=== PATIENT | male | born 1945 | race Two or more races ===

== ENCOUNTER 2017-02-23 09:29 | Emergency (ER) | payer MEDICARE, MEDICAID ==
[~2017-02-23] VITALS: Ht 157.5 cm; Wt 63.5 kg
[2017-02-23] MEDS ORDERED: BACLOFEN10 MG ORAL (09:41)
[2017-02-23] MEDS ORDERED: ATORVASTATIN CA40 MG ORAL (09:41)
[2017-02-23] MEDS ORDERED: ASPIR 8181 MG ORAL (09:41)
[2017-02-23] MEDS ORDERED: VITAMIN D1000 UNI1 IV (09:43)
[2017-02-23] MEDS ORDERED: DOCUSATE SODIU100 MG ORAL (09:43)
[2017-02-23] MEDS ORDERED: CARVEDILOL3.125 MG ORAL (09:43)
[2017-02-23] MEDS ORDERED: SENNA8.6 M2 PO (09:56)
[2017-02-23] MEDS ORDERED: GABAPENTIN100 MG ORAL (09:56)
[2017-02-23] MEDS ORDERED: TYLENOL325 MG ORAL (09:56)
[2017-02-23] MEDS ORDERED: NEPHROVITE1 TAB ORAL (09:56)
[2017-02-23] MEDS ORDERED: FINASTERIDE5 MG ORAL (09:56)
[2017-02-23] MEDS ORDERED: ACETAMINOPHEN500 MG ORAL (09:56)
[2017-02-23] MEDS ORDERED: GLIMEPIRIDE1 MG ORAL (09:56)
[2017-02-23] MEDS ORDERED: FAMOTIDINE20 MG ORAL (09:56)
[2017-02-23] MEDS ORDERED: FUROSEMIDE40 MG/5 ML ORAL (09:56)
[2017-02-23] MEDS ORDERED: ALUM-MAG HYDRO360 ML PO (09:56)
[2017-02-23] MEDS ORDERED: MELATONIN5 M6 PO (09:56)
[2017-02-23] MEDS ORDERED: NORCO 5-325 TA1 EAC1 ORAL (09:56)
[2017-02-23] MEDS ORDERED: UTI-STAT L3875 MG/31 PO (09:56)
[2017-02-23] MEDS ORDERED: FISH OIL 1,0001 EAC5 ORAL (09:56)
[2017-02-23] MEDS ORDERED: Tetanus/Diptheria/Pertussis Vaccine 0.5ml Syr IM ONE (10:30)
--- NOTE | 2017-02-23 10:31 | Emergency Room Report ---
History of Present Illness General Chief Complaint: Laceration Source: Patient, Medical Record, EMS Present Illness HPI 71-year-old male with right ear laceration after accidentally accidentally umping head against dresser drawer multiple hours ago. Patient denies loss of consciousness, vomiting, blurry vision. Denies any other injury. Per review of correction paperwork patient is on aspirin, but no other anticoagulation. Allergies: Coded Allergies: No Known Allergies (Unverified , 02/23/17) Patient History Past Medical History: see triage record, old chart reviewed Past Surgical History: none Pertinent Family History: none Social History: Denies: smoking, alcohol use, drug use Immunizations: UTD Reviewed Nursing Documentation: PMH: Agreed, PSxH: Agreed Nursing Documentation-PMH Hx Cardiac Problems: Yes - CHF Hx Hypertension: Yes Hx Cancer: Yes - Nephrectomy Hx Cerebrovascular Accident: Yes Review of Systems All Other Systems: negative except mentioned in HPI Physical Exam Vital Signs Date Time Temp Pulse Resp B/P (MAP) Pulse Ox O2 Delivery O2 Flow Rate FiO2 02/23/17 09:20 98.1 71 16 191/82 98 Room Air Sp02 EP Interpretation: reviewed, normal General Appearance: normal inspection, well appearing, no apparent distress, alert, GCS 15, non-toxic Head: normocephalic, atraumatic Eyes: bilateral eye PERRL, bilateral eye EOMI ENT: normal ENT inspection, hearing grossly normal, normal voice, other - Right ear: There is a L-shaped linear laceration to the camryn that extends almost to the upper part of the tragus. Laceration is deep. 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 tested, motor strength/tone normal, speech normal Psychiatric: normal inspection, judgement/insight normal, mood/affect normal Skin: normal inspection, normal color, no rash Procedures Laceration/Wound Repair Laceration/Wound Repair #1: Consent: Verbal Wound Location: other - right ear Wound's Depth, Shape: linear, stellate Wound Explored: no foreign body removed Betadine Prep?: Yes Anesthesia: 1% Lidocaine Wound Debrided: minimal Wound Repaired With: sutures Suture Size/Type: 5:0 Number of Sutures: 4 Layer Closure?: Yes Deep Layer Suture Size/Type: 4:0 Number Deep Layer Sutures: 1 Sterile Dressing Applied?: Yes Splint Applied?: No Sling Applied?: No Patient Tolerated: Well Complications: None Laceration/Wound Repair #2: Consent: Verbal Wound Location: other - right earlobe Wound's Depth, Shape: superficial Wound Explored: clean Betadine Prep?: Yes Anesthesia: 1% Lidocaine Wound Debrided: minimal Suture Size/Type: 5:0 Number of Sutures: 2 Layer Closure?: No Sterile Dressing Applied?: Yes Splint Applied?: No Sling Applied?: No Patient Tolerated: Well Complications: None Medical Decision Making Diagnostic Impression: Primary Impression: Ear lobe laceration Qualified Codes: S01.311A - Laceration without foreign body of right ear, initial encounter Additional Impression: Laceration of ear Qualified Codes: S01.311A - Laceration without foreign body of right ear, initial encounter ER Course Patient with 2 lacerations to right ear Status post primary repair in the ER Largest of the lacerations on the camryn needed layer closure CT head negative for acute intracranial hemorrhage or trauma Advise followup return for suture removal in 5-7 days Discharge back to nursing facility Last Vital Signs Date Time Temp Pulse Resp B/P (MAP) Pulse Ox O2 Delivery O2 Flow Rate FiO2 02/23/17 09:20 98.1 71 16 191/82 98 Room Air Status: improved Disposition: [facility] JAVIER HARDY M.D. Feb 23, 2017 10:31
--- NOTE | 2017-02-23 11:29 | Diagnostic Imaging Report ---
Indication: Headache Technique: Contiguous 5 mm thick transaxial imaging of the head obtained in a Siemens Sensation [address] scanner. Soft tissue and bone windows generated. Automatic Exposure Control was utilized. Total Dose length Product (DLP): [address] Dose Index Volume (CTDIvol): 70.38, 0.15 mGy Comparison: none Findings: There is mild prominence of the ventricles, basal cisterns, and cerebral sulci consistent with atrophy. Mild, nonspecific, white matter hypoattenuation is noted throughout the brain consistent with chronic small vessel disease. Small cystic foci noted in the basal ganglia bilaterally, feldman radiata and corpus callosum, likely old small ossicle infarcts. There is no midline shift, edema, acute hemorrhage, mass effect, or abnormal extra-axial fluid collections. Bones and extra osseous soft tissues are unremarkable. Impression: No acute intracranial bleed, mass effect or edema. Multiple old small vessel infarcts Mild atrophy of the brain. Nonspecific white matter hypoattenuation probably due to chronic small vessel disease. The CT scanner at [facility] is accredited by the [employer] and the scans are performed using dose optimization techniques as appropriate to a performed exam including Automatic Exposure control.
[2017-02-23 11:49] VITALS: BP 167/61
[2017-02-23 13:27] VITALS: BP 170/80
== END 2017-02-23 13:32 ==
LOC: EDBD 09:29 → EMR 09:58
DX: S01.311A Laceration without foreign body of right ear, initial encounter (principal); W22.03XA Walked into furniture, initial encounter; Y92.89 Other specified places as the place of occurrence of the external cause; Z23 Encounter for immunization; I11.0 Hypertensive heart disease with heart failure; I50.9 Heart failure, unspecified; Z86.73 Personal history of transient ischemic attack (TIA), and cerebral infarction without residual deficits; Z90.5 Acquired absence of kidney
CPT/HCPCS: 70450; 90471; 90715; 99284

== ENCOUNTER 2017-05-28 11:56 | Inpatient (IN) | payer MEDICAID, MEDICARE ==
[~2017-05-28] VITALS: Ht 157.5 cm; Wt 54.4 kg
[~2017-05-28 11:56] MED LIST: ACETAMINOPHEN500 MG ORAL; ALUM-MAG HYDRO360 ML PO; ASPIR 8181 MG ORAL; ATORVASTATIN CA40 MG ORAL; BACLOFEN10 MG ORAL; CARVEDILOL3.125 MG ORAL; DOCUSATE SODIU100 MG ORAL; FAMOTIDINE20 MG ORAL; FINASTERIDE5 MG ORAL; FISH OIL 1,0001 EAC5 ORAL; FUROSEMIDE40 MG/5 ML ORAL; GABAPENTIN100 MG ORAL; GLIMEPIRIDE1 MG ORAL; MELATONIN5 M6 PO; NEPHROVITE1 TAB ORAL; NORCO 5-325 TA1 EAC1 ORAL; SENNA8.6 M2 PO; TYLENOL325 MG ORAL; UTI-STAT L3875 MG/31 PO; VITAMIN D1000 UNI1 IV
--- NOTE | 2017-05-28 12:40 | Emergency Room Report ---
History of Present Illness General Chief Complaint: Earache Source: Patient, Medical Record, EMS Present Illness HPI Patient is a 71-year-old male present after increased left earache. Patient had been seen for similar symptoms and this could become worse. Patient was noted to have a left ear discharge. Having increased pain. Patient is diabetic. Had noted an increased swelling to the left side of his face. Initial pain occurred approximately 1 week ago Allergies: Coded Allergies: No Known Allergies (Unverified , 02/23/17) Patient History Past Medical History: see triage record Reviewed Nursing Documentation: PMH: Agreed, PSxH: Agreed Nursing Documentation-PMH Past Medical History: No History, Except For Hx Cardiac Problems: Yes - CHF, Anemia Hx Hypertension: Yes Hx Diabetes: Yes Hx Cancer: Yes - Nephrectomy Hx Cerebrovascular Accident: Yes - right dominant side Review of Systems All Other Systems: negative except mentioned in HPI Physical Exam Vital Signs Date Time Temp Pulse Resp B/P (MAP) Pulse Ox O2 Delivery O2 Flow Rate FiO2 05/28/17 12:07 98.3 63 14 136/58 97 Room Air 98.2 Sp02 EP Interpretation: reviewed, normal General Appearance: normal inspection, well appearing, no apparent distress, alert, GCS 15 Head: atraumatic ENT: hearing grossly normal, normal voice, other - perforated left eardrum, slight preauricular swelling Neck: normal inspection, full range of motion, supple, no bony tend Respiratory: normal inspection, lungs clear, normal breath sounds, no respiratory distress, no retraction, no wheezing Cardiovascular #1: regular rate, rhythm, no edema Gastrointestinal: normal inspection, normal bowel sounds, non tender, soft, no guarding, no hernia Genitourinary: no CVA tenderness Musculoskeletal: normal inspection, back normal, normal range of motion Neurologic: normal inspection, alert, responsive, speech normal Psychiatric: normal inspection, judgement/insight normal, mood/affect normal Skin: normal inspection, normal color, no rash Medical Decision Making Diagnostic Impression: Primary Impression: Otitis media, acute with perforation of eardrum Additional Impression: Cellulitis of left ear ER Course Patient presented for ear pain. Differential diagnosis included was not limited to otitis media, malignant otitis externa, foreign body, cellulitis, mastoiditis, carotid dissection, myocardial infarction among others. Patient's exam is consistent with an external otitis which given the patient's failure of outpatient antibiotics would likely require IV medications.Laboratory studies unremarkable. Patient did have increased swelling to his left ear. Patient was noted to have some evidence of external infectionDr. Escobar was contacted for inpatient management due to need for inpatient monitoring and treatment due to primary care physician. Labs Test 05/28/17 12:55 White Blood Count 7.9 K/UL (4.8-10.8) Red Blood Count 4.08 M/UL (4.70-6.10) Hemoglobin 12.5 G/DL (14.2-18.0) Hematocrit 37.1 % (42.0-52.0) Mean Corpuscular Volume 91 FL (80-99) Mean Corpuscular Hemoglobin 30.7 PG (27.0-31.0) Mean Corpuscular Hemoglobin Concent 33.7 G/DL (32.0-36.0) Red Cell Distribution Width 12.8 % (11.6-14.8) Platelet Count 231 K/UL (150-450) Mean Platelet Volume 6.4 FL (6.5-10.1) Neutrophils (%) (Auto) 60.3 % (45.0-75.0) Lymphocytes (%) (Auto) 23.9 % (20.0-45.0) Monocytes (%) (Auto) 11.0 % (1.0-10.0) Eosinophils (%) (Auto) 3.9 % (0.0-3.0) Basophils (%) (Auto) 0.9 % (0.0-2.0) Prothrombin Time 10.1 SEC (9.30-11.50) Prothromb Time International Ratio 1.0 (0.9-1.1) Activated Partial Thromboplast Time 28 SEC (23-33) Sodium Level 137 MMOL/L (136-145) Potassium Level 4.9 MMOL/L (3.5-5.1) Chloride Level 105 MMOL/L (98-107) Carbon Dioxide Level 23 MMOL/L (21-32) Anion Gap 9 mmol/L (5-15) Blood Urea Nitrogen 20 mg/dL (7-18) Creatinine 2.4 MG/DL (0.55-1.30) Estimat Glomerular Filtration Rate mL/min (>60) Glucose Level 165 MG/DL (74-106) Calcium Level 8.2 MG/DL (8.5-10.1) Total Bilirubin 0.2 MG/DL (0.2-1.0) Aspartate Amino Transf (AST/SGOT) 34 U/L (15-37) Alanine Aminotransferase (ALT/SGPT) 50 U/L (12-78) Alkaline Phosphatase 126 U/L (46-116) Total Protein 6.8 G/DL (6.4-8.2) Albumin 3.2 G/DL (3.4-5.0) Globulin 3.6 g/dL Albumin/Globulin Ratio 0.9 (1.0-2.7) Last Vital Signs Date Time Temp Pulse Resp B/P (MAP) Pulse Ox O2 Delivery O2 Flow Rate FiO2 05/28/17 12:07 98.3 63 14 136/58 97 Room Air 98.2 Status: unchanged Disposition: ADMITTED INPATIENT Condition: Eddie Oconnor May 28, 2017 12:40
[2017-05-28 13:20] LABS: BASOPHILS % (AUTO) 0.9 % (0.0-2.0); EOSINOPHILS % (AUTO) 3.9 % (0.0-3.0); HEMATOCRIT 37.1 % (42.0-52.0); HEMOGLOBIN 12.5 G/DL (14.2-18.0); LYMPHOCYTES % (AUTO) 23.9 % (20.0-45.0); MEAN CORPUSCULAR VOLUME 91 FL (80-99); NEUTROPHILS % (AUTO) 60.3 % (45.0-75.0); PLATELET COUNT 231 K/UL (150-450); RED BLOOD COUNT 4.08 M/UL (4.70-6.10); RED CELL DISTRIBUTION WIDTH 12.8 % (11.6-14.8); WHITE BLOOD COUNT 7.9 K/UL (4.8-10.8)
[2017-05-28 13:24] LABS: ANION GAP 9 mmol/L (5-15); BLOOD UREA NITROGEN 20 mg/dL (7-18); CALCIUM 8.2 MG/DL (8.5-10.1); CARBON DIOXIDE 23 MMOL/L (21-32); CHLORIDE 105 MMOL/L (98-107); CREATININE 2.4 MG/DL (0.55-1.30); POTASSIUM 4.9 MMOL/L (3.5-5.1); SODIUM 137 MMOL/L (136-145)
[2017-05-28 13:29] LABS: ALANINE AMINOTRANSFERASE 50 U/L (12-78); ALBUMIN 3.2 G/DL (3.4-5.0); ALBUMIN/GLOBULIN RATIO 0.9 (1.0-2.7); ALKALINE PHOSPHATASE 126 U/L (46-116); ASPARTATE AMINO TRANSFERASE 34 U/L (15-37); BILIRUBIN,TOTAL 0.2 MG/DL (0.2-1.0)
[2017-05-28 14:15] VITALS: BP 143/64
--- NOTE | 2017-05-28 14:18 | Diagnostic Imaging Report ---
Indication: Headache Technique: Contiguous 5 mm thick transaxial imaging of the head obtained in a Siemens Sensation [address] scanner. Soft tissue and bone windows generated. Automatic Exposure Control was utilized. Total Dose length Product (DLP): 1439.[address] Dose Index Volume (CTDIvol): 70.38 mGy Comparison: February 23, 2017 Findings: Old bilateral lacunar infarcts are demonstrated involving the right caudate, and bilateral putamen regions. The findings have a similar appearance on the prior study. There is moderate prominence of the ventricles, basal cisterns, and cerebral sulci consistent with atrophy. Moderate, nonspecific, white matter hypoattenuation is noted throughout the brain consistent with chronic small vessel disease. Extensive vascular calcifications are present within intracranial ICA. There is no midline shift, edema, acute hemorrhage, mass effect, or abnormal extra-axial fluid collections. There is opacification of part of the mastoid air cells on the left side consistent with acute mastoiditis. Impression: No acute intracranial bleed, mass effect or edema. Multiple bilateral basal ganglia lacunar infarcts. These appear old and were present on the prior study. Acute left mastoiditis. Please correlate clinically Moderate atrophy of the brain. Evidence of chronic small vessel disease involving white matter tracts. Atherosclerotic disease The CT scanner at [facility] is accredited by the [employer] and the scans are performed using dose optimization techniques as appropriate to a performed exam including Automatic Exposure control.
[2017-05-28] MEDS ORDERED: MULTIVITAMINS1 EAC2 ORAL (14:37)
[2017-05-28] MEDS ORDERED: NORCO 5-325 TA1 EAC1 ORAL (14:37)
[2017-05-28] MEDS ORDERED: FISH OIL 1,0001 EAC5 ORAL (14:37)
[2017-05-28] MEDS ORDERED: UTI-STAT L3875 MG/31 PO (14:37)
[2017-05-28] MEDS ORDERED: LOSARTAN POTASS50 MG ORAL (14:37)
[2017-05-28 16:30] VITALS: BP 152/61
[2017-05-28 16:56] VITALS: BP 152/77
[2017-05-28] MEDS ORDERED: Norco 5mg/325mg tab ORAL PRN (18:15)
[2017-05-28] MEDS ORDERED: Sennosides 8.6mg ORAL PRN (18:15)
[2017-05-28] MEDS: Losartan 25mg tab ORAL SCH (19:13)
[2017-05-28 19:47] VITALS: BP 152/72
[2017-05-28] MEDS: Ampicillin/Sulbactam Sod 3 GM in NS 110 ML IVPB SCH (20:15)
[2017-05-28] MEDS: Carvedilol 6.25mg Tab ORAL SCH (20:28)
[2017-05-28] MEDS: Atorvastatin 20mg tab ORAL SCH (20:28)
[2017-05-28] MEDS: NovoLOG Insulin Flexpen SUBQ SCH (20:29)
[2017-05-28] MEDS ORDERED: Vancomycin 1 GM in D5W 275 ML IVPB ONE (21:00)
[2017-05-28] MEDS ORDERED: Ampicillin/Sulbactam Sod 3 GM in NS 110 ML IVPB SCH (22:00)
[2017-05-28 23:52] VITALS: BP 129/69
[2017-05-29 04:00] VITALS: BP 138/67
[2017-05-29] MEDS: NovoLOG Insulin Flexpen SUBQ SCH ×4 (06:10→20:25)
[2017-05-29 07:31] LABS: BASOPHILS % (AUTO) 0.6 % (0.0-2.0); EOSINOPHILS % (AUTO) 6.3 % (0.0-3.0); HEMATOCRIT 35.7 % (42.0-52.0); HEMOGLOBIN 12.3 G/DL (14.2-18.0); LYMPHOCYTES % (AUTO) 26.2 % (20.0-45.0); MEAN CORPUSCULAR VOLUME 90 FL (80-99); MONOCYTES % (AUTO) 10.6 % (1.0-10.0); NEUTROPHILS % (AUTO) 56.3 % (45.0-75.0); PLATELET COUNT 231 K/UL (150-450); RED BLOOD COUNT 3.95 M/UL (4.70-6.10); RED CELL DISTRIBUTION WIDTH 12.8 % (11.6-14.8)
[2017-05-29 07:41] VITALS: BP 156/82
[2017-05-29] MEDS: Vitamin D 1000 IU Tab ORAL SCH (08:14)
[2017-05-29] MEDS: Carvedilol 6.25mg Tab ORAL SCH ×2 (08:14→20:24)
[2017-05-29] MEDS: Aspirin Baby 81mg ORAL SCH (08:14)
[2017-05-29] MEDS: Docusate 100mg cap ORAL SCH ×2 (08:15→17:07)
[2017-05-29] MEDS: Losartan 25mg tab ORAL SCH (08:15)
[2017-05-29] MEDS: Enoxaparin 30mg Inj SUBQ SCH (08:19)
[2017-05-29 08:51] LABS: ANION GAP 8 mmol/L (5-15); BLOOD UREA NITROGEN 19 mg/dL (7-18); CALCIUM 8.1 MG/DL (8.5-10.1); CARBON DIOXIDE 23 MMOL/L (21-32); CHLORIDE 105 MMOL/L (98-107); CHOLESTEROL 110 MG/DL (< 200); CREATININE 2.3 MG/DL (0.55-1.30); HDL CHOLESTEROL 59 MG/DL (40-60); POTASSIUM 4.7 MMOL/L (3.5-5.1); SODIUM 135 MMOL/L (136-145); TRIGLYCERIDES 46 MG/DL (30-150)
[2017-05-29] MEDS: Ampicillin/Sulbactam Sod 3 GM in NS 110 ML IVPB SCH ×2 (09:23→20:25)
[2017-05-29 12:00] VITALS: BP 120/76
--- NOTE | 2017-05-29 12:54 | History & Physical ---
History and Physical History & Physicial seen and examined. Dict completed. Tara Escobar MD May 29, 2017 12:54
--- NOTE | 2017-05-29 12:59 | General Progress Note ---
Assessment/Plan Status: stable Assessment/Plan 1- Acute Left mastoiditis 2- DM 3- CVA- history of 4- HTN 5- HLP 6- CKD Plan ID nephro ENT consulted Subjective ROS Limited/Unobtainable: No Constitutional: Reports: malaise HEENT: Reports: ear pain Allergies: Coded Allergies: No Known Allergies (Unverified , 02/23/17) Objective Last 24 Hour Vital Signs Date Time Temp Pulse Resp B/P (MAP) Pulse Ox O2 Delivery O2 Flow Rate FiO2 05/29/17 08:15 156/82 05/29/17 08:14 73 156/82 05/29/17 07:41 98.2 73 18 156/82 98 Room Air 98.2 05/29/17 04:00 98.2 87 21 138/67 98 98.2 05/29/17 00:00 Room Air 05/28/17 23:52 98.1 84 18 129/69 98 98.1 05/28/17 20:28 71 152/72 05/28/17 20:00 Room Air 05/28/17 19:47 98.6 71 18 152/72 97 98.6 05/28/17 19:13 152/77 05/28/17 16:56 98.1 76 20 152/77 96 Room Air 98.1 05/28/17 16:37 98.9 77 20 152/61 99 Room Air 98.9 05/28/17 16:30 98.9 77 20 152/61 99 Room Air 98.9 05/28/17 14:15 98.2 64 13 143/64 100 Room Air 98.2 Intake and Output 05/28/17 05/29/17 19:00 07:00 Intake Total 480 ml 505.000 ml Output Total 200 ml 800 ml Balance 280 ml -295.000 ml Intake Oral 480 ml 120 ml IV Total 385.000 ml Output Urine Total 200 ml 800 ml # Voids 2 3 Laboratory Tests 05/28/17 12:55: White Blood Count 7.9, Red Blood Count 4.08L, Hemoglobin 12.5L, Hematocrit 37.1L , Mean Corpuscular Volume 91, Mean Corpuscular Hemoglobin 30.7, Mean Corpuscular Hemoglobin Concent 33.7, Red Cell Distribution Width 12.8, Platelet Count 231, Mean Platelet Volume 6.4L, Neutrophils (%) (Auto) 60.3, Lymphocytes ( %) (Auto) 23.9, Monocytes (%) (Auto) 11.0H, Eosinophils (%) (Auto) 3.9H, Basophils (%) (Auto) 0.9, Prothrombin Time 10.1, Prothromb Time International Ratio 1.0, Activated Partial Thromboplast Time 28, Sodium Level 137, Potassium Level 4.9, Chloride Level 105, Carbon Dioxide Level 23, Anion Gap 9, Blood Urea Nitrogen 20H, Creatinine 2.4H, Estimat Glomerular Filtration Rate , Glucose Level 165H, Calcium Level 8.2L, Total Bilirubin 0.2, Aspartate Amino Transf (AST /SGOT) 34, Alanine Aminotransferase (ALT/SGPT) 50, Alkaline Phosphatase 126H, Total Protein 6.8, Albumin 3.2L, Globulin 3.6, Albumin/Globulin Ratio 0.9L 05/29/17 05:40: White Blood Count 7.0, Red Blood Count 3.95L, Hemoglobin 12.3L, Hematocrit 35.7L , Mean Corpuscular Volume 90, Mean Corpuscular Hemoglobin 31.2H, Mean Corpuscular Hemoglobin Concent 34.5, Red Cell Distribution Width 12.8, Platelet Count 231, Mean Platelet Volume 6.7, Neutrophils (%) (Auto) 56.3, Lymphocytes (% ) (Auto) 26.2, Monocytes (%) (Auto) 10.6H, Eosinophils (%) (Auto) 6.3H, Basophils (%) (Auto) 0.6, Sodium Level 135L, Potassium Level 4.7, Chloride Level 105, Carbon Dioxide Level 23, Anion Gap 8, Blood Urea Nitrogen 19H, Creatinine 2.3H, Estimat Glomerular Filtration Rate , Glucose Level 95, Calcium Level 8.1L, Hemoglobin A1c 7.5H, Triglycerides Level 46, Cholesterol Level 110, LDL Cholesterol 53, HDL Cholesterol 59, Cholesterol/HDL Ratio 1.9L Height (Feet): 5 Height (Inches): 2.00 Weight (Pounds): 120 EENT: other - LEf Neck: supple Cardiovascular: normal rate Respiratory/Chest: lungs clear Abdomen: soft Extremities: non-tender Neurologic: other - limited evaluation Tara Escobar MD May 29, 2017 12:59
[2017-05-29 13:31] LABS: APPEARANCE,URINE CLEAR; BILIRUBIN, URINE NEGATIVE (NEGATIVE); COLOR,URINE PALE YELLOW; GLUCOSE, URINE (UA) NEGATIVE (NEGATIVE); KETONES,URINE NEGATIVE (NEGATIVE); LEUKOCYTE ESTERASE ,URINE NEGATIVE (NEGATIVE); NITRITE,URINE NEGATIVE (NEGATIVE); PH,URINE 6 (4.5-8.0); PROTEIN,URINE 3+ (NEGATIVE); UROBILINOGEN,URINE NORMAL MG/DL (0.0-1.0)
--- NOTE | 2017-05-29 14:28 | Wound Care Consultation ---
Wound Assessment Wound Assessment : Wound Number: 1 Wound Present on Admission: Yes New Wound: No Status Change of Wound: No Wound Location Body Site Modif: left, lateral Wound Location Body Site: toe - TOE NAIL DRY SCAB Wound Length: 0.5 Wound Width: 0.5 Percent of Wound Black/Brown: 100 - Dry scab Wound Drainage Amount: None Wound Drainage Odor: None/Absent Tissue Surrounding Wound: Intact Wound General Appearance: Open to air, Clean/Dry Wound Comment #1 left lateral 1st toenail dry scab per patient this area was previously treated he had an ingrown toe nail and was seen by podiatry doctor elsewhere to cut ingrown toe nail and it had gotten better since its healing, drying up. upon assessment noted dry scab no drainage , no foul odor, no redness, no erythema present, no swelling present Recommendation -Keep clean and dry, -Assess daily for any further change of condition to skin and follow up with MD, PODIATRY. -Offload area. -Follow up with MD for any changes of condition to skin noted. JOSÉ MIGUEL BASILIO May 29, 2017 14:28
--- NOTE | 2017-05-29 14:46 | Consultation ---
Consult Note Consult Note ID DIC # [id number] CASEY MONTEMAYOR M.D. May 29, 2017 14:46
[2017-05-29 16:00] VITALS: BP 150/74
[2017-05-29 20:00] VITALS: BP 143/71
[2017-05-29] MEDS: Atorvastatin 20mg tab ORAL SCH (20:24)
[2017-05-29] MEDS ORDERED: Vancomycin 500mg in D5W 275ml IVPB SCH (21:00)
--- NOTE | 2017-05-29 22:15 | Consultation ---
DATE OF CONSULTATION: 05/29/2017 INFECTIOUS DISEASE CONSULTATION CONSULTING PHYSICIAN: Toan Farley M.D. REFERRING PHYSICIAN: Tara Escobar M.D. REASON FOR CONSULTATION: Evaluation of the patient for otitis media, antibiotic management. HISTORY OF PRESENT ILLNESS: The patient is a 71-year-old male with multiple medical problems, who was admitted to this medical center due to the left earache which started few days ago after the patient took shower and felt there is some water in his ear. The patient has perforation of the tympanic membrane after that developed some drainage. Infectious diseases consultation has been requested for further evaluation of the patient and antibiotic management. PAST MEDICAL HISTORY: 1. History of CVA with right-sided weakness. 2. CHF. 3. Hyperlipidemia. 4. Hypertension. 5. GERD. 6. History of right nephrectomy due to cancer. 7. Diabetes. 8. Anemia. MEDICATIONS: The patient received one dose of Unasyn in the emergency room. ALLERGIES: No known drug allergies. SOCIAL HISTORY: Negative for alcohol, drug abuse, or smoking. FAMILY HISTORY: Noncontributory. REVIEW OF SYSTEMS: HEENT: No recent change in vision. Ear as mentioned above. PULMONARY: No cough or shortness of breath. CARDIOVASCULAR: No chest pain or palpitation. GASTROINTESTINAL/ABDOMEN: No nausea or vomiting. GENITOURINARY: No mentioned above. PHYSICAL EXAMINATION: VITAL SIGNS: Temperature 98, blood pressure 156/82, pulse 73, respiratory rate 18. HEENT: The patient has perforated tympanic membrane of left ear. Minimal drainage in the ear. NECK: No lymphadenopathy. CHEST: Clear. HEART: S1 and S2. ABDOMEN: Soft and nontender. EXTREMITIES: No cyanosis. NEUROLOGIC: Awake and alert. The patient has right-sided weakness. LABORATORY AND DIAGNOSTIC DATA: White blood cells 7, hemoglobin 12, platelets 231. UA unremarkable. BUN 19 and creatinine 2.3. ALT and AST unremarkable. Alkaline phosphatase 126. CT of the head no acute intracranial bleed, bilateral basilar ganglia lacunar infarct, left-sided mastoiditis. ASSESSMENT: The patient is 71-year-old male with multiple medical problems who has: 1. Left-sided mastoiditis. 2. Left otitis media. 3. Perforated tympanic membrane. PLAN: 1. We will start patient on Levaquin 750 mg for one week. 2. Monitor CBC. 3. Monitor BMP. 4. Monitor cultures. 5. Monitor the patient's clinical course. 6. Based on the patient's clinical course and labs, we do further recommendations. Thank you, Dr. Escobar, for allowing me to participate in the care of this patient. I will follow the patient with you during this hospitalization. Toan Farley M.D. DR: Chas JOB#: [id number] CC:
[2017-05-30] VITALS: BP 132/71
--- NOTE | 2017-05-30 00:30 | History and Physical Report ---
DATE OF ADMISSION: 05/28/2017 SOURCE OF INFORMATION: Patient and EMR. HISTORY OF PRESENT ILLNESS: The patient is a pleasant 71-year-old male with a prior history of diabetes and heart failure. The patient presented with the pain and worsening excretion from the left ear. At the time of evaluation, the patient is complaining of moderate pain. Denies any fever or chills. Denies any trauma. Denies any blurry vision. Complaining of decrease in the hearing of the left ear. PAST MEDICAL HISTORY: Diabetes, hypertension, CHF, anemia, chronic kidney disease, CVA, history of (right dominant side). CURRENT HOSPITAL MEDICATIONS: Reviewed and reconciled in the chart including, but not limited to, Unasyn, aspirin, Lipitor 40 mg daily, Coreg 6.25 mg b.i.d., Lasix 20 mg IV twice a day, gabapentin, sliding scale insulin, and Cozaar. ALLERGIES: NKDA. FAMILY HISTORY: Reviewed, noncontributory. REVIEW OF SYSTEMS: All 12 elements of review of systems reviewed. Pertinent positive and negative as above. PHYSICAL EXAMINATION: VITAL SIGNS: Blood pressure is 120/80, temperature 98.2, pulse oximetry 98% on room air, and respiratory rate 18-20. HEAD AND NECK: Atraumatic and normocephalic. Positive for the pain and tenderness overlying left mastoid sinus. Positive for minimal redness in the external auditory meatus. CHEST: Clear to auscultation. No wheezing. No crackles. HEART: S1 and S2. Regular rate and rhythm. ABDOMEN: Soft. No organomegaly. MUSCULOSKELETAL: Negative for any gross abnormal lateralized motor deficit. NEUROLOGIC: The patient is awake, alert, and oriented x3. LABORATORY AND DIAGNOSTIC DATA: Labs dated 05/28/2017 shows WBC of 7.9, hemoglobin 12.5, and platelets of 231,000. Sodium 137, potassium 4.9, BUN 20, and creatinine 2. ALT and AST normal. CT scan of the head is negative for any acute pathology. Positive for the acute left mastoiditis. ASSESSMENT: 1. Acute left-sided mastoiditis. 2. Chronic kidney disease. 3. Hypertension. 4. Diabetes type 2. 5. Cerebrovascular accident, history of. 6. Benign prostatic hypertrophy. 7. Gastrointestinal and deep venous thrombosis prophylaxis. PLAN OF CARE: We will resume the senior care medications. We will start empiric antibiotics therapy, Unasyn plus vancomycin. Infectious and Nephrology Services have been consulted and notified. Excretion has been sent for the cultures. Tara Escobar M.D. DR: RADHA JOB#: [id number] CC:
[2017-05-30 04:00] VITALS: BP 151/61
[2017-05-30] MEDS: NovoLOG Insulin Flexpen SUBQ SCH ×4 (06:24→22:01)
[2017-05-30 07:11] LABS: BASOPHILS % (AUTO) 1.1 % (0.0-2.0); EOSINOPHILS % (AUTO) 7.7 % (0.0-3.0); HEMATOCRIT 36.4 % (42.0-52.0); HEMOGLOBIN 12.7 G/DL (14.2-18.0); LYMPHOCYTES % (AUTO) 32.3 % (20.0-45.0); MEAN CORPUSCULAR VOLUME 90 FL (80-99); MONOCYTES % (AUTO) 9.8 % (1.0-10.0); NEUTROPHILS % (AUTO) 49.1 % (45.0-75.0); PLATELET COUNT 224 K/UL (150-450); RED BLOOD COUNT 4.04 M/UL (4.70-6.10); RED CELL DISTRIBUTION WIDTH 12.5 % (11.6-14.8); WHITE BLOOD COUNT 5.6 K/UL (4.8-10.8)
[2017-05-30 07:46] LABS: ANION GAP 9 mmol/L (5-15); BLOOD UREA NITROGEN 25 mg/dL (7-18); CALCIUM 8.3 MG/DL (8.5-10.1); CARBON DIOXIDE 22 MMOL/L (21-32); CHLORIDE 104 MMOL/L (98-107); CREATININE 2.6 MG/DL (0.55-1.30); POTASSIUM 4.6 MMOL/L (3.5-5.1); SODIUM 135 MMOL/L (136-145)
[2017-05-30 08:32] VITALS: BP 134/68
[2017-05-30] MEDS: Docusate 100mg cap ORAL SCH ×2 (09:01→17:15)
[2017-05-30] MEDS: Carvedilol 6.25mg Tab ORAL SCH ×2 (09:01→22:13)
[2017-05-30] MEDS: Vitamin D 1000 IU Tab ORAL SCH (09:01)
[2017-05-30] MEDS: Aspirin Baby 81mg ORAL SCH (09:01)
[2017-05-30] MEDS: Losartan 25mg tab ORAL SCH (09:02)
[2017-05-30] MEDS: Enoxaparin 30mg Inj SUBQ SCH (09:03)
[2017-05-30] MEDS: Ampicillin/Sulbactam Sod 3 GM in NS 110 ML IVPB SCH (09:18)
--- NOTE | 2017-05-30 10:30 | General Progress Note ---
Assessment/Plan Status: stable Assessment/Plan 1. Acute left-sided mastoiditis. 2. Chronic kidney disease. 3. Hypertension. 4. Diabetes type 2. 5. Cerebrovascular accident, history of. 6. Benign prostatic hypertrophy. 7. Gastrointestinal and deep venous thrombosis prophylaxis. Plan Notes from ID, ENT reviewed Current IV antibiotic management. Subjective ROS Limited/Unobtainable: No Constitutional: Reports: weakness HEENT: Reports: no symptoms Cardiovascular: Reports: no symptoms Allergies: Coded Allergies: No Known Allergies (Unverified , 02/23/17) Objective Last 24 Hour Vital Signs Date Time Temp Pulse Resp B/P (MAP) Pulse Ox O2 Delivery O2 Flow Rate FiO2 05/30/17 09:02 134/68 05/30/17 09:01 84 134/68 05/30/17 08:32 98.4 84 20 134/68 96 98.4 05/30/17 04:00 Room Air 05/30/17 04:00 98.3 80 18 151/61 95 98.3 05/30/17 00:35 Room Air 05/30/17 00:00 98.2 73 18 132/71 95 98.2 05/29/17 20:24 83 143/71 05/29/17 20:00 98.2 81 20 143/71 97 Room Air 98.2 05/29/17 16:00 98.4 81 18 150/74 95 Room Air 98.4 05/29/17 12:00 97.5 86 18 120/76 99 97.5 Intake and Output 05/29/17 05/30/17 19:00 07:00 Intake Total 1040 ml 805 ml Output Total 600 ml 1900 ml Balance 440 ml -1095 ml Intake Oral 620 ml 420 ml IV Total 420 ml 385 ml Output Urine Total 600 ml 1900 ml # Voids 2 Laboratory Tests 05/29/17 13:00: Urine Color Pale yellow, Urine Appearance Clear, Urine pH 6, Urine Specific [place] 1.010, Urine Protein 3+H, Urine Glucose (UA) Negative, Urine Ketones Negative, Urine Occult Blood Negative, Urine Nitrite Negative, Urine Bilirubin Negative, Urine Urobilinogen Normal, Urine Leukocyte Esterase Negative, Urine RBC 0, Urine WBC 0-2, Urine Squamous Epithelial Cells Occasional, Urine Bacteria None 05/30/17 05:15: White Blood Count 5.6, Red Blood Count 4.04L, Hemoglobin 12.7L, Hematocrit 36.4L , Mean Corpuscular Volume 90, Mean Corpuscular Hemoglobin 31.4H, Mean Corpuscular Hemoglobin Concent 34.8, Red Cell Distribution Width 12.5, Platelet Count 224, Mean Platelet Volume 6.5, Neutrophils (%) (Auto) 49.1, Lymphocytes (% ) (Auto) 32.3, Monocytes (%) (Auto) 9.8, Eosinophils (%) (Auto) 7.7H, Basophils (%) (Auto) 1.1, Sodium Level 135L, Potassium Level 4.6, Chloride Level 104, Carbon Dioxide Level 22, Anion Gap 9, Blood Urea Nitrogen 25H, Creatinine 2.6H, Estimat Glomerular Filtration Rate , Glucose Level 78, Calcium Level 8.3L Height (Feet): 5 Height (Inches): 2.00 Weight (Pounds): 120 General Appearance: WD/WN EENT: other - mild erythma in left ext canal meatus Neck: supple Cardiovascular: normal rate Respiratory/Chest: lungs clear Abdomen: soft Extremities: non-tender 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
[2017-05-30 11:46] VITALS: BP 146/72
[2017-05-30 12:39] LABS: PHOSPHORUS 3.6 MG/DL (2.5-4.9)
--- NOTE | 2017-05-30 15:30 | Diagnostic Imaging Report ---
Indication: History of right nephrectomy for cancer in 2012. Elevated BUN/creatinine. Renal failure. Technique: Grayscale and duplex Doppler imaging of the kidneys performed. Comparison: None Findings: Urinary bladder is unremarkable in appearance. IVC is unremarkable. Right kidney is absent. There are multiple cysts within the left kidney. Left kidney measures about 11 cm in length. There is no hydronephrosis. Cortical echogenicity is within normal limits. IMPRESSION: Cysts demonstrated within the left kidney. No evidence of obstructive nephropathy. Status post right nephrectomy
[2017-05-30 16:46] VITALS: BP 166/74
[2017-05-30] MEDS ORDERED: NS 275ml ONE (17:53)
--- NOTE | 2017-05-30 18:18 | Consultation ---
History of Present Illness General Date patient seen: May 29, 2017 Chief Complaint: Earache Present Illness HPI 71-year-old male with a prior history of diabetes and heart failure, presented with the pain of left ear. the pt is scottish speaking and pw depressed mood, anhedonia, insomnia and anxiety/ the pt was tearful during the exam abd stated that he is not sleeping and lost his appetite. also he stated that he is afraid to lose his kidney. he has si at times without plans Allergies: Coded Allergies: No Known Allergies (Unverified , 02/23/17) Medication History Scheduled Acetaminophen* (Tylenol Extra Strength*), 1,000 MG ORAL Q4HR, (Reported) Aspirin* (Aspir 81*), 81 MG ORAL DAILY, (Reported) Atorvastatin Calcium* (Atorvastatin Calcium*), 40 MG ORAL BEDTIME, (Reported) Baclofen* (Baclofen*), 5 MG ORAL BEDTIME, (Reported) Carvedilol* (Carvedilol*), 3.125 MG ORAL EVERY 12 HOURS, (Reported) Cholecalciferol (Vitamin D3)* (Vitamin D*), 1,000 UNIT IV DAILY, (Reported) Cran/Vitc/Mannose/Inulin/Brom (Uti-Stat Liquid), 3,875 MG PO DAILY, (Reported) Docusate Sodium* (Docusate Sodium*), 100 MG ORAL TWICE A DAY, (Reported) Famotidine (Famotidine), 20 MG ORAL TWICE A DAY, (Reported) Finasteride (Finasteride), 5 MG ORAL DAILY, (Reported) Furosemide (Furosemide), 20 MG ORAL BID, (Reported) Gabapentin* (Gabapentin*), 200 MG ORAL BID, (Reported) Glimepiride* (Glimepiride*), 1 MG ORAL BEFORE BREAKFAST, (Reported) Losartan Potassium* (Losartan Potassium*), 50 MG ORAL DAILY, (Reported) Mag Hydrox/Al Hydrox/Simeth (Alum-Mag Hydroxide-Simeth Liq), 30 ML PO EVERY 4 HOURS, (Reported) Multivitamins* (Multivitamins*), 1 TAB ORAL DAILY, (Reported) [place]-3 Fatty Acids/Fish Oil (Fish Oil 1,000 Mg Capsule), 1,000 MG ORAL DAILY, ( Reported) [place]-3 Fatty Acids/Fish Oil (Fish Oil 1,000 Mg Capsule), 1 CAP ORAL DAILY, ( Reported) Sennosides (Senna), 8.6 MG PO BEDTIME, (Reported) Vitamin B Cmplx/Vit C/Folic AC (Nephro-Chantel Tablet), 1 TAB ORAL DAILY, (Reported ) Scheduled PRN Acetaminophen (Tylenol), 650 MG ORAL Q4HR PRN for Prn Pain/Headache/Temp > 101, (Reported) Hydrocodone Bit/Acetaminophen 5-325* ([place] 5-325 Tablet*), 1 TAB ORAL Q4H PRN for For Pain, (Reported) Hydrocodone Bit/Acetaminophen 5-325* ([place] 5-325 Tablet*), 1 TAB ORAL Q4H PRN for For Pain, (Reported) Miscellaneous Medications Cran/Vitc/Mannose/Inulin/Brom (Uti-Stat Liquid), 3,875 MG PO, (Reported) Melatonin (Melatonin), 5 MG PO, (Reported) Patient History Limited by: medical condition History Provided By: Patient, Medical Record, PMD Healthcare decision maker Resuscitation status Full Code Advanced Directive on File Past Medical/Surgical History Past Medical/Surgical History: (1) Otitis media, acute with perforation of eardrum (2) Cellulitis of left ear Review of Systems Psychiatric: Reports: prior hx, anxiety, depressed feelings, emotional problems Physical Exam General Appearance: no apparent distress, alert Neurologic: oriented x 3, responsive, depressed affect Last 24 Hour Vital Signs Date Time Temp Pulse Resp B/P (MAP) Pulse Ox O2 Delivery O2 Flow Rate FiO2 05/30/17 16:46 99.0 71 20 166/74 93 Room Air 99.0 05/30/17 11:46 98.4 72 20 146/72 97 98.4 05/30/17 09:02 134/68 05/30/17 09:01 84 134/68 05/30/17 08:32 98.4 84 20 134/68 96 98.4 05/30/17 04:00 Room Air 05/30/17 04:00 98.3 80 18 151/61 95 98.3 05/30/17 00:35 Room Air 05/30/17 00:00 98.2 73 18 132/71 95 98.2 05/29/17 20:24 83 143/71 05/29/17 20:00 98.2 81 20 143/71 97 Room Air 98.2 Intake and Output 05/29/17 05/30/17 19:00 07:00 Intake Total 1040 ml 805 ml Output Total 600 ml 1900 ml Balance 440 ml -1095 ml Intake Oral 620 ml 420 ml IV Total 420 ml 385 ml Output Urine Total 600 ml 1900 ml # Voids 2 Laboratory Tests Test 05/30/17 05:15 05/30/17 15:30 White Blood Count 5.6 K/UL (4.8-10.8) Red Blood Count 4.04 M/UL (4.70-6.10) L Hemoglobin 12.7 G/DL (14.2-18.0) L Hematocrit 36.4 % (42.0-52.0) L Mean Corpuscular Volume 90 FL (80-99) Mean Corpuscular Hemoglobin 31.4 PG (27.0-31.0) H Mean Corpuscular Hemoglobin Concent 34.8 G/DL (32.0-36.0) Red Cell Distribution Width 12.5 % (11.6-14.8) Platelet Count 224 K/UL (150-450) Mean Platelet Volume 6.5 FL (6.5-10.1) Neutrophils (%) (Auto) 49.1 % (45.0-75.0) Lymphocytes (%) (Auto) 32.3 % (20.0-45.0) Monocytes (%) (Auto) 9.8 % (1.0-10.0) Eosinophils (%) (Auto) 7.7 % (0.0-3.0) H Basophils (%) (Auto) 1.1 % (0.0-2.0) Sodium Level 135 MMOL/L (136-145) L Potassium Level 4.6 MMOL/L (3.5-5.1) Chloride Level 104 MMOL/L (98-107) Carbon Dioxide Level 22 MMOL/L (21-32) Anion Gap 9 mmol/L (5-15) Blood Urea Nitrogen 25 mg/dL (7-18) H Creatinine 2.6 MG/DL (0.55-1.30) H Estimat Glomerular Filtration Rate mL/min (>60) Glucose Level 78 MG/DL (74-106) Uric Acid 5.1 MG/DL (2.6-7.2) Calcium Level 8.3 MG/DL (8.5-10.1) L Phosphorus Level 3.6 MG/DL (2.5-4.9) Magnesium Level 2.3 MG/DL (1.8-2.4) C-Reactive Protein, Quantitative 1.2 mg/dL (0.00-0.90) H Thyroid Stimulating Hormone (TSH) 3.749 uiU/mL (0.358-3.740) Urine Random Sodium 51 mmol/L (20-110) Height (Feet): 5 Height (Inches): 2.00 Weight (Pounds): 120 Medications Current Medications Medications (Trade) Dose Ordered Sig/Jared Route PRN Reason Start Time Stop Time Status Last Admin Dose Admin Acetaminophen (Tylenol) 650 mg Q4H PRN ORAL Mild Pain/Temp > 100.5 05/28/17 18:15 06/27/17 18:14 Acetaminophen/ Hydrocodone Bitart ([place] 5/325) 1 tab Q4H PRN ORAL Moderate Pain (Pain Scale 4-6) 05/28/17 18:15 06/04/17 18:14 05/29/17 05:51 Al Hydroxide/Mg Hydroxide (Mylanta) 30 ml Q4H PRN ORAL Abdominal cramps 05/28/17 18:15 06/27/17 18:14 Ampicillin Sodium/ Sulbactam Sodium 3 gm/Sodium Chloride 110 ml @ 220 mls/hr Q12HR IVPB 05/28/17 20:00 06/04/17 19:59 05/30/17 09:18 Aspirin (ASA) 81 mg DAILY ORAL 05/29/17 09:00 06/28/17 08:59 05/30/17 09:01 Atorvastatin Calcium (Lipitor) 40 mg BEDTIME ORAL 05/28/17 21:00 06/27/17 20:59 05/29/17 20:24 Baclofen (Lioresal) 5 mg BEDTIME ORAL 05/28/17 21:00 06/27/17 20:59 05/29/17 20:23 Carvedilol (Coreg) 6.25 mg EVERY 12 HOURS ORAL 05/28/17 21:00 06/27/17 20:59 05/30/17 09:01 Dextrose (Dextrose 50%) STAT PRN IV Hypoglycemia 05/28/17 18:15 06/27/17 18:14 Docusate Sodium (Colace) 100 mg TWICE A DAY ORAL 05/29/17 09:00 06/28/17 08:59 05/30/17 17:15 Enoxaparin Sodium (Lovenox) 30 mg DAILY SUBQ 05/29/17 09:00 06/28/17 08:59 05/30/17 09:03 Famotidine (Pepcid) 20 mg DAILY ORAL 05/29/17 09:00 06/28/17 08:59 05/30/17 09:01 Finasteride (Proscar) 5 mg DAILY ORAL 05/29/17 09:00 06/28/17 08:59 05/30/17 09:01 Fish Oil (Fish Oil) 1,000 mg TWICE A DAY ORAL 05/29/17 09:00 06/28/17 08:59 05/30/17 17:14 Furosemide (Lasix) 20 mg EVERY 12 HOURS ORAL 05/28/17 21:00 06/27/17 20:59 05/30/17 09:02 Gabapentin (Neurontin) 200 mg TWICE A DAY ORAL 05/29/17 09:00 06/28/17 08:59 05/30/17 17:14 Insulin Aspart (NovoLOG) BEFORE MEALS AND HS SUBQ 05/28/17 21:00 06/27/17 20:59 05/30/17 12:07 Levofloxacin 150 ml @ 100 mls/hr Q48H IVPB 05/29/17 16:00 06/05/17 23:59 05/29/17 17:13 Losartan Potassium (Cozaar) 25 mg DAILY ORAL 05/28/17 19:00 06/27/17 18:59 05/30/17 09:02 Multivitamins (Multivitamins) 1 tab DAILY ORAL 05/29/17 09:00 06/28/17 08:59 05/30/17 09:01 Sennosides (Senokot) 1 tab HSPRN PRN ORAL Constipation 05/28/17 18:15 06/27/17 18:14 Vancomycin HCl (Vanco rx to dose) 1 ea DAILYPRN PRN MISC RX TO DOSE PROTOCOL 05/29/17 16:30 06/28/17 16:29 Vancomycin HCl 500 mg/Dextrose 275 ml @ 275 mls/hr Q24H IVPB 05/29/17 21:00 06/03/17 20:59 05/29/17 21:14 Vitamin D (Vitamin D) 1,000 intlu DAILY ORAL 05/29/17 09:00 06/28/17 08:59 05/30/17 09:01 Assessment/Plan Status: stable Assessment/Plan mdd remeron `15mg qhs Nely Helm M.D. May 30, 2017 18:18
--- NOTE | 2017-05-30 18:21 | General Progress Note ---
Assessment/Plan Status: stable, progressing Assessment/Plan mdd remeron mg qhs Subjective Date patient seen: May 30, 2017 Neurologic/Psychiatric: Reports: anxiety, depressed, Denies: emotional problems Allergies: Coded Allergies: No Known Allergies (Unverified , 02/23/17) Objective Last 24 Hour Vital Signs Date Time Temp Pulse Resp B/P (MAP) Pulse Ox O2 Delivery O2 Flow Rate FiO2 05/30/17 16:46 99.0 71 20 166/74 93 Room Air 99.0 05/30/17 11:46 98.4 72 20 146/72 97 98.4 05/30/17 09:02 134/68 05/30/17 09:01 84 134/68 05/30/17 08:32 98.4 84 20 134/68 96 98.4 05/30/17 04:00 Room Air 05/30/17 04:00 98.3 80 18 151/61 95 98.3 05/30/17 00:35 Room Air 05/30/17 00:00 98.2 73 18 132/71 95 98.2 05/29/17 20:24 83 143/71 05/29/17 20:00 98.2 81 20 143/71 97 Room Air 98.2 Intake and Output 05/29/17 05/30/17 19:00 07:00 Intake Total 1040 ml 805 ml Output Total 600 ml 1900 ml Balance 440 ml -1095 ml Intake Oral 620 ml 420 ml IV Total 420 ml 385 ml Output Urine Total 600 ml 1900 ml # Voids 2 Laboratory Tests 05/30/17 05:15: White Blood Count 5.6, Red Blood Count 4.04L, Hemoglobin 12.7L, Hematocrit 36.4L , Mean Corpuscular Volume 90, Mean Corpuscular Hemoglobin 31.4H, Mean Corpuscular Hemoglobin Concent 34.8, Red Cell Distribution Width 12.5, Platelet Count 224, Mean Platelet Volume 6.5, Neutrophils (%) (Auto) 49.1, Lymphocytes (% ) (Auto) 32.3, Monocytes (%) (Auto) 9.8, Eosinophils (%) (Auto) 7.7H, Basophils (%) (Auto) 1.1, Sodium Level 135L, Potassium Level 4.6, Chloride Level 104, Carbon Dioxide Level 22, Anion Gap 9, Blood Urea Nitrogen 25H, Creatinine 2.6H, Estimat Glomerular Filtration Rate , Glucose Level 78, Uric Acid 5.1, Calcium Level 8.3L, Phosphorus Level 3.6, Magnesium Level 2.3, C-Reactive Protein, Quantitative 1.2H, Thyroid Stimulating Hormone (TSH) 3.749H 05/30/17 15:30: Urine Random Sodium 51 Height (Feet): 5 Height (Inches): 2.00 Weight (Pounds): 120 General Appearance: no apparent distress, alert Neurologic: alert, oriented x 3, responsive, depressed affect Nely Helm M.D. May 30, 2017 18:21
--- NOTE | 2017-05-30 18:30 | Consultation ---
DATE OF CONSULTATION: 05/30/2017 REQUESTING PHYSICIAN: Tara Escobar M.D. CONSULTING PHYSICIAN: Zenon Swann M.D. INDICATION FOR CONSULTATION: The patient admitted on 05/28/2017 with middle ear infection and cellulitis of the auricle-left ear. He was started on vancomycin and Zofran, appears to be responding. His past medical history is significant for hemiplegia and hemiparesis on the right side, right nephrectomy for malignant neoplasm and acute kidney failure, and ataxia. CT scan that was done on 05/28/2017 indicates acute left mastoiditis, otherwise, normal. PAST MEDICAL HISTORY: Diabetes, hypertension, congestive heart failure, anemia, chronic kidney disease, and CVA, which is on the right side. MEDICATIONS: Include vancomycin, levofloxacin, vitamin D, famotidine, Colace, Proscar, fish oil, Neurontin, Lovenox, Lipitor, baclofen, Coreg, Lasix, NovoLog, Augmentin, Cozaar, Mylanta, senna, Senokot, dextrose, and acetaminophen. ALLERGIES: No known drug allergies. PHYSICAL EXAMINATION: VITAL SIGNS: He is 157.48 cm, 54.31 kg, BSA 1.54, BMI 21.9 kg/m2. HEENT: Head is normocephalic. Eyes, PERRLA. EOMI. Mouth, grossly normal. Right ear normal. Left ear, no mastoid tenderness today and there is some erythema of his eardrum. Canal was normal. NECK: No palpable masses. He is conversant. ASSESSMENT: Left mastoiditis, cellulitis seems to resolve. PLAN: He is okay to be treated as an outpatient on oral medication. He should do just fine on ciprofloxacin and he has followup in my office next week, is the office phone number or he can see private ENT if he has one already. Thank very much for asking my opinion in the care and treatment of this patient. Zenon Swann M.D. DR: CHA JOB#: [id number] CC: FRANC
[2017-05-30 19:50] VITALS: BP 156/72
--- NOTE | 2017-05-30 21:31 | Infectious Diseases Prog Note ---
Assessment/Plan Assessment/Plan ASSESSMENT: The patient is 71-year-old male with Left-sided mastoiditis. Left otitis media. Perforated tympanic membrane. History of CVA with right-sided weakness. CHF. Hyperlipidemia. Hypertension. GERD. History of right nephrectomy due to cancer. Diabetes. Anemia PLAN: cnot patient on Levaquin 750 mg d # 2 / Monitor CBC. Monitor BMP. Monitor cultures. Monitor the patient's clinical course. Subjective Allergies: Coded Allergies: No Known Allergies (Unverified , 02/23/17) Subjective afebrile Objective Vital Signs Last 24 Hour Vital Signs Date Time Temp Pulse Resp B/P (MAP) Pulse Ox O2 Delivery O2 Flow Rate FiO2 05/30/17 19:50 98.4 74 20 156/72 95 Room Air 98.4 05/30/17 16:46 99.0 71 20 166/74 93 Room Air 99.0 05/30/17 11:46 98.4 72 20 146/72 97 98.4 05/30/17 09:02 134/68 05/30/17 09:01 84 134/68 05/30/17 08:32 98.4 84 20 134/68 96 98.4 05/30/17 04:00 Room Air 05/30/17 04:00 98.3 80 18 151/61 95 98.3 05/30/17 00:35 Room Air 05/30/17 00:00 98.2 73 18 132/71 95 98.2 Height (Feet): 5 Height (Inches): 2.00 Weight (Pounds): 120 HEENT: anicteric Respiratory/Chest: normal breath sounds Cardiovascular: regularly irregular Abdomen: no organomegaly Microbiology Date/Time Source Procedure Growth Status 05/28/17 14:21 Blood Blood Culture - Preliminary NO GROWTH AFTER 24 HOURS Resulted 05/28/17 13:45 Blood Blood Culture - Preliminary NO GROWTH AFTER 24 HOURS Resulted 05/28/17 16:20 Nasal Nares MRSA Culture - Final NO METHICILLIN RESISTANT STAPH AUREUS... Complete 05/28/17 16:20 Rectum VRE Culture - Final NO VANCOMYCIN RESISTANT ENTEROCOCCUS ... Complete Laboratory Tests Test 05/30/17 05:15 05/30/17 15:30 White Blood Count 5.6 K/UL (4.8-10.8) Red Blood Count 4.04 M/UL (4.70-6.10) L Hemoglobin 12.7 G/DL (14.2-18.0) L Hematocrit 36.4 % (42.0-52.0) L Mean Corpuscular Volume 90 FL (80-99) Mean Corpuscular Hemoglobin 31.4 PG (27.0-31.0) H Mean Corpuscular Hemoglobin Concent 34.8 G/DL (32.0-36.0) Red Cell Distribution Width 12.5 % (11.6-14.8) Platelet Count 224 K/UL (150-450) Mean Platelet Volume 6.5 FL (6.5-10.1) Neutrophils (%) (Auto) 49.1 % (45.0-75.0) Lymphocytes (%) (Auto) 32.3 % (20.0-45.0) Monocytes (%) (Auto) 9.8 % (1.0-10.0) Eosinophils (%) (Auto) 7.7 % (0.0-3.0) H Basophils (%) (Auto) 1.1 % (0.0-2.0) Sodium Level 135 MMOL/L (136-145) L Potassium Level 4.6 MMOL/L (3.5-5.1) Chloride Level 104 MMOL/L (98-107) Carbon Dioxide Level 22 MMOL/L (21-32) Anion Gap 9 mmol/L (5-15) Blood Urea Nitrogen 25 mg/dL (7-18) H Creatinine 2.6 MG/DL (0.55-1.30) H Estimat Glomerular Filtration Rate mL/min (>60) Glucose Level 78 MG/DL (74-106) Uric Acid 5.1 MG/DL (2.6-7.2) Calcium Level 8.3 MG/DL (8.5-10.1) L Phosphorus Level 3.6 MG/DL (2.5-4.9) Magnesium Level 2.3 MG/DL (1.8-2.4) C-Reactive Protein, Quantitative 1.2 mg/dL (0.00-0.90) H Thyroid Stimulating Hormone (TSH) 3.749 uiU/mL (0.358-3.740) Urine Random Sodium 51 mmol/L (20-110) Current Medications Medications (Trade) Dose Ordered Sig/Jared Route PRN Reason Start Time Stop Time Status Last Admin Dose Admin Acetaminophen (Tylenol) 650 mg Q4H PRN ORAL Mild Pain/Temp > 100.5 05/28/17 18:15 06/27/17 18:14 Acetaminophen/ Hydrocodone Bitart ([place] 5/325) 1 tab Q4H PRN ORAL Moderate Pain (Pain Scale 4-6) 05/28/17 18:15 06/04/17 18:14 05/29/17 05:51 Al Hydroxide/Mg Hydroxide (Mylanta) 30 ml Q4H PRN ORAL Abdominal cramps 05/28/17 18:15 06/27/17 18:14 Ampicillin Sodium/ Sulbactam Sodium 3 gm/Sodium Chloride 110 ml @ 220 mls/hr Q12HR IVPB 05/28/17 20:00 06/04/17 19:59 05/30/17 09:18 Aspirin (ASA) 81 mg DAILY ORAL 05/29/17 09:00 06/28/17 08:59 05/30/17 09:01 Atorvastatin Calcium (Lipitor) 40 mg BEDTIME ORAL 05/28/17 21:00 06/27/17 20:59 05/29/17 20:24 Baclofen (Lioresal) 5 mg BEDTIME ORAL 05/28/17 21:00 06/27/17 20:59 05/29/17 20:23 Carvedilol (Coreg) 6.25 mg EVERY 12 HOURS ORAL 05/28/17 21:00 06/27/17 20:59 05/30/17 09:01 Dextrose (Dextrose 50%) STAT PRN IV Hypoglycemia 05/28/17 18:15 06/27/17 18:14 Docusate Sodium (Colace) 100 mg TWICE A DAY ORAL 05/29/17 09:00 06/28/17 08:59 05/30/17 17:15 Enoxaparin Sodium (Lovenox) 30 mg DAILY SUBQ 05/29/17 09:00 06/28/17 08:59 05/30/17 09:03 Famotidine (Pepcid) 20 mg DAILY ORAL 05/29/17 09:00 06/28/17 08:59 05/30/17 09:01 Finasteride (Proscar) 5 mg DAILY ORAL 05/29/17 09:00 06/28/17 08:59 05/30/17 09:01 Fish Oil (Fish Oil) 1,000 mg TWICE A DAY ORAL 05/29/17 09:00 06/28/17 08:59 05/30/17 17:14 Furosemide (Lasix) 20 mg EVERY 12 HOURS ORAL 05/28/17 21:00 06/27/17 20:59 05/30/17 09:02 Gabapentin (Neurontin) 200 mg TWICE A DAY ORAL 05/29/17 09:00 06/28/17 08:59 05/30/17 17:14 Insulin Aspart (NovoLOG) BEFORE MEALS AND HS SUBQ 05/28/17 21:00 06/27/17 20:59 05/30/17 12:07 Levofloxacin 150 ml @ 100 mls/hr Q48H IVPB 05/29/17 16:00 06/05/17 23:59 05/29/17 17:13 Losartan Potassium (Cozaar) 25 mg DAILY ORAL 05/28/17 19:00 06/27/17 18:59 05/30/17 09:02 Mirtazapine (Remeron) 15 mg BEDTIME ORAL 05/30/17 21:00 06/29/17 20:59 Multivitamins (Multivitamins) 1 tab DAILY ORAL 05/29/17 09:00 06/28/17 08:59 05/30/17 09:01 Sennosides (Senokot) 1 tab HSPRN PRN ORAL Constipation 05/28/17 18:15 06/27/17 18:14 Vancomycin HCl (Vanco rx to dose) 1 ea DAILYPRN PRN MISC RX TO DOSE PROTOCOL 05/29/17 16:30 06/28/17 16:29 Vancomycin HCl 500 mg/Dextrose 275 ml @ 275 mls/hr Q24H IVPB 05/29/17 21:00 06/03/17 20:59 05/29/17 21:14 Vitamin D (Vitamin D) 1,000 intlu DAILY ORAL 05/29/17 09:00 06/28/17 08:59 05/30/17 09:01 CASEY MONTEMAYOR M.D. May 30, 2017 21:31
[2017-05-30] MEDS: Atorvastatin 20mg tab ORAL SCH (22:14)
[2017-05-31] VITALS (7 sets, daily range): BP systolic 119–152; BP diastolic 59–94
[2017-05-31] MEDS: NovoLOG Insulin Flexpen SUBQ SCH ×4 (06:30→21:22)
[2017-05-31] MEDS: Aspirin Baby 81mg ORAL SCH (08:25)
[2017-05-31] MEDS: Losartan 25mg tab ORAL SCH (08:26)
[2017-05-31] MEDS: Vitamin D 1000 IU Tab ORAL SCH (08:26)
[2017-05-31] MEDS: Docusate 100mg cap ORAL SCH ×2 (08:26→17:39)
[2017-05-31] MEDS: Carvedilol 6.25mg Tab ORAL SCH ×2 (08:27→21:20)
[2017-05-31] MEDS: Enoxaparin 30mg Inj SUBQ SCH (08:31)
[2017-05-31] MEDS ORDERED: LEVAQUIN750 MG ORAL (11:55)
--- NOTE | 2017-05-31 12:05 | General Progress Note ---
Assessment/Plan Status: stable Assessment/Plan 1. Acute left-sided mastoiditis. 2. Chronic kidney disease. 3. Hypertension. 4. Diabetes type 2. 5. Cerebrovascular accident, history of. 6. Benign prostatic hypertrophy. 7. Gastrointestinal and deep venous thrombosis prophylaxis. Plan Notes from ID, ENT reviewed change the IV to PO and continue as out patinet Subjective ROS Limited/Unobtainable: No Constitutional: Reports: no symptoms HEENT: Reports: no symptoms Cardiovascular: Reports: no symptoms Allergies: Coded Allergies: No Known Allergies (Unverified , 02/23/17) Objective Last 24 Hour Vital Signs Date Time Temp Pulse Resp B/P (MAP) Pulse Ox O2 Delivery O2 Flow Rate FiO2 05/31/17 12:02 97.7 66 18 149/70 97 97.7 05/31/17 09:11 Room Air 05/31/17 08:28 97.8 73 18 149/73 95 97.8 05/31/17 08:27 71 149/73 05/31/17 08:26 149/73 05/31/17 04:00 97.9 65 20 142/69 95 Room Air 97.9 05/31/17 00:34 97.9 73 20 119/59 96 Room Air 97.9 05/30/17 22:13 74 156/72 05/30/17 19:50 98.4 74 20 156/72 95 Room Air 98.4 05/30/17 16:46 99.0 71 20 166/74 93 Room Air 99.0 Intake and Output 05/30/17 05/31/17 19:00 07:00 Intake Total 1010 ml Output Total 900 ml Balance 110 ml Intake Oral 900 ml IV Total 110 ml Output Urine Total 900 ml # Voids 2 Laboratory Tests 05/30/17 15:30: Urine Random Sodium 51 Height (Feet): 5 Height (Inches): 2.00 Weight (Pounds): 120 General Appearance: no apparent distress EENT: PERRL/EOMI Neck: supple Cardiovascular: normal rate Respiratory/Chest: lungs clear Abdomen: soft Extremities: other - right hemiPlegia 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
--- NOTE | 2017-05-31 13:19 | Infectious Diseases Prog Note ---
Assessment/Plan Assessment/Plan ASSESSMENT: The patient is 71-year-old male with Left-sided mastoiditis. Left otitis media. Perforated tympanic membrane. History of CVA with right-sided weakness. CHF. Hyperlipidemia. Hypertension. GERD. History of right nephrectomy due to cancer. Diabetes. Anemia PLAN: cont patient on Levaquin 750 mg d # 3 / , Monitor CBC. Monitor BMP. Monitor cultures. Monitor the patient's clinical course. Subjective Constitutional: Denies: no symptoms, fever, chills, fatigue, anorexia, drenching sweats, other Allergies: Coded Allergies: No Known Allergies (Unverified , 02/23/17) Subjective afebrile Objective Vital Signs Last 24 Hour Vital Signs Date Time Temp Pulse Resp B/P (MAP) Pulse Ox O2 Delivery O2 Flow Rate FiO2 05/31/17 12:02 97.7 66 18 149/70 97 97.7 05/31/17 09:11 Room Air 05/31/17 08:28 97.8 73 18 149/73 95 97.8 05/31/17 08:27 71 149/73 05/31/17 08:26 149/73 05/31/17 04:00 97.9 65 20 142/69 95 Room Air 97.9 05/31/17 00:34 97.9 73 20 119/59 96 Room Air 97.9 05/30/17 22:13 74 156/72 05/30/17 19:50 98.4 74 20 156/72 95 Room Air 98.4 05/30/17 16:46 99.0 71 20 166/74 93 Room Air 99.0 Height (Feet): 5 Height (Inches): 2.00 Weight (Pounds): 120 HEENT: anicteric Respiratory/Chest: no respiratory distress Cardiovascular: regular rhythm Abdomen: non distended Microbiology Date/Time Source Procedure Growth Status 05/28/17 14:21 Blood Blood Culture - Preliminary NO GROWTH AFTER 48 HOURS Resulted 05/28/17 13:45 Blood Blood Culture - Preliminary NO GROWTH AFTER 48 HOURS Resulted 05/28/17 16:20 Nasal Nares MRSA Culture - Final NO METHICILLIN RESISTANT STAPH AUREUS... Complete 05/28/17 16:20 Rectum VRE Culture - Final NO VANCOMYCIN RESISTANT ENTEROCOCCUS ... Complete Laboratory Tests Test 05/30/17 15:30 Urine Random Sodium 51 mmol/L (20-110) Current Medications Medications (Trade) Dose Ordered Sig/Jared Route PRN Reason Start Time Stop Time Status Last Admin Dose Admin Acetaminophen (Tylenol) 650 mg Q4H PRN ORAL Mild Pain/Temp > 100.5 05/28/17 18:15 06/27/17 18:14 Acetaminophen/ Hydrocodone Bitart ([place] 5/325) 1 tab Q4H PRN ORAL Moderate Pain (Pain Scale 4-6) 05/28/17 18:15 06/04/17 18:14 05/29/17 05:51 Al Hydroxide/Mg Hydroxide (Mylanta) 30 ml Q4H PRN ORAL Abdominal cramps 05/28/17 18:15 06/27/17 18:14 Aspirin (ASA) 81 mg DAILY ORAL 05/29/17 09:00 06/28/17 08:59 05/31/17 08:25 Atorvastatin Calcium (Lipitor) 40 mg BEDTIME ORAL 05/28/17 21:00 06/27/17 20:59 05/30/17 22:14 Baclofen (Lioresal) 5 mg BEDTIME ORAL 05/28/17 21:00 06/27/17 20:59 05/30/17 22:13 Carvedilol (Coreg) 6.25 mg EVERY 12 HOURS ORAL 05/28/17 21:00 06/27/17 20:59 05/31/17 08:27 Dextrose (Dextrose 50%) STAT PRN IV Hypoglycemia 05/28/17 18:15 06/27/17 18:14 Docusate Sodium (Colace) 100 mg TWICE A DAY ORAL 05/29/17 09:00 06/28/17 08:59 05/31/17 08:26 Enoxaparin Sodium (Lovenox) 30 mg DAILY SUBQ 05/29/17 09:00 06/28/17 08:59 05/31/17 08:31 Famotidine (Pepcid) 20 mg DAILY ORAL 05/29/17 09:00 06/28/17 08:59 05/31/17 08:32 Finasteride (Proscar) 5 mg DAILY ORAL 05/29/17 09:00 06/28/17 08:59 05/31/17 08:26 Fish Oil (Fish Oil) 1,000 mg TWICE A DAY ORAL 05/29/17 09:00 06/28/17 08:59 05/31/17 08:26 Furosemide (Lasix) 20 mg EVERY 12 HOURS ORAL 05/28/17 21:00 06/27/17 20:59 05/31/17 08:26 Gabapentin (Neurontin) 200 mg TWICE A DAY ORAL 05/29/17 09:00 06/28/17 08:59 05/31/17 08:26 Insulin Aspart (NovoLOG) BEFORE MEALS AND HS SUBQ 05/28/17 21:00 06/27/17 20:59 05/31/17 11:55 Levofloxacin 150 ml @ 100 mls/hr Q48H IVPB 05/29/17 16:00 06/05/17 23:59 05/29/17 17:13 Losartan Potassium (Cozaar) 25 mg DAILY ORAL 05/28/17 19:00 06/27/17 18:59 05/31/17 08:26 Mirtazapine (Remeron) 15 mg BEDTIME ORAL 05/30/17 21:00 06/29/17 20:59 05/30/17 22:14 Multivitamins (Multivitamins) 1 tab DAILY ORAL 05/29/17 09:00 06/28/17 08:59 05/31/17 08:26 Sennosides (Senokot) 1 tab HSPRN PRN ORAL Constipation 05/28/17 18:15 06/27/17 18:14 Vitamin D (Vitamin D) 1,000 intlu DAILY ORAL 05/29/17 09:00 06/28/17 08:59 05/31/17 08:26 CASEY MONTEMAYOR M.D. May 31, 2017 13:18
[2017-05-31] MEDS ORDERED: MIRTAZAPINE15 MG ORAL (15:09)
--- NOTE | 2017-05-31 15:46 | Consultation ---
Consult Note Consult Note asked to eval for renal failure- patient admitted for left mastoiditis PH: 1. History of CVA with right-sided weakness. 2. CHF. 3. Hyperlipidemia. 4. Hypertension. 5. GERD. 6. History of right nephrectomy due to cancer. 7. Diabetes. 8. Anemia. Interviewed examined data reviewed Assessment/Plan Renal failure with Proteinuria , DM , s/p right nephrectomy Likely CKD due to diabetes Nephropathy suggest 2D echo and re eval need for Lasix can be done as OP Cysts demonstrated within the left kidney. No evidence of obstructive nephropathy. Status post right nephrectomy JARAD BEARD May 31, 2017 15:46
[2017-05-31] MEDS: Atorvastatin 20mg tab ORAL SCH (21:11)
--- NOTE | 2017-05-31 22:05 | General Progress Note ---
Assessment/Plan Assessment/Plan mdd remeron mg qhs Subjective Neurologic/Psychiatric: Reports: anxiety, depressed, emotional problems Allergies: Coded Allergies: No Known Allergies (Unverified , 02/23/17) Objective Last 24 Hour Vital Signs Date Time Temp Pulse Resp B/P (MAP) Pulse Ox O2 Delivery O2 Flow Rate FiO2 05/31/17 21:20 100 152/94 05/31/17 19:43 98.2 100 20 152/94 91 Room Air 98.2 05/31/17 17:32 Room Air 05/31/17 16:00 98.4 83 20 149/83 96 98.4 05/31/17 12:02 Room Air 05/31/17 12:02 97.7 66 18 149/70 97 97.7 05/31/17 09:11 Room Air 05/31/17 08:28 97.8 73 18 149/73 95 97.8 05/31/17 08:27 71 149/73 05/31/17 08:26 149/73 05/31/17 04:00 97.9 65 20 142/69 95 Room Air 97.9 05/31/17 00:34 97.9 73 20 119/59 96 Room Air 97.9 05/30/17 22:13 74 156/72 Intake and Output 05/30/17 05/31/17 19:00 07:00 Intake Total 1010 ml Output Total 900 ml Balance 110 ml Intake Oral 900 ml IV Total 110 ml Output Urine Total 900 ml # Voids 2 Height (Feet): 5 Height (Inches): 2.00 Weight (Pounds): 120 Nely Helm M.D. May 31, 2017 22:05
--- NOTE | 2017-06-03 08:29 | Discharge Summary ---
Discharge Summary Hospital Course Date of Admission May 28, 2017 at 13:18 Date of Discharge May 31, 2017 at 22:45 Admitting Diagnosis facial cellulitis/possible mastoiditis CHRISTIANO Carr is a 71 year old male who was admitted on May 28, 2017 at 13:18 for Facial Cellulitis/Possible Mastroiditis Hospital Course erin jaime #[id number] Discharge Medications New Medications: Levofloxacin* (Levaquin*) 750 Mg Tablet 750 MG ORAL DAILY for 7 Days, #7 TAB Continued Medications: Acetaminophen (Tylenol) 325 Mg Tablet 650 MG ORAL Q4HR PRN for Prn Pain/Headache/Temp > 101, #30 TAB 0 Refills Acetaminophen* (Tylenol Extra Strength*) 500 Mg Tablet 1000 MG ORAL Q4HR, TAB Aspirin* (Aspir 81*) 81 Mg Tablet.dr 81 MG ORAL DAILY, TAB Atorvastatin Calcium* (Atorvastatin Calcium*) 40 Mg Tablet 40 MG ORAL BEDTIME, TAB Baclofen* (Baclofen*) 10 Mg Tablet 5 MG ORAL BEDTIME, TAB Carvedilol* (Carvedilol*) 3.125 Mg Tablet 3.125 MG ORAL EVERY 12 HOURS, TAB Cholecalciferol (Vitamin D3)* (Vitamin D*) 1,000 Unit Tablet 1000 UNIT IV DAILY, #30 TAB Cran/Vitc/Mannose/Inulin/Brom (Uti-Stat Liquid) 3,875 Mg/30 Ml Liquid 3875 MG PO, ML Cran/Vitc/Mannose/Inulin/Brom (Uti-Stat Liquid) 3,875 Mg/30 Ml Liquid 3875 MG PO DAILY, ML Docusate Sodium* (Docusate Sodium*) 100 Mg Capsule 100 MG ORAL TWICE A DAY, CAP Famotidine (Famotidine) 20 Mg Tablet 20 MG ORAL TWICE A DAY, #60 TAB 0 Refills Finasteride (Finasteride) 5 Mg Tablet 5 MG ORAL DAILY, #30 TAB 0 Refills Furosemide (Furosemide) 40 Mg/5 Ml Solution 20 MG ORAL BID, ML Gabapentin* (Gabapentin*) 100 Mg Capsule 200 MG ORAL BID, CAP Glimepiride* (Glimepiride*) 1 Mg Tablet 1 MG ORAL BEFORE BREAKFAST, TAB Hydrocodone Bit/Acetaminophen 5-325* (Purmela 5-325 Tablet*) 1 Each Tablet 1 TAB ORAL Q4H PRN for For Pain, TAB Hydrocodone Bit/Acetaminophen 5-325* (Purmela 5-325 Tablet*) 1 Each Tablet 1 TAB ORAL Q4H PRN for For Pain, TAB Losartan Potassium* (Losartan Potassium*) 50 Mg Tablet 50 MG ORAL DAILY, TAB Mag Hydrox/Al Hydrox/Simeth (Alum-Mag Hydroxide-Simeth Liq) 360 Ml Oral.susp 30 ML PO EVERY 4 HOURS, ML Melatonin (Melatonin) 5 Mg Tab.ir.er 5 MG PO Mirtazapine* (Remeron*) 15 Mg Tablet 15 MG ORAL BEDTIME, #30 TAB Multivitamins* (Multivitamins*) 1 Each Tablet 1 TAB ORAL DAILY, TAB 0 Refills [place]-3 Fatty Acids/Fish Oil (Fish Oil 1,000 Mg Capsule) 1 Each Capsule 1000 MG ORAL DAILY, #30 CAP 0 Refills [place]-3 Fatty Acids/Fish Oil (Fish Oil 1,000 Mg Capsule) 1 Each Capsule 1 CAP ORAL DAILY, #30 CAP 0 Refills Sennosides (Senna) 8.6 Mg Tablet 8.6 MG PO BEDTIME, TAB Vitamin B Cmplx/Vit C/Folic AC (Nephro-Chantel Tablet) 0.8 Mg Tablet 1 TAB ORAL DAILY, #30 TAB 0 Refills Discharge Discharge Disposition Patient was discharged to SNF/Subacute Facility(03) Discharge Diagnoses: Discharge Instructions Discharge Instructions Special Instructions I have been assigned to complete a D/C Summary on this account. I was not involved in the patient management Vi Stephenson NP ([place]te[place]) Jun 03, 2017 08:29
--- NOTE | 2017-06-03 23:00 | Discharge Summary 2 SIG ---
DATE OF ADMISSION: 05/28/2017 DATE OF DISCHARGE: 05/31/2017 REASON FOR ADMISSION: 71-year-old male, resident of halfway facility with past medical history significant for hypertension, diabetes, congestive heart failure, anemia, history of CVA with right-sided weakness, right nephrectomy secondary to cancer, presented to emergency room for evaluation due to the left earache for one week. Symptoms became worse. The patient was noted to have discharge, increased pain, as well as the swelling on the left side of the face. The patient was afebrile. No leukocytosis. Stable hemoglobin and hematocrit. Glucose -165. CT of the head revealed acute left mastoiditis, chronic small vessel disease with multiple bilateral basal ganglia lacunar infarcts. No acute intracranial bleeding, mass effect, or edema noted. The patient was admitted with diagnoses of acute left mastoiditis, left-sided otitis media with perforated tympanic membrane, chronic kidney disease, hypertension, diabetes type 2, history of CVA, and BPH. HOSPITAL COURSE: The patient was admitted. All halfway facility medications were resumed. The patient was started on empiric antibiotics. ID was consulted. Blood cultures were negative. IV antibiotics changed to oral upon discharge. No leukocytosis. No fever. Facial edema decreased. ENT consult was requested. Per ENT, the patient had left mastoiditis. He cleared the patient to be treated as an outpatient on oral medication. The patient to follow up with ENT in the office next week. [employer] was consulted due to the chronic kidney disease. Renal ultrasound revealed absent right kidney with known history of right nephrectomy and left kidney with multiple cysts, but normal echogenicity. No hydronephrosis. According to sewing inspector, the patient had a chronic kidney disease secondary to diabetic nephropathy and no obstructive uropathy was seen on the renal ultrasound. He recommended 2D echo and review need for Lasix, which can be done as outpatient. Lipid panel was within normal limits. Hemoglobin and hematocrit remained stable. DVT and GI prophylaxis provided. Blood sugar was managed with sliding scale of insulin. Psychiatrist seen and evaluated the patient and diagnosed the patient with major depressive disorder. Patient was started on Remeron. The patient was stable for discharge. FINAL DIAGNOSES: 1. Acute left-sided mastoiditis. 2. Acute left otitis media with perforated tympanic membrane. 3. Chronic kidney disease secondary to diabetic nephropathy. 4. Hypertension. 5. Diabetes type 2. 6. History of cerebrovascular accident with right-sided weakness. 7. Benign prostatic hypertrophy. 8. History of right nephrectomy secondary to cancer. 9. Hyperlipidemia. 10. Major depressive disorder. DISCHARGE MEDICATIONS: See medication reconciliation list. The patient to continue oral Levaquin for additional seven days. DISCHARGE INSTRUCTIONS: The patient discharged to halfway facility. Follow up with the ENT as outpatient next week. Tara Escobar M.D. I have been assigned to dictate discharge summary on this account and I was not involved in the patient's management. Vi RossiCentral Park HospitalBilly N.PNate DR: ANDERSON JOB#: [id number] CC: FRANC
--- NOTE | 2017-06-05 16:20 | Cardiology Report ---
APPROVED REPORT EKG Measurement Heart [id number] Normal sinus rhythm Right bundle branch block Abnormal ECG
== END 2017-05-31 22:45 | DRG 153 ==
LOC: EDBD 11:56 → EMR 13:10 → 4W 13:18 → EDBEDREQ 15:23
DX: H70.002 Acute mastoiditis without complications, left ear (principal); I13.0 Hypertensive heart and chronic kidney disease with heart failure and stage 1 through stage 4 chronic kidney disease, or unspecified chronic kidney disease; E11.22 Type 2 diabetes mellitus with diabetic chronic kidney disease; I69.351 Hemiplegia and hemiparesis following cerebral infarction affecting right dominant side; E11.9 Type 2 diabetes mellitus without complications; H66.92 Otitis media, unspecified, left ear; H72.92 Unspecified perforation of tympanic membrane, left ear; N18.9 Chronic kidney disease, unspecified; E78.5 Hyperlipidemia, unspecified; N40.0 Benign prostatic hyperplasia without lower urinary tract symptoms; F32.9 Major depressive disorder, single episode, unspecified; Z85.528 Personal history of other malignant neoplasm of kidney; Z90.5 Acquired absence of kidney
CPT/HCPCS: 36415; 70450; 76770; 80048; 80053; 80061; 81003; 82962; 83036; 83735; 84100; 84300; 84443; 84550; 85025; 85610; 85730; 86140; 87040; 87081; 93005; 99285; J1815

== ENCOUNTER 2017-07-16 13:58 | Emergency (ER) | payer MEDICARE ==
[~2017-07-16] VITALS: Ht 157.5 cm; Wt 68.0 kg
[~2017-07-16 13:58] MED LIST changes: +LEVAQUIN750 MG ORAL; +LOSARTAN POTASS50 MG ORAL; +MIRTAZAPINE15 MG ORAL; +MULTIVITAMINS1 EAC2 ORAL
[2017-07-16 14:18] VITALS: BP 139/55
--- NOTE | 2017-07-16 14:35 | Emergency Room Report ---
History of Present Illness General Chief Complaint: Multiple Trauma/Fall Source: Patient Present Illness HPI 71-year-old male presents ED for evaluation. Patient brought in by EMS status post fall. Witnessed by nursing staff. Patient was getting up from his wheelchair and fell. Abrasions to forehead and right shoulder. Patient does have history of CVA with residual right-sided weakness. However nursing states that patient looked "unbalanced". Patient states he only fell. Denies any dizziness or weakness. Denies any chest pain or shortness of breath. No other aggravating or relieving factors. Denies any other associated symptoms Allergies: Coded Allergies: No Known Allergies (Unverified , 02/23/17) Patient History Past Medical History: DM, HTN, CVA/TIA Pertinent Family History: none Social History: Denies: smoking, alcohol use, drug use Immunizations: UTD Reviewed Nursing Documentation: PMH: Agreed; PSxH: Agreed Nursing Documentation-PMH Hx Cardiac Problems: Yes Hx Hypertension: Yes Hx Diabetes: Yes Hx Cancer: Yes - MALIGNANT NEOPLASM OF UNSPECIFIED KIDNEY EXCEPT RENAL PELVIS Hx Gastrointestinal Problems: Yes Hx Neurological Problems: Yes - HEMIPLEGIA AND HEMIPARESIS OF RIGHT SIDE, PARALYTIC GAIT Hx Cerebrovascular Accident: Yes Review of Systems All Other Systems: negative except mentioned in HPI Physical Exam Vital Signs Date Time Temp Pulse Resp B/P (MAP) Pulse Ox O2 Delivery O2 Flow Rate FiO2 07/16/17 14:00 98.0 62 20 118/50 97 Room Air 98.1 Sp02 EP Interpretation: reviewed, normal General Appearance: no apparent distress, alert, GCS 15, non-toxic Head: normocephalic, other - abrasion to forehead Eyes: bilateral eye normal inspection, bilateral eye PERRL ENT: hearing grossly normal, normal pharynx, no angioedema, normal voice Neck: full range of motion, no bony tend, supple/symm/no masses Respiratory: chest non-tender, lungs clear, normal breath sounds, speaking full sentences Cardiovascular #1: regular rate, rhythm, no edema Gastrointestinal: normal inspection Rectal: deferred Genitourinary: no CVA tenderness Musculoskeletal: tender - R shoulder Neurologic: alert, oriented x3, responsive, sensory intact, speech normal, motor weakness - 3/5 strength RUE and RLE Psychiatric: judgement/insight normal, memory normal, mood/affect normal, no suicidal/homicidal ideation Skin: normal color, no rash, warm/dry, well hydrated Lymphatic: no adenopathy Medical Decision Making Diagnostic Impression: Primary Impression: Fall Qualified Codes: W19.XXXA - Unspecified fall, initial encounter Additional Impressions: Shoulder contusion Qualified Codes: S40.011A - Contusion of right shoulder, initial encounter Head contusion Qualified Codes: S00.93XA - Contusion of unspecified part of head, initial encounter ER Course Hospital Course 71-year-old male presents ED status post fall from wheelchair. Abrasion to head and right shoulder Differential diagnoses include: arrythmia, dehydration, intracranial bleed, seizure Clinical course Patient placed on stretcher. on cardiac rehabilitation program director. After initial history and physical I ordered labs, EKG, chest Xray, R shoulder, IVFs, CT Brain labs reviewed- no leukocytosis, Hb/Hct stable, BUN/Cr elevated, troponins negative CT Brain - old infarcts noted, no acute process Chest x-ray- no acute process EKG -NSR, RBBB, no acute ischemic changes interpreted by me R shoulder xray unremarkable I reviewed EMR. Elevated BUN and creatinine is baseline for patient. Patient has no focal neurological deficits. Has residual right-sided weakness which is unchanged. Patient is wheelchair-bound. Only complaining of some pain to his right shoulder. Given Tylenol. Discussed findings with PMD Dr. Escobar; he agrees given negative workup patient can be safely discharged back to facility I. I feel this is a highly complex case requiring extensive working including EKG/Rhythm strip, Xray/CT/US, Blood/urine lab work, repeat exams while in ED, and administration of strong opiates/narcotics for pain control, admission to hospital or close patient follow up. Diagnosis - fall, head contusion, shoulder contusion Stable and discharged to SNF with Rx Tylenol. Followup with PMD. Return to ED if symptoms recur or worsen Labs Test 07/16/17 14:29 07/16/17 15:01 White Blood Count 7.5 K/UL (4.8-10.8) Red Blood Count 3.90 M/UL (4.70-6.10) Hemoglobin 12.0 G/DL (14.2-18.0) Hematocrit 35.6 % (42.0-52.0) Mean Corpuscular Volume 91 FL (80-99) Mean Corpuscular Hemoglobin 30.8 PG (27.0-31.0) Mean Corpuscular Hemoglobin Concent 33.8 G/DL (32.0-36.0) Red Cell Distribution Width 12.5 % (11.6-14.8) Platelet Count 227 K/UL (150-450) Mean Platelet Volume 6.7 FL (6.5-10.1) Neutrophils (%) (Auto) 56.0 % (45.0-75.0) Lymphocytes (%) (Auto) 28.4 % (20.0-45.0) Monocytes (%) (Auto) 7.3 % (1.0-10.0) Eosinophils (%) (Auto) 7.5 % (0.0-3.0) Basophils (%) (Auto) 0.8 % (0.0-2.0) Sodium Level 137 MMOL/L (136-145) Potassium Level 4.5 MMOL/L (3.5-5.1) Chloride Level 104 MMOL/L (98-107) Carbon Dioxide Level 24 MMOL/L (21-32) Anion Gap 9 mmol/L (5-15) Blood Urea Nitrogen 32 mg/dL (7-18) Creatinine 2.3 MG/DL (0.55-1.30) Estimat Glomerular Filtration Rate mL/min (>60) Glucose Level 297 MG/DL (74-106) Calcium Level 8.2 MG/DL (8.5-10.1) Total Bilirubin 0.4 MG/DL (0.2-1.0) Aspartate Amino Transf (AST/SGOT) 31 U/L (15-37) Alanine Aminotransferase (ALT/SGPT) 50 U/L (12-78) Alkaline Phosphatase 122 U/L (46-116) Total Creatine Kinase 84 U/L (26-308) Creatine Kinase MB 1.2 NG/ML (0.0-3.6) Creatine Kinase MB Relative Index 1.4 Troponin I 0.009 ng/mL (0.000-0.056) Pro-B-Type Natriuretic Peptide 5932 pg/mL (0-125) Total Protein 6.9 G/DL (6.4-8.2) Albumin 3.2 G/DL (3.4-5.0) Globulin 3.7 g/dL Albumin/Globulin Ratio 0.9 (1.0-2.7) Urine Color Yellow Urine Appearance Clear Urine pH 5 (4.5-8.0) Urine Specific [place] 1.020 (1.005-1.035) Urine Protein 4+ (NEGATIVE) Urine Glucose (UA) 3+ (NEGATIVE) Urine Ketones Negative (NEGATIVE) Urine Occult Blood 1+ (NEGATIVE) Urine Nitrite Negative (NEGATIVE) Urine Bilirubin Negative (NEGATIVE) Urine Urobilinogen Normal MG/DL (0.0-1.0) Urine Leukocyte Esterase Negative (NEGATIVE) Urine RBC 0-2 /HPF (0 - 0) Urine WBC 2-4 /HPF (0 - 0) Urine Squamous Epithelial Cells Few /LPF (NONE/OCC) Urine Bacteria Few /HPF (NONE) EKG Diagnostic Results Rate: normal Rhythm: NSR ST Segments: other - RBBB ASA given to the pt in ED: No Rhythm Strip Diag. Results EP Interpretation: yes Rhythm: NSR, no PVC's, no ectopy Chest X-Ray Diagnostic Results Chest X-Ray Diagnostic Results : Chest X-Ray Ordered: Yes # of Views/Limited/Complete: 1 View Indication: Other - fall EP Interpretation: Yes Interpretation: no consolidation, no effusion, no pneumothorax, no acute cardiopulmonary disease Impression: No acute disease Electronically Signed by: Electronically signed by Joel Kelley MD Other X-Ray Diagnostic Results Other X-Ray Diagnostic Results : X-Ray ordered: R shoulder # of Views/Limited Vs Complete: 3 View Indication: Pain EP Interpretation: Yes Interpretation: no dislocation, no soft tissue swelling, no fractures Impression: No acute disease Electronically Signed by: Electronically signed by Joel Kelley MD CT/MRI/US Diagnostic Results CT/MRI/US Diagnostic Results : Imaging Test Ordered: CT Head Impression no acute process. old lacunar infarcts noted Last Vital Signs Date Time Temp Pulse Resp B/P (MAP) Pulse Ox O2 Delivery O2 Flow Rate FiO2 07/16/17 14:18 62 17 139/55 97 Room Air 07/16/17 14:00 98.0 98.1 Status: improved Disposition: XFER SNF Condition: Stable Referrals: Tara Escobar MD (PCP) Joel Kelley MD Jul 16, 2017 14:35
[2017-07-16 14:42] LABS: BASOPHILS % (AUTO) 0.8 % (0.0-2.0); EOSINOPHILS % (AUTO) 7.5 % (0.0-3.0); HEMATOCRIT 35.6 % (42.0-52.0); LYMPHOCYTES % (AUTO) 28.4 % (20.0-45.0); MEAN CORPUSCULAR VOLUME 91 FL (80-99); MONOCYTES % (AUTO) 7.3 % (1.0-10.0); PLATELET COUNT 227 K/UL (150-450); RED CELL DISTRIBUTION WIDTH 12.5 % (11.6-14.8); WHITE BLOOD COUNT 7.5 K/UL (4.8-10.8)
--- NOTE | 2017-07-16 14:49 | Diagnostic Imaging Report ---
Indication: Altered mental status, fall Technique: spiral acquisitions obtained through the brain. Angled axial and coronal 5 x 5 mm slices were reconstructed. No IV contrast utilized. Radiation dose was minimized using automated exposure control Total dose length product 1365.53 mGycm. CTDIvol(s) 70.38 mGy Comparison: 05/28/2017 FINDINGS: No acute hemorrhage or edema. No mass effect or midline shift. There is age-related enlargement of the ventricles and extra axial CSF spaces. There is periventricular deep white matter ischemic change. Normal varela-white differentiation. Old lacunar infarcts are again demonstrated in the basal ganglia bilaterally. Is evidence of prior bilateral cataract surgery. Visualized sinuses are unremarkable. Intact calvarium. Previously demonstrated left mastoid opacification has improved significantly, with only minimal residual. No other significant interim change IMPRESSION: Chronic and age-related changes. Negative for acute intracranial bleed or mass effect Old bilateral basal ganglia lacunar infarcts again demonstrated The CT scanner at [facility] is accredited by the [employer] and the scans are performed using protocols designed to limit radiation exposure to as low as reasonably achievable to attain images of sufficient resolution adequate for diagnostic evaluation
[2017-07-16 15:02] LABS: ANION GAP 9 mmol/L (5-15); BLOOD UREA NITROGEN 32 mg/dL (7-18); CALCIUM 8.2 MG/DL (8.5-10.1); CARBON DIOXIDE 24 MMOL/L (21-32); CHLORIDE 104 MMOL/L (98-107); CREATININE 2.3 MG/DL (0.55-1.30); POTASSIUM 4.5 MMOL/L (3.5-5.1); SODIUM 137 MMOL/L (136-145)
[2017-07-16 15:15] LABS: ALANINE AMINOTRANSFERASE 50 U/L (12-78); ALBUMIN 3.2 G/DL (3.4-5.0); ALBUMIN/GLOBULIN RATIO 0.9 (1.0-2.7); ALKALINE PHOSPHATASE 122 U/L (46-116); ASPARTATE AMINO TRANSFERASE 31 U/L (15-37); BILIRUBIN,TOTAL 0.4 MG/DL (0.2-1.0); CKMB 1.2 NG/ML (0.0-3.6); CREATINE KINASE 84 U/L (26-308)
--- NOTE | 2017-07-16 15:17 | Diagnostic Imaging Report ---
Indication: Right shoulder pain Technique: 3 views of the right shoulder Comparison: none Findings: No acute fractures. No dislocations. There are degenerative proliferative changes noted. Impression: No acute process
[2017-07-16 15:18] LABS: APPEARANCE,URINE CLEAR; BILIRUBIN, URINE NEGATIVE (NEGATIVE); GLUCOSE, URINE (UA) 3+ (NEGATIVE); KETONES,URINE NEGATIVE (NEGATIVE); LEUKOCYTE ESTERASE ,URINE NEGATIVE (NEGATIVE); NITRITE,URINE NEGATIVE (NEGATIVE); PH,URINE 5 (4.5-8.0); PROTEIN,URINE 4+ (NEGATIVE); UROBILINOGEN,URINE NORMAL MG/DL (0.0-1.0)
--- NOTE | 2017-07-16 15:18 | Diagnostic Imaging Report ---
Indication: Pain Technique: One view of the chest Comparison: none Findings: The heart is enlarged. The lungs and pleural spaces are clear Impression: No acute process
[2017-07-16 15:19] LABS: COLOR,URINE YELLOW
[2017-07-16] MEDS ORDERED: TYLENOL EXTRA500 MG ORAL (16:56)
[2017-07-16 17:05] VITALS: BP 139/55
--- NOTE | 2017-07-17 15:00 | Cardiology Report ---
APPROVED REPORT EKG Measurement Heart [id number] Normal sinus rhythm Right bundle branch block Abnormal ECG
== END 2017-07-16 17:05 ==
LOC: EDUNIT# 13:58 → EDBD 13:58 → EMR 14:10
DX: S40.011A Contusion of right shoulder, initial encounter (principal); S00.93XA Contusion of unspecified part of head, initial encounter; W05.0XXA Fall from non-moving wheelchair, initial encounter; G81.91 Hemiplegia, unspecified affecting right dominant side; I10 Essential (primary) hypertension; E11.9 Type 2 diabetes mellitus without complications; Z85.528 Personal history of other malignant neoplasm of kidney; I45.10 Unspecified right bundle-branch block; I51.7 Cardiomegaly
CPT/HCPCS: 36415; 70450; 71045; 80053; 81003; 82550; 82553; 83880; 84484; 85025; 93005; 99284

== ENCOUNTER 2017-08-26 14:06 | Inpatient (IN) | payer MEDICARE, MEDICAID ==
[~2017-08-26] VITALS: Ht 165.1 cm; Wt 63.0 kg
[~2017-08-26 14:06] MED LIST changes: +TYLENOL EXTRA500 MG ORAL
[2017-08-26 14:10] VITALS: BP 146/68
[2017-08-26] MEDS ORDERED: HUMULIN R100 UNIT/1 SUBQ (14:18)
--- NOTE | 2017-08-26 14:35 | Emergency Room Report ---
History of Present Illness General Chief Complaint: Earache Source: Patient, Medical Record, EMS Present Illness HPI This [facility] is [facility] in [facility]. The patient complains of a few days of left sided ear pain. There is also been some yellow discharge. The patient denies fever or chills. The patient denies nausea or vomiting. There are no other complaints. Further review of the chart reveals that this patient has had left-sided mastoiditis on the side. He had been admitted on May 28 several months ago for mastoiditis. 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 Allergies: Coded Allergies: No Known Allergies (Unverified , 02/23/17) Patient History Past Medical History: see triage record, DM, HTN, [place], CAD, CHF, GERD, CVA/TIA, renal disease Social History: Denies: smoking, alcohol use, drug use Reviewed Nursing Documentation: PMH: Agreed; PSxH: Agreed Nursing Documentation-PMH Hx Cardiac Problems: Yes Hx Hypertension: Yes Hx Diabetes: Yes Hx Cancer: Yes - MALIGNANT NEOPLASM OF UNSPECIFIED KIDNEY EXCEPT RENAL PELVIS Hx Gastrointestinal Problems: Yes Hx Neurological Problems: Yes - HEMIPLEGIA AND HEMIPARESIS OF RIGHT SIDE, PARALYTIC GAIT Hx Cerebrovascular Accident: Yes Review of Systems All Other Systems: negative except mentioned in HPI Physical Exam Vital Signs Date Time Temp Pulse Resp B/P (MAP) Pulse Ox O2 Delivery O2 Flow Rate FiO2 08/26/17 14:00 98.4 70 18 146/68 98 Room Air 98.4 Sp02 EP Interpretation: reviewed, normal General Appearance: no apparent distress, alert, GCS 15, non-toxic Head: normocephalic, atraumatic Eyes: bilateral eye normal inspection, bilateral eye PERRL ENT: hearing grossly normal, normal pharynx, no angioedema, normal voice, other - L. external canal with swelling, erythema and purulent discharge. R. external canal and TM WNL Neck: full range of motion, supple/symm/no masses Respiratory: chest non-tender, lungs clear, normal breath sounds, speaking full sentences Cardiovascular #1: regular rate, rhythm, no edema Gastrointestinal: normal bowel sounds, non tender, soft, non-distended, no guarding, no rebound Rectal: deferred Musculoskeletal: back normal, other - At baseline Neurologic: alert, oriented x3, responsive, speech normal, other - R. Hemiparesis (at baseline) Psychiatric: judgement/insight normal, memory normal, mood/affect normal, no suicidal/homicidal ideation Skin: warm/dry, other - See RN skin exam Medical Decision Making Diagnostic Impression: Primary Impression: Otitis externa Additional Impression: Mastoiditis of left side ER Course This patient has a history of mastoiditis on the left. He presents with findings on exam concerning for complicated otitis externa. He was given meropenem IV and admitted for further IV antibiotics and evaluation by ear nose and throat and infectious disease. Laboratory Tests Test 08/26/17 14:55 White Blood Count 7.8 K/UL (4.8-10.8) Red Blood Count 3.67 M/UL (4.70-6.10) L Hemoglobin 11.0 G/DL (14.2-18.0) L Hematocrit 33.6 % (42.0-52.0) L Mean Corpuscular Volume 91 FL (80-99) Mean Corpuscular Hemoglobin 30.0 PG (27.0-31.0) Mean Corpuscular Hemoglobin Concent 32.8 G/DL (32.0-36.0) Red Cell Distribution Width 12.1 % (11.6-14.8) Platelet Count 225 K/UL (150-450) Mean Platelet Volume 6.5 FL (6.5-10.1) Neutrophils (%) (Auto) 53.5 % (45.0-75.0) Lymphocytes (%) (Auto) 28.3 % (20.0-45.0) Monocytes (%) (Auto) 9.9 % (1.0-10.0) Eosinophils (%) (Auto) 7.5 % (0.0-3.0) H Basophils (%) (Auto) 0.9 % (0.0-2.0) Sodium Level 140 MMOL/L (136-145) Potassium Level 4.1 MMOL/L (3.5-5.1) Chloride Level 107 MMOL/L (98-107) Carbon Dioxide Level 25 MMOL/L (21-32) Anion Gap 8 mmol/L (5-15) Blood Urea Nitrogen 28 mg/dL (7-18) H Creatinine 2.1 MG/DL (0.55-1.30) H Estimate Glomerular Filtration Rate mL/min (>60) Glucose Level 153 MG/DL (74-106) H Calcium Level 8.4 MG/DL (8.5-10.1) L Total Bilirubin 0.2 MG/DL (0.2-1.0) Aspartate Amino Transferase (AST) 40 U/L (15-37) H Alanine Aminotransferase (ALT) 73 U/L (12-78) Alkaline Phosphatase 107 U/L (46-116) Total Protein 6.7 G/DL (6.4-8.2) Albumin 3.0 G/DL (3.4-5.0) L Globulin 3.7 g/dL Albumin/Globulin Ratio 0.8 (1.0-2.7) L CT/MRI/US Diagnostic Results CT/MRI/US Diagnostic Results : Imaging Test Ordered: CT temporal bone Impression Impression: Opacification of most of the mastoid air cells on the left, as well as partial opacification of the mastoid antrum and middle ear cavity. As the mastoids were to a large extent clear to the extent visible on recent CT scan of 2017, it is presumed that findings represent acute mastoiditis. There is probably a history of chronic mastoid disease, as there is some sclerosis of the bony mastoid surrounding the mastoid air cells. Apparent thickening of the tympanic membrane, presumably related to the above. However, due to insufficient detail on the previous brain CT, acuity of this is indeterminate. Minimal paranasal sinus disease. Evidence of old nasal fracture deformity. Last Vital Signs Date Time Temp Pulse Resp B/P (MAP) Pulse Ox O2 Delivery O2 Flow Rate FiO2 08/26/17 14:00 98.4 70 18 146/68 98 Room Air 98.4 Disposition: ADMITTED INPATIENT Condition: Serious SUKUMAR CALDERON D.O. Aug 26, 2017 14:35
[2017-08-26] MEDS ORDERED: Meropenem 1 GM in NS 55 ML IVPB ONE (14:45)
[2017-08-26 15:15] LABS: BASOPHILS % (AUTO) 0.9 % (0.0-2.0); EOSINOPHILS % (AUTO) 7.5 % (0.0-3.0); HEMATOCRIT 33.6 % (42.0-52.0); LYMPHOCYTES % (AUTO) 28.3 % (20.0-45.0); MEAN CORPUSCULAR VOLUME 91 FL (80-99); MONOCYTES % (AUTO) 9.9 % (1.0-10.0); NEUTROPHILS % (AUTO) 53.5 % (45.0-75.0); PLATELET COUNT 225 K/UL (150-450); RED BLOOD COUNT 3.67 M/UL (4.70-6.10); RED CELL DISTRIBUTION WIDTH 12.1 % (11.6-14.8); WHITE BLOOD COUNT 7.8 K/UL (4.8-10.8)
[2017-08-26 15:24] LABS: ANION GAP 8 mmol/L (5-15); BLOOD UREA NITROGEN 28 mg/dL (7-18); CALCIUM 8.4 MG/DL (8.5-10.1); CARBON DIOXIDE 25 MMOL/L (21-32); CHLORIDE 107 MMOL/L (98-107); CREATININE 2.1 MG/DL (0.55-1.30); POTASSIUM 4.1 MMOL/L (3.5-5.1); SODIUM 140 MMOL/L (136-145)
[2017-08-26 15:29] LABS: ALANINE AMINOTRANSFERASE 73 U/L (12-78); ALBUMIN/GLOBULIN RATIO 0.8 (1.0-2.7); ALKALINE PHOSPHATASE 107 U/L (46-116); ASPARTATE AMINO TRANSFERASE 40 U/L (15-37); BILIRUBIN,TOTAL 0.2 MG/DL (0.2-1.0)
[2017-08-26 16:00] VITALS: BP 136/53
--- NOTE | 2017-08-26 16:01 | Diagnostic Imaging Report ---
Indication: Reason For Exam: PAIN Technique: Spiral acquisitions obtained through the temporal bones Multiplanar high resolution reconstructions were generated. Total dose length product 400 mGycm. CTDIvol(s) 43 mGy. Radiation dose was minimized using automated exposure control Comparison: Reference made to head CT dated 07/16/2017 Findings: Most of the mastoid air cells on the left are opacified. There is also opacification of much of the left mastoid antrum. There is some degree of opacification of the middle ear cavity. There is thickening of the tympanic membrane. The middle ear ossicles appear intact and normal in configuration. The scutum is intact. The external auditory canal demonstrates a slight degree of soft tissue thickening. The inner ear structures appear unremarkable. There is a slight degree of sclerosis surrounding the mastoid air cells. On the right, the mastoids are clear. The middle ear ossicles are intact and unremarkable. The tympanic membrane is unremarkable. There is mild mucosal thickening of the bilateral maxillary and ethmoid sinuses. No evidence of acute fracture. There is a chronic appearing fracture deformity of the nasal bone. There are multiple areas of discontinuity of the nasal septum The included orbits are unremarkable. Impression: Opacification of most of the mastoid air cells on the left, as well as partial opacification of the mastoid antrum and middle ear cavity. As the mastoids were to a large extent clear to the extent visible on recent CT scan of 07/16/2017, it is presumed that findings represent acute mastoiditis. There is probably a history of chronic mastoid disease, as there is some sclerosis of the bony mastoid surrounding the mastoid air cells. Apparent thickening of the tympanic membrane, presumably related to the above. However, due to insufficient detail on the previous brain CT, acuity of this is indeterminate. Minimal paranasal sinus disease. Evidence of old nasal fracture deformity. Apparent areas of discontinuity of the nasal septum. This may be posttraumatic or postsurgical. Correlate with clinical history and findings The CT scanner at [facility] is accredited by the [employer] and the scans are performed using protocols designed to limit radiation exposure to as low as reasonably achievable to attain images of sufficient resolution adequate for diagnostic evaluation.
[2017-08-26 17:30] VITALS: BP 155/72
[2017-08-26 20:00] VITALS: BP 159/75
[2017-08-26] MEDS ORDERED: CLONIDINE HCL0.1 M1 PO (20:20)
[2017-08-26] MEDS: NovoLOG Insulin Flexpen SUBQ SCH ×2 (21:00→23:57)
[2017-08-26] MEDS ORDERED: cloNIDine 0.2mg Tab ORAL PRN (21:45)
[2017-08-27] VITALS: BP 186/88
[2017-08-27] MEDS: Meropenem 1 GM in NS 55 ML IVPB SCH ×2 (00:25→11:28)
[2017-08-27] MEDS: cloNIDine 0.2mg Tab ORAL PRN (00:26)
[2017-08-27 04:00] VITALS: BP 148/70
[2017-08-27] MEDS: Norco 5mg/325mg tab ORAL PRN ×2 (04:17→11:28)
[2017-08-27] MEDS: NovoLOG Insulin Flexpen SUBQ SCH ×4 (06:45→20:26)
[2017-08-27 08:00] VITALS: BP 150/60
[2017-08-27 08:22] LABS: BASOPHILS % (AUTO) 0.9 % (0.0-2.0); EOSINOPHILS % (AUTO) 8.1 % (0.0-3.0); HEMATOCRIT 34.1 % (42.0-52.0); HEMOGLOBIN 11.9 G/DL (14.2-18.0); LYMPHOCYTES % (AUTO) 33.5 % (20.0-45.0); MEAN CORPUSCULAR VOLUME 91 FL (80-99); MONOCYTES % (AUTO) 8.5 % (1.0-10.0); PLATELET COUNT 226 K/UL (150-450); RED BLOOD COUNT 3.75 M/UL (4.70-6.10); RED CELL DISTRIBUTION WIDTH 12.5 % (11.6-14.8); WHITE BLOOD COUNT 8.3 K/UL (4.8-10.8)
[2017-08-27] MEDS: Docusate 100mg cap ORAL SCH ×2 (08:53→18:20)
[2017-08-27] MEDS: Aspirin Baby 81mg ORAL SCH (08:55)
[2017-08-27] MEDS: Heparin 5000 units/ml inj SUBQ SCH ×2 (08:57→20:23)
[2017-08-27] MEDS ORDERED: Levofloxacin 500mg tab ORAL SCH ×2 (09:00)
[2017-08-27 09:10] LABS: ALANINE AMINOTRANSFERASE 72 U/L (12-78); ALBUMIN/GLOBULIN RATIO 0.8 (1.0-2.7); ALKALINE PHOSPHATASE 110 U/L (46-116); ANION GAP 9 mmol/L (5-15); ASPARTATE AMINO TRANSFERASE 37 U/L (15-37); BILIRUBIN,TOTAL 0.4 MG/DL (0.2-1.0); BLOOD UREA NITROGEN 25 mg/dL (7-18); CALCIUM 8.2 MG/DL (8.5-10.1); CARBON DIOXIDE 25 MMOL/L (21-32); CHLORIDE 107 MMOL/L (98-107); CHOLESTEROL 187 MG/DL (< 200); CREATININE 2.1 MG/DL (0.55-1.30); HDL CHOLESTEROL 51 MG/DL (40-60); POTASSIUM 4.2 MMOL/L (3.5-5.1); SODIUM 141 MMOL/L (136-145); TRIGLYCERIDES 82 MG/DL (30-150)
--- NOTE | 2017-08-27 10:53 | General Progress Note ---
Assessment/Plan Assessment/Plan S: My ear hurts O: appears comfortable, no fever or chills PHYSICAL EXAMINATION:HEAD AND NECK: Atraumatic and normocephalic. Positive for the pain and tenderness overlying left mastoid sinus. Positive for minimal redness in the external auditory meatus.CHEST: Clear to auscultation. No wheezing. No crackles. HEART: S1 and S2. Regular rate and rhythm. ABDOMEN: Soft. No organomegaly. MUSCULOSKELETAL: Negative for any gross abnormal lateralized motor deficit. NEUROLOGIC: The patient is awake, alert, and oriented x3. ASSESSMENT: 1. Acute left-sided mastoiditis. 2. Chronic kidney disease. 3. Hypertension. 4. Diabetes type 2. 5. Cerebrovascular accident, history of. 6. Benign prostatic hypertrophy. 7. Gastrointestinal and deep venous thrombosis prophylaxis. PLAN OF CARE: We will resume the prison medications. We will start empiric antibiotics therapy, Meropenem plus vancomycin. Infectious and ENT Services have been consulted and notified. Excretion has been sent for the cultures. Subjective Allergies: Coded Allergies: No Known Allergies (Unverified , 02/23/17) Objective Last 24 Hour Vital Signs Date Time Temp Pulse Resp B/P (MAP) Pulse Ox O2 Delivery O2 Flow Rate FiO2 08/27/17 08:52 70 150/60 08/27/17 08:00 98.5 70 18 150/60 95 Room Air 98.5 08/27/17 04:00 98.4 64 19 148/70 98 Room Air 98.4 08/27/17 00:26 181/76 08/27/17 00:00 98.2 91 19 186/88 98 Room Air 98.2 08/26/17 20:00 98.1 61 18 159/75 98 Room Air 98.1 08/26/17 17:30 98.0 61 18 155/72 98 Room Air 98.0 08/26/17 16:20 98.4 63 18 157/53 98 Room Air 08/26/17 16:00 63 18 136/53 98 Room Air 08/26/17 14:10 98.4 18 146/68 98 Room Air 98.4 08/26/17 14:00 98.4 70 18 146/68 98 Room Air 98.4 Intake and Output 08/26/17 08/27/17 19:00 07:00 Intake Total 0 ml 15 ml Output Total 800 ml Balance 0 ml -785 ml Intake Oral 0 ml 15 ml Output Urine Total 800 ml Laboratory Tests 08/26/17 14:55: White Blood Count 7.8, Red Blood Count 3.67L, Hemoglobin 11.0L, Hematocrit 33.6L , Mean Corpuscular Volume 91, Mean Corpuscular Hemoglobin 30.0, Mean Corpuscular Hemoglobin Concent 32.8, Red Cell Distribution Width 12.1, Platelet Count 225, Mean Platelet Volume 6.5, Neutrophils (%) (Auto) 53.5, Lymphocytes (% ) (Auto) 28.3, Monocytes (%) (Auto) 9.9, Eosinophils (%) (Auto) 7.5H, Basophils (%) (Auto) 0.9, Sodium Level 140, Potassium Level 4.1, Chloride Level 107, Carbon Dioxide Level 25, Anion Gap 8, Blood Urea Nitrogen 28H, Creatinine 2.1H, Estimat Glomerular Filtration Rate , Glucose Level 153H, Hemoglobin A1c 8.1H, Calcium Level 8.4L, Total Bilirubin 0.2, Aspartate Amino Transf (AST/SGOT) 40H, Alanine Aminotransferase (ALT/SGPT) 73, Alkaline Phosphatase 107, Total Protein 6.7, Albumin 3.0L, Globulin 3.7, Albumin/Globulin Ratio 0.8L 08/27/17 07:40: White Blood Count 8.3, Red Blood Count 3.75L, Hemoglobin 11.9L, Hematocrit 34.1L , Mean Corpuscular Volume 91, Mean Corpuscular Hemoglobin 31.7H, Mean Corpuscular Hemoglobin Concent 34.9, Red Cell Distribution Width 12.5, Platelet Count 226, Mean Platelet Volume 6.7, Neutrophils (%) (Auto) 49.0, Lymphocytes (% ) (Auto) 33.5, Monocytes (%) (Auto) 8.5, Eosinophils (%) (Auto) 8.1H, Basophils (%) (Auto) 0.9, Sodium Level 141, Potassium Level 4.2, Chloride Level 107, Carbon Dioxide Level 25, Anion Gap 9, Blood Urea Nitrogen 25H, Creatinine 2.1H, Estimat Glomerular Filtration Rate , Glucose Level 191H, Calcium Level 8.2L, Total Bilirubin 0.4, Aspartate Amino Transf (AST/SGOT) 37, Alanine Aminotransferase (ALT/SGPT) 72, Alkaline Phosphatase 110, Total Protein 6.8, Albumin 3.0L, Globulin 3.8, Albumin/Globulin Ratio 0.8L, Triglycerides Level 82 , Cholesterol Level 187, LDL Cholesterol 130H, HDL Cholesterol 51, Cholesterol/ HDL Ratio 3.7 Height (Feet): 5 Height (Inches): 5.00 Weight (Pounds): 160 Tara Escobar MD Aug 27, 2017 10:53
--- NOTE | 2017-08-27 10:56 | History & Physical ---
History and Physical History & Physicial SOURCE OF INFORMATION: Patient and EMR. HISTORY OF PRESENT ILLNESS: The patient is a pleasant 72-year-old male with a prior history of diabetes , Mastoiditis and heart failure. Again, The patient presented with the pain and worsening excretion from the left ear. At the time of evaluation, the patient is complaining of moderate pain. Denies any fever or chills. Denies any trauma. Denies any blurry vision. Complaining of decrease in the hearing of the left ear. PAST MEDICAL HISTORY: Diabetes, hypertension, CHF, anemia, chronic kidney disease, CVA, history of (right dominant side). CURRENT HOSPITAL MEDICATIONS: Reviewed and reconciled in the chart including, but not limited to, Unasyn, aspirin, Lipitor 40 mg daily, Coreg 6.25 mg b.i.d., Lasix 20 mg IV twice a day, gabapentin, sliding scale insulin, and Cozaar. ALLERGIES: NKDA. FAMILY HISTORY: Reviewed, noncontributory. REVIEW OF SYSTEMS: All 12 elements of review of systems reviewed. Pertinent positive and negative as above. PHYSICAL EXAMINATION: VITAL SIGNS: Blood pressure is 145/80, temperature 98.2, pulse oximetry 98% on room air, and respiratory rate 18-20. HEAD AND NECK: Atraumatic and normocephalic. Positive for the pain and tenderness overlying left mastoid sinus. Positive for minimal redness in the external auditory meatus. CHEST: Clear to auscultation. No wheezing. No crackles. HEART: S1 and S2. Regular rate and rhythm. ABDOMEN: Soft. No organomegaly. MUSCULOSKELETAL: Negative for any gross abnormal lateralized motor deficit. NEUROLOGIC: The patient is awake, alert, and oriented x3. LABORATORY AND DIAGNOSTIC DATA: Labs dated 08/26/2017 , reviewed, including Cr level of 2 CT scan of the head is negative for any acute pathology. Positive for the acute left mastoiditis. ASSESSMENT: 1. Acute left-sided mastoiditis. 2. Chronic kidney disease. 3. Hypertension. 4. Diabetes type 2. 5. Cerebrovascular accident, history of. 6. Benign prostatic hypertrophy. 7. Gastrointestinal and deep venous thrombosis prophylaxis. PLAN OF CARE: We will resume the correction medications. We will start empiric antibiotics therapy, Meropenem plus vancomycin. Infectious and ENT Services have been consulted and notified. Excretion has been sent for the cultures. comment: time of this Note, does not reflect the actual time of the encounter Tara Escobar MD Aug 27, 2017 10:56
[2017-08-27 12:00] VITALS: BP 140/70
--- NOTE | 2017-08-27 12:31 | Consultation ---
History of Present Illness General Date patient seen: Aug 27, 2017 Chief Complaint: Earache Present Illness HPI 72 y/o M with hx of DM, HTN, [place], CAD, CHF, GERD, CVA/TIA w/ right-sided weakness , HLD, anemia, renal disease, right nephrectomy for malignant neoplasm, SNF resident presents to ED on 08/26 with few days of Left side ear pain with yellow discharge and decrease hearing of the left ear. Of note, patient recently admitted here back on May 2017 L otitis externa and mastoiditis; seen by ENT and ID. Treated initially with IV Vanco and ZOsyn then transitioned to PO Levaquin for 10 days. At the time had perforated tympanic membrane Denies f/c, n/v, trauma, blurry vision. Allergies: Coded Allergies: No Known Allergies (Unverified , 02/23/17) Medication History Scheduled Acetaminophen* (Tylenol Extra Strength*), 1,000 MG ORAL Q4HR, (Reported) Aspirin* (Aspir 81*), 81 MG ORAL DAILY, (Reported) Atorvastatin Calcium* (Atorvastatin Calcium*), 40 MG ORAL BEDTIME, (Reported) Baclofen* (Baclofen*), 5 MG ORAL BEDTIME, (Reported) Carvedilol* (Carvedilol*), 3.125 MG ORAL EVERY 12 HOURS, (Reported) Cholecalciferol (Vitamin D3)* (Vitamin D*), 1,000 UNIT IV DAILY, (Reported) Clonidine HCl (Clonidine HCl ER), 0.2 MG PO Q8HR, (Reported) Cran/Vitc/Mannose/Inulin/Brom (Uti-Stat Liquid), 3,875 MG PO DAILY, (Reported) Docusate Sodium* (Docusate Sodium*), 100 MG ORAL TWICE A DAY, (Reported) Famotidine (Famotidine), 20 MG ORAL TWICE A DAY, (Reported) Finasteride (Finasteride), 5 MG ORAL DAILY, (Reported) Furosemide (Furosemide), 20 MG ORAL BID, (Reported) Gabapentin* (Gabapentin*), 200 MG ORAL BID, (Reported) Glimepiride* (Glimepiride*), 1 MG ORAL BEFORE BREAKFAST, (Reported) Levofloxacin* (Levaquin*), 750 MG ORAL DAILY Losartan Potassium* (Losartan Potassium*), 50 MG ORAL DAILY, (Reported) Mag Hydrox/Al Hydrox/Simeth (Alum-Mag Hydroxide-Simeth Liq), 30 ML PO EVERY 4 HOURS, (Reported) Mirtazapine* (Remeron*), 15 MG ORAL BEDTIME, (Reported) Multivitamins* (Multivitamins*), 1 TAB ORAL DAILY, (Reported) [place]-3 Fatty Acids/Fish Oil (Fish Oil 1,000 Mg Capsule), 1,000 MG ORAL DAILY, ( Reported) [place]-3 Fatty Acids/Fish Oil (Fish Oil 1,000 Mg Capsule), 1 CAP ORAL DAILY, ( Reported) Sennosides (Senna), 8.6 MG PO BEDTIME, (Reported) Vitamin B Cmplx/Vit C/Folic AC (Nephro-Chantel Tablet), 1 TAB ORAL DAILY, (Reported ) Scheduled PRN Acetaminophen (Tylenol), 650 MG ORAL Q4HR PRN for Prn Pain/Headache/Temp > 101, (Reported) Acetaminophen* (Tylenol Extra Strength*), 500 MG ORAL Q8H PRN for Prn Headache/ Temp > 101 Hydrocodone Bit/Acetaminophen 5-325* ([place] 5-325 Tablet*), 1 TAB ORAL Q4H PRN for For Pain, (Reported) Hydrocodone Bit/Acetaminophen 5-325* ([place] 5-325 Tablet*), 1 TAB ORAL Q4H PRN for For Pain, (Reported) Insulin Regular, Human (Humulin R), 0 SUBQ ACHS PRN for Sliding Scale, (Reported ) Miscellaneous Medications Cran/Vitc/Mannose/Inulin/Brom (Uti-Stat Liquid), 3,875 MG PO, (Reported) Melatonin (Melatonin), 5 MG PO, (Reported) Patient History Healthcare decision maker N Resuscitation status Full Code Advanced Directive on File Patient History Narrative Pmhx: as above Shx:Denies: smoking, alcohol use, drug use Fmhx: non contributory Review of Systems All Other Systems: negative except mentioned in HPI Physical Exam Physical Exam Narrative HEAD AND NECK: Atraumatic and normocephalic. Positive for the pain and tenderness overlying L ear tragus. Dry drainage from ear canal CHEST: Clear to auscultation. No wheezing. No crackles. HEART: S1 and S2. Regular rate and rhythm. ABDOMEN: Soft. No organomegaly. MUSCULOSKELETAL: Negative for any gross abnormal lateralized motor deficit. NEUROLOGIC: The patient is awake, alert, and oriented x3. Last 24 Hour Vital Signs Date Time Temp Pulse Resp B/P (MAP) Pulse Ox O2 Delivery O2 Flow Rate FiO2 08/27/17 11:46 98.5 08/27/17 11:28 98.5 08/27/17 08:52 70 150/60 08/27/17 08:00 98.5 70 18 150/60 95 Room Air 98.5 08/27/17 04:00 98.4 64 19 148/70 98 Room Air 98.4 08/27/17 00:26 181/76 08/27/17 00:00 98.2 91 19 186/88 98 Room Air 98.2 08/26/17 20:00 98.1 61 18 159/75 98 Room Air 98.1 08/26/17 17:30 98.0 61 18 155/72 98 Room Air 98.0 08/26/17 16:20 98.4 63 18 157/53 98 Room Air 08/26/17 16:00 63 18 136/53 98 Room Air 08/26/17 14:10 98.4 18 146/68 98 Room Air 98.4 08/26/17 14:00 98.4 70 18 146/68 98 Room Air 98.4 Intake and Output 08/26/17 08/27/17 19:00 07:00 Intake Total 0 ml 15 ml Output Total 800 ml Balance 0 ml -785 ml Intake Oral 0 ml 15 ml Output Urine Total 800 ml Laboratory Tests Test 08/26/17 14:55 08/27/17 07:40 White Blood Count 7.8 K/UL (4.8-10.8) 8.3 K/UL (4.8-10.8) Red Blood Count 3.67 M/UL (4.70-6.10) L 3.75 M/UL (4.70-6.10) L Hemoglobin 11.0 G/DL (14.2-18.0) L 11.9 G/DL (14.2-18.0) L Hematocrit 33.6 % (42.0-52.0) L 34.1 % (42.0-52.0) L Mean Corpuscular Volume 91 FL (80-99) 91 FL (80-99) Mean Corpuscular Hemoglobin 30.0 PG (27.0-31.0) 31.7 PG (27.0-31.0) H Mean Corpuscular Hemoglobin Concent 32.8 G/DL (32.0-36.0) 34.9 G/DL (32.0-36.0) Red Cell Distribution Width 12.1 % (11.6-14.8) 12.5 % (11.6-14.8) Platelet Count 225 K/UL (150-450) 226 K/UL (150-450) Mean Platelet Volume 6.5 FL (6.5-10.1) 6.7 FL (6.5-10.1) Neutrophils (%) (Auto) 53.5 % (45.0-75.0) 49.0 % (45.0-75.0) Lymphocytes (%) (Auto) 28.3 % (20.0-45.0) 33.5 % (20.0-45.0) Monocytes (%) (Auto) 9.9 % (1.0-10.0) 8.5 % (1.0-10.0) Eosinophils (%) (Auto) 7.5 % (0.0-3.0) H 8.1 % (0.0-3.0) H Basophils (%) (Auto) 0.9 % (0.0-2.0) 0.9 % (0.0-2.0) Sodium Level 140 MMOL/L (136-145) 141 MMOL/L (136-145) Potassium Level 4.1 MMOL/L (3.5-5.1) 4.2 MMOL/L (3.5-5.1) Chloride Level 107 MMOL/L (98-107) 107 MMOL/L (98-107) Carbon Dioxide Level 25 MMOL/L (21-32) 25 MMOL/L (21-32) Anion Gap 8 mmol/L (5-15) 9 mmol/L (5-15) Blood Urea Nitrogen 28 mg/dL (7-18) H 25 mg/dL (7-18) H Creatinine 2.1 MG/DL (0.55-1.30) H 2.1 MG/DL (0.55-1.30) H Estimat Glomerular Filtration Rate mL/min (>60) mL/min (>60) Glucose Level 153 MG/DL (74-106) H 191 MG/DL (74-106) H Hemoglobin A1c 8.1 % (4.3-6.0) H Calcium Level 8.4 MG/DL (8.5-10.1) L 8.2 MG/DL (8.5-10.1) L Total Bilirubin 0.2 MG/DL (0.2-1.0) 0.4 MG/DL (0.2-1.0) Aspartate Amino Transf (AST/SGOT) 40 U/L (15-37) H 37 U/L (15-37) Alanine Aminotransferase (ALT/SGPT) 73 U/L (12-78) 72 U/L (12-78) Alkaline Phosphatase 107 U/L (46-116) 110 U/L (46-116) Total Protein 6.7 G/DL (6.4-8.2) 6.8 G/DL (6.4-8.2) Albumin 3.0 G/DL (3.4-5.0) L 3.0 G/DL (3.4-5.0) L Globulin 3.7 g/dL 3.8 g/dL Albumin/Globulin Ratio 0.8 (1.0-2.7) L 0.8 (1.0-2.7) L Triglycerides Level 82 MG/DL (30-150) Cholesterol Level 187 MG/DL (< 200) LDL Cholesterol 130 mg/dL (<100) H HDL Cholesterol 51 MG/DL (40-60) Cholesterol/HDL Ratio 3.7 (3.3-4.4) Microbiology Date/Time Source Procedure Growth Status 08/27/17 00:05 Ear Left Gram Stain - Final Resulted 08/27/17 00:05 Ear Left Wound Culture Pending Resulted Height (Feet): 5 Height (Inches): 5.00 Weight (Pounds): 160 Medications Current Medications Medications (Trade) Dose Ordered Sig/Jared Route PRN Reason Start Time Stop Time Status Last Admin Dose Admin Acetaminophen (Tylenol) 650 mg Q6H PRN ORAL Mild Pain/Temp > 100.5 08/26/17 21:45 09/25/17 21:44 08/27/17 11:46 Acetaminophen/ Hydrocodone Bitart ([place] 5/325) 1 tab Q4H PRN ORAL Moderate Pain (Pain Scale 4-6) 08/26/17 21:45 09/02/17 21:44 08/27/17 11:28 Aspirin (ASA) 81 mg DAILY ORAL 08/27/17 09:00 09/26/17 08:59 08/27/17 08:55 Atorvastatin Calcium (Lipitor) 40 mg BEDTIME ORAL 08/27/17 21:00 09/26/17 20:59 Baclofen (Lioresal) 5 mg DAILY ORAL 08/27/17 09:00 09/26/17 08:59 08/27/17 08:53 Carvedilol (Coreg) 3.125 mg EVERY 12 HOURS ORAL 08/27/17 09:00 09/26/17 08:59 08/27/17 08:52 Clonidine HCl (Catapres tab) 0.2 mg EVERY 8 HOURS PRN ORAL For High Blood Pressure 08/26/17 22:15 09/25/17 21:44 08/27/17 00:26 Dextrose (Dextrose 50%) 25 ml STAT PRN IV Hypoglycemia 08/26/17 21:00 09/25/17 20:59 Dextrose (Dextrose 50%) 50 ml STAT PRN IV Hypoglycemia 08/26/17 21:00 09/25/17 20:59 Docusate Sodium (Colace) 100 mg TWICE A DAY ORAL 08/27/17 09:00 09/26/17 08:59 08/27/17 08:53 Famotidine (Pepcid) 20 mg BID ORAL 08/27/17 09:00 09/26/17 08:59 08/27/17 08:51 Finasteride (Proscar) 5 mg DAILY ORAL 08/27/17 09:00 09/26/17 08:59 08/27/17 08:53 Furosemide (Lasix) 20 mg EVERY 12 HOURS ORAL 08/27/17 09:00 09/26/17 08:59 08/27/17 08:53 Gabapentin (Neurontin) 200 mg TWICE A DAY ORAL 08/27/17 09:00 09/26/17 08:59 08/27/17 08:52 Heparin Sodium (Porcine) (Heparin 5000 units/ml) 5,000 units EVERY 12 HOURS SUBQ 08/27/17 09:00 09/26/17 08:59 08/27/17 08:57 Insulin Aspart (NovoLOG) BEFORE MEALS AND HS SUBQ 08/26/17 21:00 09/25/17 20:59 08/27/17 06:45 Insulin Detemir (Levemir) 5 units BEDTIME SUBQ 08/27/17 21:00 09/26/17 20:59 Levofloxacin (Levaquin) 750 mg Q48H ORAL 08/27/17 09:00 09/03/17 08:59 08/27/17 08:55 Meropenem 1 gm/ Sodium Chloride 55 ml @ 110 mls/hr Q12H IVPB 08/27/17 00:00 09/01/17 00:00 08/27/17 11:28 Mirtazapine (Remeron) 15 mg BEDTIME ORAL 08/27/17 21:00 09/26/17 20:59 Assessment/Plan Assessment/Plan Abx: Levaquin 08/27- Meropenem 08/26- Assessment: Acute on chronic L mastoiditis -drainage cx p -CT L IAC 08/26: Opacification of most of the mastoid air cells on the left, as well as partial opacification of the mastoid antrum and middle ear cavity. As the mastoids were to a large extent clear to the extent visible on recent CT scan of 07/16/2017, it presumed that findings represent acute mastoiditis. There is probably a history of chronic mastoid disease, as there is some sclerosis of the bony mastoid surrounding the mastoid air cells. Apparent thickening of the tympanic membrane, presumably related to the above. However, due to insufficient detail on the previous brain CT, acuity of this is indeterminate. Minimal paranasal sinus disease. Evidence of old nasal fracture deformity. -CT HEad 07/16: Previously demonstrated left mastoid opacification has improved significantly, with only minimal residual -CT Head 05/28/2017 : Acute left mastoiditis. -s/p 10 days Levaquin 05/2017; tympanic membrane perforation 05/2017. Afebrile, no leukocytosis History of CVA with right-sided weakness. CHF. Hyperlipidemia. Hypertension. GERD. History of right nephrectomy due to cancer. Diabetes. Anemia CAD/[place] renal disease right nephrectomy for malignant neoplasm SNF resident Plan: -Switch IV Meropenem #2 to Zosyn and add IV Vancomycin for S. aureus coverage pending drainage wound cx -D/c Levaquin #1 -06/07 SP Levaquin #10 -f/u cx -Monitor CBC/BMP, temperatures -ENT eval Thank you for this consultation. Will continue to follow along with you. Discussed with ERNESTO. Aisha Ramirez M.D. Aug 27, 2017 12:31
--- NOTE | 2017-08-27 15:11 | Consultation ---
History of Present Illness General Date patient seen: Aug 27, 2017 Chief Complaint: Earache Present Illness HPI 72-year-old male with a prior history of diabetes , depression, Mastoiditis and heart failure. The patient presented with the pain and worsening excretion from the left ear. The pt is having some anxiety otherwise doing well Allergies: Coded Allergies: No Known Allergies (Unverified , 02/23/17) Medication History Scheduled Acetaminophen* (Tylenol Extra Strength*), 1,000 MG ORAL Q4HR, (Reported) Aspirin* (Aspir 81*), 81 MG ORAL DAILY, (Reported) Atorvastatin Calcium* (Atorvastatin Calcium*), 40 MG ORAL BEDTIME, (Reported) Baclofen* (Baclofen*), 5 MG ORAL BEDTIME, (Reported) Carvedilol* (Carvedilol*), 3.125 MG ORAL EVERY 12 HOURS, (Reported) Cholecalciferol (Vitamin D3)* (Vitamin D*), 1,000 UNIT IV DAILY, (Reported) Clonidine HCl (Clonidine HCl ER), 0.2 MG PO Q8HR, (Reported) Cran/Vitc/Mannose/Inulin/Brom (Uti-Stat Liquid), 3,875 MG PO DAILY, (Reported) Docusate Sodium* (Docusate Sodium*), 100 MG ORAL TWICE A DAY, (Reported) Famotidine (Famotidine), 20 MG ORAL TWICE A DAY, (Reported) Finasteride (Finasteride), 5 MG ORAL DAILY, (Reported) Furosemide (Furosemide), 20 MG ORAL BID, (Reported) Gabapentin* (Gabapentin*), 200 MG ORAL BID, (Reported) Glimepiride* (Glimepiride*), 1 MG ORAL BEFORE BREAKFAST, (Reported) Levofloxacin* (Levaquin*), 750 MG ORAL DAILY Losartan Potassium* (Losartan Potassium*), 50 MG ORAL DAILY, (Reported) Mag Hydrox/Al Hydrox/Simeth (Alum-Mag Hydroxide-Simeth Liq), 30 ML PO EVERY 4 HOURS, (Reported) Mirtazapine* (Remeron*), 15 MG ORAL BEDTIME, (Reported) Multivitamins* (Multivitamins*), 1 TAB ORAL DAILY, (Reported) [place]-3 Fatty Acids/Fish Oil (Fish Oil 1,000 Mg Capsule), 1,000 MG ORAL DAILY, ( Reported) [place]-3 Fatty Acids/Fish Oil (Fish Oil 1,000 Mg Capsule), 1 CAP ORAL DAILY, ( Reported) Sennosides (Senna), 8.6 MG PO BEDTIME, (Reported) Vitamin B Cmplx/Vit C/Folic AC (Nephro-Chantel Tablet), 1 TAB ORAL DAILY, (Reported ) Scheduled PRN Acetaminophen (Tylenol), 650 MG ORAL Q4HR PRN for Prn Pain/Headache/Temp > 101, (Reported) Acetaminophen* (Tylenol Extra Strength*), 500 MG ORAL Q8H PRN for Prn Headache/ Temp > 101 Hydrocodone Bit/Acetaminophen 5-325* ([place] 5-325 Tablet*), 1 TAB ORAL Q4H PRN for For Pain, (Reported) Hydrocodone Bit/Acetaminophen 5-325* ([place] 5-325 Tablet*), 1 TAB ORAL Q4H PRN for For Pain, (Reported) Insulin Regular, Human (Humulin R), 0 SUBQ ACHS PRN for Sliding Scale, (Reported ) Miscellaneous Medications Cran/Vitc/Mannose/Inulin/Brom (Uti-Stat Liquid), 3,875 MG PO, (Reported) Melatonin (Melatonin), 5 MG PO, (Reported) Patient History Healthcare decision maker N Resuscitation status Full Code Advanced Directive on File Review of Systems Psychiatric: Reports: prior hx, anxiety, depressed feelings, emotional problems Physical Exam General Appearance: no apparent distress, alert Neurologic: oriented x 3, responsive, depressed affect Last 24 Hour Vital Signs Date Time Temp Pulse Resp B/P (MAP) Pulse Ox O2 Delivery O2 Flow Rate FiO2 08/27/17 12:45 98.5 08/27/17 12:00 97.4 79 17 140/70 95 Room Air 97.4 08/27/17 11:46 98.5 08/27/17 08:52 70 150/60 08/27/17 08:00 98.5 70 18 150/60 95 Room Air 98.5 08/27/17 04:00 98.4 64 19 148/70 98 Room Air 98.4 08/27/17 00:26 181/76 08/27/17 00:00 98.2 91 19 186/88 98 Room Air 98.2 08/26/17 20:00 98.1 61 18 159/75 98 Room Air 98.1 08/26/17 17:30 98.0 61 18 155/72 98 Room Air 98.0 08/26/17 16:20 98.4 63 18 157/53 98 Room Air 08/26/17 16:00 63 18 136/53 98 Room Air Intake and Output 08/26/17 08/27/17 19:00 07:00 Intake Total 0 ml 15 ml Output Total 800 ml Balance 0 ml -785 ml Intake Oral 0 ml 15 ml Output Urine Total 800 ml Laboratory Tests Test 08/27/17 07:40 White Blood Count 8.3 K/UL (4.8-10.8) Red Blood Count 3.75 M/UL (4.70-6.10) L Hemoglobin 11.9 G/DL (14.2-18.0) L Hematocrit 34.1 % (42.0-52.0) L Mean Corpuscular Volume 91 FL (80-99) Mean Corpuscular Hemoglobin 31.7 PG (27.0-31.0) H Mean Corpuscular Hemoglobin Concent 34.9 G/DL (32.0-36.0) Red Cell Distribution Width 12.5 % (11.6-14.8) Platelet Count 226 K/UL (150-450) Mean Platelet Volume 6.7 FL (6.5-10.1) Neutrophils (%) (Auto) 49.0 % (45.0-75.0) Lymphocytes (%) (Auto) 33.5 % (20.0-45.0) Monocytes (%) (Auto) 8.5 % (1.0-10.0) Eosinophils (%) (Auto) 8.1 % (0.0-3.0) H Basophils (%) (Auto) 0.9 % (0.0-2.0) Sodium Level 141 MMOL/L (136-145) Potassium Level 4.2 MMOL/L (3.5-5.1) Chloride Level 107 MMOL/L (98-107) Carbon Dioxide Level 25 MMOL/L (21-32) Anion Gap 9 mmol/L (5-15) Blood Urea Nitrogen 25 mg/dL (7-18) H Creatinine 2.1 MG/DL (0.55-1.30) H Estimat Glomerular Filtration Rate mL/min (>60) Glucose Level 191 MG/DL (74-106) H Calcium Level 8.2 MG/DL (8.5-10.1) L Total Bilirubin 0.4 MG/DL (0.2-1.0) Aspartate Amino Transf (AST/SGOT) 37 U/L (15-37) Alanine Aminotransferase (ALT/SGPT) 72 U/L (12-78) Alkaline Phosphatase 110 U/L (46-116) Total Protein 6.8 G/DL (6.4-8.2) Albumin 3.0 G/DL (3.4-5.0) L Globulin 3.8 g/dL Albumin/Globulin Ratio 0.8 (1.0-2.7) L Triglycerides Level 82 MG/DL (30-150) Cholesterol Level 187 MG/DL (< 200) LDL Cholesterol 130 mg/dL (<100) H HDL Cholesterol 51 MG/DL (40-60) Cholesterol/HDL Ratio 3.7 (3.3-4.4) Microbiology Date/Time Source Procedure Growth Status 08/27/17 00:05 Ear Left Gram Stain - Final Resulted 08/27/17 00:05 Ear Left Wound Culture Pending Resulted Height (Feet): 5 Height (Inches): 5.00 Weight (Pounds): 160 Medications Current Medications Medications (Trade) Dose Ordered Sig/Jared Route PRN Reason Start Time Stop Time Status Last Admin Dose Admin Acetaminophen (Tylenol) 650 mg Q6H PRN ORAL Mild Pain/Temp > 100.5 08/26/17 21:45 09/25/17 21:44 08/27/17 11:46 Acetaminophen/ Hydrocodone Bitart ([place] 5/325) 1 tab Q4H PRN ORAL Moderate Pain (Pain Scale 4-6) 08/26/17 21:45 09/02/17 21:44 08/27/17 04:17 Aspirin (ASA) 81 mg DAILY ORAL 08/27/17 09:00 09/26/17 08:59 08/27/17 08:55 Atorvastatin Calcium (Lipitor) 40 mg BEDTIME ORAL 08/27/17 21:00 09/26/17 20:59 Baclofen (Lioresal) 5 mg DAILY ORAL 08/27/17 09:00 09/26/17 08:59 08/27/17 08:53 Carvedilol (Coreg) 3.125 mg EVERY 12 HOURS ORAL 08/27/17 09:00 09/26/17 08:59 08/27/17 08:52 Clonidine HCl (Catapres tab) 0.2 mg EVERY 8 HOURS PRN ORAL For High Blood Pressure 08/26/17 22:15 09/25/17 21:44 08/27/17 00:26 Dextrose (Dextrose 50%) 25 ml STAT PRN IV Hypoglycemia 08/26/17 21:00 09/25/17 20:59 Dextrose (Dextrose 50%) 50 ml STAT PRN IV Hypoglycemia 08/26/17 21:00 09/25/17 20:59 Docusate Sodium (Colace) 100 mg TWICE A DAY ORAL 08/27/17 09:00 09/26/17 08:59 08/27/17 08:53 Famotidine (Pepcid) 20 mg BID ORAL 08/27/17 09:00 09/26/17 08:59 08/27/17 08:51 Finasteride (Proscar) 5 mg DAILY ORAL 08/27/17 09:00 09/26/17 08:59 08/27/17 08:53 Furosemide (Lasix) 20 mg EVERY 12 HOURS ORAL 08/27/17 09:00 09/26/17 08:59 08/27/17 08:53 Gabapentin (Neurontin) 200 mg TWICE A DAY ORAL 08/27/17 09:00 09/26/17 08:59 08/27/17 08:52 Heparin Sodium (Porcine) (Heparin 5000 units/ml) 5,000 units EVERY 12 HOURS SUBQ 08/27/17 09:00 09/26/17 08:59 08/27/17 08:57 Insulin Aspart (NovoLOG) BEFORE MEALS AND HS SUBQ 08/26/17 21:00 09/25/17 20:59 08/27/17 12:14 Insulin Detemir (Levemir) 5 units BEDTIME SUBQ 08/27/17 21:00 09/26/17 20:59 Mirtazapine (Remeron) 15 mg BEDTIME ORAL 08/27/17 21:00 09/26/17 20:59 Piperacillin Sod/ Tazobactam Sod 3.375 gm/Sodium Chloride 110 ml @ 27.5 mls/hr EVERY 8 HOURS IVPB 08/27/17 14:00 09/01/17 13:59 Vancomycin HCl (Vanco rx to dose) 1 ea DAILY PRN MISC Per rx protocol 08/27/17 12:45 09/26/17 12:44 Vancomycin HCl 1 gm/Dextrose 275 ml @ 183.708 mls/hr Q24H ONCE IVPB 08/27/17 18:00 08/27/17 19:29 Vancomycin/Sodium Chloride 250 ml @ 166.667 mls/hr Q24H IVPB 08/28/17 18:00 09/02/17 17:59 Assessment/Plan Assessment/Plan MDD anxiety d/o remeron 15mg qhs Nely Helm M.D. Aug 27, 2017 15:11
[2017-08-27] MEDS: Piperacillin/Tazobactam 3.375 GM in NS 110 ML IVPB SCH ×2 (15:13→22:29)
[2017-08-27 16:00] VITALS: BP 153/66
[2017-08-27] MEDS ORDERED: Vancomycin 1gm/D5W 275ml IVPB ONE ×2 (18:00)
--- NOTE | 2017-08-27 18:45 | Consultation ---
DATE OF CONSULTATION: 08/27/2017 HEAD, NECK SURGERY, ENT CONSULT CONSULTING PHYSICIAN: Zenon Swann M.D. REQUESTING PHYSICIAN: Tara Escobar M.D. INDICATION FOR CONSULTATION: Left ear mastoiditis. MEDICATIONS: Docusate, Proscar, Pepcid, Lasix, heparin, Neurontin, Levaquin, Catapres, Tylenol, [place], insulin, and NovoLog. PAST MEDICAL HISTORY: He did not speak Georgian well, appears to be mastoiditis of left side. I am looking at the chart and it states diabetes, hypertension, [place], congestive heart failure, GERD, CVA/TIA, renal disease. Denies smoking alcohol or drug use. Neurologic problems, hemiplegia and hemiparesis of the right side and a malignant neoplasm of unspecified kidney. He was admitted last night, placed on levofloxacin, which is appropriate for an otitis externa. The CT showed no otitis media. ALLERGIES: No known drug allergies. PHYSICAL EXAMINATION: VITAL SIGNS: Height 165.1 cm, weight 72.575 kilograms and BMI 26.6 kg/m2. HEENT: The patient lying in bed, comfortable, but pointing to his left ear. Right ear is normal. Left ear is 3/4 red, tender on the mastoid, but the skin is not red. Mouth is normal. Nose is normal. LABORATORY AND DIAGNOSTIC DATA: CT of the ear shows mastoiditis with complete opacification of the mastoid and middle ear. His white count is 8.3, was 7.8 yesterday. His nutritional status is albumin globulin is low, which will affect his healing and glucose was 191 and an A1c of 8.1, so he is running high. ASSESSMENT AND PLAN: This is a poorly-controlled diabetic who has a left ear mastoiditis and otitis externa and otitis media and being treated appropriately with levofloxacin at this point. He can be discharged and follow up through his HMO, which is [employer] or he can follow up with me in my office, but I am not a [employer] [facility] provider [facility] This does need followup outside of the hospital. I will check him the next few days if he is still in the hospital. Thank very much for asking my opinion in the care and treatment of this patient. Zenon Swann M.D. DR: MICKY JOB#: [id number] CC: FRANC
[2017-08-27 20:00] VITALS: BP 154/60
[2017-08-27] MEDS: Atorvastatin 20mg tab ORAL SCH (20:20)
[2017-08-27] MEDS: Levemir Flexpen SUBQ SCH (20:26)
[2017-08-28] VITALS (8 sets, daily range): BP systolic 140–177; BP diastolic 65–84
[2017-08-28] MEDS: Piperacillin/Tazobactam 3.375 GM in NS 110 ML IVPB SCH ×3 (06:01→22:01)
[2017-08-28] MEDS: NovoLOG Insulin Flexpen SUBQ SCH ×4 (06:02→20:38)
[2017-08-28] MEDS: Docusate 100mg cap ORAL SCH ×2 (09:10→17:32)
[2017-08-28] MEDS: Aspirin Baby 81mg ORAL SCH (09:11)
[2017-08-28] MEDS: Heparin 5000 units/ml inj SUBQ SCH ×2 (09:18→20:36)
--- NOTE | 2017-08-28 10:10 | General Progress Note ---
Assessment/Plan Assessment/Plan S: My ear hurts O: appears comfortable, no fever or chills PHYSICAL EXAMINATION:HEAD AND NECK: Atraumatic and normocephalic. Positive for the pain and tenderness overlying left mastoid sinus. Positive for minimal redness in the external auditory meatus.CHEST: Clear to auscultation. No wheezing. No crackles. HEART: S1 and S2. Regular rate and rhythm. ABDOMEN: Soft. No organomegaly. MUSCULOSKELETAL: Negative for any gross abnormal lateralized motor deficit. NEUROLOGIC: The patient is awake, alert, and oriented x3. ASSESSMENT: 1. Acute left-sided mastoiditis. 2. Chronic kidney disease. 3. Hypertension. 4. Diabetes type 2. 5. Cerebrovascular accident, history of. 6. Benign prostatic hypertrophy. 7. Gastrointestinal and deep venous thrombosis prophylaxis. PLAN OF CARE: Pending wound cultures to guide Abx selection Notes from ENT , Dr Swann is reviewed Subjective Allergies: Coded Allergies: No Known Allergies (Unverified , 02/23/17) Objective Last 24 Hour Vital Signs Date Time Temp Pulse Resp B/P (MAP) Pulse Ox O2 Delivery O2 Flow Rate FiO2 08/28/17 09:22 72 165/75 08/28/17 08:00 98.7 70 20 171/72 96 Room Air 98.7 08/28/17 04:00 97.9 73 18 151/65 100 Room Air 97.9 08/28/17 00:00 97.2 74 18 153/72 97 Room Air 97.2 08/27/17 20:21 65 154/60 08/27/17 20:00 98.2 65 18 154/60 95 Room Air 98.2 08/27/17 16:00 98.7 69 19 153/66 98 Room Air 98.7 08/27/17 12:45 98.5 08/27/17 12:00 97.4 79 17 140/70 95 Room Air 97.4 08/27/17 11:46 98.5 Intake and Output 08/27/17 08/28/17 19:00 07:00 Intake Total 110.0 ml Balance 110.0 ml IV Total 110.0 ml Height (Feet): 5 Height (Inches): 5.00 Weight (Pounds): 139 Tara Escobar MD Aug 28, 2017 10:10
--- NOTE | 2017-08-28 12:09 | General Progress Note ---
Assessment/Plan Assessment/Plan MDD anxiety d/o remeron 15mg qhs provided ro/st Subjective Date patient seen: Aug 28, 2017 Neurologic/Psychiatric: Reports: anxiety, depressed, emotional problems Allergies: Coded Allergies: No Known Allergies (Unverified , 02/23/17) Objective Last 24 Hour Vital Signs Date Time Temp Pulse Resp B/P (MAP) Pulse Ox O2 Delivery O2 Flow Rate FiO2 08/28/17 09:22 72 165/75 08/28/17 08:00 98.7 70 20 171/72 96 Room Air 98.7 08/28/17 04:00 97.9 73 18 151/65 100 Room Air 97.9 08/28/17 00:00 97.2 74 18 153/72 97 Room Air 97.2 08/27/17 20:21 65 154/60 08/27/17 20:00 98.2 65 18 154/60 95 Room Air 98.2 08/27/17 16:00 98.7 69 19 153/66 98 Room Air 98.7 08/27/17 12:45 98.5 Intake and Output 08/27/17 08/28/17 19:00 07:00 Intake Total 110.0 ml Balance 110.0 ml IV Total 110.0 ml Height (Feet): 5 Height (Inches): 5.00 Weight (Pounds): 139 General Appearance: WD/WN, no apparent distress, alert Neurologic: oriented x 3, responsive, depressed affect Nely Helm M.D. Aug 28, 2017 12:09
--- NOTE | 2017-08-28 14:05 | General Progress Note ---
Assessment/Plan Status: progressing Status Narrative Appears to be responding to antibiotics-shoule be able to go home soon on oral antibiotics per ENT regarding left ear Mastoiditis. Assessment/Plan As above in Status Narrative. Subjective Date patient seen: Aug 28, 2017 Time patient seen: 14:00 HEENT: Reports: ear pain - less pain today, ear discharge - none today Allergies: Coded Allergies: No Known Allergies (Unverified , 02/23/17) Subjective Overall pt states improvement left ear. Objective Last 24 Hour Vital Signs Date Time Temp Pulse Resp B/P (MAP) Pulse Ox O2 Delivery O2 Flow Rate FiO2 08/28/17 13:29 99.0 18 154/75 99 99.0 08/28/17 12:00 99.0 70 19 170/74 98 Room Air 99.0 08/28/17 09:22 72 165/75 08/28/17 08:00 98.7 70 20 171/72 96 Room Air 98.7 08/28/17 04:00 97.9 73 18 151/65 100 Room Air 97.9 08/28/17 00:00 97.2 74 18 153/72 97 Room Air 97.2 08/27/17 20:21 65 154/60 08/27/17 20:00 98.2 65 18 154/60 95 Room Air 98.2 08/27/17 16:00 98.7 69 19 153/66 98 Room Air 98.7 Intake and Output 08/27/17 08/28/17 19:00 07:00 Intake Total 110.0 ml Balance 110.0 ml IV Total 110.0 ml Height (Feet): 5 Height (Inches): 5.00 Weight (Pounds): 139 General Appearance: WD/WN, no apparent distress EENT: PERRL/EOMI, pharynx normal, TM abnormal (L) - TM still red with less canal swelling-left ear Neck: non-tender Lymphatic: normal anterior cervical (L), normal anterior cervical (R), normal posterior cervical (L), normal posterior cervical (R), normal submandibular (L) , normal submandibular (R) MICAELA DE LA ROSA Aug 28, 2017 14:05
--- NOTE | 2017-08-28 14:18 | Infectious Diseases Prog Note ---
Assessment/Plan Assessment/Plan Abx: Levaquin 08/27- Meropenem 08/26- Assessment: Acute on chronic L mastoiditis/ L otitis media and externa -drainage cx GNR -CT L IAC 08/26: Opacification of most of the mastoid air cells on the left, as well as partial opacification of the mastoid antrum and middle ear cavity. As the mastoids were to a large extent clear to the extent visible on recent CT scan of 07/16/2017, it presumed that findings represent acute mastoiditis. There is probably a history of chronic mastoid disease, as there is some sclerosis of the bony mastoid surrounding the mastoid air cells. Apparent thickening of the tympanic membrane, presumably related to the above. However, due to insufficient detail on the previous brain CT, acuity of this is indeterminate. Minimal paranasal sinus disease. Evidence of old nasal fracture deformity. -CT HEad 07/16: Previously demonstrated left mastoid opacification has improved significantly, with only minimal residual -CT Head 05/28/2017 : Acute left mastoiditis. -s/p 10 days Levaquin 05/2017; tympanic membrane perforation 05/2017. Afebrile, no leukocytosis History of CVA with right-sided weakness. CHF. Hyperlipidemia. Hypertension. GERD. History of right nephrectomy due to cancer. Diabetes. Anemia CAD/NE renal disease right nephrectomy for malignant neoplasm SNF resident Plan: -Continue IV to Zosyn abx d#3 and d/c IV Vancomycin#2 given no gram positive isolation from wound cx; final regimen guided by culture results; will plan to treat for 2-4 weeks. -08/27 SP Levaquin #1 and Meropenem #2 -06/07 SP Levaquin #10 -f/u cx -Monitor CBC/BMP, temperatures -ENT eval f/u Thank you for this consultation. Will continue to follow along with you. Discussed with RN. Subjective Allergies: Coded Allergies: No Known Allergies (Unverified , 02/23/17) Subjective afebrile wound cx grwong GNRs no leukocytosis Objective Vital Signs Last 24 Hour Vital Signs Date Time Temp Pulse Resp B/P (MAP) Pulse Ox O2 Delivery O2 Flow Rate FiO2 08/28/17 13:29 99.0 18 154/75 99 99.0 08/28/17 12:00 99.0 70 19 170/74 98 Room Air 99.0 08/28/17 09:22 72 165/75 08/28/17 08:00 98.7 70 20 171/72 96 Room Air 98.7 08/28/17 04:00 97.9 73 18 151/65 100 Room Air 97.9 08/28/17 00:00 97.2 74 18 153/72 97 Room Air 97.2 08/27/17 20:21 65 154/60 08/27/17 20:00 98.2 65 18 154/60 95 Room Air 98.2 08/27/17 16:00 98.7 69 19 153/66 98 Room Air 98.7 Height (Feet): 5 Height (Inches): 5.00 Weight (Pounds): 139 Objective HEAD AND NECK: Atraumatic and normocephalic. Positive for the pain and tenderness overlying L ear tragus. Dry drainage from ear canal CHEST: Clear to auscultation. No wheezing. No crackles. HEART: S1 and S2. Regular rate and rhythm. ABDOMEN: Soft. No organomegaly. MUSCULOSKELETAL: Negative for any gross abnormal lateralized motor deficit. NEUROLOGIC: The patient is awake, alert, and oriented x3. Microbiology Date/Time Source Procedure Growth Status 08/27/17 00:05 Ear Left Gram Stain - Final Resulted 08/27/17 00:05 Wound Culture - Preliminary Gram Negative Bacillus 1 Resulted Current Medications Medications (Trade) Dose Ordered Sig/Jared Route PRN Reason Start Time Stop Time Status Last Admin Dose Admin Acetaminophen (Tylenol) 650 mg Q6H PRN ORAL Mild Pain/Temp > 100.5 08/26/17 21:45 09/25/17 21:44 08/27/17 20:22 Acetaminophen/ Hydrocodone Bitart ([place] 5/325) 1 tab Q4H PRN ORAL Moderate Pain (Pain Scale 4-6) 08/26/17 21:45 09/02/17 21:44 08/27/17 04:17 Aspirin (ASA) 81 mg DAILY ORAL 08/27/17 09:00 09/26/17 08:59 08/28/17 09:11 Atorvastatin Calcium (Lipitor) 40 mg BEDTIME ORAL 08/27/17 21:00 09/26/17 20:59 08/27/17 20:20 Baclofen (Lioresal) 5 mg DAILY ORAL 08/27/17 09:00 09/26/17 08:59 08/28/17 09:10 Carvedilol (Coreg) 3.125 mg EVERY 12 HOURS ORAL 08/27/17 09:00 09/26/17 08:59 08/28/17 09:22 Clonidine HCl (Catapres tab) 0.2 mg EVERY 8 HOURS PRN ORAL For High Blood Pressure 08/26/17 22:15 09/25/17 21:44 08/27/17 00:26 Dextrose (Dextrose 50%) 25 ml STAT PRN IV Hypoglycemia 08/26/17 21:00 09/25/17 20:59 Dextrose (Dextrose 50%) 50 ml STAT PRN IV Hypoglycemia 08/26/17 21:00 09/25/17 20:59 Docusate Sodium (Colace) 100 mg TWICE A DAY ORAL 08/27/17 09:00 09/26/17 08:59 08/28/17 09:10 Famotidine (Pepcid) 20 mg BID ORAL 08/27/17 09:00 09/26/17 08:59 08/28/17 09:10 Finasteride (Proscar) 5 mg DAILY ORAL 08/27/17 09:00 09/26/17 08:59 08/28/17 09:10 Furosemide (Lasix) 20 mg EVERY 12 HOURS ORAL 08/27/17 09:00 09/26/17 08:59 08/28/17 09:10 Gabapentin (Neurontin) 200 mg TWICE A DAY ORAL 08/27/17 09:00 09/26/17 08:59 08/28/17 09:12 Heparin Sodium (Porcine) (Heparin 5000 units/ml) 5,000 units EVERY 12 HOURS SUBQ 08/27/17 09:00 09/26/17 08:59 08/28/17 09:18 Insulin Aspart (NovoLOG) BEFORE MEALS AND HS SUBQ 08/26/17 21:00 09/25/17 20:59 08/28/17 12:14 Insulin Detemir (Levemir) 5 units BEDTIME SUBQ 08/27/17 21:00 09/26/17 20:59 08/27/17 20:26 Mirtazapine (Remeron) 15 mg BEDTIME ORAL 08/27/17 21:00 09/26/17 20:59 08/27/17 20:21 Piperacillin Sod/ Tazobactam Sod 3.375 gm/Sodium Chloride 110 ml @ 27.5 mls/hr EVERY 8 HOURS IVPB 08/27/17 14:00 09/01/17 13:59 08/28/17 13:06 Vancomycin HCl (Vanco rx to dose) 1 ea DAILY PRN MISC Per rx protocol 08/27/17 12:45 09/26/17 12:44 Vancomycin/Sodium Chloride 250 ml @ 166.667 mls/hr Q24H IVPB 08/28/17 18:00 09/02/17 17:59 Aisha Ramirez M.D. Aug 28, 2017 14:18
[2017-08-28] MEDS: Nystatin Powder 100,000 units/gm 15gm TOPIC SCH (17:33)
[2017-08-28] MEDS: cloNIDine 0.2mg Tab ORAL PRN (17:43)
[2017-08-28] MEDS ORDERED: Vancomycin 750mg/NS 250ml IVPB SCH (18:00)
[2017-08-28] MEDS: Atorvastatin 20mg tab ORAL SCH (20:34)
[2017-08-28] MEDS: Levemir Flexpen SUBQ SCH (20:37)
[2017-08-29] VITALS (7 sets, daily range): BP systolic 141–182; BP diastolic 51–100
[2017-08-29] MEDS: Piperacillin/Tazobactam 3.375 GM in NS 110 ML IVPB SCH ×2 (06:19→14:00)
[2017-08-29] MEDS: NovoLOG Insulin Flexpen SUBQ SCH ×3 (06:19→17:40)
[2017-08-29] MEDS: Docusate 100mg cap ORAL SCH ×2 (08:18→17:41)
[2017-08-29] MEDS: Aspirin Baby 81mg ORAL SCH (08:19)
[2017-08-29] MEDS: Heparin 5000 units/ml inj SUBQ SCH (08:21)
[2017-08-29] MEDS: Nystatin Powder 100,000 units/gm 15gm TOPIC SCH ×3 (08:24→17:42)
[2017-08-29] MEDS: Norco 5mg/325mg tab ORAL PRN (08:25)
--- NOTE | 2017-08-29 11:35 | General Progress Note ---
Assessment/Plan Assessment/Plan MDD anxiety d/o remeron 15mg qhs provided ro/st Subjective Date patient seen: Aug 29, 2017 Neurologic/Psychiatric: Reports: anxiety, depressed Allergies: Coded Allergies: No Known Allergies (Unverified , 02/23/17) Objective Last 24 Hour Vital Signs Date Time Temp Pulse Resp B/P (MAP) Pulse Ox O2 Delivery O2 Flow Rate FiO2 08/29/17 09:25 97.1 08/29/17 08:25 97.1 08/29/17 08:21 70 166/68 08/29/17 08:00 97.7 64 18 166/68 97 Room Air 97.7 08/29/17 04:00 97.1 59 19 141/70 99 Room Air 97.1 08/29/17 00:00 97.9 60 19 141/51 99 Room Air 97.9 08/28/17 20:34 98 140/84 08/28/17 20:00 98.1 73 18 140/84 98 Room Air 98.1 08/28/17 18:49 99.0 72 18 164/76 98 Room Air 99.0 08/28/17 17:43 189/98 08/28/17 16:00 99.9 72 20 177/81 98 Room Air 99.9 08/28/17 13:29 99.0 18 154/75 99 99.0 08/28/17 12:00 99.0 70 19 170/74 98 Room Air 99.0 Intake and Output 08/28/17 08/29/17 19:00 07:00 Intake Total 27.5 ml 110.0 ml Output Total 550 ml 400 ml Balance -522.5 ml -290.0 ml IV Total 27.5 ml 110.0 ml Output Urine Total 550 ml 400 ml Height (Feet): 5 Height (Inches): 5.00 Weight (Pounds): 139 General Appearance: WD/WN, no apparent distress, alert Neurologic: oriented x 3, responsive, depressed affect Nely Helm M.D. Aug 29, 2017 11:35
--- NOTE | 2017-08-29 12:05 | Infectious Diseases Prog Note ---
Assessment/Plan Assessment/Plan Assessment: Acute on chronic L mastoiditis/ L otitis media and externa; improving -drainage cx P. mirabilis, MDR,?ESBL (R ceftriaxone, Cefepime, CEftazidime, bactrim; I CIpro/levo; S Zosyn, Ertapenem) -CT L IAC 08/26: Opacification of most of the mastoid air cells on the left, as well as partial opacification of the mastoid antrum and middle ear cavity. As the mastoids were to a large extent clear to the extent visible on recent CT scan of 07/16/2017, it presumed that findings represent acute mastoiditis. There is probably a history of chronic mastoid disease, as there is some sclerosis of the bony mastoid surrounding the mastoid air cells. Apparent thickening of the tympanic membrane, presumably related to the above. However, due to insufficient detail on the previous brain CT, acuity of this is indeterminate. Minimal paranasal sinus disease. Evidence of old nasal fracture deformity. -CT HEad 07/16: Previously demonstrated left mastoid opacification has improved significantly, with only minimal residual -CT Head 05/28/2017 : Acute left mastoiditis. -s/p 10 days Levaquin 05/2017; tympanic membrane perforation 05/2017. Afebrile, no leukocytosis History of CVA with right-sided weakness. CHF. Hyperlipidemia. Hypertension. GERD. History of right nephrectomy due to cancer. Diabetes. Anemia CAD/LA renal disease right nephrectomy for malignant neoplasm SNF resident VRE colonized Plan: -On IV Zosyn abx d#07/06 ; Ok to discharge on Ertapenem 1g IV daily (via PIV) to complete course -Of note, Levo reported as S but YOLIE is 2 which should be I; for such reason and for easier dosing regimen chose Ertapenem (isolated resistant to Cephalosporins; likely ESBL) -08/28 SP IV Vancomycin#2 -6/ SP Levaquin #1 and Meropenem #2 -/16 SP Levaquin #10 -Monitor CBC/BMP, temperatures -ENT f/u Thank you for this consultation. Will continue to follow along with you. Discussed with RN and case worker Subjective Allergies: Coded Allergies: No Known Allergies (Unverified , 02/23/17) Subjective afebrile wound cx grwong GNRs no leukocytosis improving Objective Vital Signs Last 24 Hour Vital Signs Date Time Temp Pulse Resp B/P (MAP) Pulse Ox O2 Delivery O2 Flow Rate FiO2 08/29/17 09:25 97.1 08/29/17 08:25 97.1 08/29/17 08:21 70 166/68 08/29/17 08:00 97.7 64 18 166/68 97 Room Air 97.7 08/29/17 04:00 97.1 59 19 141/70 99 Room Air 97.1 08/29/17 00:00 97.9 60 19 141/51 99 Room Air 97.9 08/28/17 20:34 98 140/84 08/28/17 20:00 98.1 73 18 140/84 98 Room Air 98.1 08/28/17 18:49 99.0 72 18 164/76 98 Room Air 99.0 08/28/17 17:43 189/98 08/28/17 16:00 99.9 72 20 177/81 98 Room Air 99.9 08/28/17 13:29 99.0 18 154/75 99 99.0 08/28/17 12:00 99.0 70 19 170/74 98 Room Air 99.0 Height (Feet): 5 Height (Inches): 5.00 Weight (Pounds): 139 Objective HEAD AND NECK: Atraumatic and normocephalic. Positive for the pain and tenderness overlying L ear tragus. Dry drainage from ear canal CHEST: Clear to auscultation. No wheezing. No crackles. HEART: S1 and S2. Regular rate and rhythm. ABDOMEN: Soft. No organomegaly. MUSCULOSKELETAL: Negative for any gross abnormal lateralized motor deficit. NEUROLOGIC: The patient is awake, alert, and oriented x3. Microbiology Date/Time Source Procedure Growth Status 08/26/17 21:00 Nasal Nares MRSA Culture - Final NO METHICILLIN RESISTANT STAPH AUREUS... Complete 08/27/17 00:05 Ear Left Gram Stain - Final Resulted 08/27/17 00:05 Wound Culture - Preliminary Proteus Mirabilis Resulted 08/26/17 21:00 Rectum VRE Culture - Final Enterococcus Faecium - Vre Complete Current Medications Medications (Trade) Dose Ordered Sig/Jared Route PRN Reason Start Time Stop Time Status Last Admin Dose Admin Acetaminophen (Tylenol) 650 mg Q6H PRN ORAL Mild Pain/Temp > 100.5 08/26/17 21:45 09/25/17 21:44 08/28/17 20:41 Acetaminophen/ Hydrocodone Bitart ([place] 5/325) 1 tab Q4H PRN ORAL Moderate Pain (Pain Scale 4-6) 08/26/17 21:45 09/02/17 21:44 08/29/17 08:25 Aspirin (ASA) 81 mg DAILY ORAL 08/27/17 09:00 09/26/17 08:59 08/29/17 08:19 Atorvastatin Calcium (Lipitor) 40 mg BEDTIME ORAL 08/27/17 21:00 09/26/17 20:59 08/28/17 20:34 Baclofen (Lioresal) 5 mg DAILY ORAL 08/27/17 09:00 09/26/17 08:59 08/29/17 08:18 Carvedilol (Coreg) 3.125 mg EVERY 12 HOURS ORAL 08/27/17 09:00 09/26/17 08:59 08/29/17 08:21 Clonidine HCl (Catapres tab) 0.2 mg EVERY 8 HOURS PRN ORAL For High Blood Pressure 08/26/17 22:15 09/25/17 21:44 08/28/17 17:43 Dextrose (Dextrose 50%) 25 ml STAT PRN IV Hypoglycemia 08/26/17 21:00 09/25/17 20:59 Dextrose (Dextrose 50%) 50 ml STAT PRN IV Hypoglycemia 08/26/17 21:00 09/25/17 20:59 Docusate Sodium (Colace) 100 mg TWICE A DAY ORAL 08/27/17 09:00 09/26/17 08:59 08/29/17 08:18 Famotidine (Pepcid) 20 mg BID ORAL 08/27/17 09:00 09/26/17 08:59 08/29/17 08:18 Finasteride (Proscar) 5 mg DAILY ORAL 08/27/17 09:00 09/26/17 08:59 08/29/17 08:19 Furosemide (Lasix) 20 mg EVERY 12 HOURS ORAL 08/27/17 09:00 09/26/17 08:59 08/29/17 08:18 Gabapentin (Neurontin) 200 mg TWICE A DAY ORAL 08/27/17 09:00 09/26/17 08:59 08/29/17 08:18 Heparin Sodium (Porcine) (Heparin 5000 units/ml) 5,000 units EVERY 12 HOURS SUBQ 08/27/17 09:00 09/26/17 08:59 08/29/17 08:21 Insulin Aspart (NovoLOG) BEFORE MEALS AND HS SUBQ 08/26/17 21:00 09/25/17 20:59 08/28/17 20:38 Insulin Detemir (Levemir) 5 units BEDTIME SUBQ 08/27/17 21:00 09/26/17 20:59 08/28/17 20:37 Mirtazapine (Remeron) 15 mg BEDTIME ORAL 08/27/17 21:00 09/26/17 20:59 08/28/17 20:34 Nystatin (Nystop Powder) 1 applic THREE TIMES A DAY TOPIC 08/28/17 18:00 09/27/17 17:59 08/29/17 08:24 Piperacillin Sod/ Tazobactam Sod 3.375 gm/Sodium Chloride 110 ml @ 27.5 mls/hr EVERY 8 HOURS IVPB 08/27/17 14:00 09/01/17 13:59 08/29/17 06:19 Aisha Ramirez M.D. Aug 29, 2017 12:05
--- NOTE | 2017-08-29 12:27 | General Progress Note ---
Assessment/Plan Assessment/Plan S: My ear hurts O: appears comfortable, no fever or chills PHYSICAL EXAMINATION:HEAD AND NECK: Atraumatic and normocephalic. Positive for the pain and tenderness overlying left mastoid sinus. Positive for minimal redness in the external auditory meatus.CHEST: Clear to auscultation. No wheezing. No crackles. HEART: S1 and S2. Regular rate and rhythm. ABDOMEN: Soft. No organomegaly. MUSCULOSKELETAL: Negative for any gross abnormal lateralized motor deficit. NEUROLOGIC: The patient is awake, alert, and oriented x3. ASSESSMENT: 1. Acute left-sided mastoiditis secondary to Proteus M. 2. Chronic kidney disease. 3. Hypertension. 4. Diabetes type 2. 5. Cerebrovascular accident, history of. 6. Benign prostatic hypertrophy. 7. Gastrointestinal and deep venous thrombosis prophylaxis. PLAN OF CARE: Pending wound cultures to guide Abx selection Notes from ENT , Dr Swann is reviewed Ok to DC on Ertapenem Subjective Allergies: Coded Allergies: No Known Allergies (Unverified , 02/23/17) Objective Last 24 Hour Vital Signs Date Time Temp Pulse Resp B/P (MAP) Pulse Ox O2 Delivery O2 Flow Rate FiO2 08/29/17 09:25 97.1 08/29/17 08:25 97.1 08/29/17 08:21 70 166/68 08/29/17 08:00 97.7 64 18 166/68 97 Room Air 97.7 08/29/17 04:00 97.1 59 19 141/70 99 Room Air 97.1 08/29/17 00:00 97.9 60 19 141/51 99 Room Air 97.9 08/28/17 20:34 98 140/84 08/28/17 20:00 98.1 73 18 140/84 98 Room Air 98.1 08/28/17 18:49 99.0 72 18 164/76 98 Room Air 99.0 08/28/17 17:43 189/98 08/28/17 16:00 99.9 72 20 177/81 98 Room Air 99.9 08/28/17 13:29 99.0 18 154/75 99 99.0 Intake and Output 08/28/17 08/29/17 19:00 07:00 Intake Total 27.5 ml 110.0 ml Output Total 550 ml 400 ml Balance -522.5 ml -290.0 ml IV Total 27.5 ml 110.0 ml Output Urine Total 550 ml 400 ml Height (Feet): 5 Height (Inches): 5.00 Weight (Pounds): 139 Tara Escobar MD Aug 29, 2017 12:27
[2017-08-29] MEDS: cloNIDine 0.2mg Tab ORAL PRN (12:44)
[2017-08-29] MEDS ORDERED: INVANZ1 GM IVPB ×2 (14:11→14:16)
[2017-08-29] MEDS ORDERED: cloNIDine 0.2mg Tab ORAL ONE ×2 (16:00→18:00)
[2017-08-29] MEDS ORDERED: HydrALAZINE 25mg tab ORAL ONE (17:45)
[2017-08-29] MEDS ORDERED: NS 275ml ONE (20:29)
[2017-08-29] MEDS ORDERED: HydrALAZINE 25mg tab ORAL SCH (21:00)
--- NOTE | 2017-08-30 09:16 | Discharge Summary ---
Discharge Summary Discharge Summary _ DATE OF ADMISSION: 08/26/2017 DATE OF DISCHARGE: 08/29/2017 CONSULTANTS: Dr. Aisha Swann BRIEF HOSPITAL COURSE: Patient is a 72-year-old male, who resides in correction facility was brought in by EMS for evaluation of left-sided ear pain. Patient presented with pain and worsening discharge coming out from the left ear. He was admitted last May for mastoiditis. He denied any fever or chills, denied any trauma, denied blurry vision. He complained of decrease in hearing to the left ear. He has medical history significant for diabetes mellitus, hypertension, [place], coronary artery disease, CHF, GERD, CVA with right-sided hemiparesis, and renal CA. On evaluation at ED, vitals were stable, he was afebrile. Left ear canal was with swelling, erythema and purulent discharge. Blood work showed no leukocytosis. Creatinine was elevated to 2.1, BUN was 28. CT of the temporal bones showed opacification of the mastoid air cells on the left as well as partial opacification of the mastoid antrum and middle ear cavity. Presumed acute mastoiditis. He was started on IV meropenem. He was seen by infectious disease specialist. Meropenem was changed to Zosyn and IV vancomycin was started for staph aureus coverage. He was seen by ENT. He was assessed to have poorly controlled diabetes and recommended to continue antibiotic treatment. Patient was having anxiety, he was seen by psychiatrist and was diagnosed with major depressive disorder and anxiety disorder. He was given Remeron 15 mg daily at bedtime. Wound culture did not show any Gram-positive isolation, vancomycin was discontinued ; culture showed growth of Proteus. Patient was cleared for discharge to continue ertapenem 1 g IV daily to complete a two-week course of antibiotic. He was eventually discharged back to assisted. FINAL DIAGNOSES: Acute left sided mastoiditis secondary to Proteus Chronic kidney disease Hypertension Diabetes type 2 Cardiovascular accident with right-sided weakness BPH Hyperlipidemia Hypertension GERD Anemia Right nephrectomy for malignant neoplasm Coronary artery disease/AK Major depressive disorder Anxiety disorder DISPOSITION: Patient was discharged to [facility]. DISCHARGE MEDICATIONS: Refer to Discharge Medication List. Continue with ertapenem 1 g IV daily for 11 days. I have been assigned to dictate discharge summary on this account, and I was not involved in the patient's management. Licauco,Michelle Kothari [employer] Aug 30, 2017 09:16
== END 2017-08-29 20:30 | DRG 153 ==
LOC: EDBD 14:06 → EMR 14:21 → 4E 15:25 → EDBEDREQ 15:31 → ENRESERV 16:00 → 4E 16:54
DX: H70.002 Acute mastoiditis without complications, left ear (principal); I69.351 Hemiplegia and hemiparesis following cerebral infarction affecting right dominant side; N40.0 Benign prostatic hyperplasia without lower urinary tract symptoms; B96.4 Proteus (mirabilis) (morganii) as the cause of diseases classified elsewhere; F32.9 Major depressive disorder, single episode, unspecified; F41.9 Anxiety disorder, unspecified; I12.9 Hypertensive chronic kidney disease with stage 1 through stage 4 chronic kidney disease, or unspecified chronic kidney disease; E11.22 Type 2 diabetes mellitus with diabetic chronic kidney disease; N18.9 Chronic kidney disease, unspecified; Z79.4 Long term (current) use of insulin; Z90.5 Acquired absence of kidney; Z85.528 Personal history of other malignant neoplasm of kidney; K21.9 Gastro-esophageal reflux disease without esophagitis; I50.9 Heart failure, unspecified; E78.5 Hyperlipidemia, unspecified; I25.10 Atherosclerotic heart disease of native coronary artery without angina pectoris; I25.2 Old myocardial infarction; D64.9 Anemia, unspecified; H60.92 Unspecified otitis externa, left ear; H66.92 Otitis media, unspecified, left ear
CPT/HCPCS: 36415; 70480; 80053; 80061; 82962; 83036; 85025; 87070; 87081; 87181; 87205; 99285; J1815; S5561

== ENCOUNTER 2018-01-04 18:15 | Inpatient (IN) | payer MEDICARE, MEDICAID ==
[~2018-01-04] VITALS: Ht 165.1 cm; Wt 64.1 kg
[~2018-01-04 18:15] MED LIST changes: +CLONIDINE HCL0.1 M1 PO; +HUMULIN R100 UNIT/1 SUBQ; +INVANZ1 GM IVPB
[2018-01-04 18:16] VITALS: BP 102/47
--- NOTE | 2018-01-04 19:07 | Diagnostic Imaging Report ---
EXAM: XR Chest, 1 View CLINICAL HISTORY: Chest pain TECHNIQUE: Frontal view of the chest. COMPARISON: Chest x-ray dated 07/16/17 FINDINGS: Lungs: Subsegmental atelectasis in the medial lung bases. The lungs are otherwise clear. Pleural space: Unremarkable. The costophrenic angles are sharp. No visible pneumothorax. Heart: Cardiomegaly. Mediastinum: Unremarkable. Bones/joints: Patient is status post median sternotomy with intact appearance of sternal wires. IMPRESSION: 1. Cardiomegaly. 2. Subsegmental atelectasis in the medial lung bases.
[2018-01-04 19:08] LABS: BASOPHILS % (AUTO) 0.9 % (0.0-2.0); HEMATOCRIT 24.6 % (42.0-52.0); HEMOGLOBIN 8.6 G/DL (14.2-18.0); MEAN CORPUSCULAR VOLUME 91 FL (80-99); NEUTROPHILS % (AUTO) 55.1 % (45.0-75.0); PLATELET COUNT 242 K/UL (150-450); RED CELL DISTRIBUTION WIDTH 12.1 % (11.6-14.8); WHITE BLOOD COUNT 7.3 K/UL (4.8-10.8)
[2018-01-04 19:19] LABS: INR 1.2 (0.9-1.1)
[2018-01-04 19:22] LABS: ANION GAP 7 mmol/L (5-15); BLOOD UREA NITROGEN 58 mg/dL (7-18); CARBON DIOXIDE 27 MMOL/L (21-32); CHLORIDE 98 MMOL/L (98-107); CREATININE 2.4 MG/DL (0.55-1.30); POTASSIUM 4.1 MMOL/L (3.5-5.1); SODIUM 132 MMOL/L (136-145)
--- NOTE | 2018-01-04 19:31 | Emergency Room Report ---
History of Present Illness General Chief Complaint: Gastrointestinal Illness Source: Patient, Medical Record, EMS Present Illness HPI Patient was reported to have several episodes of epistaxis earlier today Soon after patient was noted to have evidence of hematuria and therefore nursing facility was concerned and patient transferred to the ER there was no reports of vomiting or diarrhea patient himself is somewhat sluggish to respond however he is able to open his eyes Denies any pain denies any fevers Given the episodes of epistaxis and the blood at the meatus patient transported Allergies: Coded Allergies: No Known Allergies (Unverified , 02/23/17) Patient History Past Medical History: see triage record Pertinent Family History: none Reviewed Nursing Documentation: PMH: Agreed; PSxH: Agreed Nursing Documentation-PMH Past Medical History: No History, Except For Hx Cardiac Problems: Yes - Aortocoronary bypass graft,A-fib Hx Hypertension: Yes Hx Diabetes: Yes - CKD Hx Gastrointestinal Problems: Yes - GERD Hx Neurological Problems: Yes - HEMIPLEGIA AND HEMIPARESIS OF RIGHT SIDE, PARALYTIC GAIT Review of Systems All Other Systems: negative except mentioned in HPI Physical Exam Vital Signs Date Time Temp Pulse Resp B/P (MAP) Pulse Ox O2 Delivery O2 Flow Rate FiO2 01/04/18 18:06 98.2 64 16 138/75 98 2.0 98.2 01/04/18 18:16 Room Air Sp02 EP Interpretation: reviewed, normal General Appearance: no apparent distress Head: normocephalic, atraumatic Eyes: bilateral eye PERRL, bilateral eye EOMI ENT: normal pharynx, other - Evidence of dried blood at bilateral anterior nasal naris no septal hematoma Neck: supple Respiratory: lungs clear, normal breath sounds Cardiovascular #1: regular rate, rhythm Gastrointestinal: non tender, soft Genitourinary: other - Evidence of blood at the meatus Musculoskeletal: other - Sluggish to respond Neurologic: responsive - To physical and verbal stimuli Skin: other - Bruising right suprapubic area Medical Decision Making Diagnostic Impression: Primary Impression: Anemia Additional Impressions: Epistaxis Hematuria ER Course Given the patient's history exam and presentation multiple differentials are considered Evaluation for DIC is made Patient at this time does not show any signs of urinary retention No active signs of hematuria therefore further instrumentation is not made in the emergency room CT imaging shows 1 kidney Otherwise no obvious acute pathology Blood work shows renal insufficiency Patient requiring further inpatient care Labs Test 01/04/18 18:50 White Blood Count 7.3 K/UL (4.8-10.8) Red Blood Count 2.70 M/UL (4.70-6.10) Hemoglobin 8.6 G/DL (14.2-18.0) Hematocrit 24.6 % (42.0-52.0) Mean Corpuscular Volume 91 FL (80-99) Mean Corpuscular Hemoglobin 31.9 PG (27.0-31.0) Mean Corpuscular Hemoglobin Concent 35.0 G/DL (32.0-36.0) Red Cell Distribution Width 12.1 % (11.6-14.8) Platelet Count 242 K/UL (150-450) Mean Platelet Volume 4.9 FL (6.5-10.1) Neutrophils (%) (Auto) 55.1 % (45.0-75.0) Lymphocytes (%) (Auto) 29.0 % (20.0-45.0) Monocytes (%) (Auto) 9.0 % (1.0-10.0) Eosinophils (%) (Auto) 6.0 % (0.0-3.0) Basophils (%) (Auto) 0.9 % (0.0-2.0) Prothrombin Time 12.3 SEC (9.30-11.50) Prothromb Time International Ratio 1.2 (0.9-1.1) Activated Partial Thromboplast Time 38 SEC (23-33) Sodium Level 132 MMOL/L (136-145) Potassium Level 4.1 MMOL/L (3.5-5.1) Chloride Level 98 MMOL/L (98-107) Carbon Dioxide Level 27 MMOL/L (21-32) Anion Gap 7 mmol/L (5-15) Blood Urea Nitrogen 58 mg/dL (7-18) Creatinine 2.4 MG/DL (0.55-1.30) Estimat Glomerular Filtration Rate mL/min (>60) Glucose Level 178 MG/DL (74-106) Calcium Level 8.0 MG/DL (8.5-10.1) Total Bilirubin 0.3 MG/DL (0.2-1.0) Aspartate Amino Transf (AST/SGOT) 22 U/L (15-37) Alanine Aminotransferase (ALT/SGPT) 29 U/L (12-78) Alkaline Phosphatase 160 U/L (46-116) Total Creatine Kinase 52 U/L (26-308) Creatine Kinase MB 1.3 NG/ML (0.0-3.6) Creatine Kinase MB Relative Index 2.5 Troponin I 0.049 ng/mL (0.000-0.056) Pro-B-Type Natriuretic Peptide 20408 pg/mL (0-125) Total Protein 6.3 G/DL (6.4-8.2) Albumin 2.7 G/DL (3.4-5.0) Globulin 3.6 g/dL Albumin/Globulin Ratio 0.8 (1.0-2.7) Lipase 354 U/L (73-393) Rhythm Strip Diag. Results EP Interpretation: yes Rate: 66 Rhythm: NSR, no PVC's, no ectopy Chest X-Ray Diagnostic Results Chest X-Ray Diagnostic Results : Chest X-Ray Ordered: Yes # of Views/Limited/Complete: 1 View Indication: Chest Pain EP Interpretation: Yes Interpretation: no consolidation, no effusion, no pneumothorax, other - Cardiomegaly Impression: No acute disease Electronically Signed by: Cornel Brown DO CT/MRI/US Diagnostic Results CT/MRI/US Diagnostic Results : Impression CT abdomen pelvisIMPRESSION: No evidence of retroperitoneal, inguinal or abdominal wall hemorrhage identified. Rfccs-pe-oryhdgmb partiallyimaged posterior layering left pleural effusion with associative partial passive collapse. Status post right nephrectomy, correlate with history. Nonspecific 1.3 cmovoid soft tissue density near the renal bed/fossa axial 37. Last Vital Signs Date Time Temp Pulse Resp B/P (MAP) Pulse Ox O2 Delivery O2 Flow Rate FiO2 01/04/18 18:16 98.9 63 22 102/47 98 Room Air 98.9 01/04/18 18:06 2.0 Status: improved Disposition: ADMITTED INPATIENT Condition: Serious Referrals: Tara Escobar MD (PCP) Cornel Brown DO Jan 04, 2018 19:31
[2018-01-04 19:34] LABS: ALANINE AMINOTRANSFERASE 29 U/L (12-78); ALBUMIN 2.7 G/DL (3.4-5.0); ALBUMIN/GLOBULIN RATIO 0.8 (1.0-2.7); ALKALINE PHOSPHATASE 160 U/L (46-116); ASPARTATE AMINO TRANSFERASE 22 U/L (15-37); BILIRUBIN,TOTAL 0.3 MG/DL (0.2-1.0); CKMB 1.3 NG/ML (0.0-3.6); CREATINE KINASE 52 U/L (26-308)
[2018-01-04] MEDS ORDERED: MELATONIN3 MG ORAL (20:13)
[2018-01-04] MEDS ORDERED: CARVEDILOL6.25 MG ORAL (20:13)
[2018-01-04] MEDS ORDERED: ATORVASTATIN CA80 MG ORAL (20:13)
[2018-01-04] MEDS ORDERED: FUROSEMIDE40 MG ORAL (20:13)
[2018-01-04] MEDS ORDERED: ELIQUIS5 MG PO (20:19)
[2018-01-04] MEDS ORDERED: DUONEB 0.5-3(2.53 ML HHN (20:19)
[2018-01-04] MEDS ORDERED: ISORDIL40 MG ORAL (20:19)
[2018-01-04] MEDS ORDERED: HYDRALAZINE HC100 MG ORAL (20:19)
[2018-01-04] MEDS ORDERED: PLAVIX75 MG ORAL (20:19)
[2018-01-04] MEDS ORDERED: NEPHROVITE1 TAB ORAL (20:19)
--- NOTE | 2018-01-04 20:32 | Diagnostic Imaging Report ---
History: BLD Exam: CT ABDOMEN + PELVIS Without Contrast Technique more: CTDI is 17.05 mGy and DLP is 825 mGy-cm. Technique more: One or more of the following dose reduction techniques were used: automated exposure control, adjustment of the mA and/or kV according to patient size, use of iterative reconstruction technique. Comparison: FINDINGS: Ssmcy-co-lubbgevm partially imaged posterior layering left pleural effusion with associative partial passive collapse. Status post median sternotomy. Right coronary calcification. Status post right nephrectomy, correlate with history. Nonspecific 1.3 cm ovoid soft tissue density near the renal bed axial 37. The liver, adrenal glands, spleen, pancreas, gallbladder and abdominal aorta. Within limits. Left perinephric stranding, edema is nonspecific. Likely left renal cyst. No renal stones or hydronephrosis. No bowel dilation or free air. Normal caliber appendix without secondary signs. Diverticulosis without diverticulitis. The bladder appears within limits. No free fluid. Multilevel spondylosis/discogenic change with foraminal and central narrowing. No evidence of retroperitoneal, inguinal or abdominal wall hemorrhage identified. IMPRESSION: No evidence of retroperitoneal, inguinal or abdominal wall hemorrhage identified. Cfmoa-et-doytvhgo partially imaged posterior layering left pleural effusion with associative partial passive collapse. Status post right nephrectomy, correlate with history. Nonspecific 1.3 cm ovoid soft tissue density near the renal bed/fossa axial 37.
[2018-01-04 20:52] VITALS: BP 106/50
[2018-01-04 22:15] VITALS: BP 104/64
[2018-01-04 22:30] VITALS: BP 143/56
[2018-01-04 22:42] LABS: APPEARANCE,URINE TURBID; BILIRUBIN, URINE NEGATIVE (NEGATIVE); GLUCOSE, URINE (UA) NEGATIVE (NEGATIVE); KETONES,URINE NEGATIVE (NEGATIVE); LEUKOCYTE ESTERASE ,URINE 1+ (NEGATIVE); NITRITE,URINE NEGATIVE (NEGATIVE); PH,URINE 5 (4.5-8.0); PROTEIN,URINE 4+ (NEGATIVE); UROBILINOGEN,URINE NORMAL MG/DL (0.0-1.0)
[2018-01-04 22:43] LABS: COLOR,URINE RED
[2018-01-04] MEDS ORDERED: Albuterol/Ipratropium 3ml neb HHN PRN (23:45)
[2018-01-05] VITALS: BP 147/57
[2018-01-05] MEDS: Norco 5mg/325mg tab ORAL PRN ×2 (01:09→20:42)
[2018-01-05] MEDS: Carvedilol 6.25mg Tab ORAL SCH ×3 (01:09→20:21)
[2018-01-05 04:00] VITALS: BP 142/57
[2018-01-05] MEDS: NovoLOG Insulin Flexpen SUBQ SCH ×4 (06:35→20:25)
--- NOTE | 2018-01-05 07:45 | History & Physical ---
History and Physical History & Physicial HISTORY OF PRESENT ILLNESS: The patient is a pleasant 72-year-old male with a prior history of diabetes , Mastoiditis and heart failure. Patient is currently on triple anticoagulation. there is increased and appearance of epistaxia and hematuria for last couple of days. Denies any fever or chills. Denies any trauma. Denies any blurry vision or headache. Complaining of decrease in the hearing of the left ear. PAST MEDICAL HISTORY: Diabetes, hypertension, CHF, anemia, chronic kidney disease, CVA, history of (right dominant side). osteomyelitis of mastoid. PAF CURRENT HOSPITAL MEDICATIONS: Reviewed and reconciled in the chart including, but not limited to, Lipitor 40 mg daily, Coreg 6.25 mg b.i.d., Lasix 20 mg IV twice a day, gabapentin, sliding scale insulin, and Cozaar. ALLERGIES: NKDA. FAMILY HISTORY: Reviewed, noncontributory. REVIEW OF SYSTEMS: All 12 elements of review of systems reviewed. Pertinent positive and negative as above. SH: resident of [facility]. PHYSICAL EXAMINATION: VITAL SIGNS: Blood pressure is 140/80, temperature 98.2, pulse oximetry 98% on room air, and respiratory rate 18-20. HEAD AND NECK: episodes of epistaxia, detailed exam deferred. Atraumatic and normocephalic. Positive for the pain and tenderness overlying left mastoid sinus. Positive for minimal redness in the external auditory meatus.CHEST: scar of prior sternotomy, Clear to auscultation. No wheezing. No crackles. HEART: S1 and S2. Regular rate and rhythm. ABDOMEN: Soft. No organomegaly. MUSCULOSKELETAL: Negative for any gross abnormal lateralized motor deficit. NEUROLOGIC: The patient is awake, alert, and oriented x3. LABORATORY AND DIAGNOSTIC DATA: Labs dated 08/26/2017 , reviewed, including Cr level of 2 CT scan of the head is negative for any acute pathology. Positive for the acute left mastoiditis. ASSESSMENT: 1. Acute Aemia 2. Epistaxia and Gross Hematuria 2. Acute on Chronic kidney disease. 3. Hypertension. 4. Diabetes type 2. 5. Cerebrovascular accident 6. CHF- low EF : appears stable 7. PAF ( history of), Sinus at this time 6. Benign prostatic hypertrophy. 7. Gastrointestinal and deep venous thrombosis prophylaxis. PLAN OF CARE: Although patient is very high risk for recurrent TE event. In face of acute anemia, I will stop all ATC and A platelet medications Neuro, Cardio, ENT and Nephro services are consulted and notified. Tara Escobar MD Jan 05, 2018 07:45
--- NOTE | 2018-01-05 07:47 | General Progress Note ---
Assessment/Plan Assessment/Plan S: My nose doesn't bleed any more O: appear minimal epistaxia, denies having any active urinay bleeding PHYSICAL EXAMINATION: HEAD AND NECK: episodes of epistaxia, detailed exam deferred. Atraumatic and normocephalic. Positive for the pain and tenderness overlying left mastoid sinus. Positive for minimal redness in the external auditory meatus.CHEST: scar of prior sternotomy, Clear to auscultation. No wheezing. No crackles. HEART: S1 and S2. Regular rate and rhythm. ABDOMEN: Soft. No organomegaly. MUSCULOSKELETAL: Negative for any gross abnormal lateralized motor deficit. NEUROLOGIC: The patient is awake, alert, and oriented x3. Medication : Reviewed and reconciled in the chart, including Atorvastatin, Gabapentin ASSESSMENT: 1. Acute Aemia 2. Epistaxia and Gross Hematuria 2. Acute on Chronic kidney disease. 3. Hypertension. 4. Diabetes type 2. 5. Cerebrovascular accident 6. CHF- low EF : appears stable 7. PAF ( history of), Sinus at this time 6. Benign prostatic hypertrophy. 7. Gastrointestinal and deep venous thrombosis prophylaxis. PLAN OF CARE: Type and cross 2 units Will monitor HH Hold anti-Plt and Anti-coagulation Subjective Allergies: Coded Allergies: No Known Allergies (Unverified , 02/23/17) Objective Last 24 Hour Vital Signs Date Time Temp Pulse Resp B/P (MAP) Pulse Ox O2 Delivery O2 Flow Rate FiO2 01/05/18 04:00 64 01/05/18 04:00 98.5 65 19 142/57 (85) 98 98.5 01/05/18 01:09 67 147/57 01/05/18 00:17 Room Air 01/05/18 00:00 98.2 66 21 147/57 (87) 100 98.2 01/05/18 00:00 66 01/04/18 22:41 98.1 74 16 104/64 99 Room Air 98.1 01/04/18 22:30 98.6 63 20 143/56 (85) 97 98.6 01/04/18 22:15 98.1 74 16 104/64 99 Room Air 98.1 01/04/18 20:52 68 20 106/50 99 Room Air 01/04/18 18:16 98.9 63 22 102/47 98 Room Air 98.9 01/04/18 18:06 98.2 64 16 138/75 98 2.0 98.2 Intake and Output 01/04/18 01/05/18 19:00 07:00 Output Total 800 ml Balance -800 ml Output Urine Total 800 ml # Voids 1 Laboratory Tests 01/04/18 18:50: White Blood Count 7.3, Red Blood Count 2.70L, Hemoglobin 8.6L, Hematocrit 24.6L , Mean Corpuscular Volume 91, Mean Corpuscular Hemoglobin 31.9H, Mean Corpuscular Hemoglobin Concent 35.0, Red Cell Distribution Width 12.1, Platelet Count 242, Mean Platelet Volume 4.9L, Neutrophils (%) (Auto) 55.1, Lymphocytes ( %) (Auto) 29.0, Monocytes (%) (Auto) 9.0, Eosinophils (%) (Auto) 6.0H, Basophils (%) (Auto) 0.9, Prothrombin Time 12.3H, Prothromb Time International Ratio 1.2H, Activated Partial Thromboplast Time 38H, Sodium Level 132L, Potassium Level 4.1, Chloride Level 98, Carbon Dioxide Level 27, Anion Gap 7, Blood Urea Nitrogen 58H, Creatinine 2.4H, Estimat Glomerular Filtration Rate , Glucose Level 178H, Calcium Level 8.0L, Total Bilirubin 0.3, Aspartate Amino Transf (AST/SGOT) 22, Alanine Aminotransferase (ALT/SGPT) 29, Alkaline Phosphatase 160H, Total Creatine Kinase 52, Creatine Kinase MB 1.3, Creatine Kinase MB Relative Index 2.5, Troponin I 0.049, Pro-B-Type Natriuretic Peptide 58515I, Total Protein 6.3L, Albumin 2.7L, Globulin 3.6, Albumin/Globulin Ratio 0.8L, Lipase 354 01/04/18 22:00: Urine Color Red, Urine Appearance Turbid, Urine pH 5, Urine Specific [place] 1.010, Urine Protein 4+H, Urine Glucose (UA) Negative, Urine Ketones Negative, Urine Blood 5+H, Urine Nitrite Negative, Urine Bilirubin Negative, Urine Urobilinogen Normal, Urine Leukocyte Esterase 1+H, Urine RBC TntcH, Urine WBC 10 -15H, Urine Squamous Epithelial Cells Occasional, Urine Bacteria Few Height (Feet): 5 Height (Inches): 5.00 Weight (Pounds): 135 Tara Escobar MD Jan 05, 2018 07:47
[2018-01-05 08:00] VITALS: BP 153/62
--- NOTE | 2018-01-05 08:53 | Consultation ---
Consult Note Consult Note asked to eval for high BUN and Cr Patient was reported to have several episodes of epistaxis earlier today Soon after patient was noted to have evidence of hematuria and therefore nursing facility was concerned and patient transferred to the ER there was no reports of vomiting or diarrhea patient himself is somewhat sluggish to respond however he is able to open his eyes Denies any pain denies any fevers Given the episodes of epistaxis and the blood at the meatus patient transported No Known Allergies (Unverified , 02/23/17) Past Medical History: No History, Except For Hx Cardiac Problems: Yes - Aortocoronary bypass graft,A-fib Hx Hypertension: Yes Hx Diabetes: Yes - CKD Hx Gastrointestinal Problems: Yes - GERD Hx Neurological Problems: Yes - HEMIPLEGIA AND HEMIPARESIS OF RIGHT SIDE, PARALYTIC GAIT Assessment/Plan Renal failure likely Diabetic Nephropathy and Acute renal failure on CKD Severe Anemia etiology likely multifactorial DM HTN h/o CVA CHF h/o PAF BPH waiting for today's labs- optimize BP and BS and Cardiac status patient is transfused- Iron panel may not be helpful as it was not drawn prior to transfusion Kidney AR 2D echo Per orders Jimbo Barker MD Jan 05, 2018 08:53
[2018-01-05] MEDS: Nephrovite tab (Rena-Vite) ORAL SCH (10:05)
[2018-01-05] MEDS: HydrALAZINE 50mg tab ORAL SCH ×3 (10:05→17:39)
[2018-01-05] MEDS: Docusate 100mg cap ORAL SCH ×2 (10:06→17:39)
[2018-01-05] MEDS: Sennosides 8.6mg ORAL SCH (10:06)
[2018-01-05 10:14] LABS: BASOPHILS % (AUTO) 0.9 % (0.0-2.0); EOSINOPHILS % (AUTO) 4.9 % (0.0-3.0); HEMATOCRIT 33.7 % (42.0-52.0); HEMOGLOBIN 11.6 G/DL (14.2-18.0); LYMPHOCYTES % (AUTO) 25.3 % (20.0-45.0); MEAN CORPUSCULAR VOLUME 89 FL (80-99); MONOCYTES % (AUTO) 9.4 % (1.0-10.0); NEUTROPHILS % (AUTO) 59.4 % (45.0-75.0); PLATELET COUNT 234 K/UL (150-450); RED BLOOD COUNT 3.78 M/UL (4.70-6.10); RED CELL DISTRIBUTION WIDTH 12.5 % (11.6-14.8); WHITE BLOOD COUNT 7.2 K/UL (4.8-10.8)
[2018-01-05 10:37] LABS: ALANINE AMINOTRANSFERASE 26 U/L (12-78); ALBUMIN 2.7 G/DL (3.4-5.0); ALBUMIN/GLOBULIN RATIO 0.7 (1.0-2.7); ALKALINE PHOSPHATASE 161 U/L (46-116); ANION GAP 6 mmol/L (5-15); ASPARTATE AMINO TRANSFERASE 19 U/L (15-37); BILIRUBIN,TOTAL 0.6 MG/DL (0.2-1.0); BLOOD UREA NITROGEN 53 mg/dL (7-18); CALCIUM 8.2 MG/DL (8.5-10.1); CARBON DIOXIDE 29 MMOL/L (21-32); CHLORIDE 100 MMOL/L (98-107); CHOLESTEROL 109 MG/DL (< 200); CREATININE 2.2 MG/DL (0.55-1.30); FERRITIN 237 NG/ML (8-388); HDL CHOLESTEROL 57 MG/DL (40-60); POTASSIUM 3.9 MMOL/L (3.5-5.1); SODIUM 135 MMOL/L (136-145); TRIGLYCERIDES 80 MG/DL (30-150)
[2018-01-05 11:09] LABS: % IRON SATURATION 80 % (15-50); IRON 171 ug/dL (50-175); TOTAL IRON BINDING CAPACITY 213 ug/dL (250-450)
[2018-01-05 12:00] VITALS: BP 103/44
--- NOTE | 2018-01-05 12:29 | Consultation ---
History of Present Illness General Date patient seen: Jan 05, 2018 Time patient seen: 12:25 Chief Complaint: Gastrointestinal Illness Referring physician: Luz Reason for Consultation: hematuria Present Illness HPI 72 yo male with significant cardiac history on triple anti-platelet therapy. patient presented anemic yesterday to ER. Reports of epistaxis and hematuria. Patient's hematuria has cleared this AM. CT shows single kidney (s/p right nephrectomy) and normal age appropriate bladder/prostate with no clots in bladder. patient reports some penile discomfort with urination and he states he was catheterized about 2 days ago at another facility. Allergies: Coded Allergies: No Known Allergies (Unverified , 02/23/17) Medication History Scheduled Atorvastatin Calcium* (Lipitor*), 80 MG ORAL BEDTIME, (Reported) Baclofen* (Baclofen*), 5 MG ORAL BEDTIME, (Reported) Carvedilol* (Carvedilol*), 6.25 MG ORAL EVERY 12 HOURS, (Reported) Docusate Sodium* (Docusate Sodium*), 100 MG ORAL TWICE A DAY, (Reported) Famotidine (Famotidine), 20 MG ORAL DAILY, (Reported) Finasteride (Finasteride), 5 MG ORAL DAILY, (Reported) Gabapentin* (Gabapentin*), 200 MG ORAL QHS, (Reported) Hydralazine Hcl* (Hydralazine Hcl*), 100 MG ORAL TID, (Reported) Ipratropium/Albuterol Sulfate (DuoNeb 0.5-3(2.5)mg/3ml), 3 ML HHN QID, (Reported ) Isosorbide Dinitrate (Isordil*), 40 MG ORAL TID, (Reported) Melatonin (Melatonin), 3 MG ORAL BEDTIME, (Reported) Wayne-3 Fatty Acids/Fish Oil (Fish Oil 1,000 Mg Capsule), 2,000 MG ORAL DAILY, ( Reported) Sennosides (Senna), 8.6 MG PO DAILY, (Reported) Vitamin B Cmplx/Vit C/Folic AC (Nephro-Chantel Tablet), 1 TAB ORAL DAILY, (Reported ) Scheduled PRN Acetaminophen (Tylenol), 650 MG ORAL Q4HR PRN for Prn Pain/Headache/Temp > 101, (Reported) Hydrocodone Bit/Acetaminophen 5-325* (Henrietta 5-325 Tablet*), 1 TAB ORAL Q4H PRN for For Pain, (Reported) Insulin Regular, Human (Humulin R), 0 SUBQ ACHS PRN for Sliding Scale, (Reported ) Discontinued Medications Acetaminophen* (Tylenol Extra Strength*), 1,000 MG ORAL Q4HR, (Reported) Discontinued Reason: Pt stopped taking med Acetaminophen* (Tylenol Extra Strength*), 500 MG ORAL Q8H PRN for Prn Headache/ Temp > 101 Discontinued Reason: Pt stopped taking med Apixaban (Eliquis), 5 MG PO BID, (Reported) Discontinued Reason: MD discontinued med Aspirin* (Aspir 81*), 81 MG ORAL DAILY, (Reported) Discontinued Reason: Pt stopped taking med Atorvastatin Calcium* (Atorvastatin Calcium*), 40 MG ORAL BEDTIME, (Reported) Discontinued Reason: Prescription changed Carvedilol* (Carvedilol*), 3.125 MG ORAL EVERY 12 HOURS, (Reported) Discontinued Reason: Prescription changed Cholecalciferol (Vitamin D3)* (Vitamin D*), 1,000 UNIT IV DAILY, (Reported) Discontinued Reason: Pt stopped taking med Clonidine HCl (Clonidine HCl ER), 0.2 MG PO Q8HR, (Reported) Discontinued Reason: Pt stopped taking med Clopidogrel Bisulfate* (Plavix*), 75 MG ORAL DAILY, (Reported) Discontinued Reason: MD discontinued med Cran/Vitc/Mannose/Inulin/Brom (Uti-Stat Liquid), 3,875 MG PO, (Reported) Discontinued Reason: Pt stopped taking med Cran/Vitc/Mannose/Inulin/Brom (Uti-Stat Liquid), 3,875 MG PO DAILY, (Reported) Discontinued Reason: Pt stopped taking med Ertapenem Sodium* (INVanz*), 1 GM IVPB Q24H, (Reported) Discontinued Reason: Pt stopped taking med Ertapenem Sodium* (INVanz*), 1 GM IVPB Q24H, (Reported) Discontinued Reason: Pt stopped taking med Furosemide (Furosemide), 20 MG ORAL BID, (Reported) Discontinued Reason: Prescription changed Furosemide* (Lasix*), 40 MG ORAL DAILY, (Reported) Discontinued Reason: MD discontinued med Glimepiride* (Glimepiride*), 1 MG ORAL BEFORE BREAKFAST, (Reported) Discontinued Reason: Pt stopped taking med Levofloxacin* (Levaquin*), 750 MG ORAL DAILY Discontinued Reason: Pt stopped taking med Losartan Potassium* (Losartan Potassium*), 50 MG ORAL DAILY, (Reported) Discontinued Reason: Pt stopped taking med Mag Hydrox/Al Hydrox/Simeth (Alum-Mag Hydroxide-Simeth Liq), 30 ML PO EVERY 4 HOURS, (Reported) Discontinued Reason: Pt stopped taking med Melatonin (Melatonin), 5 MG PO, (Reported) Discontinued Reason: Prescription changed Mirtazapine* (Remeron*), 15 MG ORAL BEDTIME, (Reported) Discontinued Reason: Pt stopped taking med Multivitamins* (Multivitamins*), 1 TAB ORAL DAILY, (Reported) Discontinued Reason: Pt stopped taking med Vitamin B Cmplx/Vit C/Folic AC (Nephro-Chantel Tablet), 1 TAB ORAL DAILY, (Reported ) Discontinued Reason: Pt stopped taking med Patient History Limited by: language barrier, medical condition History Provided By: Patient Healthcare decision maker Resuscitation status Full Code Advanced Directive on File No Review of Systems Constitutional: Denies: no symptoms, see HPI, chills, sweats, fever, malaise, weakness, other Eye: Denies: no symptoms, see HPI, eye pain, blurred vision, tearing, double vision, nose pain, nose congestion, acuity changes, discharge, other All Other Systems: negative except mentioned in HPI Physical Exam General Appearance: no apparent distress HEENT: atraumatic Neck: normal alignment Respiratory/Chest: lungs clear Cardiovascular/Chest: normal rate Abdomen: non tender, soft Genitourinary/Rectal: normal genital exam Extremities: non-tender Skin Exam: warm/dry Neurologic: alert, oriented x 3 Last 24 Hour Vital Signs Date Time Temp Pulse Resp B/P (MAP) Pulse Ox O2 Delivery O2 Flow Rate FiO2 01/05/18 10:47 97.3 01/05/18 10:17 97.3 01/05/18 10:06 73 153/62 01/05/18 10:05 153/62 01/05/18 10:05 153/62 01/05/18 08:30 Room Air 01/05/18 08:00 98.7 73 20 153/62 (92) 94 98.7 01/05/18 04:00 64 01/05/18 04:00 98.5 65 19 142/57 (85) 98 98.5 01/05/18 01:09 67 147/57 10/14/18 00:17 Room Air 01/05/18 00:00 98.2 66 21 147/57 (87) 100 98.2 01/05/18 00:00 66 01/04/18 22:41 98.1 74 16 104/64 99 Room Air 98.1 01/04/18 22:30 98.6 63 20 143/56 (85) 97 98.6 01/04/18 22:15 98.1 74 16 104/64 99 Room Air 98.1 01/04/18 20:52 68 20 106/50 99 Room Air 01/04/18 18:16 98.9 63 22 102/47 98 Room Air 98.9 01/04/18 18:06 98.2 64 16 138/75 98 2.0 98.2 Intake and Output 01/04/18 01/05/18 19:00 07:00 Output Total 800 ml Balance -800 ml Output Urine Total 800 ml # Voids 1 Laboratory Tests Test 01/04/18 18:50 01/04/18 22:00 01/05/18 08:00 01/05/18 09:20 White Blood Count 7.3 K/UL (4.8-10.8) 7.2 K/UL (4.8-10.8) Red Blood Count 2.70 M/UL (4.70-6.10) L 3.78 M/UL (4.70-6.10) L Hemoglobin 8.6 G/DL (14.2-18.0) L 11.6 G/DL (14.2-18.0) #L Hematocrit 24.6 % (42.0-52.0) L 33.7 % (42.0-52.0) #L Mean Corpuscular Volume 91 FL (80-99) 89 FL (80-99) Mean Corpuscular Hemoglobin 31.9 PG (27.0-31.0) H 30.6 PG (27.0-31.0) Mean Corpuscular Hemoglobin Concent 35.0 G/DL (32.0-36.0) 34.3 G/DL (32.0-36.0) Red Cell Distribution Width 12.1 % (11.6-14.8) 12.5 % (11.6-14.8) Platelet Count 242 K/UL (150-450) 234 K/UL (150-450) Mean Platelet Volume 4.9 FL (6.5-10.1) L 5.9 FL (6.5-10.1) L Neutrophils (%) (Auto) 55.1 % (45.0-75.0) 59.4 % (45.0-75.0) Lymphocytes (%) (Auto) 29.0 % (20.0-45.0) 25.3 % (20.0-45.0) Monocytes (%) (Auto) 9.0 % (1.0-10.0) 9.4 % (1.0-10.0) Eosinophils (%) (Auto) 6.0 % (0.0-3.0) H 4.9 % (0.0-3.0) H Basophils (%) (Auto) 0.9 % (0.0-2.0) 0.9 % (0.0-2.0) Prothrombin Time 12.3 SEC (9.30-11.50) H Prothromb Time International Ratio 1.2 (0.9-1.1) H Activated Partial Thromboplast Time 38 SEC (23-33) H Sodium Level 132 MMOL/L (136-145) L 135 MMOL/L (136-145) L Potassium Level 4.1 MMOL/L (3.5-5.1) 3.9 MMOL/L (3.5-5.1) Chloride Level 98 MMOL/L (98-107) 100 MMOL/L (98-107) Carbon Dioxide Level 27 MMOL/L (21-32) 29 MMOL/L (21-32) Anion Gap 7 mmol/L (5-15) 6 mmol/L (5-15) Blood Urea Nitrogen 58 mg/dL (7-18) H 53 mg/dL (7-18) H Creatinine 2.4 MG/DL (0.55-1.30) H 2.2 MG/DL (0.55-1.30) H Estimat Glomerular Filtration Rate mL/min (>60) mL/min (>60) Glucose Level 178 MG/DL (74-106) H 140 MG/DL (74-106) H Calcium Level 8.0 MG/DL (8.5-10.1) L 8.2 MG/DL (8.5-10.1) L Total Bilirubin 0.3 MG/DL (0.2-1.0) 0.6 MG/DL (0.2-1.0) Aspartate Amino Transf (AST/SGOT) 22 U/L (15-37) 19 U/L (15-37) Alanine Aminotransferase (ALT/SGPT) 29 U/L (12-78) 26 U/L (12-78) Alkaline Phosphatase 160 U/L (46-116) H 161 U/L (46-116) H Total Creatine Kinase 52 U/L (26-308) Creatine Kinase MB 1.3 NG/ML (0.0-3.6) Creatine Kinase MB Relative Index 2.5 Troponin I 0.049 ng/mL (0.000-0.056) Pro-B-Type Natriuretic Peptide 21153 pg/mL (0-125) H Total Protein 6.3 G/DL (6.4-8.2) L 6.5 G/DL (6.4-8.2) Albumin 2.7 G/DL (3.4-5.0) L 2.7 G/DL (3.4-5.0) L Globulin 3.6 g/dL 3.8 g/dL Albumin/Globulin Ratio 0.8 (1.0-2.7) L 0.7 (1.0-2.7) L Lipase 354 U/L (73-393) Urine Color Red Urine Appearance Turbid Urine pH 5 (4.5-8.0) Urine Specific Hazel 1.010 (1.005-1.035) Urine Protein 4+ (NEGATIVE) H Urine Glucose (UA) Negative (NEGATIVE) Urine Ketones Negative (NEGATIVE) Urine Blood 5+ (NEGATIVE) H Urine Nitrite Negative (NEGATIVE) Urine Bilirubin Negative (NEGATIVE) Urine Urobilinogen Normal MG/DL (0.0-1.0) Urine Leukocyte Esterase 1+ (NEGATIVE) H Urine RBC Tntc /HPF (0 - 0) H Urine WBC 10-15 /HPF (0 - 0) H Urine Squamous Epithelial Cells Occasional /LPF Urine Bacteria Few /HPF (NONE) Stool Occult Blood Pending Hemoglobin A1c 7.1 % (4.3-6.0) H Uric Acid 7.6 MG/DL (2.6-7.2) H Iron Level 171 ug/dL (50-175) Total Iron Binding Capacity 213 ug/dL (250-450) L Percent Iron Saturation 80 % (15-50) H Unsaturated Iron Binding 42 ug/dL (112-346) L Ferritin 237 NG/ML (8-388) Triglycerides Level 80 MG/DL (30-150) Cholesterol Level 109 MG/DL (< 200) LDL Cholesterol 39 mg/dL (<100) HDL Cholesterol 57 MG/DL (40-60) Cholesterol/HDL Ratio 1.9 (3.3-4.4) L Vitamin B12 Level 1366 PG/ML (193-986) H Folate 47.6 NG/ML (8.6-58.9) Thyroid Stimulating Hormone (TSH) 7.407 uiU/mL (0.358-3.740) Microbiology Date/Time Source Procedure Growth Status 01/04/18 22:00 Urine,Clean Catch Urine Culture - Preliminary NO GROWTH Resulted Height (Feet): 5 Height (Inches): 5.00 Weight (Pounds): 135 Medications Current Medications Medications (Trade) Dose Ordered Sig/Jared Route PRN Reason Start Time Stop Time Status Last Admin Dose Admin Acetaminophen (Tylenol) 650 mg Q4H PRN ORAL Mild Pain/Temp > 100.5 01/04/18 23:45 02/03/18 23:44 01/05/18 10:17 Acetaminophen/ Hydrocodone Bitart (Henrietta 5/325) 1 tab Q4H PRN ORAL Moderate Pain (Pain Scale 4-6) 01/04/18 23:45 01/11/18 23:44 01/05/18 01:09 Albuterol/ Ipratropium (Albuterol/ Ipratropium) 3 ml QID PRN HHN Shortness of Breath 01/04/18 23:45 01/09/18 23:44 Atorvastatin Calcium (Lipitor) 80 mg BEDTIME ORAL 01/05/18 21:00 02/04/18 20:59 Baclofen (Lioresal) 5 mg QHS ORAL 01/05/18 00:00 02/04/18 00:00 01/05/18 01:08 Carvedilol (Coreg) 6.25 mg EVERY 12 HOURS ORAL 01/05/18 00:00 02/04/18 00:00 01/05/18 10:06 Dextrose (Dextrose 50%) 25 ml Q30M PRN IV Hypoglycemia 01/04/18 23:15 02/03/18 23:14 Dextrose (Dextrose 50%) 50 ml Q30M PRN IV Hypoglycemia 01/04/18 23:15 02/03/18 23:14 Docusate Sodium (Colace) 100 mg TWICE A DAY ORAL 01/05/18 09:00 02/04/18 08:59 01/05/18 10:06 Famotidine (Pepcid) 20 mg DAILY ORAL 01/05/18 09:00 02/04/18 08:59 01/05/18 10:05 Fish Oil (Fish Oil) 2,000 mg DAILY ORAL 01/05/18 09:00 02/04/18 08:59 01/05/18 10:05 Gabapentin (Neurontin) 200 mg QHS ORAL 01/05/18 00:00 02/04/18 00:00 01/05/18 01:09 Hydralazine HCl (Apresoline) 100 mg TID ORAL 01/05/18 09:00 02/04/18 08:59 01/05/18 10:05 Insulin Aspart (NovoLOG) BEFORE MEALS AND HS SUBQ 01/05/18 06:30 02/04/18 06:29 01/05/18 12:17 Isosorbide Dinitrate (Isordil) 40 mg TID ORAL 01/05/18 09:00 02/04/18 08:59 01/05/18 10:05 Non-Formulary Medication (Non-Formulary Med) 1 ea QHS ORAL 01/05/18 21:00 02/04/18 20:59 UNV Ondansetron HCl (Zofran) 4 mg Q6H PRN IVP Nausea & Vomiting 01/05/18 12:30 02/04/18 12:29 UNV Sennosides (Senokot) 1 tab DAILY ORAL 01/05/18 09:00 02/04/18 08:59 01/05/18 10:06 Tamsulosin HCl (Flomax) 0.4 mg BEDTIME ORAL 01/05/18 21:00 02/04/18 20:59 Vitamin B Complex/ Vit C/Folic Acid (Nephrovite) 1 tab DAILY ORAL 01/05/18 09:00 02/04/18 08:59 01/05/18 10:[address] reviewed: absent right kidney, normal left kidney Assessment/Plan Status: stable Assessment/Plan 72 yo male with irritative voiding symptoms, hematuria yesterday. Anemic from unknown etiology. Based on imaging and the fact that urine is clear this AM, likely related to either mild UTI in setting of anti-coagulation or recent catheterization. Patient is not in retention. I do not believe anemia can be explained from origin. Elevated Creatinine likely due to single kidney status. 1. urine culture 2. treat empirically for possible UTI 3. hold anti-coagulation per primary team 4. flomax 0.4 mg BID for voiding symptoms Jacoby Xavier M.D. Jan 05, 2018 12:29
[2018-01-05 16:00] VITALS: BP 149/65
--- NOTE | 2018-01-05 19:51 | Cardiology Progress Note ---
Assessment/Plan Assessment/Plan The patient is seen and examined, full consult note will be dictated. Objective Last 24 Hour Vital Signs Date Time Temp Pulse Resp B/P (MAP) Pulse Ox O2 Delivery O2 Flow Rate FiO2 01/05/18 17:39 149/65 01/05/18 17:38 149/65 01/05/18 16:00 97.3 64 19 149/65 (93) 99 97.3 19 01/05/18 15:51 64 01/05/18 13:00 103/44 01/05/18 13:00 103/44 01/05/18 12:00 98.6 74 19 103/44 (63) 95 98.6 01/05/18 11:59 66 01/05/18 11:59 66 01/05/18 10:47 97.3 01/05/18 10:17 97.3 01/05/18 10:06 73 153/62 01/05/18 10:05 153/62 01/05/18 10:05 153/62 01/05/18 08:30 Room Air 01/05/18 08:00 98.7 73 20 153/62 (92) 94 98.7 01/05/18 07:53 73 01/05/18 04:00 64 01/05/18 04:00 98.5 65 19 142/57 (85) 98 98.5 01/05/18 01:09 67 147/57 01/05/18 00:17 Room Air 01/05/18 00:00 98.2 66 21 147/57 (87) 100 98.2 01/05/18 00:00 66 01/04/18 22:41 98.1 74 16 104/64 99 Room Air 98.1 01/04/18 22:30 98.6 63 20 143/56 (85) 97 98.6 01/04/18 22:15 98.1 74 16 104/64 99 Room Air 98.1 01/04/18 20:52 68 20 106/50 99 Room Air Intake and Output 01/04/18 01/05/18 19:00 07:00 Output Total 800 ml Balance -800 ml Output Urine Total 800 ml # Voids 1 Laboratory Tests Test 01/04/18 22:00 01/05/18 08:00 01/05/18 09:20 Urine Color Red Urine Appearance Turbid Urine pH 5 (4.5-8.0) Urine Specific [place] 1.010 (1.005-1.035) Urine Protein 4+ (NEGATIVE) H Urine Glucose (UA) Negative (NEGATIVE) Urine Ketones Negative (NEGATIVE) Urine Blood 5+ (NEGATIVE) H Urine Nitrite Negative (NEGATIVE) Urine Bilirubin Negative (NEGATIVE) Urine Urobilinogen Normal MG/DL (0.0-1.0) Urine Leukocyte Esterase 1+ (NEGATIVE) H Urine RBC Tntc /HPF (0 - 0) H Urine WBC 10-15 /HPF (0 - 0) H Urine Squamous Epithelial Cells Occasional /LPF Urine Bacteria Few /HPF (NONE) Stool Occult Blood Pending White Blood Count 7.2 K/UL (4.8-10.8) Red Blood Count 3.78 M/UL (4.70-6.10) L Hemoglobin 11.6 G/DL (14.2-18.0) #L Hematocrit 33.7 % (42.0-52.0) #L Mean Corpuscular Volume 89 FL (80-99) Mean Corpuscular Hemoglobin 30.6 PG (27.0-31.0) Mean Corpuscular Hemoglobin Concent 34.3 G/DL (32.0-36.0) Red Cell Distribution Width 12.5 % (11.6-14.8) Platelet Count 234 K/UL (150-450) Mean Platelet Volume 5.9 FL (6.5-10.1) L Neutrophils (%) (Auto) 59.4 % (45.0-75.0) Lymphocytes (%) (Auto) 25.3 % (20.0-45.0) Monocytes (%) (Auto) 9.4 % (1.0-10.0) Eosinophils (%) (Auto) 4.9 % (0.0-3.0) H Basophils (%) (Auto) 0.9 % (0.0-2.0) Sodium Level 135 MMOL/L (136-145) L Potassium Level 3.9 MMOL/L (3.5-5.1) Chloride Level 100 MMOL/L (98-107) Carbon Dioxide Level 29 MMOL/L (21-32) Anion Gap 6 mmol/L (5-15) Blood Urea Nitrogen 53 mg/dL (7-18) H Creatinine 2.2 MG/DL (0.55-1.30) H Estimat Glomerular Filtration Rate mL/min (>60) Glucose Level 140 MG/DL (74-106) H Hemoglobin A1c 7.1 % (4.3-6.0) H Uric Acid 7.6 MG/DL (2.6-7.2) H Calcium Level 8.2 MG/DL (8.5-10.1) L Iron Level 171 ug/dL (50-175) Total Iron Binding Capacity 213 ug/dL (250-450) L Percent Iron Saturation 80 % (15-50) H Unsaturated Iron Binding 42 ug/dL (112-346) L Ferritin 237 NG/ML (8-388) Total Bilirubin 0.6 MG/DL (0.2-1.0) Aspartate Amino Transf (AST/SGOT) 19 U/L (15-37) Alanine Aminotransferase (ALT/SGPT) 26 U/L (12-78) Alkaline Phosphatase 161 U/L (46-116) H Total Protein 6.5 G/DL (6.4-8.2) Albumin 2.7 G/DL (3.4-5.0) L Globulin 3.8 g/dL Albumin/Globulin Ratio 0.7 (1.0-2.7) L Triglycerides Level 80 MG/DL (30-150) Cholesterol Level 109 MG/DL (< 200) LDL Cholesterol 39 mg/dL (<100) HDL Cholesterol 57 MG/DL (40-60) Cholesterol/HDL Ratio 1.9 (3.3-4.4) L Vitamin B12 Level 1366 PG/ML (193-986) H Folate 47.6 NG/ML (8.6-58.9) Thyroid Stimulating Hormone (TSH) 7.407 uiU/mL (0.358-3.740) Microbiology Date/Time Source Procedure Growth Status 01/04/18 22:00 Urine,Clean Catch Urine Culture - Preliminary NO GROWTH Resulted David Arango MD Jan 05, 2018 19:51
[2018-01-05 20:00] VITALS: BP 118/53
[2018-01-05] MEDS ORDERED: Tamsulosin 0.4mg cap ORAL SCH ×2 (21:00)
[2018-01-05] MEDS ORDERED: Atorvastatin 80mg tab ORAL SCH (21:00)
[2018-01-06] VITALS (7 sets, daily range): BP systolic 114–153; BP diastolic 5–70
--- NOTE | 2018-01-06 01:45 | Consultation ---
DATE OF CONSULTATION: 01/05/2018 CARDIOLOGY CONSULTATION CONSULTING PHYSICIAN: David Arango M.D. REFERRING PHYSICIAN: Dr. Tara Escobar. REASON FOR CONSULTATION: Management of anticoagulation therapy in the patient with paroxysmal atrial fibrillation and history of coronary artery bypass graft surgery. HISTORY OF PRESENT ILLNESS: The patient is a very unfortunate 72-year-old gentleman, who presents to the hospital with several episodes of epistaxis as well as hematuria. The patient is known to have paroxysmal atrial fibrillation and has a history of coronary artery disease, status post coronary artery bypass graft surgery and has been on triple therapy including aspirin, Plavix, and Eliquis 5 mg twice daily. At the time of arrival to the hospital, the patient was not quite verbalizing, was capable to open eyes only. Initial blood pressure was 138/75 and heart rate of 64. A 12-lead electrocardiogram was significant for sinus rhythm, heart rate of 66 with no acute ischemic changes. The patient was admitted to telemetry unit for further evaluation and management. Cardiology consultation was made at the request of Dr. Escobar to address the anticoagulation management. PAST MEDICAL HISTORY: 1. Paroxysmal atrial fibrillation. 2. Hypertension. 3. Chronic kidney disease. 4. Diabetes mellitus. 5. Gastroesophageal reflux disease. 6. History of left cerebral CVA with right-sided hemiparesis. 7. History of CAD, status post coronary artery bypass graft surgery. FAMILY HISTORY: No premature coronary artery disease in the first-degree relatives. PAST SURGICAL HISTORY: Coronary artery bypass graft surgery. ALLERGIES: No known drug allergies. MEDICATIONS: List of medications in the nursing facility includes acetaminophen 500 mg q.8 h. as needed headache and temperature 101, Eliquis 5 mg twice daily, aspirin 81 mg daily, atorvastatin 40 mg p.o. at bedtime, carvedilol 3.125 mg twice daily, vitamin D 1000 IV daily, clonidine 0.2 mg q.8 h., Clopidogrel 75 mg daily, UTI-Stat liquid mg p.o. daily, Invanz 1 gram IV piggyback q.24 h for 11 days, furosemide 20 mg p.o. twice daily, glimepiride 1 mg p.o. before breakfast, Levaquin 750 mg by mouth daily for 7 days, losartan 50 mg p.o. daily, aluminum magnesium hydroxide simethicone liquid 30 mL p.o. q.4 h., melatonin 5 mg p.o. at bedtime, Remeron 15 mg p.o. at bedtime, multivitamin one tablet p.o. daily, and Nephro-Chantel tablet 1 tablet p.o. daily. REVIEW OF SYSTEMS: HEENT: Denies any headache, diplopia, or blurred vision. CONSTITUTIONAL: Denies any fever, chills, night sweats, or weight loss. CARDIOVASCULAR: Denies any chest pain, shortness of breath, PND, orthopnea, leg swelling, palpitations, or syncope. PULMONARY: Denies any cough, hemoptysis, or wheezing. GASTROINTESTINAL: Denies any gastrointestinal bleed, diarrhea, constipation, abdominal pain, vomiting, or nausea. GENITOURINARY: He has hematuria. NEUROLOGY: Denies any motor dysfunction, sensory deficit, or altered speech. New onset, however, he has right-sided hemiparesis from the old stroke and unstable gait. PHYSICAL EXAMINATION: VITAL SIGNS: Blood pressure was 138/75, pulse of 64, respirations of 16, O2 saturation 98% on room air, and temperature 98.2 degrees Fahrenheit. GENERAL: The patient is a very unfortunate 72-year-old gentleman who is in no apparent respiratory distress. HEENT: Atraumatic and normocephalic. Anicteric. Pupils are equal, round, and reactive to light and accommodation. There was dry blood in both nares. NECK: JVP less than 5 cm. No carotid bruits. Carotid upstrokes 2+ bilaterally. CARDIOVASCULAR SYSTEM: Normal S1 and S2. Regular rate and rhythm. No murmurs, gallops, or rubs. LUNGS: Clear to auscultation bilaterally. ABDOMEN: Soft, nontender, and nondistended. No hepatosplenomegaly. Positive bowel sounds. EXTREMITIES: Diminished motor function on the right side. Otherwise, no edema, clubbing, or cyanosis. LABORATORY FINDINGS: WBC 7.3, hemoglobin 8.6, hematocrit 24.6%, and platelet counts 242. Sodium is 132, potassium is 4.1, chloride 98, bicarbonate 27, BUN of 58, creatinine 2.4, glucose 178, and calcium is 8.0. Troponin I is 0.049. ProBNP is 15,006. Chest x-ray showed cardiomegaly with subsegmental atelectasis in the medial lung bases. ASSESSMENT AND PLAN: The patient is a very unfortunate 72-year-old gentleman, seen in cardiology consultation at the request of Dr. Escobar. 1. Paroxysmal atrial fibrillation, currently in sinus rhythm. The calculated CHADS-VASC score is 6 based on the medical issues. The patient is required to have oral anticoagulant agents such as the Eliquis, however, given the fact that the patient's creatinine is elevated and his weight is approximately 60 kg, I would like to decrease the dose to 2.5 mg twice a day. The patient does not require clopidogrel. However, he would be a candidate for aspirin 81 mg daily in view of prior history of coronary artery bypass graft surgery. Should the patient re-bleed, I will make a decision to discontinue aspirin as well. 2. History of coronary artery disease, status post coronary artery bypass graft surgery. A 12-lead electrocardiogram shows no acute ischemic features. 3. Prior history of CVA. Continue aspirin and statins. 4. History of chronic kidney disease. 5. History of diabetes mellitus. 6. History of hypertension. I would like to thank Dr. Escobar for the courtesy of this consultation. David Arango M.D. DR: AMBROCIO JOB#: [id number] CC:
[2018-01-06] MEDS: NovoLOG Insulin Flexpen SUBQ SCH ×4 (05:53→21:00)
[2018-01-06 06:43] LABS: BASOPHILS % (AUTO) 0.9 % (0.0-2.0); EOSINOPHILS % (AUTO) 5.3 % (0.0-3.0); HEMATOCRIT 32.7 % (42.0-52.0); HEMOGLOBIN 11.5 G/DL (14.2-18.0); LYMPHOCYTES % (AUTO) 31.6 % (20.0-45.0); MEAN CORPUSCULAR VOLUME 89 FL (80-99); MONOCYTES % (AUTO) 9.9 % (1.0-10.0); NEUTROPHILS % (AUTO) 52.3 % (45.0-75.0); PLATELET COUNT 235 K/UL (150-450); RED BLOOD COUNT 3.65 M/UL (4.70-6.10); WHITE BLOOD COUNT 7.1 K/UL (4.8-10.8)
[2018-01-06 06:56] LABS: ALANINE AMINOTRANSFERASE 30 U/L (12-78); ALBUMIN 2.6 G/DL (3.4-5.0); ALBUMIN/GLOBULIN RATIO 0.7 (1.0-2.7); ALKALINE PHOSPHATASE 152 U/L (46-116); ANION GAP 6 mmol/L (5-15); ASPARTATE AMINO TRANSFERASE 20 U/L (15-37); BILIRUBIN,TOTAL 0.6 MG/DL (0.2-1.0); BLOOD UREA NITROGEN 48 mg/dL (7-18); CALCIUM 7.8 MG/DL (8.5-10.1); CARBON DIOXIDE 26 MMOL/L (21-32); CHLORIDE 103 MMOL/L (98-107); CREATININE 2.3 MG/DL (0.55-1.30); POTASSIUM 3.9 MMOL/L (3.5-5.1); SODIUM 135 MMOL/L (136-145)
--- NOTE | 2018-01-06 08:58 | General Progress Note ---
Assessment/Plan Status: stable Assessment/Plan I would moisturize nose BID with a small amount of Neosporin about 1/8 of an inch inside the nostril. I would keep INR as low as therapeutically possible. Remind pt. not to put anything into nose, such as a finger. Thank you for asking my participation in the care of this pt. Subjective Date patient seen: Jan 06, 2018 Time patient seen: 08:30 ROS Limited/Unobtainable: Yes Constitutional: Reports: other - Epistaxis on DVT prophylaxis HEENT: Reports: no symptoms, other - epistaxis a few days ago, none now, no packing placed. Allergies: Coded Allergies: No Known Allergies (Unverified , 02/23/17) Subjective I have been asked to suggested and modifications to DVT prophylaxis to balance appropriate levels and epistaxis. Objective Last 24 Hour Vital Signs Date Time Temp Pulse Resp B/P (MAP) Pulse Ox O2 Delivery O2 Flow Rate FiO2 01/06/18 04:19 77 20 99 Room Air 21 01/06/18 04:00 98.4 77 20 115/51 (72) 97 98.4 01/06/18 04:00 76 01/06/18 03:55 79 18 97 Room Air 21 01/06/18 00:00 98.4 70 19 115/48 (70) 97 98.4 01/06/18 00:00 68 01/05/18 21:00 Room Air 01/05/18 20:21 70 118/53 01/05/18 20:00 67 01/05/18 20:00 98.3 67 19 118/53 (74) 97 98.3 01/05/18 20:00 72 18 Room Air 21 01/05/18 17:39 149/65 01/05/18 17:38 149/65 01/05/18 16:00 97.3 64 19 149/65 (93) 99 97.3 19 01/05/18 15:51 64 01/05/18 13:00 103/44 01/05/18 13:00 103/44 01/05/18 12:00 98.6 74 19 103/44 (63) 95 98.6 01/05/18 11:59 66 01/05/18 11:59 66 01/05/18 10:47 97.3 01/05/18 10:17 97.3 01/05/18 10:06 73 153/62 01/05/18 10:05 153/62 01/05/18 10:05 153/62 Intake and Output 01/05/18 01/06/18 19:00 07:00 Intake Total 400 ml 240 ml Output Total 400 ml 375 ml Balance 0 ml -135 ml Intake Oral 400 ml 240 ml Output Urine Total 400 ml 375 ml # Bowel Movements 2 Laboratory Tests 01/05/18 09:20: White Blood Count 7.2, Red Blood Count 3.78L, Hemoglobin 11.6#L, Hematocrit 33.7 #L, Mean Corpuscular Volume 89, Mean Corpuscular Hemoglobin 30.6, Mean Corpuscular Hemoglobin Concent 34.3, Red Cell Distribution Width 12.5, Platelet Count 234, Mean Platelet Volume 5.9L, Neutrophils (%) (Auto) 59.4, Lymphocytes ( %) (Auto) 25.3, Monocytes (%) (Auto) 9.4, Eosinophils (%) (Auto) 4.9H, Basophils (%) (Auto) 0.9, Sodium Level 135L, Potassium Level 3.9, Chloride Level 100, Carbon Dioxide Level 29, Anion Gap 6, Blood Urea Nitrogen 53H, Creatinine 2.2H, Estimat Glomerular Filtration Rate , Glucose Level 140H, Hemoglobin A1c 7.1H, Uric Acid 7.6H, Calcium Level 8.2L, Iron Level 171, Total Iron Binding Capacity 213L, Percent Iron Saturation 80H, Unsaturated Iron Binding 42L, Ferritin 237, Total Bilirubin 0.6, Aspartate Amino Transf (AST/SGOT ) 19, Alanine Aminotransferase (ALT/SGPT) 26, Alkaline Phosphatase 161H, Total Protein 6.5, Albumin 2.7L, Globulin 3.8, Albumin/Globulin Ratio 0.7L, Triglycerides Level 80, Cholesterol Level 109, LDL Cholesterol 39, HDL Cholesterol 57, Cholesterol/HDL Ratio 1.9L, Vitamin B12 Level 1366H, Folate 47.6 , Thyroid Stimulating Hormone (TSH) 7.407H 01/06/18 04:45: White Blood Count 7.1, Red Blood Count 3.65L, Hemoglobin 11.5L, Hematocrit 32.7L , Mean Corpuscular Volume 89, Mean Corpuscular Hemoglobin 31.5H, Mean Corpuscular Hemoglobin Concent 35.2, Red Cell Distribution Width 13.0, Platelet Count 235, Mean Platelet Volume 5.6L, Neutrophils (%) (Auto) 52.3, Lymphocytes ( %) (Auto) 31.6, Monocytes (%) (Auto) 9.9, Eosinophils (%) (Auto) 5.3H, Basophils (%) (Auto) 0.9, Sodium Level 135L, Potassium Level 3.9, Chloride Level 103, Carbon Dioxide Level 26, Anion Gap 6, Blood Urea Nitrogen 48H, Creatinine 2.3H, Estimat Glomerular Filtration Rate , Glucose Level 140H, Calcium Level 7.8L, Total Bilirubin 0.6, Aspartate Amino Transf (AST/SGOT) 20, Alanine Aminotransferase (ALT/SGPT) 30, Alkaline Phosphatase 152H, Total Protein 6.1L, Albumin 2.6L, Globulin 3.5, Albumin/Globulin Ratio 0.7L Height (Feet): 5 Height (Inches): 5.00 Weight (Pounds): 135 General Appearance: WD/WN, other - parylyzed right side of body below neck. EENT: PERRL/EOMI, normal ENT inspection, TMs normal, pharynx normal, scleral icterus Lymphatic: normal anterior cervical (L), normal posterior cervical (L), normal posterior cervical (R), normal submandibular (L), normal submandibular (R), normal supraclavicular (L), normal supraclavicular (R) Zenon Swann MD Jan 06, 2018 08:58
[2018-01-06] MEDS: Nephrovite tab (Rena-Vite) ORAL SCH (09:11)
[2018-01-06] MEDS: Sennosides 8.6mg ORAL SCH (09:11)
[2018-01-06] MEDS: Docusate 100mg cap ORAL SCH ×3 (09:11→17:17)
[2018-01-06] MEDS: Carvedilol 6.25mg Tab ORAL SCH ×2 (09:12→21:46)
[2018-01-06] MEDS: HydrALAZINE 50mg tab ORAL SCH ×2 (09:13→21:48)
--- NOTE | 2018-01-06 11:12 | Cardiology Report ---
APPROVED REPORT EXAM: Two-dimensional and M-mode echocardiogram with Doppler and color Doppler. INDICATION Palpitations M-Mode DIMENSIONS IVSd1.7 (0.7-1.1cm)Left Atrium (MM)5.0 (1.6-4.0cm) LVDd4.7 (3.5-5.6cm)Aortic Root2.8 (2.0-3.7cm) PWd1.0 (0.7-1.1cm)Aortic Cusp Exc.2.0 (1.5-2.0cm) LVDs3.4 (2.5-4.0cm) PWs1.7 cm Technically difficult study due to poor acoustic windows. Study quality precludes accurate assessment of regional wall motion. Normal left ventricular chamber size, systolic function and wall motion. Left ventricular ejection fraction estimated to be 55 %. Mild left ventricular hypertrophy. No evidence of pericardial effusion. Mild bi-atrial enlargement. Right ventricular chamber sizes is within normal limits. Mild focal aortic valve sclerosis with adequate cusp excursion. Mildly thickened mitral valve leaflets with normal excursion. Mild mitral annulus and aortic root calcification. Pulmonic valve not well visualized. Normal tricuspid valve structure. Subcostal views not obtainable. A color flow and spectral Doppler study was performed and revealed: No aortic insufficiency. Mild mitral regurgitation. Mitral diastolic velocities suggest mild left ventricular diastolic dysfunction (Grade I). Mild tricuspid regurgitation. Tricuspid systolic velocities suggests peak right ventricular systolic pressure of 36 mmHg, consistent with mild pulmonary hypertension. No pulmonic regurgitation present.
--- NOTE | 2018-01-06 11:55 | Nephrology Progress Note ---
Assessment/Plan Problem List: (1) Diabetic nephropathy (2) Hematuria (3) History of nephrectomy, unilateral Assessment: right (4) Anemia (5) Renal failure (ARF), acute on chronic Assessment Renal failure likely Diabetic Nephropathy and Acute renal failure on CKD Severe Anemia etiology likely multifactorial DM HTN h/o CVA CHF h/o PAF BPH Plan optimize BP and BS and Cardiac status patient is transfused- Iron panel may not be helpful as it was not drawn prior to transfusion Kidney AR ? 2D echo ? Flomax Per orders CT: Status post median sternotomy. Right coronary calcification. Status post right nephrectomy, Subjective ROS Limited/Unobtainable: No Constitutional: Reports: malaise, weakness Objective Objective Last 24 Hour Vital Signs Date Time Temp Pulse Resp B/P (MAP) Pulse Ox O2 Delivery O2 Flow Rate FiO2 01/06/18 09:13 123/50 01/06/18 09:12 123/50 01/06/18 09:12 81 123/50 01/06/18 09:00 Room Air 01/06/18 08:00 98.4 81 20 123/50 (74) 96 98.4 01/06/18 08:00 78 01/06/18 04:19 77 20 99 Room Air 21 01/06/18 04:00 98.4 77 20 115/51 (72) 97 98.4 01/06/18 04:00 76 01/06/18 03:55 79 18 97 Room Air 21 01/06/18 00:00 98.4 70 19 115/48 (70) 97 98.4 01/06/18 00:00 68 01/05/18 21:00 Room Air 01/05/18 20:21 70 118/53 01/05/18 20:00 67 01/05/18 20:00 98.3 67 19 118/53 (74) 97 98.3 01/05/18 20:00 72 18 Room Air 21 01/05/18 17:39 149/65 01/05/18 17:38 149/65 01/05/18 16:00 97.3 64 19 149/65 (93) 99 97.3 19 01/05/18 15:51 64 01/05/18 13:00 103/44 01/05/18 13:00 103/44 01/05/18 12:00 98.6 74 19 103/44 (63) 95 98.6 01/05/18 11:59 66 01/05/18 11:59 66 Intake and Output 01/05/18 01/06/18 19:00 07:00 Intake Total 400 ml 240 ml Output Total 400 ml 375 ml Balance 0 ml -135 ml Intake Oral 400 ml 240 ml Output Urine Total 400 ml 375 ml # Bowel Movements 2 Laboratory Tests 01/06/18 04:45: White Blood Count 7.1, Red Blood Count 3.65L, Hemoglobin 11.5L, Hematocrit 32.7L , Mean Corpuscular Volume 89, Mean Corpuscular Hemoglobin 31.5H, Mean Corpuscular Hemoglobin Concent 35.2, Red Cell Distribution Width 13.0, Platelet Count 235, Mean Platelet Volume 5.6L, Neutrophils (%) (Auto) 52.3, Lymphocytes ( %) (Auto) 31.6, Monocytes (%) (Auto) 9.9, Eosinophils (%) (Auto) 5.3H, Basophils (%) (Auto) 0.9, Sodium Level 135L, Potassium Level 3.9, Chloride Level 103, Carbon Dioxide Level 26, Anion Gap 6, Blood Urea Nitrogen 48H, Creatinine 2.3H, Estimat Glomerular Filtration Rate , Glucose Level 140H, Calcium Level 7.8L, Total Bilirubin 0.6, Aspartate Amino Transf (AST/SGOT) 20, Alanine Aminotransferase (ALT/SGPT) 30, Alkaline Phosphatase 152H, Total Protein 6.1L, Albumin 2.6L, Globulin 3.5, Albumin/Globulin Ratio 0.7L Height (Feet): 5 Height (Inches): 5.00 Weight (Pounds): 135 General Appearance: no apparent distress Cardiovascular: normal rate Respiratory/Chest: decreased breath sounds Abdomen: soft Jimbo Barker MD Jan 06, 2018 11:55
--- NOTE | 2018-01-06 12:31 | Diagnostic Imaging Report ---
Indication:Elevated Bun and Creatinine. Technique: Grayscale and duplex Doppler imaging of the kidneys performed. Comparison: None Findings: The size, contour, and echogenicity of the left kidney is within normal limits. Multiple cysts are noted measuring up to 2 cm. The left kidney measures 11.5 cm in length. Right nephrectomy is noted with surgical absence of the right kidney. There is no hydronephrosis. The IVC and urinary bladder are unremarkable. IMPRESSION: Negative evaluation of the left kidney. Cysts noted. Status post right nephrectomy.
--- NOTE | 2018-01-06 14:05 | Cardiology Progress Note ---
Assessment/Plan Assessment/Plan 1. Paroxysmal atrial fibrillation, currently in sinus rhythm. The calculated CHADS-VASC score is 6 based on the medical issues. Renal US was negative. Start Eliquis 2.5mg po bid. Ultimately need to resume ASA 81mg daily after a few days. 2. History of coronary artery disease, status post coronary artery bypass graft surgery. A 12-lead electrocardiogram shows no acute ischemic features. 3. Prior history of CVA. Continue aspirin and statins. 4. History of chronic kidney disease. 5. History of diabetes mellitus. 6. History of hypertension. 7. Epistaxis, on triple therapy, no need clopidogrel, Eliquis dose was reduced given CKD and his weight. Subjective Subjective Sinus rhythm with RBBB at 79. Objective Last 24 Hour Vital Signs Date Time Temp Pulse Resp B/P (MAP) Pulse Ox O2 Delivery O2 Flow Rate FiO2 01/06/18 12:20 132/58 01/06/18 12:00 98.1 79 18 132/58 (82) 96 98.1 01/06/18 09:13 123/50 01/06/18 09:12 123/50 01/06/18 09:12 81 123/50 01/06/18 09:00 Room Air 01/06/18 08:00 98.4 81 20 123/50 (74) 96 98.4 01/06/18 08:00 78 01/06/18 04:19 77 20 99 Room Air 21 01/06/18 04:00 98.4 77 20 115/51 (72) 97 98.4 01/06/18 04:00 76 01/06/18 03:55 79 18 97 Room Air 21 01/06/18 00:00 98.4 70 19 115/48 (70) 97 98.4 01/06/18 00:00 68 01/05/18 21:00 Room Air 01/05/18 20:21 70 118/53 01/05/18 20:00 67 01/05/18 20:00 98.3 67 19 118/53 (74) 97 98.3 01/05/18 20:00 72 18 Room Air 21 01/05/18 17:39 149/65 01/05/18 17:38 149/65 01/05/18 16:00 97.3 64 19 149/65 (93) 99 97.3 19 01/05/18 15:51 64 Intake and Output 01/05/18 01/06/18 19:00 07:00 Intake Total 400 ml 240 ml Output Total 400 ml 375 ml Balance 0 ml -135 ml Intake Oral 400 ml 240 ml Output Urine Total 400 ml 375 ml # Bowel Movements 2 2D Echo: LVEF 55%, Mild LVH, JULIÁN, Mild MR, Grade I LVDD, RVSP 36 mmHg Laboratory Tests Test 01/06/18 04:45 White Blood Count 7.1 K/UL (4.8-10.8) Red Blood Count 3.65 M/UL (4.70-6.10) L Hemoglobin 11.5 G/DL (14.2-18.0) L Hematocrit 32.7 % (42.0-52.0) L Mean Corpuscular Volume 89 FL (80-99) Mean Corpuscular Hemoglobin 31.5 PG (27.0-31.0) H Mean Corpuscular Hemoglobin Concent 35.2 G/DL (32.0-36.0) Red Cell Distribution Width 13.0 % (11.6-14.8) Platelet Count 235 K/UL (150-450) Mean Platelet Volume 5.6 FL (6.5-10.1) L Neutrophils (%) (Auto) 52.3 % (45.0-75.0) Lymphocytes (%) (Auto) 31.6 % (20.0-45.0) Monocytes (%) (Auto) 9.9 % (1.0-10.0) Eosinophils (%) (Auto) 5.3 % (0.0-3.0) H Basophils (%) (Auto) 0.9 % (0.0-2.0) Sodium Level 135 MMOL/L (136-145) L Potassium Level 3.9 MMOL/L (3.5-5.1) Chloride Level 103 MMOL/L (98-107) Carbon Dioxide Level 26 MMOL/L (21-32) Anion Gap 6 mmol/L (5-15) Blood Urea Nitrogen 48 mg/dL (7-18) H Creatinine 2.3 MG/DL (0.55-1.30) H Estimat Glomerular Filtration Rate mL/min (>60) Glucose Level 140 MG/DL (74-106) H Calcium Level 7.8 MG/DL (8.5-10.1) L Total Bilirubin 0.6 MG/DL (0.2-1.0) Aspartate Amino Transf (AST/SGOT) 20 U/L (15-37) Alanine Aminotransferase (ALT/SGPT) 30 U/L (12-78) Alkaline Phosphatase 152 U/L (46-116) H Total Protein 6.1 G/DL (6.4-8.2) L Albumin 2.6 G/DL (3.4-5.0) L Globulin 3.5 g/dL Albumin/Globulin Ratio 0.7 (1.0-2.7) L Microbiology Date/Time Source Procedure Growth Status 01/04/18 22:00 Urine,Clean Catch Urine Culture - Preliminary Gram Negative Bacillus 1 Resulted Objective HEENT: Atraumatic and normocephalic. Anicteric. Pupils are equal, round, and reactive to light and accommodation. There was dry blood in both nares. NECK: JVP less than 5 cm. No carotid bruits. Carotid upstrokes 2+ bilaterally. CARDIOVASCULAR SYSTEM: Normal S1 and S2. Regular rate and rhythm. No murmurs, gallops, or rubs. LUNGS: Clear to auscultation bilaterally. ABDOMEN: Soft, nontender, and nondistended. No hepatosplenomegaly. Positive bowel sounds. EXTREMITIES: Diminished motor function on the right side. Otherwise, no edema, clubbing, or cyanosis. David Arango MD Jan 06, 2018 14:05
--- NOTE | 2018-01-06 15:20 | General Progress Note ---
Assessment/Plan Assessment/Plan S: My nose bleed O: appear minimal epistaxia, denies having any active urinay bleeding PHYSICAL EXAMINATION: HEAD AND NECK: episodes of epistaxia, detailed exam deferred. Atraumatic and normocephalic. Positive for the pain and tenderness overlying left mastoid sinus. Positive for minimal redness in the external auditory meatus.CHEST: scar of prior sternotomy, Clear to auscultation. No wheezing. No crackles. HEART: S1 and S2. Regular rate and rhythm. ABDOMEN: Soft. No organomegaly. MUSCULOSKELETAL: Negative for any gross abnormal lateralized motor deficit. NEUROLOGIC: The patient is awake, alert, and oriented x3. Medication : Reviewed and reconciled in the chart, including Atorvastatin, Gabapentin, Eliquis and ASA ASSESSMENT: 1. Acute Aemia 2. Epistaxia and Gross Hematuria 2. Acute on Chronic kidney disease. 3. Hypertension. 4. Diabetes type 2. 5. Cerebrovascular accident 6. CHF- low EF : appears stable 7. PAF ( history of), Sinus at this time 6. Benign prostatic hypertrophy. 7. Gastrointestinal and deep venous thrombosis prophylaxis. PLAN OF CARE: Discussed the care, with cardiology. Will resume Low dose anticoagulation and will monitor bleeding episodes. Patient remain very high risk for recurrent TE incidence. Subjective Allergies: Coded Allergies: No Known Allergies (Unverified , 02/23/17) Objective Last 24 Hour Vital Signs Date Time Temp Pulse Resp B/P (MAP) Pulse Ox O2 Delivery O2 Flow Rate FiO2 01/06/18 12:20 132/58 01/06/18 12:00 98.1 79 18 132/58 (82) 96 98.1 01/06/18 11:34 77 01/06/18 09:13 123/50 01/06/18 09:12 123/50 01/06/18 09:12 81 123/50 01/06/18 09:00 Room Air 01/06/18 08:00 98.4 81 20 123/50 (74) 96 98.4 01/06/18 08:00 78 01/06/18 04:19 77 20 99 Room Air 21 01/06/18 04:00 98.4 77 20 115/51 (72) 97 98.4 01/06/18 04:00 76 01/06/18 03:55 79 18 97 Room Air 21 01/06/18 00:00 98.4 70 19 115/48 (70) 97 98.4 01/06/18 00:00 68 01/05/18 21:00 Room Air 01/05/18 20:21 70 118/53 01/05/18 20:00 67 01/05/18 20:00 98.3 67 19 118/53 (74) 97 98.3 01/05/18 20:00 72 18 Room Air 21 01/05/18 17:39 149/65 01/05/18 17:38 149/65 01/05/18 16:00 97.3 64 19 149/65 (93) 99 97.3 19 01/05/18 15:51 64 Intake and Output 01/05/18 01/06/18 19:00 07:00 Intake Total 400 ml 240 ml Output Total 400 ml 375 ml Balance 0 ml -135 ml Intake Oral 400 ml 240 ml Output Urine Total 400 ml 375 ml # Bowel Movements 2 Laboratory Tests 01/06/18 04:45: White Blood Count 7.1, Red Blood Count 3.65L, Hemoglobin 11.5L, Hematocrit 32.7L , Mean Corpuscular Volume 89, Mean Corpuscular Hemoglobin 31.5H, Mean Corpuscular Hemoglobin Concent 35.2, Red Cell Distribution Width 13.0, Platelet Count 235, Mean Platelet Volume 5.6L, Neutrophils (%) (Auto) 52.3, Lymphocytes ( %) (Auto) 31.6, Monocytes (%) (Auto) 9.9, Eosinophils (%) (Auto) 5.3H, Basophils (%) (Auto) 0.9, Sodium Level 135L, Potassium Level 3.9, Chloride Level 103, Carbon Dioxide Level 26, Anion Gap 6, Blood Urea Nitrogen 48H, Creatinine 2.3H, Estimat Glomerular Filtration Rate , Glucose Level 140H, Calcium Level 7.8L, Total Bilirubin 0.6, Aspartate Amino Transf (AST/SGOT) 20, Alanine Aminotransferase (ALT/SGPT) 30, Alkaline Phosphatase 152H, Total Protein 6.1L, Albumin 2.6L, Globulin 3.5, Albumin/Globulin Ratio 0.7L Height (Feet): 5 Height (Inches): 5.00 Weight (Pounds): 135 Tara Escobar MD Jan 06, 2018 15:20
[2018-01-06] MEDS: Norco 5mg/325mg tab ORAL PRN (18:59)
[2018-01-06] MEDS ORDERED: Albuterol/Ipratropium 3ml neb HHN PRN (21:00)
[2018-01-06] MEDS ORDERED: Atorvastatin 20mg tab ORAL SCH (21:00)
[2018-01-06] MEDS ORDERED: Eliquis 2.5mg tablet ORAL SCH (21:00)
[2018-01-06] MEDS: Eliquis 2.5mg tablet ORAL SCH (21:45)
[2018-01-06] MEDS: Atorvastatin 20mg tab ORAL SCH (21:47)
[2018-01-06] MEDS: Tamsulosin 0.4mg cap ORAL SCH (21:48)
[2018-01-06] MEDS ORDERED: HydrALAZINE 50mg tab ORAL SCH (22:00)
--- NOTE | 2018-01-06 22:37 | Consultation ---
Consult Note Consult Note NEUROLOGY CONSULTATION: Full note dictated #[id number] 72 y/o, RH, HM with PH of HTN, DM, DL, CKD, CAD s/p CABG, PAF, and left brain stroke with right paresis and right sensory dysfunction. He has been on Eliquis, ASA and Plavix for secondary stroke prophylaxis. He has also been on fish oil. He has had 2 episodes of hematuria and a few episodes of epistaxis when he blows his nose hard. ON EXAM: Problems with orientation, memory, VSF, HCF Right hemiparesis Right hemisensory deficit. R>L DTRs Extensor plantar on right. IMPRESSION: 1. Left brain stroke associated with right paresis, associated with A-fib, HTN, DM, DL. 2. Unclear if patients stroke was cardioembolic or due to other reasons. REC: 1. MRI of brain to evaluate type of CVD. 2. Carotid duplex. 3. Depending on type of CVD can advise on whether patient needs anticoagulant or anticoagulant and antiplatelet. 4. If antiplatelet therapy is needed would only use single antiplatelet agent i.e ASA 81 mg. 5. If patient has recurrent bleeding with anticoagulants consider a left atrial appendage occlusion device. Slick Molina M.D., M.S.P.SLICK OWENS Jan 06, 2018 22:36
[2018-01-06] MEDS ORDERED: Norco 5mg/325mg tab ORAL PRN (23:00)
[2018-01-07] VITALS: BP 105/37
--- NOTE | 2018-01-07 03:45 | Consultation ---
DATE OF CONSULTATION: 01/06/2018 NEUROLOGY CONSULTATION CONSULTING PHYSICIAN: Vikram Molina M.D. REFERRING PHYSICIAN: aTra Escobar M.D. HISTORY: Mr. 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 He has been on a combination of Eliquis, aspirin, and Plavix for secondary stroke prophylaxis. He has also been on fish oil. He was hospitalized for an episode of hematuria and epistaxis and tells me that he has had one more episode of hematuria prior to the one he came in with and a few episodes of epistaxis when he blows his nose too hard. This consultation was requested to evaluate the patient from a neurological point of view and advice on whether the patient needs anticoagulation, antiplatelet agents, and if he does need antiplatelet agents the number of antiplatelet agents that should be used. PAST MEDICAL HISTORY: Significant for hypertension, diabetes mellitus, dyslipidemia, coronary artery disease, chronic kidney disease, coronary artery bypass graft, paroxysmal atrial fibrillation, and a left brain stroke with right paresis and right hemisensory deficit with some language problems. FAMILY HISTORY: Nothing significant as per the patient. PERSONAL HISTORY: Home: He lives in a correction. Work: He is unemployed. Habits: He denies use of alcohol, tobacco, or illicit drugs at this point in time. MEDICATIONS: Present medications include Colace, fish oil, Isordil, Nephro-Chantel, Senokot, Synthroid, [place] p.r.n., hydralazine, Tylenol p.r.n., Eliquis 2.5 mg q.12 h., Lipitor, baclofen, carvedilol, DuoNeb inhaler p.r.n., gabapentin 200 mg at bedtime, insulin, Zofran, pantoprazole, and Flomax. PHYSICAL EXAMINATION: GENERAL: He is a well-developed and well-nourished gentleman, lying in bed, in no acute distress. VITAL SIGNS: Pulse 74/minute, blood pressure 151/70 mmHg, respirations 19/minute, and temperature 98.9 degrees Fahrenheit. HEAD: Normocephalic and atraumatic. EENT: Examination benign. NECK: No neck rigidity was observed. NEUROLOGICAL EXAMINATION: MENTAL STATUS EXAMINATION: He was awake and alert. He was oriented to [facility], [facility], and December 2017. He did not know the date. He was able to recall 3/3 words immediately, but could only remember 2/3 words in 1 minute and 3 minutes. He was able to remember presidents Trump through Barr Kennedy, but could not remember presidents prior to that. His mathematical skills were impaired. His visuospatial function was also impaired. SPEECH: He had a mild dysarthria. LANGUAGE: Could not be tested adequately because Albanian is his second language. CRANIAL NERVES EXAMINATION: II: The visual anthony were intact on confrontation testing. III, IV & : External ocular movements were full and the pupils 3 mm in diameter, equal, round, regular, and reactive to light. V: He had normal facial sensations and the temporales, masseters, and pterygoids functioned normally. VII: He had a right VII central facial paresis. VIII: He was able to hear well bilaterally and had no nystagmus. IX: The palate moved symmetrically on phonation. X: He had no hoarseness of voice. XI: The sternocleidomastoids and trapezii functioned normally. XII: The tongue was in the midline without any fasciculations or atrophy. MOTOR SYSTEM: The tone was normal in all four extremities. Examination of muscle mass revealed no focal wasting. Examination of power revealed G 5/5 power on the left side. On the right side, he had G 4+/5 power except for G 3/5 power in the finger extensors and iliopsoas, and grade 3++/5 power in the right ankle dorsiflexors and toe extensors. SENSORY EXAMINATION: He was able to discern between pinprick and light touch, but complained of a subjective alteration on his right side. He had bilaterally graphesthesia. REFLEXES: 1++ on the right and 1+ on the left in the biceps, triceps, brachioradialis, and knees, 0 at both ankles. The plantar response was extensor on the right and flexor on the left COORDINATION, STANCE & GAIT: could not be tested. DIAGNOSTIC IMPRESSION: 1. Mr. Danny Carr is a 72-year-old, right-handed, gentleman, with past history of hypertension, diabetes mellitus, dyslipidemia, chronic kidney disease, coronary artery disease status post coronary artery bypass graft, paroxysmal atrial fibrillation, left brain stroke with right hemiparesis, right hemisensory deficits, and language problems, who has been on Eliquis, aspirin, and Plavix for secondary stroke prophylaxis. He is also on fish oil. He was hospitalized for hematuria, epistaxis, and has had prior episodes of epistaxis and another single prior episode of hematuria. 2. On neurological examination at this time, he does have problems with orientation, memory, visuospatial function, and higher cognitive function. He also has a right hemiparesis, right hemisensory deficit, brisker reflexes on the right than on the left, and extensor plantar response on the right side. 3. Laboratory data obtained thus far have revealed that he is anemic with a hemoglobin of 11.5 G. When he came in, his hemoglobin was 8.6 G. His chemistry panel is relatively benign except for sodium which is low at 135, BUN that is high at 48, and creatinine that is high at 2.3. His blood glucose was also elevated at 140. Hemoglobin A1c elevated to 7.1%. His albumin is low at 2.6. His vitamin B12, folate are normal, but his TSH is elevated at 7.40. His urinalysis revealed too numerous to count red blood cells, 10-15 white blood cells, and 1+ leukocyte esterase. 4. The patient's history, neurological examination, and laboratory data are most compatible with a left brain stroke associated with a right hemiparesis, right hemisensory deficit, and some language problems. This is associated with his atrial fibrillation, hypertension, dyslipidemia, and diabetes mellitus. 5. At this point in time it is unclear if the patient's stroke was cardioembolic or due to other reasons. RECOMMENDATIONS: 1. Agree with management thus far. 2. An MRI scan of the brain will be performed to evaluate the patient for the type of cerebrovascular disease, i.e. whether he has small vessel disease, large vessel disease, or combination thereof. 3. A Carotid duplex will be ordered to evaluate the patient for hemodynamically significant carotid disease. 4. Depending on the type of cerebrovascular disease, we can determine whether the patient needs an anticoagulant alone or combination of an anticoagulant and an antiplatelet agent. 5. If an antiplatelet agent is necessary then only a single antiplatelet agent should be used namely low-dose aspirin in combination with the anticoagulant that he needs for his atrial fibrillation. 6. If the patient continues to have recurrent bleeding with anticoagulants then we should consider a left atrial appendage occlusion device so that he does not have to be on chronic anticoagulation. Thank you for entrusting me with the care of Mr. Ashu Carr. I shall follow him with you. Vikram Molina M.D., M.S.P.H. DR: KIRBY JOB#: [id number] MTDDom
[2018-01-07 04:00] VITALS: BP 130/58
[2018-01-07] MEDS: HydrALAZINE 50mg tab ORAL SCH ×3 (06:11→22:00)
[2018-01-07] MEDS: Levothyroxine 25mcg tab ORAL SCH (06:12)
[2018-01-07] MEDS: NovoLOG Insulin Flexpen SUBQ SCH ×4 (06:14→20:52)
[2018-01-07] MEDS ORDERED: Levothyroxine 25mcg tab ORAL SCH (06:30)
[2018-01-07 07:18] LABS: EOSINOPHILS % (AUTO) 5.5 % (0.0-3.0); HEMATOCRIT 31.8 % (42.0-52.0); HEMOGLOBIN 10.9 G/DL (14.2-18.0); LYMPHOCYTES % (AUTO) 32.7 % (20.0-45.0); MEAN CORPUSCULAR VOLUME 90 FL (80-99); MONOCYTES % (AUTO) 9.8 % (1.0-10.0); NEUTROPHILS % (AUTO) 50.9 % (45.0-75.0); PLATELET COUNT 221 K/UL (150-450); RED BLOOD COUNT 3.55 M/UL (4.70-6.10); RED CELL DISTRIBUTION WIDTH 12.6 % (11.6-14.8)
[2018-01-07 07:39] LABS: ALANINE AMINOTRANSFERASE 28 U/L (12-78); ALBUMIN 2.6 G/DL (3.4-5.0); ALBUMIN/GLOBULIN RATIO 0.7 (1.0-2.7); ALKALINE PHOSPHATASE 150 U/L (46-116); ANION GAP 8 mmol/L (5-15); ASPARTATE AMINO TRANSFERASE 20 U/L (15-37); BILIRUBIN,TOTAL 0.5 MG/DL (0.2-1.0); BLOOD UREA NITROGEN 46 mg/dL (7-18); CALCIUM 7.9 MG/DL (8.5-10.1); CARBON DIOXIDE 24 MMOL/L (21-32); CHLORIDE 102 MMOL/L (98-107); CREATININE 2.3 MG/DL (0.55-1.30); POTASSIUM 4.3 MMOL/L (3.5-5.1); SODIUM 134 MMOL/L (136-145)
[2018-01-07 08:25] VITALS: BP 123/54
[2018-01-07] MEDS: Docusate 100mg cap ORAL SCH ×3 (09:00→18:28)
[2018-01-07] MEDS: Sennosides 8.6mg ORAL SCH (09:01)
[2018-01-07] MEDS: Eliquis 2.5mg tablet ORAL SCH ×2 (09:01→20:33)
[2018-01-07] MEDS: Carvedilol 6.25mg Tab ORAL SCH ×2 (09:04→20:32)
[2018-01-07] MEDS: Nephrovite tab (Rena-Vite) ORAL SCH (09:05)
--- NOTE | 2018-01-07 10:38 | Nephrology Progress Note ---
Assessment/Plan Problem List: (1) Diabetic nephropathy (2) Hematuria (3) History of nephrectomy, unilateral Assessment: right (4) Anemia (5) Renal failure (ARF), acute on chronic Assessment Renal failure likely Diabetic Nephropathy and Acute renal failure on CKD Severe Anemia etiology likely multifactorial DM HTN h/o CVA CHF h/o PAF BPH Plan optimize BP and BS and Cardiac status patient is transfused- Iron panel may not be helpful as it was not drawn prior to transfusion Kidney AR ? 2D echo ? Flomax Per orders CT: Status post median sternotomy. Right coronary calcification. Status post right nephrectomy, Subjective ROS Limited/Unobtainable: No Constitutional: Reports: malaise Objective Objective Last 24 Hour Vital Signs Date Time Temp Pulse Resp B/P (MAP) Pulse Ox O2 Delivery O2 Flow Rate FiO2 01/07/18 09:04 78 123/54 01/07/18 09:03 123/54 01/07/18 09:00 Room Air 01/07/18 08:25 97.7 78 20 123/54 (77) 94 97.7 01/07/18 06:11 130/58 01/07/18 04:00 98.7 75 19 130/58 (82) 98 98.7 01/07/18 00:00 98.5 72 17 105/37 (59) 96 98.5 01/06/18 22:23 98.1 74 19 151/70 (97) 97 98.1 01/06/18 21:48 151/70 01/06/18 21:46 74 151/70 01/06/18 21:03 75 18 Room Air 21 01/06/18 21:00 Room Air 01/06/18 20:00 98.9 67 19 153/64 (93) 97 98.9 01/06/18 18:12 114/50 01/06/18 16:00 98.5 80 18 114/50 (71) 97 98.5 01/06/18 12:20 132/58 01/06/18 12:00 98.1 79 18 132/58 (82) 96 98.1 01/06/18 11:34 77 Intake and Output 01/06/18 01/07/18 19:00 07:00 Intake Total 240 ml 120 ml Output Total 300 ml 200 ml Balance -60 ml -80 ml Intake Oral 240 ml 120 ml Output Urine Total 300 ml 200 ml # Voids 100 # Bowel Movements 1 Laboratory Tests 01/07/18 01:00: Urine Eosinophils None seen, Urine Random Sodium < 20L 01/07/18 03:30: Stool Occult Blood Positive 01/07/18 06:05: White Blood Count 7.0, Red Blood Count 3.55L, Hemoglobin 10.9L, Hematocrit 31.8L , Mean Corpuscular Volume 90, Mean Corpuscular Hemoglobin 30.8, Mean Corpuscular Hemoglobin Concent 34.4, Red Cell Distribution Width 12.6, Platelet Count 221, Mean Platelet Volume 5.6L, Neutrophils (%) (Auto) 50.9, Lymphocytes ( %) (Auto) 32.7, Monocytes (%) (Auto) 9.8, Eosinophils (%) (Auto) 5.5H, Basophils (%) (Auto) 1.0, Sodium Level 134L, Potassium Level 4.3, Chloride Level 102, Carbon Dioxide Level 24, Anion Gap 8, Blood Urea Nitrogen 46H, Creatinine 2.3H, Estimat Glomerular Filtration Rate , Glucose Level 139H, Calcium Level 7.9L, Total Bilirubin 0.5, Aspartate Amino Transf (AST/SGOT) 20, Alanine Aminotransferase (ALT/SGPT) 28, Alkaline Phosphatase 150H, Total Protein 6.2L, Albumin 2.6L, Globulin 3.6, Albumin/Globulin Ratio 0.7L Height (Feet): 5 Height (Inches): 5.00 Weight (Pounds): 135 General Appearance: no apparent distress, lethargic Cardiovascular: normal rate Respiratory/Chest: decreased breath sounds Abdomen: soft Jimbo Barker MD Jan 07, 2018 10:38
[2018-01-07 10:49] LABS: PHOSPHORUS 2.7 MG/DL (2.5-4.9)
[2018-01-07 11:26] VITALS: BP 131/65
--- NOTE | 2018-01-07 11:38 | Diagnostic Imaging Report ---
Indication: Right-sided weakness from previous stroke, altered mental status Technique: sagittal T1 fast spin echo, axial T1 FLAIR, axial and sagittal T2 FLAIR, axial T2 FS PROPELLER, axial T2* GRE, axial diffusion weighted images. ADC and exponential ADC maps generated Comparison: Brain CT dated 07/16/2017. No prior MRIs Findings: No abnormal areas of restricted diffusion to suggest acute infarction. No acute hemorrhage or edema. Multiple old lacunar infarcts are seen in the right feldman radiata and basal ganglia, as well as in the right posterior parietal deep white matter. The basal ganglia component also demonstrates some susceptibility artifact on the T2*images indicating prior microbleed. The sagittal T2 FLAIR images also demonstrate a lacunar infarct in the left frontal feldman radiata, not evident on the axial images. There is minimal periventricular deep white matter high T2 signal consistent with chronic ischemic change.. No mass effect nor midline shift. There is mild age-related enlargement of the ventricles and extra axial CSF spaces. There is considerable left maxillary sinus disease and considerable bilateral ethmoid sinus disease. There is evidence of prior bilateral cataract surgery. The vascular flow voids are preserved. Impression: Chronic and age-related changes Negative for acute intracranial bleed, mass effect, or infarct. Evidence of multiple old right parietal deep white matter, right basal ganglia, feldman radiata, left frontal deep white matter lacunar infarcts.
--- NOTE | 2018-01-07 12:45 | General Progress Note ---
Assessment/Plan Assessment/Plan S: My nose bleed O: appear minimal epistaxis, denies having any active urinary bleeding PHYSICAL EXAMINATION: HEAD AND NECK: episodes of epistaxia, detailed exam deferred. Atraumatic and normocephalic. Positive for the pain and tenderness overlying left mastoid sinus. Positive for minimal redness in the external auditory meatus.CHEST: scar of prior sternotomy, Clear to auscultation. No wheezing. No crackles. HEART: S1 and S2. Regular rate and rhythm. ABDOMEN: Soft. No organomegaly. MUSCULOSKELETAL: Negative for any gross abnormal lateralized motor deficit. NEUROLOGIC: The patient is awake, alert, and oriented x3. Medication : Reviewed and reconciled in the chart, including Atorvastatin, Gabapentin, Eliquis Imaging: Brain MRI reviewed ASSESSMENT: 1. Acute Aemia 2. Epistaxia and Gross Hematuria 2. Acute on Chronic kidney disease. 3. Hypertension. 4. Diabetes type 2. 5. Cerebrovascular accident 6. CHF- low EF : appears stable 7. PAF ( history of), Sinus at this time 6. Benign prostatic hypertrophy. 7. Gastrointestinal and deep venous thrombosis prophylaxis. PLAN OF CARE: Discussed the care, with cardiology. Will resume Low dose anticoagulation and will monitor bleeding episodes. Patient remain very high risk for recurrent TE incidence. Pending the result for Brain MRI and Carotid Dupplex, will come up with final ATC- Recommendation Subjective Allergies: Coded Allergies: No Known Allergies (Unverified , 02/23/17) Objective Last 24 Hour Vital Signs Date Time Temp Pulse Resp B/P (MAP) Pulse Ox O2 Delivery O2 Flow Rate FiO2 01/07/18 11:26 98.4 73 20 131/65 (87) 98 98.4 01/07/18 09:04 78 123/54 01/07/18 09:03 123/54 01/07/18 09:00 Room Air 01/07/18 08:25 97.7 78 20 123/54 (77) 94 97.7 01/07/18 06:11 130/58 01/07/18 04:00 98.7 75 19 130/58 (82) 98 98.7 01/07/18 00:00 98.5 72 17 105/37 (59) 96 98.5 01/06/18 22:23 98.1 74 19 151/70 (97) 97 98.1 01/06/18 21:48 151/70 01/06/18 21:46 74 151/70 01/06/18 21:03 75 18 Room Air 21 01/06/18 21:00 Room Air 01/06/18 20:00 98.9 67 19 153/64 (93) 97 98.9 01/06/18 18:12 114/50 01/06/18 16:00 98.5 80 18 114/50 (71) 97 98.5 Intake and Output 01/06/18 01/07/18 19:00 07:00 Intake Total 240 ml 120 ml Output Total 300 ml 200 ml Balance -60 ml -80 ml Intake Oral 240 ml 120 ml Output Urine Total 300 ml 200 ml # Voids 100 # Bowel Movements 1 Laboratory Tests 01/07/18 01:00: Urine Eosinophils None seen, Urine Random Sodium < 20L 01/07/18 03:30: Stool Occult Blood Positive 01/07/18 06:05: White Blood Count 7.0, Red Blood Count 3.55L, Hemoglobin 10.9L, Hematocrit 31.8L , Mean Corpuscular Volume 90, Mean Corpuscular Hemoglobin 30.8, Mean Corpuscular Hemoglobin Concent 34.4, Red Cell Distribution Width 12.6, Platelet Count 221, Mean Platelet Volume 5.6L, Neutrophils (%) (Auto) 50.9, Lymphocytes ( %) (Auto) 32.7, Monocytes (%) (Auto) 9.8, Eosinophils (%) (Auto) 5.5H, Basophils (%) (Auto) 1.0, Sodium Level 134L, Potassium Level 4.3, Chloride Level 102, Carbon Dioxide Level 24, Anion Gap 8, Blood Urea Nitrogen 46H, Creatinine 2.3H, Estimat Glomerular Filtration Rate , Glucose Level 139H, Uric Acid 7.2, Calcium Level 7.9L, Phosphorus Level 2.7, Magnesium Level 2.4, Total Bilirubin 0.5, Aspartate Amino Transf (AST/SGOT) 20, Alanine Aminotransferase ( ALT/SGPT) 28, Alkaline Phosphatase 150H, Total Protein 6.2L, Albumin 2.6L, Globulin 3.6, Albumin/Globulin Ratio 0.7L Height (Feet): 5 Height (Inches): 5.00 Weight (Pounds): 135 Tara Escobar MD Jan 07, 2018 12:45
[2018-01-07 15:53] VITALS: BP 138/61
[2018-01-07 20:00] VITALS: BP 112/52
[2018-01-07] MEDS: Atorvastatin 20mg tab ORAL SCH (20:33)
[2018-01-07] MEDS: Tamsulosin 0.4mg cap ORAL SCH (20:40)
--- NOTE | 2018-01-07 21:13 | Neurology Progress Note ---
Interim History Interim History Interim History Mr. Ashu Carr feels about the same as yesterday. The weakness is about the same. The altered sensation is also about the same. He continues to have significant cognitive problems. He has had no further bleeding. He denies any new neurologic symptoms. Review of Systems Neuro Review of Systems Benign. Objective Physical Exam Last Vital Signs Date Time Temp Pulse Resp B/P (MAP) Pulse Ox O2 Delivery O2 Flow Rate FiO2 01/07/18 20:32 83 112/52 01/07/18 20:00 99.0 20 100 99.0 01/07/18 13:43 Room Air 21 01/04/18 18:06 2.0 Laboratory Tests Test 01/07/18 01:00 01/07/18 03:30 01/07/18 06:05 Urine Eosinophils None seen (NONE SEEN) Urine Random Sodium < 20 mmol/L (20-110) L Stool Occult Blood Positive (NEGATIVE) White Blood Count 7.0 K/UL (4.8-10.8) Red Blood Count 3.55 M/UL (4.70-6.10) L Hemoglobin 10.9 G/DL (14.2-18.0) L Hematocrit 31.8 % (42.0-52.0) L Mean Corpuscular Volume 90 FL (80-99) Mean Corpuscular Hemoglobin 30.8 PG (27.0-31.0) Mean Corpuscular Hemoglobin Concent 34.4 G/DL (32.0-36.0) Red Cell Distribution Width 12.6 % (11.6-14.8) Platelet Count 221 K/UL (150-450) Mean Platelet Volume 5.6 FL (6.5-10.1) L Neutrophils (%) (Auto) 50.9 % (45.0-75.0) Lymphocytes (%) (Auto) 32.7 % (20.0-45.0) Monocytes (%) (Auto) 9.8 % (1.0-10.0) Eosinophils (%) (Auto) 5.5 % (0.0-3.0) H Basophils (%) (Auto) 1.0 % (0.0-2.0) Sodium Level 134 MMOL/L (136-145) L Potassium Level 4.3 MMOL/L (3.5-5.1) Chloride Level 102 MMOL/L (98-107) Carbon Dioxide Level 24 MMOL/L (21-32) Anion Gap 8 mmol/L (5-15) Blood Urea Nitrogen 46 mg/dL (7-18) H Creatinine 2.3 MG/DL (0.55-1.30) H Estimat Glomerular Filtration Rate mL/min (>60) Glucose Level 139 MG/DL (74-106) H Uric Acid 7.2 MG/DL (2.6-7.2) Calcium Level 7.9 MG/DL (8.5-10.1) L Phosphorus Level 2.7 MG/DL (2.5-4.9) Magnesium Level 2.4 MG/DL (1.8-2.4) Total Bilirubin 0.5 MG/DL (0.2-1.0) Aspartate Amino Transf (AST/SGOT) 20 U/L (15-37) Alanine Aminotransferase (ALT/SGPT) 28 U/L (12-78) Alkaline Phosphatase 150 U/L (46-116) H Total Protein 6.2 G/DL (6.4-8.2) L Albumin 2.6 G/DL (3.4-5.0) L Globulin 3.6 g/dL Albumin/Globulin Ratio 0.7 (1.0-2.7) L Neurologic Exam Objective PHYSICAL EXAMINATION: GENERAL: He is a well-developed and well-nourished gentleman, lying in bed, in no acute distress. HEAD: Normocephalic and atraumatic. EENT: Examination benign. NECK: No neck rigidity was observed. NEUROLOGICAL EXAMINATION: MENTAL STATUS EXAMINATION: He was awake and alert. He was oriented to [facility], [facility], and December 2017. He did not know the date. He was able to recall 3/3 words immediately, but could only remember 2/3 words in 1 minute and 3 minutes. He was able to remember presidents Trump through [facility] Kennedy, but could not remember presidents prior to that. His mathematical skills were impaired. His visuospatial function was also impaired. SPEECH: He had a mild dysarthria. LANGUAGE: Could not be tested adequately because Greenlandic is his second language. CRANIAL NERVES EXAMINATION: II: The visual anthony were intact on confrontation testing. III, IV & : External ocular movements were full and the pupils 3 mm in diameter, equal, round, regular, and reactive to light. V: He had normal facial sensations and the temporales, masseters, and pterygoids functioned normally. VII: He had a right VII central facial paresis. VIII: He was able to hear well bilaterally and had no nystagmus. IX: The palate moved symmetrically on phonation. X: He had no hoarseness of voice. XI: The sternocleidomastoids and trapezii functioned normally. XII: The tongue was in the midline without any fasciculations or atrophy. MOTOR SYSTEM: The tone was normal in all four extremities. Examination of muscle mass revealed no focal wasting. Examination of power revealed G 5/5 power on the left side. On the right side, he had G 4+/5 power except for G 3/5 power in the finger extensors and iliopsoas, and grade 3++/5 power in the right ankle dorsiflexors and toe extensors. SENSORY EXAMINATION: He was able to discern between pinprick and light touch, but complained of a subjective alteration on his right side. He had bilaterally graphesthesia. REFLEXES: 1++ on the right and 1+ on the left in the biceps, triceps, brachioradialis, and knees, 0 at both ankles. The plantar response was extensor on the right and flexor on the left COORDINATION, STANCE & GAIT: could not be tested. Impression/Recommendations Diagnostic Impression 1. Mr. Danny Carr is a 72-year-old, right-handed, gentleman, with past history of hypertension, diabetes mellitus, dyslipidemia, chronic kidney disease, coronary artery disease status post coronary artery bypass graft , paroxysmal atrial fibrillation, left brain stroke with right hemiparesis, right hemisensory deficits, and language problems, who has been on Eliquis, aspirin, and Plavix for secondary stroke prophylaxis. He is also on fish oil. He was hospitalized for hematuria, epistaxis, and has had prior episodes of epistaxis and another single prior episode of hematuria. 2. He feels about the same as yesterday. The weakness is about the same. The altered sensation is also about the same. He continues to have significant cognitive problems. He has had no further bleeding. He denies any new neurologic symptoms. 3. On neurological examination at this time, he does have problems with orientation, memory, visuospatial function, and higher cognitive function. He also has a right hemiparesis, right hemisensory deficit, brisker reflexes on the right than on the left, and extensor plantar response on the right side. 4. Laboratory data obtained thus far have revealed that he is anemic with a hemoglobin of 11.5 G. When he came in, his hemoglobin was 8.6 G. His chemistry panel is relatively benign except for sodium which is low at 135, BUN that is high at 48, and creatinine that is high at 2.3. His blood glucose was also elevated at 140. Hemoglobin A1c elevated to 7.1%. His albumin is low at 2.6. His vitamin B12, folate are normal, but his TSH is elevated at 7.40. His urinalysis revealed too numerous to count red blood cells, 10-15 white blood cells, and 1+ leukocyte esterase. 5. The MRI of the brain done on 01/07/2018 revealed multiple old subcortical infarcts, in the right parietal deep white matter, right basal ganglia, right feldman radiata, left frontal deep white matter and left basal ganglia. All these infarcts are subcortical. No cortical infarcts were seen. 6. The patient's history, neurological examination, and laboratory data, and imaging are most compatible with bilateral subcortical cerebrovascular disease leading the the right hemiparesis, right hemisensory deficit, and speech and language problems. These infarcts do not have characteristics of embolic phenomena and are more likely to be due to hypertensive, diabetic dyslipidemic cerebrovascular disease. 7. However he also has atrial fibrillation which puts him at risk of having cardioembolic phenomena. Recommendations 1. The patient should be on a single antiplatelet agent i.e aspirin 81 mg daily for small blood vessel stroke prophylaxis. 2. He should also be on an anticoagulant for atrial fibrillation related stroke prophylaxis - continue Eliquis. 3. If the patient continues to have recurrent bleeding with anticoagulants then we should consider a left atrial appendage occlusion device so that he does not have to be on chronic anticoagulation. Slick Molina M.D., M.SSLICK MIXON Jan 07, 2018 21:13
--- NOTE | 2018-01-07 22:43 | Cardiology Progress Note ---
Assessment/Plan Assessment/Plan 1. Paroxysmal atrial fibrillation, currently in sinus rhythm. The calculated CHADS-VASC score is 6 based on the medical issues. Continue Eliquis and ASA. 2. History of coronary artery disease, status post coronary artery bypass graft surgery, stable with no ischemia. 3. Prior history of CVA, continue aspirin and statins. 4. History of chronic kidney disease. 5. History of diabetes mellitus. 6. History of hypertension. 7. Epistaxis, was on triple therapy, no need for clopidogrel, Eliquis dose was reduced given CKD and his weight. Subjective Subjective Transferred to the med-surg unit. No cardiac events. Objective Last 24 Hour Vital Signs Date Time Temp Pulse Resp B/P (MAP) Pulse Ox O2 Delivery O2 Flow Rate FiO2 01/07/18 21:00 Room Air 01/07/18 20:54 83 20 Room Air 21 01/07/18 20:32 83 112/52 01/07/18 20:00 99.0 83 20 112/52 (72) 100 99.0 01/07/18 18:29 138/61 01/07/18 15:53 98.9 71 18 138/61 (86) 94 98.9 01/07/18 14:00 123/55 01/07/18 13:43 82 20 99 Room Air 21 01/07/18 13:36 80 18 Room Air 21 01/07/18 13:36 80 18 98 Room Air 21 01/07/18 13:24 123/55 01/07/18 11:26 98.4 73 20 131/65 (87) 98 98.4 01/07/18 09:04 78 123/54 01/07/18 09:03 123/54 01/07/18 09:00 Room Air 01/07/18 08:25 97.7 78 20 123/54 (77) 94 97.7 01/07/18 06:11 130/58 01/07/18 04:00 98.7 75 19 130/58 (82) 98 98.7 01/07/18 00:00 98.5 72 17 105/37 (59) 96 98.5 Intake and Output 01/06/18 01/07/18 19:00 07:00 Intake Total 240 ml 120 ml Output Total 300 ml 200 ml Balance -60 ml -80 ml Intake Oral 240 ml 120 ml Output Urine Total 300 ml 200 ml # Voids 100 # Bowel Movements 1 2D Echo: LVEF 55%, Mild LVH, JULIÁN, Mild MR, Grade I LVDD, RVSP 36 mmHg Laboratory Tests Test 01/07/18 01:00 01/07/18 03:30 01/07/18 06:05 Urine Eosinophils None seen (NONE SEEN) Urine Random Sodium < 20 mmol/L (20-110) L Stool Occult Blood Positive (NEGATIVE) White Blood Count 7.0 K/UL (4.8-10.8) Red Blood Count 3.55 M/UL (4.70-6.10) L Hemoglobin 10.9 G/DL (14.2-18.0) L Hematocrit 31.8 % (42.0-52.0) L Mean Corpuscular Volume 90 FL (80-99) Mean Corpuscular Hemoglobin 30.8 PG (27.0-31.0) Mean Corpuscular Hemoglobin Concent 34.4 G/DL (32.0-36.0) Red Cell Distribution Width 12.6 % (11.6-14.8) Platelet Count 221 K/UL (150-450) Mean Platelet Volume 5.6 FL (6.5-10.1) L Neutrophils (%) (Auto) 50.9 % (45.0-75.0) Lymphocytes (%) (Auto) 32.7 % (20.0-45.0) Monocytes (%) (Auto) 9.8 % (1.0-10.0) Eosinophils (%) (Auto) 5.5 % (0.0-3.0) H Basophils (%) (Auto) 1.0 % (0.0-2.0) Sodium Level 134 MMOL/L (136-145) L Potassium Level 4.3 MMOL/L (3.5-5.1) Chloride Level 102 MMOL/L (98-107) Carbon Dioxide Level 24 MMOL/L (21-32) Anion Gap 8 mmol/L (5-15) Blood Urea Nitrogen 46 mg/dL (7-18) H Creatinine 2.3 MG/DL (0.55-1.30) H Estimat Glomerular Filtration Rate mL/min (>60) Glucose Level 139 MG/DL (74-106) H Uric Acid 7.2 MG/DL (2.6-7.2) Calcium Level 7.9 MG/DL (8.5-10.1) L Phosphorus Level 2.7 MG/DL (2.5-4.9) Magnesium Level 2.4 MG/DL (1.8-2.4) Total Bilirubin 0.5 MG/DL (0.2-1.0) Aspartate Amino Transf (AST/SGOT) 20 U/L (15-37) Alanine Aminotransferase (ALT/SGPT) 28 U/L (12-78) Alkaline Phosphatase 150 U/L (46-116) H Total Protein 6.2 G/DL (6.4-8.2) L Albumin 2.6 G/DL (3.4-5.0) L Globulin 3.6 g/dL Albumin/Globulin Ratio 0.7 (1.0-2.7) L Objective HEENT: Atraumatic and normocephalic. Anicteric. Pupils are equal, round, and reactive to light and accommodation. There was dry blood in both nares. NECK: JVP less than 5 cm. No carotid bruits. Carotid upstrokes 2+ bilaterally. CARDIOVASCULAR SYSTEM: Normal S1 and S2. Regular rate and rhythm. No murmurs, gallops, or rubs. LUNGS: Clear to auscultation bilaterally. ABDOMEN: Soft, nontender, and nondistended. No hepatosplenomegaly. Positive bowel sounds. EXTREMITIES: Diminished motor function on the right side. Otherwise, no edema, clubbing, or cyanosis. David Arango MD Jan 07, 2018 22:43
[2018-01-08] VITALS: BP 123/53
[2018-01-08 04:00] VITALS: BP 122/58
[2018-01-08] MEDS: HydrALAZINE 50mg tab ORAL SCH ×2 (05:18→14:34)
[2018-01-08] MEDS: Levothyroxine 25mcg tab ORAL SCH (06:37)
[2018-01-08] MEDS: NovoLOG Insulin Flexpen SUBQ SCH ×2 (06:38→11:44)
[2018-01-08 08:00] VITALS: BP 136/59
[2018-01-08] MEDS ORDERED: ELIQUIS2.5 MG ORAL (08:57)
[2018-01-08] MEDS ORDERED: ASPIRIN81 MG ORAL (08:57)
[2018-01-08] MEDS ORDERED: Aspirin Baby 81mg ORAL SCH (09:00)
--- NOTE | 2018-01-08 09:01 | General Progress Note ---
Assessment/Plan Assessment/Plan S: My nose doesn't bleed any more O: No additional epistaxis, denies having any active urinay bleeding PHYSICAL EXAMINATION: HEAD AND NECK: episodes of epistaxia, detailed exam deferred. Atraumatic and normocephalic. Denies having any pain and tenderness overlying left mastoid sinus. Negative for any redness in the external auditory meatus.CHEST: scar of prior sternotomy, Clear to auscultation. No wheezing. No crackles. HEART: S1 and S2. Regular rate and rhythm. ABDOMEN: Soft. No organomegaly. MUSCULOSKELETAL: Negative for any gross abnormal lateralized motor deficit. NEUROLOGIC: The patient is awake, alert, and oriented x3. Medication : Reviewed and reconciled in the chart, including ASA and Eliquis ASSESSMENT: 1. Acute Aemia 2. Epistaxia and Gross Hematuria 2. Acute on Chronic kidney disease. 3. Hypertension. 4. Diabetes type 2. 5. Cerebrovascular accident 6. CHF- low EF : appears stable 7. PAF ( history of), Sinus at this time 6. Benign prostatic hypertrophy. 7. Gastrointestinal and deep venous thrombosis prophylaxis. PLAN OF CARE: Notes from Neurology reviewed Will monitor any signs of bleeding on current ATC regiment. Stable for outpatient followup Subjective Allergies: Coded Allergies: No Known Allergies (Unverified , 02/23/17) Objective Last 24 Hour Vital Signs Date Time Temp Pulse Resp B/P (MAP) Pulse Ox O2 Delivery O2 Flow Rate FiO2 01/08/18 05:18 122/58 01/08/18 04:00 99.6 85 18 122/58 (79) 95 99.6 01/08/18 00:00 99.3 78 20 123/53 (76) 97 99.3 01/07/18 21:00 Room Air 01/07/18 20:54 83 20 Room Air 21 01/07/18 20:32 83 112/52 01/07/18 20:00 99.0 83 20 112/52 (72) 100 99.0 01/07/18 18:29 138/61 01/07/18 15:53 98.9 71 18 138/61 (86) 94 98.9 01/07/18 14:00 123/55 01/07/18 13:43 82 20 99 Room Air 21 01/07/18 13:36 80 18 Room Air 21 01/07/18 13:36 80 18 98 Room Air 21 01/07/18 13:24 123/55 01/07/18 11:26 98.4 73 20 131/65 (87) 98 98.4 01/07/18 09:04 78 123/54 01/07/18 09:03 123/54 01/07/18 09:00 Room Air Intake and Output 01/07/18 01/08/18 19:00 07:00 Intake Total 480 ml Output Total 675 ml 600 ml Balance -195 ml -600 ml Intake Oral 480 ml Output Urine Total 675 ml 600 ml # Voids 1 Height (Feet): 5 Height (Inches): 5.00 Weight (Pounds): 141 Tara Escobar MD Jan 08, 2018 09:01
[2018-01-08] MEDS: Eliquis 2.5mg tablet ORAL SCH (09:59)
[2018-01-08] MEDS: Nephrovite tab (Rena-Vite) ORAL SCH (10:01)
[2018-01-08] MEDS: Docusate 100mg cap ORAL SCH ×2 (10:01→14:34)
[2018-01-08] MEDS: Sennosides 8.6mg ORAL SCH (10:03)
[2018-01-08] MEDS: Carvedilol 6.25mg Tab ORAL SCH (10:03)
[2018-01-08] MEDS ORDERED: Fleet's Enema 133ml RECTAL ONE (10:30)
[2018-01-08 12:00] VITALS: BP 133/58
[2018-01-08 14:34] VITALS: BP 133/58
--- NOTE | 2018-01-08 16:33 | Neurology Progress Note ---
Interim History Interim History Interim History Mr. Ashu Carr feels about the same as yesterday. He is consumed by his constipation. His nurse tells me that he moved his bowels twice today. The weakness is about the same. The altered sensation is also about the same. He continues to have significant cognitive problems. He has had no further bleeding. He denies any new neurologic symptoms. Review of Systems Neuro Review of Systems Benign. Objective Physical Exam Last Vital Signs Date Time Temp Pulse Resp B/P (MAP) Pulse Ox O2 Delivery O2 Flow Rate FiO2 01/08/18 14:34 133/58 01/08/18 12:00 97.8 72 18 97.8 01/08/18 09:00 Room Air 01/08/18 08:00 96 01/07/18 20:54 21 01/04/18 18:06 2.0 Neurologic Exam Objective PHYSICAL EXAMINATION: GENERAL: He is a well-developed and well-nourished gentleman, lying in bed, in no acute distress. HEAD: Normocephalic and atraumatic. EENT: Examination benign. NECK: No neck rigidity was observed. NEUROLOGICAL EXAMINATION: MENTAL STATUS EXAMINATION: He was awake and alert. He was oriented to [facility], [facility], and December 2017. He did not know the date. He was able to recall 3/3 words immediately, but could only remember 2/3 words in 1 minute and 3 minutes. He was able to remember presidents Trump through [place], but could not remember presidents prior to that. His mathematical skills were impaired. His visuospatial function was also impaired. SPEECH: He had a mild dysarthria. LANGUAGE: Could not be tested adequately because Romanian is his second language. CRANIAL NERVES EXAMINATION: II: The visual anthony were intact on confrontation testing. III, IV & : External ocular movements were full and the pupils 3 mm in diameter, equal, round, regular, and reactive to light. V: He had normal facial sensations and the temporales, masseters, and pterygoids functioned normally. VII: He had a right VII central facial paresis. VIII: He was able to hear well bilaterally and had no nystagmus. IX: The palate moved symmetrically on phonation. X: He had no hoarseness of voice. XI: The sternocleidomastoids and trapezii functioned normally. XII: The tongue was in the midline without any fasciculations or atrophy. MOTOR SYSTEM: The tone was normal in all four extremities. Examination of muscle mass revealed no focal wasting. Examination of power revealed G 5/5 power on the left side. On the right side, he had G 4+/5 power except for G 3/5 power in the finger extensors and iliopsoas, and grade 3++/5 power in the right ankle dorsiflexors and toe extensors. SENSORY EXAMINATION: He was able to discern between pinprick and light touch, but complained of a subjective alteration on his right side. He had bilaterally graphesthesia. REFLEXES: 1++ on the right and 1+ on the left in the biceps, triceps, brachioradialis, and knees, 0 at both ankles. The plantar response was extensor on the right and flexor on the left COORDINATION, STANCE & GAIT: could not be tested. Impression/Recommendations Diagnostic Impression 1. Mr. Danny Carr is a 72-year-old, right-handed, gentleman, with past history of hypertension, diabetes mellitus, dyslipidemia, chronic kidney disease, coronary artery disease status post coronary artery bypass graft , paroxysmal atrial fibrillation, left brain stroke with right hemiparesis, right hemisensory deficits, and language problems, who has been on Eliquis, aspirin, and Plavix for secondary stroke prophylaxis. He is also on fish oil. He was hospitalized for hematuria, epistaxis, and has had prior episodes of epistaxis and another single prior episode of hematuria. 2. He feels about the same as yesterday. The weakness is about the same. The altered sensation is also about the same. He continues to have significant cognitive problems. He has had no further bleeding. He denies any new neurologic symptoms. 3. On neurological examination at this time, he does have problems with orientation, memory, visuospatial function, and higher cognitive function. He also has a right hemiparesis, right hemisensory deficit, brisker reflexes on the right than on the left, and extensor plantar response on the right side. 4. Laboratory data obtained thus far have revealed that he is anemic with a hemoglobin of 11.5 G. When he came in, his hemoglobin was 8.6 G. His chemistry panel is relatively benign except for sodium which is low at 135, BUN that is high at 48, and creatinine that is high at 2.3. His blood glucose was also elevated at 140. Hemoglobin A1c elevated to 7.1%. His albumin is low at 2.6. His vitamin B12, folate are normal, but his TSH is elevated at 7.40. His urinalysis revealed too numerous to count red blood cells, 10-15 white blood cells, and 1+ leukocyte esterase. 5. The MRI of the brain done on 01/07/2018 revealed multiple old subcortical infarcts, in the right parietal deep white matter, right basal ganglia, right feldman radiata, left frontal deep white matter and left basal ganglia. All these infarcts are subcortical. No cortical infarcts were seen. 6. The patient's history, neurological examination, and laboratory data, and imaging are most compatible with bilateral subcortical cerebrovascular disease leading the the right hemiparesis, right hemisensory deficit, and speech and language problems. These infarcts do not have characteristics of embolic phenomena and are more likely to be due to hypertensive, diabetic dyslipidemic cerebrovascular disease. 7. However he also has atrial fibrillation which puts him at risk of having cardioembolic phenomena. 8. He is neurologically stable. Recommendations 1. The patient should be on a single antiplatelet agent i.e aspirin 81 mg daily for small blood vessel stroke prophylaxis. 2. He should also be on an anticoagulant for atrial fibrillation related stroke prophylaxis - continue Eliquis. 3. If the patient continues to have recurrent bleeding with anticoagulants then we should consider a left atrial appendage occlusion device so that he does not have to be on chronic anticoagulation. Slick Davis M.D., M.S.P.H. SLICK DAVIS Jan 08, 2018 16:33
--- NOTE | 2018-01-09 15:09 | Discharge Summary ---
Discharge Summary Discharge Summary _ DATE OF ADMISSION: 01/04/2018 DATE OF DISCHARGE: 01/08/2018 CONSULTANTS: Dr. Jimbo Molina BRIEF HOSPITAL COURSE: Patient's a 72-year-old male, with prior history of diabetes, hypertension, chronic kidney disease, status post nephrectomy, history of CVA with right-sided hemiparesis, mastoiditis, atrial fibrillation and heart failure. Patient is on triple anticoagulation, on Eliquis, aspirin and Plavix. There was increased appearance of epistaxis, and hematuria for a couple of days. He denied any fever or chills. Denied any trauma. Denied any blurry vision or headache. He complained of decreased hearing to left ear. Given the episodes of epistaxis and blood in the meatus, patient was transported via EMS to ED. On evaluation at ED, vital signs were stable. Blood work did not show any leukocytosis, hemoglobin was 8.6, hematocrit 24.6, with normal platelet. Creatinine was elevated to 2.4, BUN was 58. EKG done showed normal sinus rhythm at a rate of 66 with no PVCs and normal ectopy. Chest x-ray showed cardiomegaly with subsegmental atelectasis in the medial lung base. He had CT of the abdomen and pelvis without contrast that showed no evidence of retroperitoneal, inguinal or abdominal wall hemorrhage. He was then admitted for evaluation of epistaxis and hematuria. Anticoagulants were placed on hold. He received 2 units packed RBC blood transfusion. Patient has acute renal failure on chronic kidney disease likely secondary to diabetic nephropathy. Kidney ultrasound done showed surgically absent right kidney. He presented with hematuria. CT findings showed appropriate bladder/prostate with no clots in the bladder seen. He was given Flomax. Urine eventually cleared. He was seen by ENT. He was recommended to moisturize the inner nostrils twice a day with small amount of Neosporin. Cardiac evaluation was done. Patient has paroxysmal atrial fibrillation, however, was in sinus rhythm. Calculated CHADS-VASC score is 6. Patient required to have oral anticoagulants, however, given the fact the patient's creatinine is elevated and weight is approximately 60 kg, Eliquis dose was reduced to 2.5 mg twice a day. Plavix was discontinued. He was given aspirin 81 mg in view of prior history of coronary artery bypass graft surgery. 12- lead electrocardiogram did not show any acute ischemic features. Echocardiogram done showed left ventricular ejection fraction of 55%, peak right ventricular systolic pressure of 36, consistent with mild pulmonary hypertension. He was continued on Coreg, Isordil and Lipitor. Neuro evaluation was done to assess if stroke was cardioembolic or due to other reasons. He was ordered to have MRI of the brain. Results showed multiple old subcortical infarcts, in the right parietal deep white matter, right basal ganglia, right feldman radiata, left frontal deep white matter and left basal ganglia. All infarcts were subcortical. No cortical infarcts were seen. Infarcts did not have characteristics of embolic phenomena and are more likely to be due to hypertensive, diabetic, dyslipidemic cardiovascular disease. However, due to atrial fibrillation, he is at risk of having cardioembolic phenomena. He was recommended to be on single antiplatelet therapy and to continue Eliquis. Was recommended if patient continues to have recurrent bleeding with anticoagulants, then consideration for left atrial appendage occlusion device should be made. Bleeding stopped. Hemoglobin and hematocrit were stable. Patient was stable for outpatient follow-up. He was eventually cleared for discharge back to [facility]. FINAL DIAGNOSES: Acute anemia requiring blood transfusion Epistaxis and cross hematuria Acute on chronic renal failure Chronic kidney disease Hypertension Diabetes mellitus type 2 with diabetic nephropathy Chronic CHF, with EF 55% Paroxysmal atrial fibrillation BPH Bilateral subcortical cerebrovascular disease leading to right hemiparesis, right hemisensory deficit and speech and language problems Coronary artery disease status post coronary artery bypass graft surgery Right nephrectomy DISPOSITION: Patient was discharged back to [facility]. DISCHARGE MEDICATIONS: Refer to Discharge Medication List. I have been assigned to dictate discharge summary on this account, and I was not involved in the patient's management. Michelle Barbosa NP Jan 09, 2018 15:09
== END 2018-01-08 17:00 | DRG 812 ==
LOC: EDBD 18:15 → EMR 18:20 → 2E 18:58 → EDBEDREQ 21:26 → 4E 01-06 21:05
PROC: 30233N1 Transfusion of Nonautologous Red Blood Cells into Peripheral Vein, Percutaneous Approach (ICD-10-PCS; principal; 2018-01-05)
DX: D62 Acute posthemorrhagic anemia (principal); N17.9 Acute kidney failure, unspecified; I13.0 Hypertensive heart and chronic kidney disease with heart failure and stage 1 through stage 4 chronic kidney disease, or unspecified chronic kidney disease; I69.351 Hemiplegia and hemiparesis following cerebral infarction affecting right dominant side; D68.32 Hemorrhagic disorder due to extrinsic circulating anticoagulants; R04.0 Epistaxis; R31.0 Gross hematuria; E11.22 Type 2 diabetes mellitus with diabetic chronic kidney disease; N18.9 Chronic kidney disease, unspecified; T45.515A Adverse effect of anticoagulants, initial encounter; I48.0 Paroxysmal atrial fibrillation; I69.328 Other speech and language deficits following cerebral infarction; I25.10 Atherosclerotic heart disease of native coronary artery without angina pectoris; Z95.1 Presence of aortocoronary bypass graft; Z90.5 Acquired absence of kidney; K21.9 Gastro-esophageal reflux disease without esophagitis; Z79.02 Long term (current) use of antithrombotics/antiplatelets; Z79.82 Long term (current) use of aspirin; E78.5 Hyperlipidemia, unspecified; I27.20 Pulmonary hypertension, unspecified
CPT/HCPCS: 36415; 70551; 71045; 74176; 76770; 80053; 80061; 81003; 82270; 82550; 82553; 82607; 82728; 82746; 82962; 83036; 83540; 83550; 83690; 83735; 83880; 84100; 84300; 84443; 84484; 84550; 85025; 85610; 85730; 86850; 86900; 86901; 86920; 87086; 87181; 89050; 93005; 93306; 93880; 93970; 94640; 94664; J1815; J2405; J7620

== ENCOUNTER 2018-09-08 21:40 | Inpatient (IN) | payer MEDICARE, MEDICAID ==
[~2018-09-08] VITALS: Ht 165.1 cm; Wt 67.2 kg
[~2018-09-08 21:40] MED LIST changes: +ASPIRIN81 MG ORAL; +ATORVASTATIN CA80 MG ORAL; +CARVEDILOL6.25 MG ORAL; +DUONEB 0.5-3(2.53 ML HHN; +ELIQUIS2.5 MG ORAL; +ELIQUIS5 MG PO; +FUROSEMIDE40 MG ORAL; +HYDRALAZINE HC100 MG ORAL; +ISORDIL40 MG ORAL; +MELATONIN3 MG ORAL; +PLAVIX75 MG ORAL
[2018-09-08 21:45] VITALS: BP 105/49
--- NOTE | 2018-09-08 22:03 | Emergency Room Report ---
History of Present Illness General Chief Complaint: Edema Source: Patient, EMS Present Illness HPI Patient presents with complaints of drainage from the left ear Reports ongoing for the past 7 to 10 days He also has some discomfort to the left ear Denies any change with hearing denies any chest pain or shortness of breath Patient however does report swelling in his legs and right hand Also feels better with oxygen Denies any vomiting or diarrhea denies any fevers or chills Allergies: Coded Allergies: No Known Allergies (Unverified , 02/23/17) Patient History Past Medical History: see triage record Pertinent Family History: none Reviewed Nursing Documentation: PMH: Agreed; PSxH: Agreed Nursing Documentation-PMH Hx Cardiac Problems: Yes - CHF; AORTO CORONARY BYPASS GRAFT; ISCHEMIC CARDIOMYOPATHY Hx Hypertension: Yes Hx COPD: Yes - RF Hx Diabetes: Yes Hx Cancer: No Hx Gastrointestinal Problems: Yes Hx Dialysis: Yes - CKD Hx Neurological Problems: Yes Hx Cerebrovascular Accident: Yes - HEMIPLEGIA Hx Dysphasia: No Hx Weakness: Yes Review of Systems All Other Systems: negative except mentioned in HPI Physical Exam Vital Signs Date Time Temp Pulse Resp B/P (MAP) Pulse Ox O2 Delivery O2 Flow Rate FiO2 09/08/18 21:32 98.4 65 26 105/49 (67) 96 Nasal Cannula 3.0 Sp02 EP Interpretation: reviewed, normal General Appearance: well appearing, no apparent distress Head: normocephalic, atraumatic Eyes: bilateral eye PERRL, bilateral eye EOMI ENT: other - Erythema and irritation in the left canal some clear discharge is noted mastoid however is nontender and non-boggy tympanic membrane is intact Neck: supple Respiratory: no respiratory distress, no retraction, crackles - Fine crackles bilaterally Cardiovascular #1: regular rate, rhythm Gastrointestinal: non tender, soft Musculoskeletal: other - Sided deficit Neurologic: alert, oriented x3, responsive Skin: other - Noted bilateral lower extremity Lymphatic: no adenopathy Medical Decision Making Diagnostic Impression: Primary Impression: Congestive heart failure (CHF) Additional Impression: Otitis externa of left ear ER Course Patient is a fairly complex patient with multiple differential to consideration including but not limited to cardiac cardiopulmonary and vascular emergencies With regards to the discharge from the left ear CT imaging was also obtained for further evaluation of the mastoids no obvious acute pathology as reported patient's other work-up however reveals evidence of CHF x-ray showing signs of congestion Patient provided with diuretics and requires further inpatient care requiring low oxygenation for maintaining appropriate oxygenation Labs Test 09/08/18 22:05 White Blood Count 5.5 K/UL (4.8-10.8) Red Blood Count 2.67 M/UL (4.70-6.10) Hemoglobin 8.1 G/DL (14.2-18.0) Hematocrit 23.4 % (42.0-52.0) Mean Corpuscular Volume 88 FL (80-99) Mean Corpuscular Hemoglobin 30.4 PG (27.0-31.0) Mean Corpuscular Hemoglobin Concent 34.7 G/DL (32.0-36.0) Red Cell Distribution Width 11.9 % (11.6-14.8) Platelet Count 169 K/UL (150-450) Mean Platelet Volume 4.6 FL (6.5-10.1) Neutrophils (%) (Auto) 55.9 % (45.0-75.0) Lymphocytes (%) (Auto) 27.3 % (20.0-45.0) Monocytes (%) (Auto) 12.2 % (1.0-10.0) Eosinophils (%) (Auto) 3.3 % (0.0-3.0) Basophils (%) (Auto) 1.3 % (0.0-2.0) Sodium Level 137 MMOL/L (136-145) Potassium Level 4.1 MMOL/L (3.5-5.1) Chloride Level 103 MMOL/L (98-107) Carbon Dioxide Level 22 MMOL/L (21-32) Anion Gap 12 mmol/L (5-15) Blood Urea Nitrogen 46 mg/dL (7-18) Creatinine 2.8 MG/DL (0.55-1.30) Estimat Glomerular Filtration Rate mL/min (>60) Glucose Level 128 MG/DL (74-106) Calcium Level 8.3 MG/DL (8.5-10.1) Total Bilirubin 0.4 MG/DL (0.2-1.0) Aspartate Amino Transf (AST/SGOT) 23 U/L (15-37) Alanine Aminotransferase (ALT/SGPT) 35 U/L (12-78) Alkaline Phosphatase 116 U/L (46-116) Total Creatine Kinase 156 U/L (26-308) Creatine Kinase MB 1.8 NG/ML (0.0-3.6) Creatine Kinase MB Relative Index 1.1 Troponin I 0.012 ng/mL (0.000-0.056) Pro-B-Type Natriuretic Peptide 02089 pg/mL (0-125) Total Protein 6.6 G/DL (6.4-8.2) Albumin 3.9 G/DL (3.4-5.0) Globulin 2.7 g/dL Albumin/Globulin Ratio 1.4 (1.0-2.7) EKG Diagnostic Results Rate: normal Rhythm: NSR ST Segments: other - Nonspecific ST T wave changes Rhythm Strip Diag. Results EP Interpretation: yes Rate: 77 Rhythm: NSR, no PVC's, no ectopy Chest X-Ray Diagnostic Results Chest X-Ray Diagnostic Results : Chest X-Ray Ordered: Yes # of Views/Limited/Complete: 1 View Indication: Shortness of Breath EP Interpretation: Yes Interpretation: no consolidation, no pneumothorax, other - Pulmonary congestion bilateral effusion Impression: Other - Acute CHF Electronically Signed by: Cornel Brown DO Last Vital Signs Date Time Temp Pulse Resp B/P (MAP) Pulse Ox O2 Delivery O2 Flow Rate FiO2 09/08/18 21:32 98.4 65 26 105/49 (67) 96 Nasal Cannula 3.0 Status: improved Disposition: ADMITTED INPATIENT Condition: Serious Cornel Brown DO Sep 08, 2018 22:03
[2018-09-08 22:32] LABS: BASOPHILS % (AUTO) 1.3 % (0.0-2.0); EOSINOPHILS % (AUTO) 3.3 % (0.0-3.0); HEMATOCRIT 23.4 % (42.0-52.0); HEMOGLOBIN 8.1 G/DL (14.2-18.0); LYMPHOCYTES % (AUTO) 27.3 % (20.0-45.0); MEAN CORPUSCULAR VOLUME 88 FL (80-99); MONOCYTES % (AUTO) 12.2 % (1.0-10.0); NEUTROPHILS % (AUTO) 55.9 % (45.0-75.0); PLATELET COUNT 169 K/UL (150-450); RED BLOOD COUNT 2.67 M/UL (4.70-6.10); RED CELL DISTRIBUTION WIDTH 11.9 % (11.6-14.8); WHITE BLOOD COUNT 5.5 K/UL (4.8-10.8)
[2018-09-08 23:23] LABS: ALANINE AMINOTRANSFERASE 35 U/L (12-78); ALBUMIN 3.9 G/DL (3.4-5.0); ALBUMIN/GLOBULIN RATIO 1.4 (1.0-2.7); ALKALINE PHOSPHATASE 116 U/L (46-116); ANION GAP 12 mmol/L (5-15); ASPARTATE AMINO TRANSFERASE 23 U/L (15-37); BILIRUBIN,TOTAL 0.4 MG/DL (0.2-1.0); BLOOD UREA NITROGEN 46 mg/dL (7-18); CALCIUM 8.3 MG/DL (8.5-10.1); CARBON DIOXIDE 22 MMOL/L (21-32); CHLORIDE 103 MMOL/L (98-107); CKMB 1.8 NG/ML (0.0-3.6); CREATINE KINASE 156 U/L (26-308); CREATININE 2.8 MG/DL (0.55-1.30); POTASSIUM 4.1 MMOL/L (3.5-5.1); SODIUM 137 MMOL/L (136-145)
[2018-09-09] VITALS (7 sets, daily range): BP systolic 104–139; BP diastolic 33–76
--- NOTE | 2018-09-09 00:13 | NUR ---
ED Nurse Note: Patient sleeping with no s/s of acute distress. vital signs are stable and documented.
--- NOTE | 2018-09-09 03:00 | NUR ---
NURSE NOTES: Pt arrived on gurney from ER. Got report from Vicki OROZCO. Pt in stable condition. Denies any pain. VSS BP:123/55 HR:66 T:98.6 O2:95% on room air R:18. Pt R side flaccid due to CVA. Pt pointing on L ear and says "sore sometimes" but says he's fine and no pain. Pt skin intact no issues. Pt resting in bed comfortably. Bed in low and locked position, call light within reach, bedside table within reach. Continue to monitor. Dr. Escobar paged. Orders given and placed.
[2018-09-09] MEDS ORDERED: Sennosides 8.6mg tab ORAL ONE ×2 (05:15→09:00)
[2018-09-09] MEDS ORDERED: HYDROcodone/Acetamin 5/325 tab ORAL PRN (05:15)
[2018-09-09] MEDS ORDERED: HydrALAZINE 50mg tab ORAL SCH ×2 (06:00→09:00)
[2018-09-09] MEDS: NovoLOG Insulin Flexpen SUBQ SCH ×4 (06:01→21:25)
[2018-09-09] MEDS: Albuterol/Ipratropium 3ml neb HHN SCH ×3 (07:00→19:18)
--- NOTE | 2018-09-09 07:00 | NUR ---
HAND-OFF: Report given to Barney OROZCO. Endorsed plan of care.
--- NOTE | 2018-09-09 07:40 | NUR ---
NURSE NOTES: Pt arrived on r from [facility]. Denies any pain. Patient on room air. Pt has right sided weaknes, noted flaccid from previous CVA. Pt skin intact no issues. Pt resting in bed comfortably. Bed in low and locked position, call light within reach, bedside table within reach. Continue to monitor.
[2018-09-09] MEDS ORDERED: Meropenem 1 GM in NS 55 ML IVPB SCH (09:00)
[2018-09-09] MEDS: Docusate 100mg cap ORAL SCH ×3 (09:31→18:00)
[2018-09-09] MEDS: Nephrovite tab (Rena-Vite) ORAL SCH (09:31)
[2018-09-09] MEDS: Carvedilol 6.25mg Tab ORAL SCH ×2 (09:31→21:18)
[2018-09-09] MEDS: HydrALAZINE 50mg tab ORAL SCH ×2 (09:33→16:58)
[2018-09-09] MEDS: Enoxaparin 30mg Inj SUBQ SCH (09:38)
--- NOTE | 2018-09-09 10:15 | Consultation ---
History of Present Illness General Date patient seen: Sep 09, 2018 Chief Complaint: left ear pain, edema around ear on left side. Referring physician: Tara Escobar Reason for Consultation: Lef ear infection Present Illness Allergies: Coded Allergies: No Known Allergies (Unverified , 02/23/17) Medication History Scheduled Apixaban (Eliquis), 2.5 MG ORAL Q12HR Aspirin* (Aspirin*), 81 MG ORAL DAILY Atorvastatin Calcium* (Lipitor*), 80 MG ORAL BEDTIME, (Reported) Baclofen* (Baclofen*), 5 MG ORAL BEDTIME, (Reported) Carvedilol* (Carvedilol*), 6.25 MG ORAL EVERY 12 HOURS, (Reported) Docusate Sodium* (Docusate Sodium*), 100 MG ORAL TWICE A DAY, (Reported) Famotidine (Famotidine), 20 MG ORAL DAILY, (Reported) Finasteride (Finasteride), 5 MG ORAL DAILY, (Reported) Gabapentin* (Gabapentin*), 200 MG ORAL QHS, (Reported) Hydralazine Hcl* (Hydralazine Hcl*), 100 MG ORAL TID, (Reported) Ipratropium/Albuterol Sulfate (DuoNeb 0.5-3(2.5)mg/3ml), 3 ML HHN QID, (Reported ) Isosorbide Dinitrate (Isordil*), 40 MG ORAL TID, (Reported) Melatonin (Melatonin), 3 MG ORAL BEDTIME, (Reported) Greenleaf-3 Fatty Acids/Fish Oil (Fish Oil 1,000 Mg Capsule), 2,000 MG ORAL DAILY, ( Reported) Sennosides (Senna), 8.6 MG PO DAILY, (Reported) Vitamin B Cmplx/Vit C/Folic AC (Nephro-Chantel Tablet), 1 TAB ORAL DAILY, (Reported ) Scheduled PRN Acetaminophen (Tylenol), 650 MG ORAL Q4HR PRN for Prn Pain/Headache/Temp > 101, (Reported) Hydrocodone Bit/Acetaminophen 5-325* ([place] 5-325 Tablet*), 1 TAB ORAL Q4H PRN for For Pain, (Reported) Insulin Regular, Human (Humulin R), 0 SUBQ ACHS PRN for Sliding Scale, (Reported ) Patient History History Provided By: Medical Record Healthcare decision maker Resuscitation status Advanced Directive on File Review of Systems ENT: Reports: ear pain - left ear-admitted via ER, ear discharge Physical Exam General Appearance: WD/WN HEENT: normocephalic, other - left ear, some drinage, TM WNL, no mastoid tenderness. Last 24 Hour Vital Signs Date Time Temp Pulse Resp B/P (MAP) Pulse Ox O2 Delivery O2 Flow Rate FiO2 09/09/18 09:33 117/73 09/09/18 09:33 117/73 09/09/18 09:31 68 117/73 09/09/18 08:00 98.8 68 19 117/73 (88) 100 09/09/18 07:10 82 12 99 Room Air 21 09/09/18 07:09 Room Air 21 09/09/18 07:09 Room Air 21 09/09/18 04:49 Room Air 09/09/18 04:00 64 09/09/18 04:00 98.9 65 18 129/52 (77) 95 09/09/18 02:45 Room Air 09/09/18 02:30 66 09/09/18 02:30 98.6 66 18 123/55 (77) 95 09/09/18 01:45 98.4 60 20 104/33 100 Room Air 3.0 09/09/18 00:14 98.4 60 20 104/33 100 Room Air 3.0 09/08/18 21:45 65 26 Nasal Cannula 3.0 09/08/18 21:45 98.4 26 105/49 96 Nasal Cannula 3.0 09/08/18 21:32 98.4 65 26 105/49 (67) 96 Nasal Cannula 3.0 Intake and Output 09/08/18 09/09/18 18:59 06:59 Output Total 300 ml Balance -300 ml Output Urine Total 300 ml # Voids 3 # Bowel Movements 2 Laboratory Tests Test 09/08/18 22:05 White Blood Count 5.5 K/UL (4.8-10.8) Red Blood Count 2.67 M/UL (4.70-6.10) L Hemoglobin 8.1 G/DL (14.2-18.0) L Hematocrit 23.4 % (42.0-52.0) L Mean Corpuscular Volume 88 FL (80-99) Mean Corpuscular Hemoglobin 30.4 PG (27.0-31.0) Mean Corpuscular Hemoglobin Concent 34.7 G/DL (32.0-36.0) Red Cell Distribution Width 11.9 % (11.6-14.8) Platelet Count 169 K/UL (150-450) Mean Platelet Volume 4.6 FL (6.5-10.1) L Neutrophils (%) (Auto) 55.9 % (45.0-75.0) Lymphocytes (%) (Auto) 27.3 % (20.0-45.0) Monocytes (%) (Auto) 12.2 % (1.0-10.0) H Eosinophils (%) (Auto) 3.3 % (0.0-3.0) H Basophils (%) (Auto) 1.3 % (0.0-2.0) Sodium Level 137 MMOL/L (136-145) Potassium Level 4.1 MMOL/L (3.5-5.1) Chloride Level 103 MMOL/L (98-107) Carbon Dioxide Level 22 MMOL/L (21-32) Anion Gap 12 mmol/L (5-15) Blood Urea Nitrogen 46 mg/dL (7-18) H Creatinine 2.8 MG/DL (0.55-1.30) H Estimat Glomerular Filtration Rate mL/min (>60) Glucose Level 128 MG/DL (74-106) H Calcium Level 8.3 MG/DL (8.5-10.1) L Total Bilirubin 0.4 MG/DL (0.2-1.0) Aspartate Amino Transf (AST/SGOT) 23 U/L (15-37) Alanine Aminotransferase (ALT/SGPT) 35 U/L (12-78) Alkaline Phosphatase 116 U/L (46-116) Total Creatine Kinase 156 U/L (26-308) Creatine Kinase MB 1.8 NG/ML (0.0-3.6) Creatine Kinase MB Relative Index 1.1 Troponin I 0.012 ng/mL (0.000-0.056) Pro-B-Type Natriuretic Peptide 79219 pg/mL (0-125) H Total Protein 6.6 G/DL (6.4-8.2) Albumin 3.9 G/DL (3.4-5.0) Globulin 2.7 g/dL Albumin/Globulin Ratio 1.4 (1.0-2.7) Height (Feet): 5 Height (Inches): 5.00 Weight (Pounds): 160 Medications Current Medications Medications (Trade) Dose Ordered Sig/Jared Route PRN Reason Start Time Stop Time Status Last Admin Dose Admin Acetaminophen (Tylenol) 325 mg Q4H PRN ORAL Mild Pain/Temp > 100.5 09/09/18 05:15 10/09/18 05:14 Acetaminophen/ Hydrocodone Bitart ([place] 5/325) 1 tab Q4H PRN ORAL Moderate Pain (Pain Scale 4-6) 09/09/18 05:15 09/16/18 05:14 Albuterol/ Ipratropium (Albuterol/ Ipratropium) 3 ml Q6HRT HHN 09/09/18 07:00 09/14/18 06:59 Atorvastatin Calcium (Lipitor) 80 mg BEDTIME ORAL 09/09/18 21:00 10/09/18 20:59 Baclofen (Lioresal) 5 mg BEDTIME ORAL 09/09/18 21:00 10/09/18 20:59 Carvedilol (Coreg) 6.25 mg EVERY 12 HOURS ORAL 09/09/18 09:00 10/09/18 08:59 09/09/18 09:31 Dextrose (Dextrose 50%) 25 ml Q30M PRN IV Hypoglycemia 09/09/18 05:30 10/09/18 05:29 Dextrose (Dextrose 50%) 50 ml Q30M PRN IV Hypoglycemia 09/09/18 05:30 10/09/18 05:29 Docusate Sodium (Colace) 100 mg TWICE A DAY ORAL 09/09/18 09:00 10/09/18 08:59 09/09/18 09:31 Enoxaparin Sodium (Lovenox) 30 mg DAILY SUBQ 09/09/18 09:00 10/09/18 08:59 09/09/18 09:38 Famotidine (Pepcid) 20 mg DAILY ORAL 09/09/18 09:00 10/09/18 08:59 09/09/18 09:31 Finasteride (Proscar) 5 mg DAILY ORAL 09/09/18 09:00 10/09/18 08:59 09/09/18 09:42 Fish Oil (Fish Oil) 2,000 mg DAILY ORAL 09/09/18 09:00 10/09/18 08:59 09/09/18 09:42 Gabapentin (Neurontin) 200 mg BEDTIME ORAL 09/09/18 21:00 10/09/18 20:59 Hydralazine HCl (Apresoline) 100 mg Q8H ORAL 09/09/18 09:00 10/09/18 08:59 09/09/18 09:33 Insulin Aspart (NovoLOG) BEFORE MEALS AND HS SUBQ 09/09/18 06:30 10/09/18 06:29 Isosorbide Dinitrate (Isordil) 40 mg Q8H ORAL 09/09/18 09:00 10/09/18 08:59 09/09/18 09:33 Meropenem 1 gm/ Sodium Chloride 55 ml @ 110 mls/hr Q12HR IVPB 09/09/18 09:00 09/14/18 08:59 09/09/18 09:30 Pantoprazole (Protonix) 40 mg DAILY ORAL 09/09/18 09:00 10/09/18 08:59 09/09/18 09:33 Vitamin B Complex/ Vit C/Folic Acid (Nephrovite) 1 tab DAILY ORAL 09/09/18 09:00 10/09/18 08:59 09/09/18 09:31 Assessment/Plan Status: stable Status Narrative left ear canal with minimal drainage, minimal facial swelling. Assessment/Plan: Recommend: CiproDex ear drops 3 drops TID x 5 days-perferred for diabetics over Cortisorin Follow up as an outpt. by [facility] contracted MD within 7 days. From an ENT perspective-he may be discharged as above. Thank you for asking my opinion in the care and treatment of this pt. Zenon Swann MD Sep 09, 2018 10:15
[2018-09-09 10:45] LABS: ANION GAP 14 mmol/L (5-15); BLOOD UREA NITROGEN 45 mg/dL (7-18); CALCIUM 8.5 MG/DL (8.5-10.1); CARBON DIOXIDE 21 MMOL/L (21-32); CHLORIDE 103 MMOL/L (98-107); CREATININE 2.7 MG/DL (0.55-1.30); SODIUM 138 MMOL/L (136-145)
[2018-09-09 10:58] LABS: ALANINE AMINOTRANSFERASE 35 U/L (12-78); ALBUMIN 3.8 G/DL (3.4-5.0); ALBUMIN/GLOBULIN RATIO 1.3 (1.0-2.7); ALKALINE PHOSPHATASE 120 U/L (46-116); ASPARTATE AMINO TRANSFERASE 22 U/L (15-37); BILIRUBIN,TOTAL 0.4 MG/DL (0.2-1.0); CHOLESTEROL 94 MG/DL (< 200); FERRITIN 68 NG/ML (8-388); HDL CHOLESTEROL 43 MG/DL (40-60); PHOSPHORUS 4.7 MG/DL (2.5-4.9); TRIGLYCERIDES 94 MG/DL (30-150)
[2018-09-09 11:26] LABS: % IRON SATURATION 16 % (15-50); IRON 36 ug/dL (50-175); TOTAL IRON BINDING CAPACITY 220 ug/dL (250-450)
--- NOTE | 2018-09-09 12:30 | Diagnostic Imaging Report ---
Indications: Head pain Technique: Spiral acquisitions obtained through the brain. Angled axial and coronal 5 x 5 mm slices were reconstructed. Total dose length product 1358.24 mGycm. CTDI vol(s) 70.38 mGy. Dose reduction achieved using automated exposure control Comparison: 07/16/2017 Findings: There is age-related enlargement of the ventricles and extra axial CSF spaces. Old cortical infarct is seen in the high right parasagittal parietal lobe. Old lacunar infarcts are seen in the basal ganglia bilaterally. No acute intracranial hemorrhage nor edema, mass effect, nor midline shift. Intact calvarium. Visualized orbits and sinuses are unremarkable. There is mastoid disease on the left which is a new finding. Other findings are unchanged. Impression: Chronic and age-related changes, as described Multiple old infarcts, as described Negative for acute intercranial bleed or mass effect Left mastoid disease incidentally noted This agrees with the preliminary interpretation provided overnight by [facility] teleradiology service. The CT scanner at [facility] is accredited by the [employer] and the scans are performed using protocols designed to limit radiation exposure to as low as reasonably achievable to attain images of sufficient resolution adequate for diagnostic evaluation.
--- NOTE | 2018-09-09 13:43 | General Progress Note ---
Assessment/Plan Status: stable Assessment/Plan: HISTORY OF PRESENT ILLNESS: The patient is a pleasant 73-year-old male with a prior history of diabetes , Mastoiditis and heart failure. Patient is transferred secondary to painful discharge from the ear . . Denies any fever or chills. Denies any trauma. Denies any blurry vision or headache. Complaining of decrease in the hearing of the left ear. PAST MEDICAL HISTORY: Diabetes, hypertension, CHF, anemia, chronic kidney disease, CVA, history of (right dominant side). osteomyelitis of mastoid. PAF CURRENT HOSPITAL MEDICATIONS: Reviewed and reconciled in the chart including, but not limited to, Lipitor 40 mg daily, Coreg 6.25 mg b.i.d., Lasix 20 mg IV twice a day, gabapentin, sliding scale insulin, and Cozaar. ALLERGIES: NKDA. FAMILY HISTORY: Reviewed, noncontributory. REVIEW OF SYSTEMS: All 12 elements of review of systems reviewed. Pertinent positive and negative as above. SH: resident of [facility]. PHYSICAL EXAMINATION: VITAL SIGNS: Blood pressure is 145/80, temperature 98.2, pulse oximetry 98% on room air, and respiratory rate 18-20. HEAD AND NECK: episodes of epistaxia, detailed exam deferred. Atraumatic and normocephalic. Positive for the pain and tenderness overlying left Auditory canal. Positive for minimal redness in the external auditory meatus.CHEST: scar of prior sternotomy, Clear to auscultation. No wheezing. No crackles. HEART: S1 and S2. Regular rate and rhythm.ABDOMEN: Soft. No organomegaly.MUSCULOSKELETAL: Dysfiguration of toe nail, both sides, Negative for any gross abnormal lateralized motor deficit. NEUROLOGIC: The patient is awake, alert, and oriented x3. LABORATORY AND DIAGNOSTIC DATA: Labs dated 09/08/2018 , reviewed, including Cr level of 2.8 ASSESSMENT: 1. Acute External otitis, with h/o of Gram negative infection 2. Acute on Chronic kidney disease. 3. Hypertension. 4. Diabetes type 2. 5. Cerebrovascular accident 6. CHF- low EF : appears stable 7. PAF ( history of), Sinus at this time 6. Benign prostatic hypertrophy. 7. Gastrointestinal and deep venous thrombosis prophylaxis. PLAN OF CARE: Started empirical abx treatment Pending cultures ENT , ID, Nephro consulted Subjective Allergies: Coded Allergies: No Known Allergies (Unverified , 12/2/17) Objective Last 24 Hour Vital Signs Date Time Temp Pulse Resp B/P (MAP) Pulse Ox O2 Delivery O2 Flow Rate FiO2 09/09/18 13:04 Room Air 21 09/09/18 13:04 Room Air 21 09/09/18 11:55 65 09/09/18 11:41 97.5 67 20 139/76 (97) 96 09/09/18 10:38 98.8 09/09/18 09:33 117/73 09/09/18 09:33 117/73 09/09/18 09:31 68 117/73 09/09/18 09:00 Room Air 09/09/18 08:00 98.8 68 19 117/73 (88) 100 09/09/18 07:34 74 09/09/18 07:10 82 12 99 Room Air 21 09/09/18 07:09 Room Air 21 09/09/18 07:09 Room Air 09/09/18 04:49 Room Air 09/09/18 04:00 64 09/09/18 04:00 98.9 65 18 129/52 (77) 95 09/09/18 02:45 Room Air 09/09/18 02:30 66 09/09/18 02:30 98.6 66 18 123/55 (77) 95 09/09/18 01:45 98.4 60 20 104/33 100 Room Air 3.0 09/09/18 00:14 98.4 60 20 104/33 100 Room Air 3.0 09/08/18 21:45 65 26 Nasal Cannula 3.0 09/08/18 21:45 98.4 26 105/49 96 Nasal Cannula 3.0 09/08/18 21:32 98.4 65 26 105/49 (67) 96 Nasal Cannula 3.0 Intake and Output 09/08/18 09/09/18 19:00 07:00 Intake Total 120 ml Output Total 300 ml Balance -180 ml Intake Oral 120 ml Output Urine Total 300 ml # Voids 3 # Bowel Movements 2 Laboratory Tests 09/08/18 22:05: White Blood Count 5.5, Red Blood Count 2.67L, Hemoglobin 8.1L, Hematocrit 23.4L , Mean Corpuscular Volume 88, Mean Corpuscular Hemoglobin 30.4, Mean Corpuscular Hemoglobin Concent 34.7, Red Cell Distribution Width 11.9, Platelet Count 169, Mean Platelet Volume 4.6L, Neutrophils (%) (Auto) 55.9, Lymphocytes ( %) (Auto) 27.3, Monocytes (%) (Auto) 12.2H, Eosinophils (%) (Auto) 3.3H, Basophils (%) (Auto) 1.3, Sodium Level 137, Potassium Level 4.1, Chloride Level 103, Carbon Dioxide Level 22, Anion Gap 12, Blood Urea Nitrogen 46H, Creatinine 2.8H, Estimat Glomerular Filtration Rate , Glucose Level 128H, Calcium Level 8.3L, Total Bilirubin 0.4, Aspartate Amino Transf (AST/SGOT) 23, Alanine Aminotransferase (ALT/SGPT) 35, Alkaline Phosphatase 116, Total Creatine Kinase 156, Creatine Kinase MB 1.8, Creatine Kinase MB Relative Index 1.1, Troponin I 0.012, Pro-B-Type Natriuretic Peptide 33101K, Total Protein 6.6, Albumin 3.9, Globulin 2.7, Albumin/Globulin Ratio 1.4 09/09/18 10:00: Sodium Level 138, Potassium Level 4.0, Chloride Level 103, Carbon Dioxide Level 21, Anion Gap 14, Blood Urea Nitrogen 45H, Creatinine 2.7H, Estimat Glomerular Filtration Rate , Glucose Level 126H, Calcium Level 8.5, Total Bilirubin 0.4, Aspartate Amino Transf (AST/SGOT) 22, Alanine Aminotransferase (ALT/SGPT) 35, Alkaline Phosphatase 120H, Total Protein 6.7, Albumin 3.8, Globulin 2.9, Albumin /Globulin Ratio 1.3, Hemoglobin A1c 6.2H, Phosphorus Level 4.7, Magnesium Level 2.4, Iron Level 36L, Total Iron Binding Capacity 220L, Percent Iron Saturation 16, Unsaturated Iron Binding 184, Ferritin 68, Triglycerides Level 94, Cholesterol Level 94, LDL Cholesterol 41, HDL Cholesterol 43, Cholesterol/HDL Ratio 2.2L, Vitamin B12 Level 674, Folate 38.5 Height (Feet): 5 Height (Inches): 5.00 Weight (Pounds): 160 Tara Escobar MD Sep 09, 2018 13:43
--- NOTE | 2018-09-09 13:47 | General Progress Note ---
Assessment/Plan Status: stable Assessment/Plan: S: I have pain in my ear O: appears in mild distress for left ear pain PHYSICAL EXAMINATION: HEAD AND NECK: episodes of epistaxia, detailed exam deferred. Atraumatic and normocephalic. Positive for the pain and tenderness overlying left Auditory canal. Positive for minimal redness in the external auditory meatus.CHEST: scar of prior sternotomy, Clear to auscultation. No wheezing. No crackles. HEART: S1 and S2. Regular rate and rhythm.ABDOMEN: Soft. No organomegaly.MUSCULOSKELETAL: Dysfiguration of toe nail, both sides, Negative for any gross abnormal lateralized motor deficit. NEUROLOGIC: The patient is awake, alert, and oriented x3. LABORATORY AND DIAGNOSTIC DATA: Labs dated 09/08/2018 , reviewed, including Cr level of 2.8 ASSESSMENT: 1. Acute External otitis, with h/o of Gram negative infection. 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 2. Acute on Chronic kidney disease. 3. Hypertension. 4. Diabetes type 2. 5. Cerebrovascular accident 6. CHF- low EF : appears stable 7. PAF ( history of), Sinus at this time 6. Benign prostatic hypertrophy. 7. Gastrointestinal and deep venous thrombosis prophylaxis. PLAN OF CARE: Started empirical abx treatment Pending cultures D/w ID, will proceed with MRI of mastoid bone Subjective Allergies: Coded Allergies: No Known Allergies (Unverified , 02/23/17) Objective Last 24 Hour Vital Signs Date Time Temp Pulse Resp B/P (MAP) Pulse Ox O2 Delivery O2 Flow Rate FiO2 09/09/18 13:04 Room Air 21 09/09/18 13:04 Room Air 21 09/09/18 11:55 65 09/09/18 11:41 97.5 67 20 139/76 (97) 96 09/09/18 10:38 98.8 09/09/18 09:33 117/73 09/09/18 09:33 117/73 09/09/18 09:31 68 117/73 09/09/18 09:00 Room Air 09/09/18 08:00 98.8 68 19 117/73 (88) 100 09/09/18 07:34 74 09/09/18 07:10 82 12 99 Room Air 21 09/09/18 07:09 Room Air 21 09/09/18 07:09 Room Air 21 09/09/18 04:49 Room Air 09/09/18 04:00 64 09/09/18 04:00 98.9 65 18 129/52 (77) 95 09/09/18 02:45 Room Air 09/09/18 02:30 66 09/09/18 02:30 98.6 66 18 123/55 (77) 95 09/09/18 01:45 98.4 60 20 104/33 100 Room Air 3.0 09/09/18 00:14 98.4 60 20 104/33 100 Room Air 3.0 09/08/18 21:45 65 26 Nasal Cannula 3.0 09/08/18 21:45 98.4 26 105/49 96 Nasal Cannula 3.0 09/08/18 21:32 98.4 65 26 105/49 (67) 96 Nasal Cannula 3.0 Intake and Output 09/08/18 09/09/18 19:00 07:00 Intake Total 120 ml Output Total 300 ml Balance -180 ml Intake Oral 120 ml Output Urine Total 300 ml # Voids 3 # Bowel Movements 2 Laboratory Tests 09/08/18 22:05: White Blood Count 5.5, Red Blood Count 2.67L, Hemoglobin 8.1L, Hematocrit 23.4L , Mean Corpuscular Volume 88, Mean Corpuscular Hemoglobin 30.4, Mean Corpuscular Hemoglobin Concent 34.7, Red Cell Distribution Width 11.9, Platelet Count 169, Mean Platelet Volume 4.6L, Neutrophils (%) (Auto) 55.9, Lymphocytes ( %) (Auto) 27.3, Monocytes (%) (Auto) 12.2H, Eosinophils (%) (Auto) 3.3H, Basophils (%) (Auto) 1.3, Sodium Level 137, Potassium Level 4.1, Chloride Level 103, Carbon Dioxide Level 22, Anion Gap 12, Blood Urea Nitrogen 46H, Creatinine 2.8H, Estimat Glomerular Filtration Rate , Glucose Level 128H, Calcium Level 8.3L, Total Bilirubin 0.4, Aspartate Amino Transf (AST/SGOT) 23, Alanine Aminotransferase (ALT/SGPT) 35, Alkaline Phosphatase 116, Total Creatine Kinase 156, Creatine Kinase MB 1.8, Creatine Kinase MB Relative Index 1.1, Troponin I 0.012, Pro-B-Type Natriuretic Peptide 09074C, Total Protein 6.6, Albumin 3.9, Globulin 2.7, Albumin/Globulin Ratio 1.4 09/09/18 10:00: Sodium Level 138, Potassium Level 4.0, Chloride Level 103, Carbon Dioxide Level 21, Anion Gap 14, Blood Urea Nitrogen 45H, Creatinine 2.7H, Estimat Glomerular Filtration Rate , Glucose Level 126H, Calcium Level 8.5, Total Bilirubin 0.4, Aspartate Amino Transf (AST/SGOT) 22, Alanine Aminotransferase (ALT/SGPT) 35, Alkaline Phosphatase 120H, Total Protein 6.7, Albumin 3.8, Globulin 2.9, Albumin /Globulin Ratio 1.3, Hemoglobin A1c 6.2H, Phosphorus Level 4.7, Magnesium Level 2.4, Iron Level 36L, Total Iron Binding Capacity 220L, Percent Iron Saturation 16, Unsaturated Iron Binding 184, Ferritin 68, Triglycerides Level 94, Cholesterol Level 94, LDL Cholesterol 41, HDL Cholesterol 43, Cholesterol/HDL Ratio 2.2L, Vitamin B12 Level 674, Folate 38.5 Height (Feet): 5 Height (Inches): 5.00 Weight (Pounds): 160 Tara Escobar MD Sep 09, 2018 13:47
[2018-09-09 14:15] LABS: APPEARANCE,URINE SLIGHTLY CLOUDY; BILIRUBIN, URINE NEGATIVE (NEGATIVE); GLUCOSE, URINE (UA) NEGATIVE (NEGATIVE); UROBILINOGEN,URINE NORMAL MG/DL (0.0-1.0)
[2018-09-09 14:22] LABS: COLOR,URINE YELLOW; PH,URINE 5 (4.5-8.0)
[2018-09-09 14:23] LABS: KETONES,URINE 1+ (NEGATIVE); LEUKOCYTE ESTERASE ,URINE 2+ (NEGATIVE); NITRITE,URINE POSITIVE (NEGATIVE); PROTEIN,URINE 2+ (NEGATIVE)
--- NOTE | 2018-09-09 14:26 | NUR ---
CASE MANAGEMENT:REVIEW 73 YR OLD MALE BIBA FROM [facility] CC: BLE AND FACE SWELLING. LEFT EAR DRAINAGE PMH: CABG. ISCHEMIC CARDIOMYOPATHY SI: ACUTE CHF. OTITIS EXTERNA 98.4 65 26 105/49 96% ON 3L/NC H/H- 8.1/23.4 BUN+46 CR+2.8 IS: IV LASIX CT HEAD : TO TELEMETRY IS: IV MEROPENEM Q12 LOVENOX SQ QD COREG PO Q12 ISORDIL PO Q8HRS HYDRALAZINE PO Q8HRS DUONEB HHN Q6HRS RTC PLAN: MRI FACE WOUND CX
[2018-09-09 14:40] LABS: BASOPHILS % (AUTO) 0.9 % (0.0-2.0); EOSINOPHILS % (AUTO) 6.6 % (0.0-3.0); HEMATOCRIT 24.8 % (42.0-52.0); HEMOGLOBIN 8.4 G/DL (14.2-18.0); LYMPHOCYTES % (AUTO) 22.9 % (20.0-45.0); MEAN CORPUSCULAR VOLUME 91 FL (80-99); MONOCYTES % (AUTO) 11.2 % (1.0-10.0); NEUTROPHILS % (AUTO) 58.4 % (45.0-75.0); PLATELET COUNT 167 K/UL (150-450); RED BLOOD COUNT 2.71 M/UL (4.70-6.10); RED CELL DISTRIBUTION WIDTH 12.5 % (11.6-14.8)
--- NOTE | 2018-09-09 15:44 | Consultation ---
History of Present Illness General Chief Complaint: Edema Referring physician: Tara Escobar Reason for Consultation: Lef ear infection Present Illness Allergies: Coded Allergies: No Known Allergies (Unverified , 02/23/17) Medication History Scheduled Apixaban (Eliquis), 2.5 MG ORAL Q12HR Aspirin* (Aspirin*), 81 MG ORAL DAILY Atorvastatin Calcium* (Lipitor*), 80 MG ORAL BEDTIME, (Reported) Baclofen* (Baclofen*), 5 MG ORAL BEDTIME, (Reported) Carvedilol* (Carvedilol*), 6.25 MG ORAL EVERY 12 HOURS, (Reported) Docusate Sodium* (Docusate Sodium*), 100 MG ORAL TWICE A DAY, (Reported) Famotidine (Famotidine), 20 MG ORAL DAILY, (Reported) Finasteride (Finasteride), 5 MG ORAL DAILY, (Reported) Gabapentin* (Gabapentin*), 200 MG ORAL QHS, (Reported) Hydralazine Hcl* (Hydralazine Hcl*), 100 MG ORAL TID, (Reported) Ipratropium/Albuterol Sulfate (DuoNeb 0.5-3(2.5)mg/3ml), 3 ML HHN QID, (Reported ) Isosorbide Dinitrate (Isordil*), 40 MG ORAL TID, (Reported) Melatonin (Melatonin), 3 MG ORAL BEDTIME, (Reported) [place]-3 Fatty Acids/Fish Oil (Fish Oil 1,000 Mg Capsule), 2,000 MG ORAL DAILY, ( Reported) Sennosides (Senna), 8.6 MG PO DAILY, (Reported) Vitamin B Cmplx/Vit C/Folic AC (Nephro-Chantel Tablet), 1 TAB ORAL DAILY, (Reported ) Scheduled PRN Acetaminophen (Tylenol), 650 MG ORAL Q4HR PRN for Prn Pain/Headache/Temp > 101, (Reported) Hydrocodone Bit/Acetaminophen 5-325* ([place] 5-325 Tablet*), 1 TAB ORAL Q4H PRN for For Pain, (Reported) Insulin Regular, Human (Humulin R), 0 SUBQ ACHS PRN for Sliding Scale, (Reported ) Patient History Healthcare decision maker Resuscitation status Advanced Directive on File Physical Exam Last 24 Hour Vital Signs Date Time Temp Pulse Resp B/P (MAP) Pulse Ox O2 Delivery O2 Flow Rate FiO2 09/09/18 13:04 Room Air 21 09/09/18 13:04 Room Air 21 09/09/18 11:55 65 09/09/18 11:41 97.5 67 20 139/76 (97) 96 09/09/18 10:38 98.8 09/09/18 09:33 117/73 09/09/18 09:33 117/73 09/09/18 09:31 68 117/73 09/09/18 09:00 Room Air 09/09/18 08:00 98.8 68 19 117/73 (88) 100 09/09/18 07:34 74 09/09/18 07:10 82 12 99 Room Air 21 09/09/18 07:09 Room Air 21 09/09/18 07:09 Room Air 21 09/09/18 04:49 Room Air 09/09/18 04:00 64 09/09/18 04:00 98.9 65 18 129/52 (77) 95 09/09/18 02:45 Room Air 09/09/18 02:30 66 09/09/18 02:30 98.6 66 18 123/55 (77) 95 09/09/18 01:45 98.4 60 20 104/33 100 Room Air 3.0 09/09/18 00:14 98.4 60 20 104/33 100 Room Air 3.0 09/08/18 21:45 65 26 Nasal Cannula 3.0 09/08/18 21:45 98.4 26 105/49 96 Nasal Cannula 3.0 09/08/18 21:32 98.4 65 26 105/49 (67) 96 Nasal Cannula 3.0 Intake and Output 09/08/18 09/09/18 19:00 07:00 Intake Total 120 ml Output Total 300 ml Balance -180 ml Intake Oral 120 ml Output Urine Total 300 ml # Voids 3 # Bowel Movements 2 Laboratory Tests Test 09/08/18 22:05 09/09/18 10:00 09/09/18 13:39 09/09/18 14:25 White Blood Count 5.5 K/UL (4.8-10.8) 6.0 K/UL (4.8-10.8) Red Blood Count 2.67 M/UL (4.70-6.10) L 2.71 M/UL (4.70-6.10) L Hemoglobin 8.1 G/DL (14.2-18.0) L 8.4 G/DL (14.2-18.0) L Hematocrit 23.4 % (42.0-52.0) L 24.8 % (42.0-52.0) L Mean Corpuscular Volume 88 FL (80-99) 91 FL (80-99) Mean Corpuscular Hemoglobin 30.4 PG (27.0-31.0) 31.0 PG (27.0-31.0) Mean Corpuscular Hemoglobin Concent 34.7 G/DL (32.0-36.0) 34.0 G/DL (32.0-36.0) Red Cell Distribution Width 11.9 % (11.6-14.8) 12.5 % (11.6-14.8) Platelet Count 169 K/UL (150-450) 167 K/UL (150-450) Mean Platelet Volume 4.6 FL (6.5-10.1) L 4.9 FL (6.5-10.1) L Neutrophils (%) (Auto) 55.9 % (45.0-75.0) 58.4 % (45.0-75.0) Lymphocytes (%) (Auto) 27.3 % (20.0-45.0) 22.9 % (20.0-45.0) Monocytes (%) (Auto) 12.2 % (1.0-10.0) H 11.2 % (1.0-10.0) H Eosinophils (%) (Auto) 3.3 % (0.0-3.0) H 6.6 % (0.0-3.0) H Basophils (%) (Auto) 1.3 % (0.0-2.0) 0.9 % (0.0-2.0) Sodium Level 137 MMOL/L (136-145) 138 MMOL/L (136-145) Potassium Level 4.1 MMOL/L (3.5-5.1) 4.0 MMOL/L (3.5-5.1) Chloride Level 103 MMOL/L (98-107) 103 MMOL/L (98-107) Carbon Dioxide Level 22 MMOL/L (21-32) 21 MMOL/L (21-32) Anion Gap 12 mmol/L (5-15) 14 mmol/L (5-15) Blood Urea Nitrogen 46 mg/dL (7-18) H 45 mg/dL (7-18) H Creatinine 2.8 MG/DL (0.55-1.30) H 2.7 MG/DL (0.55-1.30) H Estimat Glomerular Filtration Rate mL/min (>60) mL/min (>60) Glucose Level 128 MG/DL (74-106) H 126 MG/DL (74-106) H Calcium Level 8.3 MG/DL (8.5-10.1) L 8.5 MG/DL (8.5-10.1) Total Bilirubin 0.4 MG/DL (0.2-1.0) 0.4 MG/DL (0.2-1.0) Aspartate Amino Transf (AST/SGOT) 23 U/L (15-37) 22 U/L (15-37) Alanine Aminotransferase (ALT/SGPT) 35 U/L (12-78) 35 U/L (12-78) Alkaline Phosphatase 116 U/L (46-116) 120 U/L (46-116) H Total Creatine Kinase 156 U/L (26-308) Creatine Kinase MB 1.8 NG/ML (0.0-3.6) Creatine Kinase MB Relative Index 1.1 Troponin I 0.012 ng/mL (0.000-0.056) Pro-B-Type Natriuretic Peptide 65585 pg/mL (0-125) H Total Protein 6.6 G/DL (6.4-8.2) 6.7 G/DL (6.4-8.2) Albumin 3.9 G/DL (3.4-5.0) 3.8 G/DL (3.4-5.0) Globulin 2.7 g/dL 2.9 g/dL Albumin/Globulin Ratio 1.4 (1.0-2.7) 1.3 (1.0-2.7) Hemoglobin A1c 6.2 % (4.3-6.0) H Phosphorus Level 4.7 MG/DL (2.5-4.9) Magnesium Level 2.4 MG/DL (1.8-2.4) Iron Level 36 ug/dL (50-175) L Total Iron Binding Capacity 220 ug/dL (250-450) L Percent Iron Saturation 16 % (15-50) Unsaturated Iron Binding 184 ug/dL (112-346) Ferritin 68 NG/ML (8-388) Triglycerides Level 94 MG/DL (30-150) Cholesterol Level 94 MG/DL (< 200) LDL Cholesterol 41 mg/dL (<100) HDL Cholesterol 43 MG/DL (40-60) Cholesterol/HDL Ratio 2.2 (3.3-4.4) L Vitamin B12 Level 674 PG/ML (193-986) Folate 38.5 NG/ML (8.6-58.9) Urine Color Yellow Urine Appearance Slightly cloudy Urine pH 5 (4.5-8.0) Urine Specific [place] 1.015 (1.005-1.035) Urine Protein 2+ (NEGATIVE) H Urine Glucose (UA) Negative (NEGATIVE) Urine Ketones 1+ (NEGATIVE) H Urine Blood Negative (NEGATIVE) Urine Nitrite Positive (NEGATIVE) H Urine Bilirubin Negative (NEGATIVE) Urine Urobilinogen Normal MG/DL (0.0-1.0) Urine Leukocyte Esterase 2+ (NEGATIVE) H Urine RBC 0-2 /HPF (0 - 0) H Urine WBC Tntc /HPF (0 - 0) H Urine Squamous Epithelial Cells Few /LPF (NONE/OCC) Urine Bacteria Moderate /HPF (NONE) H Height (Feet): 5 Height (Inches): 5.00 Weight (Pounds): 160 Medications Current Medications Medications (Trade) Dose Ordered Sig/Jared Route PRN Reason Start Time Stop Time Status Last Admin Dose Admin Acetaminophen (Tylenol) 325 mg Q4H PRN ORAL Mild Pain/Temp > 100.5 09/09/18 05:15 10/09/18 05:14 Acetaminophen/ Hydrocodone Bitart ([place] 5/325) 1 tab Q4H PRN ORAL Moderate Pain (Pain Scale 4-6) 09/09/18 05:15 09/16/18 05:14 09/09/18 10:08 Albuterol/ Ipratropium (Albuterol/ Ipratropium) 3 ml Q6HRT HHN 09/09/18 07:00 09/14/18 06:59 Atorvastatin Calcium (Lipitor) 80 mg BEDTIME ORAL 09/09/18 21:00 10/09/18 20:59 Baclofen (Lioresal) 5 mg BEDTIME ORAL 09/09/18 21:00 10/09/18 20:59 Carvedilol (Coreg) 6.25 mg EVERY 12 HOURS ORAL 09/09/18 09:00 10/09/18 08:59 09/09/18 09:31 Dextrose (Dextrose 50%) 25 ml Q30M PRN IV Hypoglycemia 09/09/18 05:30 10/09/18 05:29 Dextrose (Dextrose 50%) 50 ml Q30M PRN IV Hypoglycemia 09/09/18 05:30 10/09/18 05:29 Docusate Sodium (Colace) 100 mg TWICE A DAY ORAL 09/09/18 09:00 10/09/18 08:59 09/09/18 09:31 Enoxaparin Sodium (Lovenox) 30 mg DAILY SUBQ 09/09/18 09:00 10/09/18 08:59 09/09/18 09:38 Famotidine (Pepcid) 20 mg DAILY ORAL 09/09/18 09:00 10/09/18 08:59 09/09/18 09:31 Finasteride (Proscar) 5 mg DAILY ORAL 09/09/18 09:00 10/09/18 08:59 09/09/18 09:42 Fish Oil (Fish Oil) 2,000 mg DAILY ORAL 09/09/18 09:00 10/09/18 08:59 09/09/18 09:42 Gabapentin (Neurontin) 200 mg BEDTIME ORAL 09/09/18 21:00 10/09/18 20:59 Hydralazine HCl (Apresoline) 100 mg Q8H ORAL 09/09/18 09:00 10/09/18 08:59 09/09/18 09:33 Insulin Aspart (NovoLOG) BEFORE MEALS AND HS SUBQ 09/09/18 06:30 10/09/18 06:29 09/09/18 12:04 Isosorbide Dinitrate (Isordil) 40 mg Q8H ORAL 09/09/18 09:00 10/09/18 08:59 09/09/18 09:33 Meropenem 500 mg/ Sodium Chloride 55 ml @ 110 mls/hr EVERY 12 HOURS IVPB 09/09/18 21:00 09/14/18 20:59 Pantoprazole (Protonix) 40 mg DAILY ORAL 09/09/18 09:00 10/09/18 08:59 09/09/18 09:33 Vitamin B Complex/ Vit C/Folic Acid (Nephrovite) 1 tab DAILY ORAL 09/09/18 09:00 10/09/18 08:59 09/09/18 09:31 Assessment/Plan Assessment/Plan: Hematology Consultation DOS: 09/09/18 RFC Anemia REQ MD: Kaiden Escobar HPI Patient presents with complaints of drainage from the left ear Reports ongoing for the past 7 to 10 days He also has some discomfort to the left ear Denies any change with hearing denies any chest pain or shortness of breath Patient however does report swelling in his legs and right hand ENT has evaluated patient Awaiting MRI mastoid as per ID Also feels better with oxygen Denies any vomiting or diarrhea denies any fevers or chills Allergies: Coded Allergies: No Known Allergies (Unverified , 02/23/17) Past Medical History: see triage record Pertinent Family History: none Reviewed Nursing Documentation: PMH: Agreed; PSxH: Agreed Hx Cardiac Problems: Yes - CHF; AORTO CORONARY BYPASS GRAFT; ISCHEMIC CARDIOMYOPATHY Hx Hypertension: Yes Hx COPD: Yes - RF Hx Diabetes: Yes Hx Cancer: No Hx Gastrointestinal Problems: Yes Hx Dialysis: Yes - CKD Hx Neurological Problems: Yes Hx Cerebrovascular Accident: Yes - HEMIPLEGIA Hx Dysphasia: No Hx Weakness: Yes Review of Systems: negative except mentioned in HPI PE Vital Signs Date Time Temp Pulse Resp B/P (MAP) Pulse Ox O2 Delivery O2 Flow Rate FiO2 09/08/18 21:32 98.4 65 26 105/49 (67) 96 Nasal Cannula 3.0 Sp02 EP Interpretation: reviewed, normal General Appearance: well appearing, no apparent distress Head: normocephalic, atraumatic Eyes: bilateral eye PERRL, EOMI ENT: other - Erythema and irritation in the left canal some clear discharge is noted mastoid however is nontender and non-boggy tympanic membrane is intact Neck: supple Respiratory: no respiratory distress, no retraction, crackles - Fine crackles bilaterally Cardiovascular #1: regular rate, rhythm Gastrointestinal: non tender, soft Musculoskeletal: other - Sided deficit Neurologic: alert, oriented x3, responsive Skin: other - Noted bilateral lower extremity Lymphatic: no adenopathy Labs Test 09/08/18 22:05 White Blood Count 5.5 K/UL (4.8-10.8) Red Blood Count 2.67 M/UL (4.70-6.10) Hemoglobin 8.1 G/DL (14.2-18.0) Hematocrit 23.4 % (42.0-52.0) Mean Corpuscular Volume 88 FL (80-99) Mean Corpuscular Hemoglobin 30.4 PG (27.0-31.0) Mean Corpuscular Hemoglobin Concent 34.7 G/DL (32.0-36.0) Red Cell Distribution Width 11.9 % (11.6-14.8) Platelet Count 169 K/UL (150-450) Mean Platelet Volume 4.6 FL (6.5-10.1) Neutrophils (%) (Auto) 55.9 % (45.0-75.0) Lymphocytes (%) (Auto) 27.3 % (20.0-45.0) Monocytes (%) (Auto) 12.2 % (1.0-10.0) Eosinophils (%) (Auto) 3.3 % (0.0-3.0) Basophils (%) (Auto) 1.3 % (0.0-2.0) Sodium Level 137 MMOL/L (136-145) Potassium Level 4.1 MMOL/L (3.5-5.1) Chloride Level 103 MMOL/L (98-107) Carbon Dioxide Level 22 MMOL/L (21-32) Anion Gap 12 mmol/L (5-15) Blood Urea Nitrogen 46 mg/dL (7-18) Creatinine 2.8 MG/DL (0.55-1.30) Estimat Glomerular Filtration Rate mL/min (>60) Glucose Level 128 MG/DL (74-106) Calcium Level 8.3 MG/DL (8.5-10.1) Total Bilirubin 0.4 MG/DL (0.2-1.0) Aspartate Amino Transf (AST/SGOT) 23 U/L (15-37) Alanine Aminotransferase (ALT/SGPT) 35 U/L (12-78) Alkaline Phosphatase 116 U/L (46-116) Total Creatine Kinase 156 U/L (26-308) Creatine Kinase MB 1.8 NG/ML (0.0-3.6) Creatine Kinase MB Relative Index 1.1 Troponin I 0.012 ng/mL (0.000-0.056) Pro-B-Type Natriuretic Peptide 43206 pg/mL (0-125) Total Protein 6.6 G/DL (6.4-8.2) Albumin 3.9 G/DL (3.4-5.0) Globulin 2.7 g/dL Albumin/Globulin Ratio 1.4 (1.0-2.7) # Anemia of chronic disease (or of iron deficiency) due to underlying chronic medical issues, multifactorial --> Anemia workup has been ordered, rule out gi bleed --> No evidence of hemolysis is noted, peripheral smear has been reviewed. --> Hgb goal >7. Transfuse prn. --> Epogen or iron at this time is not particularly indicated --> Medications have been reviewed --> low threshold for gi evaluation in case has occult + --> bone marrow biopsy is not indicated given the other more likely causes # Acute External otitis, with h/o of Gram negative infection --> Possible active osteo of mastoid bone? --> MRI as per ID --> ent recs reviewed # Acute on Chronic kidney disease --> fluids as needed # Hypertension. # Diabetes type 2. # Cerebrovascular accident # Benign prostatic hypertrophy The timing of this note does not necessarily reflect the time of the patient was seen. GREATLY APPRECIATE CONSULTATION. Cal Bill MD Sep 09, 2018 15:44
--- NOTE | 2018-09-09 16:03 | Cardiology Report ---
APPROVED REPORT EKG Measurement Heart [id number] OR 140P34 [id number] Normal sinus rhythm Right bundle branch block Left posterior fascicular block Bifascicular block Possible Inferior infarct, age undetermined Anteroseptal infarct, age undetermined Abnormal ECG
--- NOTE | 2018-09-09 16:25 | Diagnostic Imaging Report ---
Indication: Chest pain Technique: One view of the chest Comparison: 01/04/2018 Findings: The heart is enlarged. There is mild to moderate interstitial and airspace edema, which is worse than seen on the prior study. There is probably pleural fluid on the left. Impression: Cardiomegaly Bilateral mild to moderate interstitial and airspace edema, probable left pleural effusion
--- NOTE | 2018-09-09 16:56 | Infectious Diseases Prog Note ---
Assessment/Plan Problems: (1) Otitis externa of left ear Assessment & Plan: with discharge, swelling and cellulitis, continue meropenem and topical ciprofloxacin as per ENT. obtain MRI of the mastoid bone for further eval, follow up with ENT (2) Mastoiditis of left side Assessment & Plan: suspect chronic , was treated for it last year with zosyn , repeat MRI image to confirm , continue meropenem for now , add zyvox . close follow up with ENT (3) Cellulitis of head except face Assessment & Plan: due to the above, continue meropenem add zyvox (4) Renal failure (ARF), acute on chronic Assessment & Plan: suspect dehydration, continue IVF with close monitor of his renal function (5) Congestive heart failure (CHF) Assessment & Plan: continue cardiac meds with lasix as per primary (6) UTI (urinary tract infection) Assessment & Plan: already on meropenem , pending culture Subjective Allergies: Coded Allergies: No Known Allergies (Unverified , 02/23/17) Objective Vital Signs Last 24 Hour Vital Signs Date Time Temp Pulse Resp B/P (MAP) Pulse Ox O2 Delivery O2 Flow Rate FiO2 09/09/18 13:04 Room Air 21 09/09/18 13:04 Room Air 21 09/09/18 11:55 65 09/09/18 11:41 97.5 67 20 139/76 (97) 96 09/09/18 10:38 98.8 09/09/18 09:33 117/73 09/09/18 09:33 117/73 09/09/18 09:31 68 117/73 09/09/18 09:00 Room Air 09/09/18 08:00 98.8 68 19 117/73 (88) 100 09/09/18 07:34 74 09/09/18 07:10 82 12 99 Room Air 21 09/09/18 07:09 Room Air 21 09/09/18 07:09 Room Air 21 09/09/18 04:49 Room Air 09/09/18 04:00 64 09/09/18 04:00 98.9 65 18 129/52 (77) 95 09/09/18 02:45 Room Air 09/09/18 02:30 66 09/09/18 02:30 98.6 66 18 123/55 (77) 95 09/09/18 01:45 98.4 60 20 104/33 100 Room Air 3.0 09/09/18 00:14 98.4 60 20 104/33 100 Room Air 3.0 09/08/18 21:45 65 26 Nasal Cannula 3.0 09/08/18 21:45 98.4 26 105/49 96 Nasal Cannula 3.0 09/08/18 21:32 98.4 65 26 105/49 (67) 96 Nasal Cannula 3.0 Height (Feet): 5 Height (Inches): 5.00 Weight (Pounds): 160 Laboratory Tests Test 09/08/18 22:05 09/09/18 10:00 09/09/18 13:39 09/09/18 14:25 White Blood Count 5.5 K/UL (4.8-10.8) 6.0 K/UL (4.8-10.8) Red Blood Count 2.67 M/UL (4.70-6.10) L 2.71 M/UL (4.70-6.10) L Hemoglobin 8.1 G/DL (14.2-18.0) L 8.4 G/DL (14.2-18.0) L Hematocrit 23.4 % (42.0-52.0) L 24.8 % (42.0-52.0) L Mean Corpuscular Volume 88 FL (80-99) 91 FL (80-99) Mean Corpuscular Hemoglobin 30.4 PG (27.0-31.0) 31.0 PG (27.0-31.0) Mean Corpuscular Hemoglobin Concent 34.7 G/DL (32.0-36.0) 34.0 G/DL (32.0-36.0) Red Cell Distribution Width 11.9 % (11.6-14.8) 12.5 % (11.6-14.8) Platelet Count 169 K/UL (150-450) 167 K/UL (150-450) Mean Platelet Volume 4.6 FL (6.5-10.1) L 4.9 FL (6.5-10.1) L Neutrophils (%) (Auto) 55.9 % (45.0-75.0) 58.4 % (45.0-75.0) Lymphocytes (%) (Auto) 27.3 % (20.0-45.0) 22.9 % (20.0-45.0) Monocytes (%) (Auto) 12.2 % (1.0-10.0) H 11.2 % (1.0-10.0) H Eosinophils (%) (Auto) 3.3 % (0.0-3.0) H 6.6 % (0.0-3.0) H Basophils (%) (Auto) 1.3 % (0.0-2.0) 0.9 % (0.0-2.0) Sodium Level 137 MMOL/L (136-145) 138 MMOL/L (136-145) Potassium Level 4.1 MMOL/L (3.5-5.1) 4.0 MMOL/L (3.5-5.1) Chloride Level 103 MMOL/L (98-107) 103 MMOL/L (98-107) Carbon Dioxide Level 22 MMOL/L (21-32) 21 MMOL/L (21-32) Anion Gap 12 mmol/L (5-15) 14 mmol/L (5-15) Blood Urea Nitrogen 46 mg/dL (7-18) H 45 mg/dL (7-18) H Creatinine 2.8 MG/DL (0.55-1.30) H 2.7 MG/DL (0.55-1.30) H Estimat Glomerular Filtration Rate mL/min (>60) mL/min (>60) Glucose Level 128 MG/DL (74-106) H 126 MG/DL (74-106) H Calcium Level 8.3 MG/DL (8.5-10.1) L 8.5 MG/DL (8.5-10.1) Total Bilirubin 0.4 MG/DL (0.2-1.0) 0.4 MG/DL (0.2-1.0) Aspartate Amino Transf (AST/SGOT) 23 U/L (15-37) 22 U/L (15-37) Alanine Aminotransferase (ALT/SGPT) 35 U/L (12-78) 35 U/L (12-78) Alkaline Phosphatase 116 U/L (46-116) 120 U/L (46-116) H Total Creatine Kinase 156 U/L (26-308) Creatine Kinase MB 1.8 NG/ML (0.0-3.6) Creatine Kinase MB Relative Index 1.1 Troponin I 0.012 ng/mL (0.000-0.056) Pro-B-Type Natriuretic Peptide 39056 pg/mL (0-125) H Total Protein 6.6 G/DL (6.4-8.2) 6.7 G/DL (6.4-8.2) Albumin 3.9 G/DL (3.4-5.0) 3.8 G/DL (3.4-5.0) Globulin 2.7 g/dL 2.9 g/dL Albumin/Globulin Ratio 1.4 (1.0-2.7) 1.3 (1.0-2.7) Hemoglobin A1c 6.2 % (4.3-6.0) H Phosphorus Level 4.7 MG/DL (2.5-4.9) Magnesium Level 2.4 MG/DL (1.8-2.4) Iron Level 36 ug/dL (50-175) L Total Iron Binding Capacity 220 ug/dL (250-450) L Percent Iron Saturation 16 % (15-50) Unsaturated Iron Binding 184 ug/dL (112-346) Ferritin 68 NG/ML (8-388) Triglycerides Level 94 MG/DL (30-150) Cholesterol Level 94 MG/DL (< 200) LDL Cholesterol 41 mg/dL (<100) HDL Cholesterol 43 MG/DL (40-60) Cholesterol/HDL Ratio 2.2 (3.3-4.4) L Vitamin B12 Level 674 PG/ML (193-986) Folate 38.5 NG/ML (8.6-58.9) Urine Color Yellow Urine Appearance Slightly cloudy Urine pH 5 (4.5-8.0) Urine Specific [place] 1.015 (1.005-1.035) Urine Protein 2+ (NEGATIVE) H Urine Glucose (UA) Negative (NEGATIVE) Urine Ketones 1+ (NEGATIVE) H Urine Blood Negative (NEGATIVE) Urine Nitrite Positive (NEGATIVE) H Urine Bilirubin Negative (NEGATIVE) Urine Urobilinogen Normal MG/DL (0.0-1.0) Urine Leukocyte Esterase 2+ (NEGATIVE) H Urine RBC 0-2 /HPF (0 - 0) H Urine WBC Tntc /HPF (0 - 0) H Urine Squamous Epithelial Cells Few /LPF (NONE/OCC) Urine Bacteria Moderate /HPF (NONE) H Current Medications Medications (Trade) Dose Ordered Sig/Jared Route PRN Reason Start Time Stop Time Status Last Admin Dose Admin Acetaminophen (Tylenol) 325 mg Q4H PRN ORAL Mild Pain/Temp > 100.5 09/09/18 05:15 10/09/18 05:14 Acetaminophen/ Hydrocodone Bitart ([place] 5/325) 1 tab Q4H PRN ORAL Moderate Pain (Pain Scale 4-6) 09/09/18 05:15 09/16/18 05:14 09/09/18 10:08 Albuterol/ Ipratropium (Albuterol/ Ipratropium) 3 ml Q6HRT HHN 09/09/18 07:00 09/14/18 06:59 Atorvastatin Calcium (Lipitor) 80 mg BEDTIME ORAL 09/09/18 21:00 10/09/18 20:59 Baclofen (Lioresal) 5 mg BEDTIME ORAL 09/09/18 21:00 10/09/18 20:59 Carvedilol (Coreg) 6.25 mg EVERY 12 HOURS ORAL 09/09/18 09:00 10/09/18 08:59 09/09/18 09:31 Dextrose (Dextrose 50%) 25 ml Q30M PRN IV Hypoglycemia 09/09/18 05:30 10/09/18 05:29 Dextrose (Dextrose 50%) 50 ml Q30M PRN IV Hypoglycemia 09/09/18 05:30 10/09/18 05:29 Docusate Sodium (Colace) 100 mg TWICE A DAY ORAL 09/09/18 09:00 10/09/18 08:59 09/09/18 09:31 Enoxaparin Sodium (Lovenox) 30 mg DAILY SUBQ 09/09/18 09:00 10/09/18 08:59 09/09/18 09:38 Famotidine (Pepcid) 20 mg DAILY ORAL 09/09/18 09:00 10/09/18 08:59 09/09/18 09:31 Finasteride (Proscar) 5 mg DAILY ORAL 09/09/18 09:00 10/09/18 08:59 09/09/18 09:42 Fish Oil (Fish Oil) 2,000 mg DAILY ORAL 09/09/18 09:00 10/09/18 08:59 09/09/18 09:42 Gabapentin (Neurontin) 200 mg BEDTIME ORAL 09/09/18 21:00 10/09/18 20:59 Hydralazine HCl (Apresoline) 100 mg Q8H ORAL 09/09/18 09:00 10/09/18 08:59 09/09/18 09:33 Insulin Aspart (NovoLOG) BEFORE MEALS AND HS SUBQ 09/09/18 06:30 10/09/18 06:29 09/09/18 12:04 Isosorbide Dinitrate (Isordil) 40 mg Q8H ORAL 09/09/18 09:00 10/09/18 08:59 09/09/18 09:33 Meropenem 500 mg/ Sodium Chloride 55 ml @ 110 mls/hr EVERY 12 HOURS IVPB 09/09/18 21:00 09/14/18 20:59 Pantoprazole (Protonix) 40 mg DAILY ORAL 09/09/18 09:00 10/09/18 08:59 09/09/18 09:33 Vitamin B Complex/ Vit C/Folic Acid (Nephrovite) 1 tab DAILY ORAL 09/09/18 09:00 10/09/18 08:59 09/09/18 09:31 Mu Gonzalez M.D. Sep 09, 2018 16:56
--- NOTE | 2018-09-09 17:01 | Consultation ---
Consult Note Consult Note asked to evaluate at the request of dr Escobar for renal failure Patient known to me from Dec 2017 admission- At the time SCr 2.3 S Cr this admission 2.8 ER: Patient presents with complaints of drainage from the left ear Reports ongoing for the past 7 to 10 days He also has some discomfort to the left ear Denies any change with hearing denies any chest pain or shortness of breath Patient however does report swelling in his legs and right hand Also feels better with oxygen Denies any vomiting or diarrhea denies any fevers or chills No Known Allergies (Unverified , 02/23/17) Hx Cardiac Problems: Yes - CHF; AORTO CORONARY BYPASS GRAFT; ISCHEMIC CARDIOMYOPATHY Hx Hypertension: Yes Hx COPD: Yes - RF Hx Diabetes: Yes Hx Gastrointestinal Problems: Yes Hx Dialysis: Yes - CKD Hx Neurological Problems: Yes Hx Cerebrovascular Accident: Yes - HEMIPLEGIA Hx Weakness: Yes examined Son at bed side Data reviewed . Assessment/Plan Acute on Chronic renal failure- Diabetic Nephropathy h/o Right Nephrectomy Anemia Acute External otitis, with h/o of Gram negative infection. 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 DM HTN h/o CVA CHF h/o PAF BPH optimize BP and BS and Cardiac status Venofer one dose EPOGEN SQ Anemia management Kidney AR ? 2D echo ? Flomax Per orders Jimbo Barker MD Sep 09, 2018 17:01
[2018-09-09] MEDS ORDERED: Iron Sucrose 200 MG in NS 110 ML IV ONE (18:00)
--- NOTE | 2018-09-09 19:05 | NUR ---
HAND-OFF: Report given to ERNESTO Morgan. Endorsed about Venofer rescheduled.
--- NOTE | 2018-09-09 19:06 | NUR ---
NURSE NOTES: Received pt from ERNESTO Corley. Pt is awake and resting in bed . In no acute distress. IV site intact. Bed in locked in lower position, and call light within reach. Will continue with plan of care.
--- NOTE | 2018-09-09 19:45 | Consultation ---
DATE OF CONSULTATION: 09/09/2018 INFECTIOUS DISEASES CONSULTATION CONSULTING PHYSICIAN: Mu Gonzalez M.D. REQUESTING PHYSICIAN: Tara Escobar M.D. REASON FOR CONSULTATION: Left ear otitis externa with possible chronic mastoiditis, recommendation for antimicrobial treatment. HISTORY OF PRESENT ILLNESS: The patient 73-year-old male with past medical history of left mastoiditis, was treated last year with Zosyn for maybe two weeks, was sent to [facility] emergency room with persistent drainage from his left ear for the last 7 to 10 days in addition to discomfort to the left ear. He also had significant change with his hearing and mild headache with poor appetite. The patient denied any nausea, vomiting, or diarrhea. Denied any recent travel or sick contact. In the ED, his blood pressure was low of 105/49. He had a normal white count of 5.5. Head CT scan showed possible mastoiditis. The patient was admitted to the hospital for further evaluation and management. ENT was called. The patient was started on Cipro topical ear drops with recommendation for follow up with ENT as an outpatient. Infectious Disease consultation was requested today for antibiotics treatment and further management. As of note, the patient is a poor historian, cannot provide good history. History was mainly obtained from the medical record and nursing staff. REVIEW OF SYSTEMS: Unable to obtain. The patient is a poor historian, cannot provide good history. PAST MEDICAL HISTORY: Significant for congestive heart failure, coronary artery disease with ischemic cardiomyopathy, status post aortocoronary bypass graft, hypertension, COPD, diabetes, GERD, chronic kidney disease, CVA with hemiplegia, and dysphagia. PAST SURGICAL HISTORY: He had aortocoronary bypass graft. ALLERGIES: No known drug allergy. SOCIAL HISTORY: The patient denied any recent drugs, tobacco, or alcohol. He is on halfway, unemployed. FAMILY HISTORY: Not contributory. ALLERGIES: No known drug allergies. MEDICATIONS: Currently, he was started on meropenem by the admitting physician. For the rest of his medications, please refer to MAR. LABORATORY DATA: Labs showed white count of 6000, hemoglobin of 8.4, platelet count of 167,000. BUN of 45, creatinine of 2.7. AST of 32 and ALT of 35. Urinalysis showed +2 leukocyte esterase, wbc's too numerous to count, and moderate amount of bacteria. Microbiology, left ear culture of the drainage last year on 08/27/2018 grew Proteus mirabilis, multi-drug resistant. His urine culture also grew the same pattern of bacteria. IMAGIN. Chest x-ray showed bilateral vaet-ve-aeavdlix interstitial and airspace edema, probable left pleural effusion. 2. Head CT scan showed chronic and age-related changes, multiple old infarcts negative for acute intracranial bleed or mass effect, left mastoid disease incidentally noted. PHYSICAL EXAMINATION: VITAL SIGNS: Temperature 97.5, pulse 67, respirations 20, blood pressure 139/76, saturation 96% on room air. GENERAL: Elderly male, up in bed, awake, alert, hard of hearing, confused, not in acute distress. HEENT: He had left ear swelling with surrounding skin redness and edema on the left with cellulitis, significant tenderness around the ear, mainly in the mastoid area. No discharge can be seen. Normal range of motion in his neck. Pupils reactive to light equally. Pale sclerae. Moist oral mucosa. No exudate or thrush. NECK: Supple. No lymphadenopathy. CARDIOVASCULAR: Regular rate and rhythm. No murmur or gallop. LUNGS: Clear bilaterally. No wheezing or rhonchi. ABDOMEN: Soft, nontender, and nondistended. Normal bowel sounds. No hepatosplenomegaly or ascites. EXTREMITIES: Trace edema. No cyanosis. ASSESSMENT AND RECOMMENDATION: 1. Left ear otitis externa with discharge. The patient grew multidrug-resistant Proteus mirabilis last year expect highly-resistant organism, agree on meropenem to cover for Pseudomonas in diabetic patient and continue topical ciprofloxacin. As per ENT, recommend MRI of the brain and mastoid bones for further evaluation with close follow up with ENT. 2. Possible chronic mastoiditis of the left side. The patient was treated last year with Zosyn. We will repeat MRI image to confirm. Continue meropenem for now. Add Zyvox empirically. Close follow up with ENT for possible surgical debridement in the future. 3. Cellulitis of the head except the face due to the above. Continue meropenem and Zyvox empirically. 4. Renal failure, acute on chronic. Suspect dehydration. Continue IV fluids. Avoid nephrotoxic medicine with close monitor of his renal function. 5. Congestive heart failure. Continue cardiac medications with Lasix as per primary and cardiac medications. Thank you for the consult. ID will continue to follow. Mu Gonzalez M.D. DR: SHERITA JOB#: [id number] CC:
[2018-09-09] MEDS ORDERED: Iron Sucrose 200 MG in NS 110 ML IV SCH (20:00)
[2018-09-09] MEDS ORDERED: AMLODIPINE BESY10 MG ORAL (20:03)
[2018-09-09] MEDS ORDERED: ELIQUIS5 MG PO (20:06)
[2018-09-09] MEDS ORDERED: ASPIRIN-LOW81 MG ORAL (20:07)
[2018-09-09] MEDS ORDERED: FUROSEMIDE40 MG ORAL (20:12)
[2018-09-09] MEDS ORDERED: ACIDOPHILUS1 EAC6 PO (20:15)
[2018-09-09] MEDS ORDERED: LEVEMIR FL100 UNIT/1 SUBQ (20:17)
[2018-09-09] MEDS ORDERED: CLOPIDOGREL75 MG ORAL (20:23)
[2018-09-09] MEDS ORDERED: VOLTAREN GEL 1% TDERMAL (20:28)
[2018-09-09] MEDS: Atorvastatin 80mg tab ORAL SCH (21:17)
[2018-09-09] MEDS: Tamsulosin 0.4mg cap ORAL SCH (21:17)
[2018-09-09] MEDS: Meropenem 500mg in NS 55ml IVPB SCH (21:29)
[2018-09-10] VITALS: BP 114/52
[2018-09-10] MEDS: Albuterol/Ipratropium 3ml neb HHN SCH ×4 (01:00→19:00)
[2018-09-10] MEDS: HydrALAZINE 50mg tab ORAL SCH ×3 (01:04→17:01)
--- NOTE | 2018-09-10 01:29 | NUR ---
NURSE NOTES: Pt refused breathing treatment.
[2018-09-10 04:00] VITALS: BP 120/51
[2018-09-10] MEDS: NovoLOG Insulin Flexpen SUBQ SCH ×4 (06:21→20:48)
[2018-09-10 07:35] LABS: BASOPHILS % (AUTO) 1.2 % (0.0-2.0); EOSINOPHILS % (AUTO) 6.7 % (0.0-3.0); HEMOGLOBIN 8.2 G/DL (14.2-18.0); LYMPHOCYTES % (AUTO) 21.6 % (20.0-45.0); MEAN CORPUSCULAR VOLUME 91 FL (80-99); MONOCYTES % (AUTO) 13.4 % (1.0-10.0); NEUTROPHILS % (AUTO) 57.2 % (45.0-75.0); PLATELET COUNT 174 K/UL (150-450); RED BLOOD COUNT 2.64 M/UL (4.70-6.10); RED CELL DISTRIBUTION WIDTH 12.7 % (11.6-14.8); WHITE BLOOD COUNT 6.1 K/UL (4.8-10.8)
--- NOTE | 2018-09-10 07:44 | NUR ---
HAND-OFF: Report given to ERNESTO Corley. Endorsed plan of care.
--- NOTE | 2018-09-10 07:45 | NUR ---
NURSE NOTES: Received report from ERNESTO Swain. Denies any pain. Patient on room air and breathing even and unlabored. Pt has right sided weakness, noted flaccid from previous CVA. Patient is on school bus monitor. Pt resting in bed comfortably. Bed in low and locked position, call light within reach, bedside table within reach. Patient is on fall precaution. Continue to monitor and follow up with plan of care. Addendum: 09/10/18 at 0804 by Barney Manuel RN Report received from ERNESTO Morgan
[2018-09-10 08:00] VITALS: BP 130/49
[2018-09-10 08:06] LABS: ALANINE AMINOTRANSFERASE 30 U/L (12-78); ALBUMIN 3.2 G/DL (3.4-5.0); ALBUMIN/GLOBULIN RATIO 1.1 (1.0-2.7); ALKALINE PHOSPHATASE 103 U/L (46-116); ANION GAP 12 mmol/L (5-15); ASPARTATE AMINO TRANSFERASE 19 U/L (15-37); BILIRUBIN,TOTAL 0.5 MG/DL (0.2-1.0); BLOOD UREA NITROGEN 46 mg/dL (7-18); CALCIUM 8.1 MG/DL (8.5-10.1); CARBON DIOXIDE 21 MMOL/L (21-32); CHLORIDE 108 MMOL/L (98-107); CREATININE 2.9 MG/DL (0.55-1.30); POTASSIUM 3.9 MMOL/L (3.5-5.1); SODIUM 141 MMOL/L (136-145)
--- NOTE | 2018-09-10 09:01 | Diagnostic Imaging Report ---
Indication: Left ear pain with drainage for 7 to 10 days Technique: Sagittal, axial, and coronal T1 fast spin echo, sagittal and coronal STIR, axial and coronal T 2 fast spin-echo images obtained through the temporal bones Comparison: Reference made to head CT dated 09/08/2018, brain MRI dated 01/07/2018, temporal bone CT dated 08/26/2017 Findings: There is extensive high signal involving most of the mastoid air cells. High signal also appears extend in to the lateral otic capsule, as the lateral semicircular canal appears to be surrounded by bone edema. There is also involvement of the epitympanum and attic, the middle ear cavity and the tympanic membrane. There is mucosal thickening of the external auditory canal. Note, however, that extensive mastoid and middle ear disease is also demonstrated on previous brain MRI of 01/07/2018, as well as the temporal bone CT of 08/26/2017, although possibly more extensive currently. No definite epidural extension of disease is demonstrated. The internal auditory canal appears unremarkable. The right temporal bone appears unremarkable. The included intracranial structures appear unremarkable. There is evidence of prior bilateral cataract surgery. Impression: Evidence of extensive otomastoiditis, as described. Suggestion of high signal within the lateral otic capsule raises concern for osteomyelitis of such. Consider temporal bone CT for more detailed characterization of the degree of osseous involvement. Findings discussed by phone with Dr. Escobar at the time of interpretation
[2018-09-10] MEDS: Carvedilol 6.25mg Tab ORAL SCH ×2 (09:18→20:46)
[2018-09-10] MEDS: Nephrovite tab (Rena-Vite) ORAL SCH (09:19)
[2018-09-10] MEDS: Docusate 100mg cap ORAL SCH ×3 (09:20→17:01)
[2018-09-10] MEDS: Enoxaparin 30mg Inj SUBQ SCH (09:22)
--- NOTE | 2018-09-10 09:48 | NUR ---
CASE MANAGEMENT:REVIEW 09/10/18 SI: EXTENSIVE OTOMASTOIDITIS CONCERN FOR OSTEO 98.3 76 21 130/49 95% ON 1L/NS H/H-8.2/24.0 BUN+46 CR+2.9 IS: IV MEROPENEM Q12 IV LINEZOLID Q12 EPOETIN SQ MWF HYDRALAZINE PO Q8HRS FLOMAX PO QHS PROTONIX PO Q12 LOVENOX SQ QD COREG PO Q12 : TELEMETRY STATUS DCP: FROM [facility]
[2018-09-10] MEDS: Meropenem 500mg in NS 55ml IVPB SCH ×2 (11:35→20:47)
[2018-09-10 12:00] VITALS: BP 121/51
--- NOTE | 2018-09-10 13:23 | General Progress Note ---
Assessment/Plan Status: stable Assessment/Plan: S: I have pain in my left ear, is getting better O: Interval improvement in for left ear pain and discharge PHYSICAL EXAMINATION: HEAD AND NECK: episodes of epistaxia, detailed exam deferred. Atraumatic and normocephalic. Positive for the pain and tenderness overlying left Auditory canal. Positive for minimal redness in the external auditory meatus.CHEST: scar of prior sternotomy, Clear to auscultation. No wheezing. No crackles. HEART: S1 and S2. Regular rate and rhythm.ABDOMEN: Soft. No organomegaly.MUSCULOSKELETAL: Dysfiguration of toe nail, both sides, Negative for any gross abnormal lateralized motor deficit. NEUROLOGIC: The patient is awake, alert, and oriented x3. LABORATORY AND DIAGNOSTIC DATA: Labs dated 09/10/2018 ASSESSMENT: 1. 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 Acute on Chronic kidney disease. 3. Hypertension. 4. Diabetes type 2. 5. Cerebrovascular accident 6. CHF- low EF : appears stable 7. PAF ( history of), Sinus at this time 6. Benign prostatic hypertrophy. 7. Gastrointestinal and deep venous thrombosis prophylaxis. PLAN OF CARE: Targeted community action worker antibiotic treatment, per ID Pending Cultures Picc line, in anticipation of DC Subjective Allergies: Coded Allergies: No Known Allergies (Unverified , 02/23/17) Objective Last 24 Hour Vital Signs Date Time Temp Pulse Resp B/P (MAP) Pulse Ox O2 Delivery O2 Flow Rate FiO2 09/10/18 12:00 98.3 72 21 121/51 (74) 96 09/10/18 09:19 130/49 09/10/18 09:18 130/49 09/10/18 09:18 76 130/49 09/10/18 09:00 Room Air 09/10/18 08:00 98.3 76 21 130/49 (76) 95 09/10/18 07:36 76 09/10/18 07:20 94 Nasal Cannula 1.0 24 09/10/18 07:20 Nasal Cannula 09/10/18 07:20 Nasal Cannula 09/10/18 04:00 71 09/10/18 04:00 98.0 71 18 120/51 (74) 96 09/10/18 01:24 Nasal Cannula 09/10/18 01:24 Nasal Cannula 09/10/18 01:04 139/49 09/10/18 01:04 139/49 09/10/18 00:00 98.0 70 18 114/52 (72) 96 09/10/18 00:00 63 09/09/18 21:18 71 130/53 09/09/18 21:00 Room Air 09/09/18 20:00 99.0 70 20 124/49 (74) 99 09/09/18 20:00 70 09/09/18 19:29 90 Nasal Cannula 1.0 24 09/09/18 19:28 72 18 96 Room Air 21 09/09/18 19:24 21 09/09/18 19:18 70 18 90 Room Air 21 09/09/18 17:33 68 09/09/18 16:58 121/50 09/09/18 16:58 121/50 09/09/18 16:00 98.6 69 20 121/50 (73) 95 Intake and Output 09/09/18 09/10/18 18:59 06:59 Intake Total 435 ml Output Total 300 ml Balance 435 ml -300 ml Intake Oral 380 ml IV Total 55 ml Output Urine Total 300 ml # Voids 3 # Bowel Movements 1 Laboratory Tests 09/09/18 13:39: Urine Color Yellow, Urine Appearance Slightly cloudy, Urine pH 5, Urine Specific Arthur 1.015, Urine Protein 2+H, Urine Glucose (UA) Negative, Urine Ketones 1+H, Urine Blood Negative, Urine Nitrite PositiveH, Urine Bilirubin Negative, Urine Urobilinogen Normal, Urine Leukocyte Esterase 2+H, Urine RBC 0- 2H, Urine WBC TntcH, Urine Squamous Epithelial Cells Few, Urine Bacteria ModerateH 09/09/18 14:25: White Blood Count 6.0, Red Blood Count 2.71L, Hemoglobin 8.4L, Hematocrit 24.8L , Mean Corpuscular Volume 91, Mean Corpuscular Hemoglobin 31.0, Mean Corpuscular Hemoglobin Concent 34.0, Red Cell Distribution Width 12.5, Platelet Count 167, Mean Platelet Volume 4.9L, Neutrophils (%) (Auto) 58.4, Lymphocytes ( %) (Auto) 22.9, Monocytes (%) (Auto) 11.2H, Eosinophils (%) (Auto) 6.6H, Basophils (%) (Auto) 0.9 09/10/18 06:23: White Blood Count 6.1, Red Blood Count 2.64L, Hemoglobin 8.2L, Hematocrit 24.0L , Mean Corpuscular Volume 91, Mean Corpuscular Hemoglobin 31.2H, Mean Corpuscular Hemoglobin Concent 34.4, Red Cell Distribution Width 12.7, Platelet Count 174, Mean Platelet Volume 6.7, Neutrophils (%) (Auto) 57.2, Lymphocytes (% ) (Auto) 21.6, Monocytes (%) (Auto) 13.4H, Eosinophils (%) (Auto) 6.7H, Basophils (%) (Auto) 1.2, Sodium Level 141, Potassium Level 3.9, Chloride Level 108H, Carbon Dioxide Level 21, Anion Gap 12, Blood Urea Nitrogen 46H, Creatinine 2.9H, Estimat Glomerular Filtration Rate , Glucose Level 82, Calcium Level 8.1L, Total Bilirubin 0.5, Aspartate Amino Transf (AST/SGOT) 19, Alanine Aminotransferase (ALT/SGPT) 30, Alkaline Phosphatase 103, Total Protein 6.2L, Albumin 3.2L, Globulin 3.0, Albumin/Globulin Ratio 1.1 Height (Feet): 5 Height (Inches): 5.00 Weight (Pounds): 148 Tara Escobar MD Sep 10, 2018 13:23
--- NOTE | 2018-09-10 14:00 | NUR ---
NURSE NOTES: Spoke with Dr. Escobar. States patient is able to go back to the SNF after verifying IV antibiotics with Dr. Gonzalez.
--- NOTE | 2018-09-10 14:19 | Nephrology Progress Note ---
Assessment/Plan Problem List: (1) Renal failure (ARF), acute on chronic (2) History of nephrectomy, unilateral (3) Diabetic nephropathy (4) Congestive heart failure (CHF) (5) Mastoiditis of left side (6) Anemia due to chronic kidney disease Assessment Acute on Chronic renal failure- Diabetic Nephropathy h/o Right Nephrectomy Anemia Acute External otitis, with h/o of Gram negative infection. 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 DM HTN h/o CVA CHF h/o PAF BPH Plan Optimize BP and BS and Cardiac status Venofer one dose EPOGEN SQ Anemia management Kidney AR ? 2D echo ? Flomax Per orders Subjective ROS Limited/Unobtainable: No Constitutional: Reports: malaise Objective Objective Last 24 Hour Vital Signs Date Time Temp Pulse Resp B/P (MAP) Pulse Ox O2 Delivery O2 Flow Rate FiO2 09/10/18 13:05 Nasal Cannula 09/10/18 13:05 Nasal Cannula 09/10/18 12:00 98.3 72 21 121/51 (74) 96 09/10/18 09:19 130/49 09/10/18 09:18 130/49 09/10/18 09:18 76 130/49 09/10/18 09:00 Room Air 09/10/18 08:00 98.3 76 21 130/49 (76) 95 09/10/18 07:36 76 09/10/18 07:20 94 Nasal Cannula 1.0 24 09/10/18 07:20 Nasal Cannula 09/10/18 07:20 Nasal Cannula 09/10/18 04:00 71 09/10/18 04:00 98.0 71 18 120/51 (74) 96 09/10/18 01:24 Nasal Cannula 09/10/18 01:24 Nasal Cannula 09/10/18 01:04 139/49 09/10/18 01:04 139/49 09/10/18 00:00 98.0 70 18 114/52 (72) 96 09/10/18 00:00 63 09/09/18 21:18 71 130/53 09/09/18 21:00 Room Air 09/09/18 20:00 99.0 70 20 124/49 (74) 99 09/09/18 20:00 70 09/09/18 19:29 90 Nasal Cannula 1.0 24 09/09/18 19:28 72 18 96 Room Air 21 09/09/18 19:24 21 09/09/18 19:18 70 18 90 Room Air 21 09/09/18 17:33 68 09/09/18 16:58 121/50 09/09/18 16:58 121/50 09/09/18 16:00 98.6 69 20 121/50 (73) 95 Intake and Output 09/09/18 09/10/18 18:59 06:59 Intake Total 435 ml Output Total 300 ml Balance 435 ml -300 ml Intake Oral 380 ml IV Total 55 ml Output Urine Total 300 ml # Voids 3 # Bowel Movements 1 Laboratory Tests 09/09/18 14:25: White Blood Count 6.0, Red Blood Count 2.71L, Hemoglobin 8.4L, Hematocrit 24.8L , Mean Corpuscular Volume 91, Mean Corpuscular Hemoglobin 31.0, Mean Corpuscular Hemoglobin Concent 34.0, Red Cell Distribution Width 12.5, Platelet Count 167, Mean Platelet Volume 4.9L, Neutrophils (%) (Auto) 58.4, Lymphocytes ( %) (Auto) 22.9, Monocytes (%) (Auto) 11.2H, Eosinophils (%) (Auto) 6.6H, Basophils (%) (Auto) 0.9 09/10/18 06:23: White Blood Count 6.1, Red Blood Count 2.64L, Hemoglobin 8.2L, Hematocrit 24.0L , Mean Corpuscular Volume 91, Mean Corpuscular Hemoglobin 31.2H, Mean Corpuscular Hemoglobin Concent 34.4, Red Cell Distribution Width 12.7, Platelet Count 174, Mean Platelet Volume 6.7, Neutrophils (%) (Auto) 57.2, Lymphocytes (% ) (Auto) 21.6, Monocytes (%) (Auto) 13.4H, Eosinophils (%) (Auto) 6.7H, Basophils (%) (Auto) 1.2, Sodium Level 141, Potassium Level 3.9, Chloride Level 108H, Carbon Dioxide Level 21, Anion Gap 12, Blood Urea Nitrogen 46H, Creatinine 2.9H, Estimat Glomerular Filtration Rate , Glucose Level 82, Calcium Level 8.1L, Total Bilirubin 0.5, Aspartate Amino Transf (AST/SGOT) 19, Alanine Aminotransferase (ALT/SGPT) 30, Alkaline Phosphatase 103, Total Protein 6.2L, Albumin 3.2L, Globulin 3.0, Albumin/Globulin Ratio 1.1 Height (Feet): 5 Height (Inches): 5.00 Weight (Pounds): 148 General Appearance: no apparent distress, other - no ear pain Cardiovascular: normal rate Respiratory/Chest: decreased breath sounds Abdomen: distended Jimbo Barker MD Sep 10, 2018 14:19
--- NOTE | 2018-09-10 15:00 | NUR ---
NURSE NOTES: Spoke to Dr. Gonzalez about plan of care of patient. States patient need six weeks of IV antibiotics of Meropenem and Zyvox. An order of Picc line was needed for SNF. Orders entered.
[2018-09-10] MEDS ORDERED: Lidocaine 1% Plain 30 ml INJ PRN (15:30)
[2018-09-10] MEDS ORDERED: Heparin1,000 units/500ml Premix(Conc:2 units/ml) IV PRN (15:30)
--- NOTE | 2018-09-10 15:55 | Diagnostic Imaging Report ---
Indication: Left ear pain, abnormal recent MRI Technique: Noncontrast spiral acquisitions obtained through the temporal bones high resolution axial and coronal thin reconstructions were generated using high resolution algorithm. Total dose length product 549.24 mGycm. CTDIvol(s) 28.19 mGy. Radiation dose was minimized using automated exposure control Comparison: 08/26/2017 Findings: Again demonstrated is extensive opacification of the mastoid air cells. There is suggestion of slightly increased sclerosis of the septa. A lucency protruding centrally into the otic capsule is unchanged from the previous exam there is also symmetric drape with the contralateral side so presumed physiologic. There is complete opacification of the middle ear cavity with some preserved air in the attic. However, soft tissue essentially completely surrounds the middle ear ossicles and is more extensive than on the previous exam. There is complete opacification of the tympanic cavity medial to the tympanic membrane. This is progressive since prior exam. There is increased thickening of the external auditory canal mucosa. No definite osseous destruction demonstrated. The internal auditory canal appears unremarkable. The inner ear structures appear unremarkable. The right mastoid air cells, middle ear structures and tympanic cavity appear unremarkable. There is some cerumen within the external auditory canal which is otherwise unremarkable. The included orbits are unremarkable. The included intracranial structures are unremarkable for right basal ganglia region lacunar infarcts. There is chronic appearing nasal septal deviation. There is an old fracture deformity of the left zygomatic arch. There is suggestion of anterior dislocation or subluxation of the right mandibular condyle. Impression: Evidence of extensive left otomastoiditis, as detailed above, progressive since 08/26/2017. No definite significant bony erosion. Note that what appeared to be otic capsule involvement on recent MRI is probably just fluid within the mastoid air cells and middle ear cavity. Possible anterior dislocation or subluxation of the right mandibular condyle. Correlate with clinical findings Evidence old left zygomatic arch fracture The CT scanner at [facility] is accredited by the [employer] and the scans are performed using protocols designed to limit radiation exposure to as low as reasonably achievable to attain images of sufficient resolution adequate for diagnostic evaluation.
[2018-09-10 16:00] VITALS: BP_SYST 120; BP_SYST 149; BP_DIAS 56; BP_DIAS 77
--- NOTE | 2018-09-10 17:35 | Hematology/Onc Progress Note ---
Assessment/Plan Assessment/Plan ASSESSMENT AND RECOMMENDATIONS # Anemia of chronic disease due to underlying ckd, multifactorial --> Anemia workup has been reviewed. --> Ferritin 68, iron 26, tibc 220 --> No evidence of hemolysis is noted, peripheral smear has been reviewed. --> Hgb goal >7. Transfuse prn. --> Continue on epogen --> Medications have been reviewed --> low threshold for gi evaluation in case has occult + --> bone marrow biopsy is not indicated given the other more likely causes --> Hgb trend: 8.2--> --> IV iron given 09/09 # Acute External otitis, with h/o of Gram negative infection --> Possible active osteo of mastoid bone? --> MRI as per ID --> ent recs reviewed # Acute on Chronic kidney disease --> fluids as needed --> Continue epogen # Hypertension. # Diabetes type 2. # Cerebrovascular accident # Benign prostatic hypertrophy The timing of this note does not necessarily reflect the time of the patient was seen. GREATLY APPRECIATE CONSULTATION. Subjective Hematologic/Lymphatic: Reports: anemia Allergies: Coded Allergies: No Known Allergies (Unverified , 02/23/17) All Systems: reviewed and negative except above Subjective 09/10: Pt resting in bed. S/P IV iron, current Hgb of 8.2. Objective Objective Current Medications Medications (Trade) Dose Ordered Sig/Jared Route PRN Reason Start Time Stop Time Status Last Admin Dose Admin Acetaminophen (Tylenol) 325 mg Q4H PRN ORAL Mild Pain/Temp > 100.5 09/09/18 05:15 10/09/18 05:14 Acetaminophen/ Hydrocodone Bitart ([place] 5/325) 1 tab Q4H PRN ORAL Moderate Pain (Pain Scale 4-6) 09/09/18 05:15 09/16/18 05:14 09/09/18 10:08 Albuterol/ Ipratropium (Albuterol/ Ipratropium) 3 ml Q6HRT HHN 09/09/18 07:00 09/14/18 06:59 09/09/18 19:18 Atorvastatin Calcium (Lipitor) 80 mg BEDTIME ORAL 09/09/18 21:00 10/09/18 20:59 09/09/18 21:17 Baclofen (Lioresal) 5 mg BEDTIME ORAL 09/09/18 21:00 10/09/18 20:59 09/09/18 21:17 Carvedilol (Coreg) 6.25 mg EVERY 12 HOURS ORAL 09/09/18 09:00 10/09/18 08:59 09/10/18 09:18 Chlorhexidine Gluconate (Merced-Hex 2%) 1 applic DAILY@2000 TOPIC 09/10/18 20:00 10/10/18 19:59 Dextrose (Dextrose 50%) 25 ml Q30M PRN IV Hypoglycemia 09/09/18 05:30 10/09/18 05:29 Dextrose (Dextrose 50%) 50 ml Q30M PRN IV Hypoglycemia 09/09/18 05:30 10/09/18 05:29 Docusate Sodium (Colace) 100 mg TID ORAL 09/09/18 18:00 10/09/18 08:59 09/10/18 17:01 Enoxaparin Sodium (Lovenox) 30 mg DAILY SUBQ 09/09/18 09:00 10/09/18 08:59 09/10/18 09:22 Epoetin Layton (Epoetin Layton-EPBX(NON ESRD)) 10,000 unit SAT-SAT-SAT SUBQ 09/10/18 21:00 10/10/18 20:59 Finasteride (Proscar) 5 mg DAILY ORAL 09/09/18 09:00 10/09/18 08:59 09/10/18 09:21 Fish Oil (Fish Oil) 2,000 mg DAILY ORAL 09/09/18 09:00 10/09/18 08:59 09/10/18 09:21 Gabapentin (Neurontin) 200 mg BEDTIME ORAL 09/09/18 21:00 10/09/18 20:59 09/09/18 21:18 Heparin Sodium/ Sodium Chloride (Heparin 1000 units/500ml Premix) 1,000 unit ONCE PRN IV dialysis 09/10/18 15:30 09/12/18 15:29 Hydralazine HCl (Apresoline) 100 mg Q8H ORAL 09/10/18 01:00 10/09/18 08:59 09/10/18 17:01 Insulin Aspart (NovoLOG) BEFORE MEALS AND HS SUBQ 09/09/18 06:30 10/09/18 06:29 09/10/18 17:05 Isosorbide Dinitrate (Isordil) 40 mg Q8H ORAL 09/09/18 09:00 10/09/18 08:59 09/10/18 17:01 Lidocaine HCl (Xylocaine 1% 30ml) 30 ml ONCE PRN INJ picc line placement 09/10/18 15:30 09/12/18 15:29 Linezolid 300 ml @ 300 mls/hr Q12HR IVPB 09/09/18 18:00 09/16/18 17:59 09/10/18 08:13 Meropenem 500 mg/ Sodium Chloride 55 ml @ 110 mls/hr EVERY 12 HOURS IVPB 09/09/18 21:00 09/14/18 20:59 09/10/18 11:35 Pantoprazole (Protonix) 40 mg EVERY 12 HOURS ORAL 09/09/18 21:00 10/09/18 20:59 09/10/18 09:19 Tamsulosin HCl (Flomax) 0.4 mg BEDTIME ORAL 09/09/18 21:00 10/09/18 20:59 09/09/18 21:17 Vitamin B Complex/ Vit C/Folic Acid (Nephrovite) 1 tab DAILY ORAL 09/09/18 09:00 10/09/18 08:59 09/10/18 09:19 Last 24 Hour Vital Signs Date Time Temp Pulse Resp B/P (MAP) Pulse Ox O2 Delivery O2 Flow Rate FiO2 09/10/18 17:01 149/77 09/10/18 17:01 149/77 09/10/18 16:00 98.3 67 20 120/56 (77) 96 09/10/18 15:44 65 09/10/18 13:05 Nasal Cannula 09/10/18 13:05 Nasal Cannula 09/10/18 12:00 98.3 72 21 121/51 (74) 96 09/10/18 11:50 67 09/10/18 09:19 130/49 09/10/18 09:18 130/49 09/10/18 09:18 76 130/49 09/10/18 09:00 Room Air 09/10/18 08:00 98.3 76 21 130/49 (76) 95 09/10/18 07:36 76 09/10/18 07:20 94 Nasal Cannula 1.0 24 09/10/18 07:20 Nasal Cannula 09/10/18 07:20 Nasal Cannula 09/10/18 04:00 71 09/10/18 04:00 98.0 71 18 120/51 (74) 96 09/10/18 01:24 Nasal Cannula 09/10/18 01:24 Nasal Cannula 09/10/18 01:04 139/49 09/10/18 01:04 139/49 09/10/18 00:00 98.0 70 18 114/52 (72) 96 09/10/18 00:00 63 09/09/18 21:18 71 130/53 09/09/18 21:00 Room Air 09/09/18 20:00 99.0 70 20 124/49 (74) 99 09/09/18 20:00 70 09/09/18 19:29 90 Nasal Cannula 1.0 24 09/09/18 19:28 72 18 96 Room Air 21 09/09/18 19:24 21 09/09/18 19:18 70 18 90 Room Air 21 09/09/18 17:33 68 09/09/18 16:58 121/50 09/09/18 16:58 121/50 09/09/18 16:00 98.6 69 20 121/50 (73) 95 09/09/18 13:04 Room Air 21 09/09/18 13:04 Room Air 21 09/09/18 11:55 65 09/09/18 11:41 97.5 67 20 139/76 (97) 96 09/09/18 10:38 98.8 09/09/18 09:33 117/73 09/09/18 09:33 117/73 09/09/18 09:31 68 117/73 09/09/18 09:00 Room Air 09/09/18 08:00 98.8 68 19 117/73 (88) 100 09/09/18 07:34 74 09/09/18 07:10 82 12 99 Room Air 21 09/09/18 07:09 Room Air 21 09/09/18 07:09 Room Air 21 09/09/18 04:49 Room Air 09/09/18 04:00 64 09/09/18 04:00 98.9 65 18 129/52 (77) 95 09/09/18 02:45 Room Air 09/09/18 02:30 66 09/09/18 02:30 98.6 66 18 123/55 (77) 95 09/09/18 01:45 98.4 60 20 104/33 100 Room Air 3.0 09/09/18 00:14 98.4 60 20 104/33 100 Room Air 3.0 09/08/18 21:45 65 26 Nasal Cannula 3.0 09/08/18 21:45 98.4 26 105/49 96 Nasal Cannula 3.0 09/08/18 21:32 98.4 65 26 105/49 (67) 96 Nasal Cannula 3.0 Intake and Output 09/09/18 09/10/18 19:00 07:00 Intake Total 315 ml Output Total 300 ml Balance 315 ml -300 ml Intake Oral 260 ml IV Total 55 ml Output Urine Total 300 ml # Voids 3 # Bowel Movements 1 Labs Test 09/08/18 22:05 09/09/18 10:00 09/09/18 13:39 09/09/18 14:25 White Blood Count 5.5 K/UL (4.8-10.8) 6.0 K/UL (4.8-10.8) Red Blood Count 2.67 M/UL (4.70-6.10) 2.71 M/UL (4.70-6.10) Hemoglobin 8.1 G/DL (14.2-18.0) 8.4 G/DL (14.2-18.0) Hematocrit 23.4 % (42.0-52.0) 24.8 % (42.0-52.0) Mean Corpuscular Volume 88 FL (80-99) 91 FL (80-99) Mean Corpuscular Hemoglobin 30.4 PG (27.0-31.0) 31.0 PG (27.0-31.0) Mean Corpuscular Hemoglobin Concent 34.7 G/DL (32.0-36.0) 34.0 G/DL (32.0-36.0) Red Cell Distribution Width 11.9 % (11.6-14.8) 12.5 % (11.6-14.8) Platelet Count 169 K/UL (150-450) 167 K/UL (150-450) Mean Platelet Volume 4.6 FL (6.5-10.1) 4.9 FL (6.5-10.1) Neutrophils (%) (Auto) 55.9 % (45.0-75.0) 58.4 % (45.0-75.0) Lymphocytes (%) (Auto) 27.3 % (20.0-45.0) 22.9 % (20.0-45.0) Monocytes (%) (Auto) 12.2 % (1.0-10.0) 11.2 % (1.0-10.0) Eosinophils (%) (Auto) 3.3 % (0.0-3.0) 6.6 % (0.0-3.0) Basophils (%) (Auto) 1.3 % (0.0-2.0) 0.9 % (0.0-2.0) Sodium Level 137 MMOL/L (136-145) 138 MMOL/L (136-145) Potassium Level 4.1 MMOL/L (3.5-5.1) 4.0 MMOL/L (3.5-5.1) Chloride Level 103 MMOL/L (98-107) 103 MMOL/L (98-107) Carbon Dioxide Level 22 MMOL/L (21-32) 21 MMOL/L (21-32) Anion Gap 12 mmol/L (5-15) 14 mmol/L (5-15) Blood Urea Nitrogen 46 mg/dL (7-18) 45 mg/dL (7-18) Creatinine 2.8 MG/DL (0.55-1.30) 2.7 MG/DL (0.55-1.30) Estimat Glomerular Filtration Rate mL/min (>60) mL/min (>60) Glucose Level 128 MG/DL (74-106) 126 MG/DL (74-106) Calcium Level 8.3 MG/DL (8.5-10.1) 8.5 MG/DL (8.5-10.1) Total Bilirubin 0.4 MG/DL (0.2-1.0) 0.4 MG/DL (0.2-1.0) Aspartate Amino Transf (AST/SGOT) 23 U/L (15-37) 22 U/L (15-37) Alanine Aminotransferase (ALT/SGPT) 35 U/L (12-78) 35 U/L (12-78) Alkaline Phosphatase 116 U/L (46-116) 120 U/L (46-116) Total Creatine Kinase 156 U/L (26-308) Creatine Kinase MB 1.8 NG/ML (0.0-3.6) Creatine Kinase MB Relative Index 1.1 Troponin I 0.012 ng/mL (0.000-0.056) Pro-B-Type Natriuretic Peptide 43698 pg/mL (0-125) Total Protein 6.6 G/DL (6.4-8.2) 6.7 G/DL (6.4-8.2) Albumin 3.9 G/DL (3.4-5.0) 3.8 G/DL (3.4-5.0) Globulin 2.7 g/dL 2.9 g/dL Albumin/Globulin Ratio 1.4 (1.0-2.7) 1.3 (1.0-2.7) Hemoglobin A1c 6.2 % (4.3-6.0) Phosphorus Level 4.7 MG/DL (2.5-4.9) Magnesium Level 2.4 MG/DL (1.8-2.4) Iron Level 36 ug/dL (50-175) Total Iron Binding Capacity 220 ug/dL (250-450) Percent Iron Saturation 16 % (15-50) Unsaturated Iron Binding 184 ug/dL (112-346) Ferritin 68 NG/ML (8-388) Triglycerides Level 94 MG/DL (30-150) Cholesterol Level 94 MG/DL (< 200) LDL Cholesterol 41 mg/dL (<100) HDL Cholesterol 43 MG/DL (40-60) Cholesterol/HDL Ratio 2.2 (3.3-4.4) Vitamin B12 Level 674 PG/ML (193-986) Folate 38.5 NG/ML (8.6-58.9) Urine Color Yellow Urine Appearance Slightly cloudy Urine pH 5 (4.5-8.0) Urine Specific [place] 1.015 (1.005-1.035) Urine Protein 2+ (NEGATIVE) Urine Glucose (UA) Negative (NEGATIVE) Urine Ketones 1+ (NEGATIVE) Urine Blood Negative (NEGATIVE) Urine Nitrite Positive (NEGATIVE) Urine Bilirubin Negative (NEGATIVE) Urine Urobilinogen Normal MG/DL (0.0-1.0) Urine Leukocyte Esterase 2+ (NEGATIVE) Urine RBC 0-2 /HPF (0 - 0) Urine WBC Tntc /HPF (0 - 0) Urine Squamous Epithelial Cells Few /LPF (NONE/OCC) Urine Bacteria Moderate /HPF (NONE) Test 09/10/18 06:23 White Blood Count 6.1 K/UL (4.8-10.8) Red Blood Count 2.64 M/UL (4.70-6.10) Hemoglobin 8.2 G/DL (14.2-18.0) Hematocrit 24.0 % (42.0-52.0) Mean Corpuscular Volume 91 FL (80-99) Mean Corpuscular Hemoglobin 31.2 PG (27.0-31.0) Mean Corpuscular Hemoglobin Concent 34.4 G/DL (32.0-36.0) Red Cell Distribution Width 12.7 % (11.6-14.8) Platelet Count 174 K/UL (150-450) Mean Platelet Volume 6.7 FL (6.5-10.1) Neutrophils (%) (Auto) 57.2 % (45.0-75.0) Lymphocytes (%) (Auto) 21.6 % (20.0-45.0) Monocytes (%) (Auto) 13.4 % (1.0-10.0) Eosinophils (%) (Auto) 6.7 % (0.0-3.0) Basophils (%) (Auto) 1.2 % (0.0-2.0) Sodium Level 141 MMOL/L (136-145) Potassium Level 3.9 MMOL/L (3.5-5.1) Chloride Level 108 MMOL/L (98-107) Carbon Dioxide Level 21 MMOL/L (21-32) Anion Gap 12 mmol/L (5-15) Blood Urea Nitrogen 46 mg/dL (7-18) Creatinine 2.9 MG/DL (0.55-1.30) Estimat Glomerular Filtration Rate mL/min (>60) Glucose Level 82 MG/DL (74-106) Calcium Level 8.1 MG/DL (8.5-10.1) Total Bilirubin 0.5 MG/DL (0.2-1.0) Aspartate Amino Transf (AST/SGOT) 19 U/L (15-37) Alanine Aminotransferase (ALT/SGPT) 30 U/L (12-78) Alkaline Phosphatase 103 U/L (46-116) Total Protein 6.2 G/DL (6.4-8.2) Albumin 3.2 G/DL (3.4-5.0) Globulin 3.0 g/dL Albumin/Globulin Ratio 1.1 (1.0-2.7) Height (Feet): 5 Height (Inches): 5.00 Weight (Pounds): 148 Objective PHYSICAL EXAM Vitals: Have been reviewed General Appearance: well appearing, no apparent distress Head: normocephalic, atraumatic Eyes: bilateral eye PERRL, EOMI ENT: other - Erythema and irritation in the left canal some clear discharge is noted mastoid however is nontender and non-boggy tympanic membrane is intact Neck: supple Respiratory: no respiratory distress, no retraction, crackles - Fine crackles bilaterally Cardiovascular #1: regular rate, rhythm Gastrointestinal: non tender, soft Musculoskeletal: other - Sided deficit Neurologic: alert, oriented x3, responsive Skin: other - Noted bilateral lower extremity Lymphatic: no adenopathy Cal Bill MD Sep 10, 2018 17:35
--- NOTE | 2018-09-10 18:30 | Infectious Diseases Prog Note ---
Assessment/Plan Problems: (1) Otitis externa of left ear Assessment & Plan: with discharge, swelling and cellulitis, continue meropenem and topical ciprofloxacin as per ENT. MRI of the mastoid bone showed otomastoiditis , which is most likely chronic, will need antibiotics treatment for 6 weeks minimum with close follow up with ENT . may need surgical debridement if no improvement with antibiotics alone . (2) Mastoiditis of left side Assessment & Plan: suspect chronic , with gram negative rods , was treated for it last year with zosyn , continue meropenem and zyvox for now pending final culture . will need iv antibiotics for 6 weeks with close follow up with ENT (3) Cellulitis of head except face Assessment & Plan: due to the above, continue meropenem add zyvox (4) Renal failure (ARF), acute on chronic Assessment & Plan: suspect dehydration, continue IVF with close monitor of his renal function (5) Congestive heart failure (CHF) Assessment & Plan: continue cardiac meds with lasix as per primary (6) UTI (urinary tract infection) Assessment & Plan: already on meropenem , pending culture Subjective ROS Limited/Unobtainable: Yes Allergies: Coded Allergies: No Known Allergies (Unverified , 02/23/17) Subjective He still has left ear pain and swelling in the periauricular area, no significant discharge Objective Vital Signs Last 24 Hour Vital Signs Date Time Temp Pulse Resp B/P (MAP) Pulse Ox O2 Delivery O2 Flow Rate FiO2 09/10/18 17:01 149/77 09/10/18 17:01 149/77 09/10/18 16:00 98.3 67 20 120/56 (77) 96 09/10/18 15:44 65 09/10/18 13:05 Nasal Cannula 09/10/18 13:05 Nasal Cannula 09/10/18 12:00 98.3 72 21 121/51 (74) 96 09/10/18 11:50 67 09/10/18 09:19 130/49 09/10/18 09:18 130/49 09/10/18 09:18 76 130/49 09/10/18 09:00 Room Air 09/10/18 08:00 98.3 76 21 130/49 (76) 95 09/10/18 07:36 76 09/10/18 07:20 94 Nasal Cannula 1.0 24 09/10/18 07:20 Nasal Cannula 09/10/18 07:20 Nasal Cannula 09/10/18 04:00 71 09/10/18 04:00 98.0 71 18 120/51 (74) 96 09/10/18 01:24 Nasal Cannula 09/10/18 01:24 Nasal Cannula 09/10/18 01:04 139/49 09/10/18 01:04 139/49 09/10/18 00:00 98.0 70 18 114/52 (72) 96 09/10/18 00:00 63 09/09/18 21:18 71 130/53 09/09/18 21:00 Room Air 09/09/18 20:00 99.0 70 20 124/49 (74) 99 09/09/18 20:00 70 09/09/18 19:29 90 Nasal Cannula 1.0 24 09/09/18 19:28 72 18 96 Room Air 21 09/09/18 19:24 21 09/09/18 19:18 70 18 90 Room Air 21 Height (Feet): 5 Height (Inches): 5.00 Weight (Pounds): 148 General Appearance: WD/WN, no acute distress HEENT: normocephalic, atraumatic, anicteric, mucous membranes moist, PERRL, EOMI, pharynx normal, supple, no JVD, other - left periauricular swelling and redness Respiratory/Chest: chest wall non-tender, lungs clear, normal breath sounds, no respiratory distress, no accessory muscle use Cardiovascular: normal peripheral pulses, normal rate, regular rhythm, no gallop/murmur, no JVD Abdomen: normal bowel sounds, soft, non tender, no organomegaly, non distended , no mass, no scars Genitourinary: normal external genitalia Extremities: no cyanosis, no clubbing Skin: no rash, no lesions, no ulcers Neurologic/Psychiatric: primary care provider II-XII grossly normal, alert, responsive Lymphatic: no neck adenopathy, no groin adenopathy Musculoskeletal: normal muscle bulk, no effusion Microbiology Date/Time Source Procedure Growth Status 09/09/18 13:39 Urine,Clean Catch Urine Culture - Preliminary NO GROWTH Resulted 09/09/18 09:27 Ear Left Gram Stain - Final Resulted 09/09/18 09:27 Wound Culture - Preliminary Gram Negative Bacillus 1 Resulted Laboratory Tests Test 09/10/18 06:23 White Blood Count 6.1 K/UL (4.8-10.8) Red Blood Count 2.64 M/UL (4.70-6.10) L Hemoglobin 8.2 G/DL (14.2-18.0) L Hematocrit 24.0 % (42.0-52.0) L Mean Corpuscular Volume 91 FL (80-99) Mean Corpuscular Hemoglobin 31.2 PG (27.0-31.0) H Mean Corpuscular Hemoglobin Concent 34.4 G/DL (32.0-36.0) Red Cell Distribution Width 12.7 % (11.6-14.8) Platelet Count 174 K/UL (150-450) Mean Platelet Volume 6.7 FL (6.5-10.1) Neutrophils (%) (Auto) 57.2 % (45.0-75.0) Lymphocytes (%) (Auto) 21.6 % (20.0-45.0) Monocytes (%) (Auto) 13.4 % (1.0-10.0) H Eosinophils (%) (Auto) 6.7 % (0.0-3.0) H Basophils (%) (Auto) 1.2 % (0.0-2.0) Sodium Level 141 MMOL/L (136-145) Potassium Level 3.9 MMOL/L (3.5-5.1) Chloride Level 108 MMOL/L (98-107) H Carbon Dioxide Level 21 MMOL/L (21-32) Anion Gap 12 mmol/L (5-15) Blood Urea Nitrogen 46 mg/dL (7-18) H Creatinine 2.9 MG/DL (0.55-1.30) H Estimat Glomerular Filtration Rate mL/min (>60) Glucose Level 82 MG/DL (74-106) Calcium Level 8.1 MG/DL (8.5-10.1) L Total Bilirubin 0.5 MG/DL (0.2-1.0) Aspartate Amino Transf (AST/SGOT) 19 U/L (15-37) Alanine Aminotransferase (ALT/SGPT) 30 U/L (12-78) Alkaline Phosphatase 103 U/L (46-116) Total Protein 6.2 G/DL (6.4-8.2) L Albumin 3.2 G/DL (3.4-5.0) L Globulin 3.0 g/dL Albumin/Globulin Ratio 1.1 (1.0-2.7) Current Medications Medications (Trade) Dose Ordered Sig/Jared Route PRN Reason Start Time Stop Time Status Last Admin Dose Admin Acetaminophen (Tylenol) 325 mg Q4H PRN ORAL Mild Pain/Temp > 100.5 09/09/18 05:15 10/09/18 05:14 Acetaminophen/ Hydrocodone Bitart ([place] 5/325) 1 tab Q4H PRN ORAL Moderate Pain (Pain Scale 4-6) 09/09/18 05:15 09/16/18 05:14 09/09/18 10:08 Albuterol/ Ipratropium (Albuterol/ Ipratropium) 3 ml Q6HRT HHN 09/09/18 07:00 09/14/18 06:59 09/09/18 19:18 Atorvastatin Calcium (Lipitor) 80 mg BEDTIME ORAL 09/09/18 21:00 10/09/18 20:59 09/09/18 21:17 Baclofen (Lioresal) 5 mg BEDTIME ORAL 09/09/18 21:00 10/09/18 20:59 09/09/18 21:17 Carvedilol (Coreg) 6.25 mg EVERY 12 HOURS ORAL 09/09/18 09:00 10/09/18 08:59 09/10/18 09:18 Chlorhexidine Gluconate (Merced-Hex 2%) 1 applic DAILY@2000 TOPIC 09/10/18 20:00 10/10/18 19:59 Dextrose (Dextrose 50%) 25 ml Q30M PRN IV Hypoglycemia 09/09/18 05:30 10/09/18 05:29 Dextrose (Dextrose 50%) 50 ml Q30M PRN IV Hypoglycemia 09/09/18 05:30 10/09/18 05:29 Docusate Sodium (Colace) 100 mg TID ORAL 09/09/18 18:00 10/09/18 08:59 09/10/18 17:01 Enoxaparin Sodium (Lovenox) 30 mg DAILY SUBQ 09/09/18 09:00 10/09/18 08:59 09/10/18 09:22 Epoetin [place] (Epoetin [place]-EPBX(NON ESRD)) 10,000 unit SAT-SAT-SAT SUBQ 09/10/18 21:00 10/10/18 20:59 Finasteride (Proscar) 5 mg DAILY ORAL 09/09/18 09:00 10/09/18 08:59 09/10/18 09:21 Fish Oil (Fish Oil) 2,000 mg DAILY ORAL 09/09/18 09:00 10/09/18 08:59 09/10/18 09:21 Gabapentin (Neurontin) 200 mg BEDTIME ORAL 09/09/18 21:00 10/09/18 20:59 09/09/18 21:18 Heparin Sodium/ Sodium Chloride (Heparin 1000 units/500ml Premix) 1,000 unit ONCE PRN IV dialysis 09/10/18 15:30 09/12/18 15:29 Hydralazine HCl (Apresoline) 100 mg Q8H ORAL 09/10/18 01:00 10/09/18 08:59 09/10/18 17:01 Insulin Aspart (NovoLOG) BEFORE MEALS AND HS SUBQ 09/09/18 06:30 10/09/18 06:29 09/10/18 17:05 Isosorbide Dinitrate (Isordil) 40 mg Q8H ORAL 09/09/18 09:00 10/09/18 08:59 09/10/18 17:01 Lidocaine HCl (Xylocaine 1% 30ml) 30 ml ONCE PRN INJ picc line placement 09/10/18 15:30 09/12/18 15:29 Linezolid 300 ml @ 300 mls/hr Q12HR IVPB 09/09/18 18:00 09/16/18 17:59 09/10/18 08:13 Meropenem 500 mg/ Sodium Chloride 55 ml @ 110 mls/hr EVERY 12 HOURS IVPB 09/09/18 21:00 09/14/18 20:59 09/10/18 11:35 Pantoprazole (Protonix) 40 mg EVERY 12 HOURS ORAL 09/09/18 21:00 10/09/18 20:59 09/10/18 09:19 Tamsulosin HCl (Flomax) 0.4 mg BEDTIME ORAL 09/09/18 21:00 10/09/18 20:59 09/09/18 21:17 Vitamin B Complex/ Vit C/Folic Acid (Nephrovite) 1 tab DAILY ORAL 09/09/18 09:00 10/09/18 08:59 09/10/18 09:19 Mu Gonzalez M.D. Sep 10, 2018 18:29
--- NOTE | 2018-09-10 19:40 | NUR ---
NURSE NOTES: Received patient from ERNESTO Corley. patient is sleeping, arousable to name, able to follow commands. denies pain at this time. patient is on room air. no s/sx of respiratory distress noted at this time. IV site is patent and intact. bed in lowest position and locked, siderails up X3, call light within reach. will continue to monitor.
--- NOTE | 2018-09-10 19:45 | NUR ---
HAND-OFF: Report given to ERNESTO Mustafa. Patient is resting in bed.
[2018-09-10 20:00] VITALS: BP 121/50
[2018-09-10] MEDS: Dyna-Hex 2% Top Sol 2oz TOPIC SCH (20:00)
[2018-09-10] MEDS: Atorvastatin 80mg tab ORAL SCH (20:42)
[2018-09-10] MEDS: Tamsulosin 0.4mg cap ORAL SCH (20:42)
[2018-09-10] MEDS: Epoetin Alfa-EPBX (NON ESRD)10,000 unit/ml vial SUBQ SCH (20:47)
--- NOTE | 2018-09-10 22:59 | CDS Physician Query ---
Clarification is required for compliance, coding accuracy, and to reflect severity of illness for this patient Dear Dr. Escobar Date: 09/10/18 CDS Name: Felicia Crystal "CHF-low EF" is documented in H&P and progress notes. On admission: BNP 38916, CXR: Left pleural effusion Rx: IV Furosemide ( 40 mg) Please Clarify the type and acuity of CHF: Acuity [ ] Acute [ ] Chronic [ ] Acute on Chronic Type [ ] Systolic [ ] Diastolic [ ] Systolic & Diastolic (Combined) [ ] Other: Present on Admission: [ ] Yes [ ] No [X ] Clinically Undetermined PLEASE DELETE THIS DIAGNOSIS. ENTERED BY ERRO Physician signature Tara Escobar Date Please also document in your Progress Notes and/or Discharge Summary and indicate if the condition was present on admission. FRANC
[2018-09-11] VITALS: BP 120/57
[2018-09-11] MEDS: HydrALAZINE 50mg tab ORAL SCH ×3 (00:42→17:02)
[2018-09-11] MEDS: Albuterol/Ipratropium 3ml neb HHN SCH ×4 (01:00→20:27)
[2018-09-11 04:00] VITALS: BP 130/63
[2018-09-11] MEDS: NovoLOG Insulin Flexpen SUBQ SCH ×4 (06:07→20:54)
[2018-09-11 07:25] LABS: BASOPHILS % (AUTO) 0.8 % (0.0-2.0); EOSINOPHILS % (AUTO) 11.1 % (0.0-3.0); HEMATOCRIT 24.9 % (42.0-52.0); HEMOGLOBIN 8.6 G/DL (14.2-18.0); LYMPHOCYTES % (AUTO) 21.5 % (20.0-45.0); MEAN CORPUSCULAR VOLUME 90 FL (80-99); MONOCYTES % (AUTO) 14.7 % (1.0-10.0); NEUTROPHILS % (AUTO) 51.9 % (45.0-75.0); PLATELET COUNT 170 K/UL (150-450); RED BLOOD COUNT 2.77 M/UL (4.70-6.10); RED CELL DISTRIBUTION WIDTH 12.3 % (11.6-14.8); WHITE BLOOD COUNT 5.8 K/UL (4.8-10.8)
[2018-09-11 07:38] LABS: ALANINE AMINOTRANSFERASE 25 U/L (12-78); ALBUMIN 3.6 G/DL (3.4-5.0); ALBUMIN/GLOBULIN RATIO 1.3 (1.0-2.7); ALKALINE PHOSPHATASE 102 U/L (46-116); ANION GAP 13 mmol/L (5-15); ASPARTATE AMINO TRANSFERASE 20 U/L (15-37); BILIRUBIN,TOTAL 0.5 MG/DL (0.2-1.0); BLOOD UREA NITROGEN 44 mg/dL (7-18); CALCIUM 8.3 MG/DL (8.5-10.1); CARBON DIOXIDE 21 MMOL/L (21-32); CHLORIDE 103 MMOL/L (98-107); CREATININE 3.1 MG/DL (0.55-1.30); POTASSIUM 3.8 MMOL/L (3.5-5.1); SODIUM 137 MMOL/L (136-145)
--- NOTE | 2018-09-11 07:43 | NUR ---
HAND-OFF: Report given to ERNESTO Escudero. patient is in stable condition. Endorsed to nurse that consent for PICC placement needs to be signed.
[2018-09-11 08:00] VITALS: BP 125/61
--- NOTE | 2018-09-11 08:08 | NUR ---
Nurse Note Received patient resting in bed, breathing even and unlabored on RA. A+Ox4. Eating breakfast. Signed consent for PICC line placement after explanation of procedure and purpose.
[2018-09-11] MEDS: Carvedilol 6.25mg Tab ORAL SCH ×2 (08:32→20:41)
[2018-09-11] MEDS: Docusate 100mg cap ORAL SCH ×3 (08:33→17:02)
[2018-09-11] MEDS: Nephrovite tab (Rena-Vite) ORAL SCH (08:33)
[2018-09-11] MEDS: Enoxaparin 30mg Inj SUBQ SCH (08:37)
[2018-09-11] MEDS: Meropenem 500mg in NS 55ml IVPB SCH ×2 (08:42→20:42)
--- NOTE | 2018-09-11 08:49 | General Progress Note ---
Assessment/Plan Status: stable Assessment/Plan: S: I have no pain in my left ear O: Interval improvement in for left ear pain and discharge PHYSICAL EXAMINATION: HEAD AND NECK: episodes of epistaxia, detailed exam deferred. Atraumatic and normocephalic. Positive for the pain and tenderness overlying left Auditory canal. Positive for minimal redness in the external auditory meatus.CHEST: scar of prior sternotomy, Clear to auscultation. No wheezing. No crackles. HEART: S1 and S2. Regular rate and rhythm.ABDOMEN: Soft. No organomegaly.MUSCULOSKELETAL: Dysfiguration of toe nail, both sides, Negative for any gross abnormal lateralized motor deficit. NEUROLOGIC: The patient is awake, alert, and oriented x3. LABORATORY AND DIAGNOSTIC DATA: Labs dated 09/10/2018 ASSESSMENT: 1. 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 Acute on Chronic kidney disease: Stable, at his base line 3. Hypertension. 4. Diabetes type 2. 5. Cerebrovascular accident 6. CHF- low EF : appears stable 7. PAF ( history of), Sinus at this time 6. Benign prostatic hypertrophy. 7. Gastrointestinal and deep venous thrombosis prophylaxis. 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, per ID Pending Cultures Pic[employer] line, in anticipation of DC notes from ID is reviewed Subjective Allergies: Coded Allergies: No Known Allergies (Unverified , 02/23/17) Objective Last 24 Hour Vital Signs Date Time Temp Pulse Resp B/P (MAP) Pulse Ox O2 Delivery O2 Flow Rate FiO2 09/11/18 08:34 132/50 09/11/18 08:32 75 132/50 09/11/18 07:45 66 20 100 Room Air 21 09/11/18 07:34 69 20 95 Room Air 21 09/11/18 07:33 95 Room Air 21 09/11/18 04:00 98.0 73 20 130/63 (85) 98 09/11/18 04:00 66 09/11/18 01:26 Room Air 21 09/11/18 01:26 Room Air 21 09/11/18 01:00 111/53 09/11/18 00:42 122/56 09/11/18 00:00 68 09/11/18 00:00 97.0 70 18 120/57 (78) 96 09/10/18 21:00 Room Air 09/10/18 20:46 71 130/66 09/10/18 20:00 69 09/10/18 20:00 97.8 70 18 121/50 (73) 96 09/10/18 19:04 96 Room Air 21 09/10/18 19:04 Room Air 21 09/10/18 19:03 Room Air 21 09/10/18 17:01 149/77 09/10/18 17:01 149/77 09/10/18 16:00 98.3 67 20 120/56 (77) 96 09/10/18 15:44 65 09/10/18 13:05 Nasal Cannula 09/10/18 13:05 Nasal Cannula 09/10/18 12:00 98.3 72 21 121/51 (74) 96 09/10/18 11:50 67 09/10/18 09:19 130/49 09/10/18 09:18 130/49 09/10/18 09:18 76 130/49 09/10/18 09:00 Room Air Intake and Output 09/10/18 09/11/18 19:00 07:00 Intake Total 355 ml Output Total 300 ml 400 ml Balance -300 ml -45 ml IV Total 355 ml Output Urine Total 300 ml 400 ml # Voids 3 Laboratory Tests 09/11/18 06:26: White Blood Count 5.8, Red Blood Count 2.77L, Hemoglobin 8.6L, Hematocrit 24.9L , Mean Corpuscular Volume 90, Mean Corpuscular Hemoglobin 30.9, Mean Corpuscular Hemoglobin Concent 34.4, Red Cell Distribution Width 12.3, Platelet Count 170, Mean Platelet Volume 6.1L, Neutrophils (%) (Auto) 51.9, Lymphocytes ( %) (Auto) 21.5, Monocytes (%) (Auto) 14.7H, Eosinophils (%) (Auto) 11.1H, Basophils (%) (Auto) 0.8, Sodium Level 137, Potassium Level 3.8, Chloride Level 103, Carbon Dioxide Level 21, Anion Gap 13, Blood Urea Nitrogen 44H, Creatinine 3.1H, Estimat Glomerular Filtration Rate , Glucose Level 92, Calcium Level 8.3L , Total Bilirubin 0.5, Aspartate Amino Transf (AST/SGOT) 20, Alanine Aminotransferase (ALT/SGPT) 25, Alkaline Phosphatase 102, Total Protein 6.4, Albumin 3.6, Globulin 2.8, Albumin/Globulin Ratio 1.3 Height (Feet): 5 Height (Inches): 5.00 Weight (Pounds): 148 Tara Escobar MD Sep 11, 2018 08:49
[2018-09-11 12:00] VITALS: BP 127/42
--- NOTE | 2018-09-11 14:53 | Infectious Diseases Prog Note ---
Assessment/Plan Problems: (1) Otitis externa of left ear Assessment & Plan: with discharge, swelling and cellulitis, ear discharge is growing E coli and gram negative rods and diphtheroids, continue meropenem and topical ciprofloxacin as per ENT. MRI of the mastoid bone showed otomastoiditis , which is most likely chronic, will need antibiotics treatment for 6 weeks minimum with close follow up with ENT . may need surgical debridement if no improvement with antibiotics alone . (2) Mastoiditis of left side Assessment & Plan: suspect chronic , with gram negative rods , was treated for it last year with zosyn , continue meropenem and zyvox for now pending final culture . will need iv antibiotics for 6 weeks with close follow up with ENT (3) Cellulitis of head except face Assessment & Plan: due to the above, continue meropenem and zyvox (4) Renal failure (ARF), acute on chronic Assessment & Plan: suspect dehydration, continue IVF with close monitor of his renal function (5) Congestive heart failure (CHF) Assessment & Plan: continue cardiac meds with lasix as per primary (6) UTI (urinary tract infection) Assessment & Plan: already on meropenem , pending culture Subjective ROS Limited/Unobtainable: Yes Allergies: Coded Allergies: No Known Allergies (Unverified , 02/23/17) Subjective He still has left ear pain and swelling in the periauricular area, no significant discharge, has tenderness on the left mastoid area Objective Vital Signs Last 24 Hour Vital Signs Date Time Temp Pulse Resp B/P (MAP) Pulse Ox O2 Delivery O2 Flow Rate FiO2 09/11/18 13:52 64 20 98 Room Air 21 09/11/18 13:44 68 20 94 Room Air 21 09/11/18 12:00 68 09/11/18 12:00 98.4 68 18 127/42 (70) 98 09/11/18 10:22 132/50 09/11/18 09:00 Room Air 09/11/18 08:34 132/50 09/11/18 08:32 75 132/50 09/11/18 08:00 98.2 72 18 125/61 (82) 98 09/11/18 07:45 66 20 100 Room Air 21 09/11/18 07:34 69 20 95 Room Air 21 09/11/18 07:33 95 Room Air 21 09/11/18 04:00 98.0 73 20 130/63 (85) 98 09/11/18 04:00 66 09/11/18 01:26 Room Air 21 09/11/18 01:26 Room Air 21 09/11/18 01:00 111/53 09/11/18 00:42 122/56 09/11/18 00:00 68 09/11/18 00:00 97.0 70 18 120/57 (78) 96 09/10/18 21:00 Room Air 09/10/18 20:46 71 130/66 09/10/18 20:00 69 09/10/18 20:00 97.8 70 18 121/50 (73) 96 09/10/18 19:04 96 Room Air 21 09/10/18 19:04 Room Air 21 09/10/18 19:03 Room Air 21 09/10/18 17:01 149/77 09/10/18 17:01 149/77 09/10/18 16:00 98.3 67 20 120/56 (77) 96 09/10/18 15:44 65 Height (Feet): 5 Height (Inches): 5.00 Weight (Pounds): 148 General Appearance: WD/WN, no acute distress HEENT: normocephalic, atraumatic, anicteric, mucous membranes moist, PERRL, other - left ear auricle pain with external canal swelling and dry secretions in place Respiratory/Chest: chest wall non-tender, lungs clear, normal breath sounds, no respiratory distress, no accessory muscle use Cardiovascular: normal peripheral pulses, normal rate, regular rhythm, no gallop/murmur, no JVD Abdomen: normal bowel sounds, soft, non tender, no organomegaly, non distended , no mass, no scars Extremities: no cyanosis, no clubbing Skin: no rash, no lesions 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 Complete 09/09/18 13:39 Urine,Clean Catch Urine Culture - Final NO GROWTH AFTER 48 HOURS Complete 09/09/18 09:27 Ear Left Gram Stain - Final Resulted 09/09/18 09:27 Wound Culture - Preliminary Escherichia Coli Gram Negative Bacillus 2 Diphtheroids Resulted 09/09/18 00:40 Rectum VRE Culture - Final NO VANCOMYCIN RESISTANT ENTEROCOCCUS ... Complete 09/09/18 00:40 Rectum - Final NO CARBAPENEM-RESISTANT ENTEROBACTERI... Complete Laboratory Tests Test 09/11/18 06:26 White Blood Count 5.8 K/UL (4.8-10.8) Red Blood Count 2.77 M/UL (4.70-6.10) L Hemoglobin 8.6 G/DL (14.2-18.0) L Hematocrit 24.9 % (42.0-52.0) L Mean Corpuscular Volume 90 FL (80-99) Mean Corpuscular Hemoglobin 30.9 PG (27.0-31.0) Mean Corpuscular Hemoglobin Concent 34.4 G/DL (32.0-36.0) Red Cell Distribution Width 12.3 % (11.6-14.8) Platelet Count 170 K/UL (150-450) Mean Platelet Volume 6.1 FL (6.5-10.1) L Neutrophils (%) (Auto) 51.9 % (45.0-75.0) Lymphocytes (%) (Auto) 21.5 % (20.0-45.0) Monocytes (%) (Auto) 14.7 % (1.0-10.0) H Eosinophils (%) (Auto) 11.1 % (0.0-3.0) H Basophils (%) (Auto) 0.8 % (0.0-2.0) Sodium Level 137 MMOL/L (136-145) Potassium Level 3.8 MMOL/L (3.5-5.1) Chloride Level 103 MMOL/L (98-107) Carbon Dioxide Level 21 MMOL/L (21-32) Anion Gap 13 mmol/L (5-15) Blood Urea Nitrogen 44 mg/dL (7-18) H Creatinine 3.1 MG/DL (0.55-1.30) H Estimat Glomerular Filtration Rate mL/min (>60) Glucose Level 92 MG/DL (74-106) Calcium Level 8.3 MG/DL (8.5-10.1) L Total Bilirubin 0.5 MG/DL (0.2-1.0) Aspartate Amino Transf (AST/SGOT) 20 U/L (15-37) Alanine Aminotransferase (ALT/SGPT) 25 U/L (12-78) Alkaline Phosphatase 102 U/L (46-116) Total Protein 6.4 G/DL (6.4-8.2) Albumin 3.6 G/DL (3.4-5.0) Globulin 2.8 g/dL Albumin/Globulin Ratio 1.3 (1.0-2.7) Current Medications Medications (Trade) Dose Ordered Sig/Jared Route PRN Reason Start Time Stop Time Status Last Admin Dose Admin Acetaminophen (Tylenol) 325 mg Q4H PRN ORAL Mild Pain/Temp > 100.5 09/09/18 05:15 10/09/18 05:14 Acetaminophen/ Hydrocodone Bitart ([place] 5/325) 1 tab Q4H PRN ORAL Moderate Pain (Pain Scale 4-6) 09/09/18 05:15 09/16/18 05:14 09/09/18 10:08 Albuterol/ Ipratropium (Albuterol/ Ipratropium) 3 ml Q6HRT HHN 09/09/18 07:00 09/14/18 06:59 09/11/18 13:46 Atorvastatin Calcium (Lipitor) 80 mg BEDTIME ORAL 09/09/18 21:00 10/09/18 20:59 09/10/18 20:42 Baclofen (Lioresal) 5 mg BEDTIME ORAL 09/09/18 21:00 10/09/18 20:59 09/10/18 20:42 Carvedilol (Coreg) 6.25 mg EVERY 12 HOURS ORAL 09/09/18 09:00 10/09/18 08:59 09/11/18 08:32 Chlorhexidine Gluconate (Merced-Hex 2%) 1 applic DAILY@2000 TOPIC 09/10/18 20:00 10/10/18 19:59 Dextrose (Dextrose 50%) 25 ml Q30M PRN IV Hypoglycemia 09/09/18 05:30 10/09/18 05:29 Dextrose (Dextrose 50%) 50 ml Q30M PRN IV Hypoglycemia 09/09/18 05:30 10/09/18 05:29 Docusate Sodium (Colace) 100 mg TID ORAL 09/09/18 18:00 10/09/18 08:59 09/11/18 13:22 Enoxaparin Sodium (Lovenox) 30 mg DAILY SUBQ 09/09/18 09:00 10/09/18 08:59 09/11/18 08:37 Epoetin Layton (Epoetin Lay[place]-EPBX(NON ESRD)) 10,000 unit SAT-SAT-SAT SUBQ 09/10/18 21:00 10/10/18 20:59 09/10/18 20:47 Finasteride (Proscar) 5 mg DAILY ORAL 09/09/18 09:00 10/09/18 08:59 09/11/18 08:33 Fish Oil (Fish Oil) 2,000 mg DAILY ORAL 09/09/18 09:00 10/09/18 08:59 09/11/18 08:32 Gabapentin (Neurontin) 200 mg BEDTIME ORAL 09/09/18 21:00 10/09/18 20:59 09/10/18 20:42 Heparin Sodium/ Sodium Chloride (Heparin 1000 units/500ml Premix) 1,000 unit ONCE PRN IV dialysis 09/10/18 15:30 09/12/18 15:29 Hydralazine HCl (Apresoline) 100 mg Q8H ORAL 09/10/18 01:00 10/09/18 08:59 09/11/18 08:34 Insulin Aspart (NovoLOG) BEFORE MEALS AND HS SUBQ 09/09/18 06:30 10/09/18 06:29 09/10/18 17:05 Isosorbide Dinitrate (Isordil) 40 mg Q8H ORAL 09/09/18 09:00 10/09/18 08:59 09/11/18 10:22 Lidocaine HCl (Xylocaine 1% 30ml) 30 ml ONCE PRN INJ picc line placement 09/10/18 15:30 09/12/18 15:29 Linezolid 300 ml @ 300 mls/hr Q12HR IVPB 09/09/18 18:00 09/16/18 17:59 09/11/18 10:21 Meropenem 500 mg/ Sodium Chloride 55 ml @ 110 mls/hr EVERY 12 HOURS IVPB 09/09/18 21:00 09/14/18 20:59 09/11/18 08:42 Pantoprazole (Protonix) 40 mg EVERY 12 HOURS ORAL 09/09/18 21:00 10/09/18 20:59 09/11/18 08:33 Tamsulosin HCl (Flomax) 0.4 mg BEDTIME ORAL 09/09/18 21:00 10/09/18 20:59 09/10/18 20:42 Vitamin B Complex/ Vit C/Folic Acid (Nephrovite) 1 tab DAILY ORAL 09/09/18 09:00 10/09/18 08:59 09/11/18 08:33 Mu Gonzalez M.D. Sep 11, 2018 14:53
--- NOTE | 2018-09-11 15:05 | Hematology/Onc Progress Note ---
Assessment/Plan Assessment/Plan ASSESSMENT AND RECOMMENDATIONS # Anemia of iron deficiency, low ferritin with CKD, multifactorial --> Anemia workup has been reviewed. --> Ferritin 68, iron 26, tibc 220 --> No evidence of hemolysis is noted, peripheral smear has been reviewed. --> Hgb goal >7. Transfuse prn. --> Continue on epogen --> begin IV Iron x 5 doses inhouse until discharge --> Medications have been reviewed --> low threshold for gi evaluation in case has occult + --> bone marrow biopsy is not indicated given the other more likely causes --> Hgb trend: 8.2--> .6 # Acute External otitis, with h/o of Gram negative infection --> Possible active osteo of mastoid bone? --> MRI as per ID reviewed --> ent recs reviewed --> 6 weeks abx # Acute on Chronic kidney disease --> fluids as needed --> Continue epogen # Hypertension. # Diabetes type 2. # Cerebrovascular accident # Benign prostatic hypertrophy The timing of this note does not necessarily reflect the time of the patient was seen. GREATLY APPRECIATE CONSULTATION. Subjective Constitutional: Denies: no symptoms, chills, fever, malaise, weakness, other HEENT: Denies: no symptoms, eye pain, blurred vision, tearing, double vision, ear pain, ear discharge, nose pain, nose congestion, throat pain, throat swelling, mouth pain, mouth swelling, other Cardiovascular: Denies: no symptoms, chest pain, edema, irregular heart rate, lightheadedness, palpitations, syncope, other Respiratory: Denies: no symptoms, cough, shortness of breath, SOB with excertion, SOB at rest, sputum, wheezing, other Gastrointestinal/Abdominal: Denies: no symptoms, abdomen distended, abdominal pain, black stools, tarry stools, blood in stool, constipated, diarrhea, difficulty swallowing, nausea, poor appetite, poor fluid intake, rectal bleeding , vomiting, other Genitourinary: Denies: no symptoms, burning, discharge, frequency, flank pain, hematuria, incontinence, pain, urgency, other Neurologic/Psychiatric: Denies: no symptoms, anxiety, depressed, emotional problems, headache, numbness, paresthesia, pre-existing deficit, seizure, tingling, tremors, weakness, other Endocrine: Denies: no symptoms, excessive sweating, flushing, intolerance to cold, intolerance to heat, increased hunger, increased thirst, increased urine, unexplained weight gain, unexplained weight loss, other Allergies: Coded Allergies: No Known Allergies (Unverified , 02/23/17) Subjective 09/10: Pt resting in bed. S/P IV iron, current Hgb of 8.2. 09/11: remains on abx, no fevers, remains with left ear pain, started on iron iv Objective Objective Current Medications Medications (Trade) Dose Ordered Sig/Jared Route PRN Reason Start Time Stop Time Status Last Admin Dose Admin Acetaminophen (Tylenol) 325 mg Q4H PRN ORAL Mild Pain/Temp > 100.5 09/09/18 05:15 10/09/18 05:14 Acetaminophen/ Hydrocodone Bitart ([place] 5/325) 1 tab Q4H PRN ORAL Moderate Pain (Pain Scale 4-6) 09/09/18 05:15 09/16/18 05:14 09/09/18 10:08 Albuterol/ Ipratropium (Albuterol/ Ipratropium) 3 ml Q6HRT HHN 09/09/18 07:00 09/14/18 06:59 09/11/18 13:46 Atorvastatin Calcium (Lipitor) 80 mg BEDTIME ORAL 09/09/18 21:00 10/09/18 20:59 09/10/18 20:42 Baclofen (Lioresal) 5 mg BEDTIME ORAL 09/09/18 21:00 10/09/18 20:59 09/10/18 20:42 Carvedilol (Coreg) 6.25 mg EVERY 12 HOURS ORAL 09/09/18 09:00 10/09/18 08:59 09/11/18 08:32 Chlorhexidine Gluconate (Merced-Hex 2%) 1 applic DAILY@2000 TOPIC 09/10/18 20:00 10/10/18 19:59 Dextrose (Dextrose 50%) 25 ml Q30M PRN IV Hypoglycemia 09/09/18 05:30 10/09/18 05:29 Dextrose (Dextrose 50%) 50 ml Q30M PRN IV Hypoglycemia 09/09/18 05:30 10/09/18 05:29 Docusate Sodium (Colace) 100 mg TID ORAL 09/09/18 18:00 10/09/18 08:59 09/11/18 13:22 Enoxaparin Sodium (Lovenox) 30 mg DAILY SUBQ 09/09/18 09:00 10/09/18 08:59 09/11/18 08:37 Epoetin Lay[place] (Epoetin [place]-EPBX(NON ESRD)) 10,000 unit SAT-SAT-SAT SUBQ 09/10/18 21:00 10/10/18 20:59 09/10/18 20:47 Finasteride (Proscar) 5 mg DAILY ORAL 09/09/18 09:00 10/09/18 08:59 09/11/18 08:33 Fish Oil (Fish Oil) 2,000 mg DAILY ORAL 09/09/18 09:00 10/09/18 08:59 09/11/18 08:32 Gabapentin (Neurontin) 200 mg BEDTIME ORAL 09/09/18 21:00 10/09/18 20:59 09/10/18 20:42 Heparin Sodium/ Sodium Chloride (Heparin 1000 units/500ml Premix) 1,000 unit ONCE PRN IV dialysis 09/10/18 15:30 09/12/18 15:29 Hydralazine HCl (Apresoline) 100 mg Q8H ORAL 09/10/18 01:00 10/09/18 08:59 09/11/18 08:34 Insulin Aspart (NovoLOG) BEFORE MEALS AND HS SUBQ 09/09/18 06:30 10/09/18 06:29 09/10/18 17:05 Isosorbide Dinitrate (Isordil) 40 mg Q8H ORAL 09/09/18 09:00 10/09/18 08:59 09/11/18 10:22 Lidocaine HCl (Xylocaine 1% 30ml) 30 ml ONCE PRN INJ picc line placement 09/10/18 15:30 09/12/18 15:29 Linezolid 300 ml @ 300 mls/hr Q12HR IVPB 09/09/18 18:00 09/16/18 17:59 09/11/18 10:21 Meropenem 500 mg/ Sodium Chloride 55 ml @ 110 mls/hr EVERY 12 HOURS IVPB 09/09/18 21:00 09/14/18 20:59 09/11/18 08:42 Pantoprazole (Protonix) 40 mg EVERY 12 HOURS ORAL 09/09/18 21:00 10/09/18 20:59 09/11/18 08:33 Tamsulosin HCl (Flomax) 0.4 mg BEDTIME ORAL 09/09/18 21:00 10/09/18 20:59 09/10/18 20:42 Vitamin B Complex/ Vit C/Folic Acid (Nephrovite) 1 tab DAILY ORAL 09/09/18 09:00 10/09/18 08:59 09/11/18 08:33 Last 24 Hour Vital Signs Date Time Temp Pulse Resp B/P (MAP) Pulse Ox O2 Delivery O2 Flow Rate FiO2 09/11/18 13:52 64 20 98 Room Air 21 09/11/18 13:44 68 20 94 Room Air 21 09/11/18 12:00 68 09/11/18 12:00 98.4 68 18 127/42 (70) 98 09/11/18 10:22 132/50 09/11/18 09:00 Room Air 09/11/18 08:34 132/50 09/11/18 08:32 75 132/50 09/11/18 08:00 98.2 72 18 125/61 (82) 98 09/11/18 07:45 66 20 100 Room Air 21 09/11/18 07:34 69 20 95 Room Air 21 09/11/18 07:33 95 Room Air 21 09/11/18 04:00 98.0 73 20 130/63 (85) 98 09/11/18 04:00 66 09/11/18 01:26 Room Air 21 09/11/18 01:26 Room Air 21 09/11/18 01:00 111/53 09/11/18 00:42 122/56 09/11/18 00:00 68 09/11/18 00:00 97.0 70 18 120/57 (78) 96 09/10/18 21:00 Room Air 09/10/18 20:46 71 130/66 09/10/18 20:00 69 09/10/18 20:00 97.8 70 18 121/50 (73) 96 09/10/18 19:04 96 Room Air 21 09/10/18 19:04 Room Air 21 09/10/18 19:03 Room Air 21 09/10/18 17:01 149/77 09/10/18 17:01 149/77 09/10/18 16:00 98.3 67 20 120/56 (77) 96 09/10/18 15:44 65 09/10/18 13:05 Nasal Cannula 09/10/18 13:05 Nasal Cannula 09/10/18 12:00 98.3 72 21 121/51 (74) 96 09/10/18 11:50 67 09/10/18 09:19 130/49 09/10/18 09:18 130/49 09/10/18 09:18 76 130/49 09/10/18 09:00 Room Air 09/10/18 08:00 98.3 76 21 130/49 (76) 95 09/10/18 07:36 76 09/10/18 07:20 94 Nasal Cannula 1.0 24 09/10/18 07:20 Nasal Cannula 09/10/18 07:20 Nasal Cannula 09/10/18 04:00 71 09/10/18 04:00 98.0 71 18 120/51 (74) 96 09/10/18 01:24 Nasal Cannula 09/10/18 01:24 Nasal Cannula 09/10/18 01:04 139/49 09/10/18 01:04 139/49 09/10/18 00:00 98.0 70 18 114/52 (72) 96 09/10/18 00:00 63 09/09/18 21:18 71 130/53 09/09/18 21:00 Room Air 09/09/18 20:00 99.0 70 20 124/49 (74) 99 09/09/18 20:00 70 09/09/18 19:29 90 Nasal Cannula 1.0 24 09/09/18 19:28 72 18 96 Room Air 21 09/09/18 19:24 21 09/09/18 19:18 70 18 90 Room Air 21 09/09/18 17:33 68 09/09/18 16:58 121/50 09/09/18 16:58 121/50 09/09/18 16:00 98.6 69 20 121/50 (73) 95 Intake and Output 09/10/18 09/11/18 18:59 06:59 Intake Total 355 ml Output Total 300 ml 400 ml Balance -300 ml -45 ml IV Total 355 ml Output Urine Total 300 ml 400 ml # Voids 3 Labs Test 09/08/18 22:05 09/09/18 10:00 09/09/18 13:39 09/09/18 14:25 White Blood Count 5.5 K/UL (4.8-10.8) 6.0 K/UL (4.8-10.8) Red Blood Count 2.67 M/UL (4.70-6.10) 2.71 M/UL (4.70-6.10) Hemoglobin 8.1 G/DL (14.2-18.0) 8.4 G/DL (14.2-18.0) Hematocrit 23.4 % (42.0-52.0) 24.8 % (42.0-52.0) Mean Corpuscular Volume 88 FL (80-99) 91 FL (80-99) Mean Corpuscular Hemoglobin 30.4 PG (27.0-31.0) 31.0 PG (27.0-31.0) Mean Corpuscular Hemoglobin Concent 34.7 G/DL (32.0-36.0) 34.0 G/DL (32.0-36.0) Red Cell Distribution Width 11.9 % (11.6-14.8) 12.5 % (11.6-14.8) Platelet Count 169 K/UL (150-450) 167 K/UL (150-450) Mean Platelet Volume 4.6 FL (6.5-10.1) 4.9 FL (6.5-10.1) Neutrophils (%) (Auto) 55.9 % (45.0-75.0) 58.4 % (45.0-75.0) Lymphocytes (%) (Auto) 27.3 % (20.0-45.0) 22.9 % (20.0-45.0) Monocytes (%) (Auto) 12.2 % (1.0-10.0) 11.2 % (1.0-10.0) Eosinophils (%) (Auto) 3.3 % (0.0-3.0) 6.6 % (0.0-3.0) Basophils (%) (Auto) 1.3 % (0.0-2.0) 0.9 % (0.0-2.0) Sodium Level 137 MMOL/L (136-145) 138 MMOL/L (136-145) Potassium Level 4.1 MMOL/L (3.5-5.1) 4.0 MMOL/L (3.5-5.1) Chloride Level 103 MMOL/L (98-107) 103 MMOL/L (98-107) Carbon Dioxide Level 22 MMOL/L (21-32) 21 MMOL/L (21-32) Anion Gap 12 mmol/L (5-15) 14 mmol/L (5-15) Blood Urea Nitrogen 46 mg/dL (7-18) 45 mg/dL (7-18) Creatinine 2.8 MG/DL (0.55-1.30) 2.7 MG/DL (0.55-1.30) Estimat Glomerular Filtration Rate mL/min (>60) mL/min (>60) Glucose Level 128 MG/DL (74-106) 126 MG/DL (74-106) Calcium Level 8.3 MG/DL (8.5-10.1) 8.5 MG/DL (8.5-10.1) Total Bilirubin 0.4 MG/DL (0.2-1.0) 0.4 MG/DL (0.2-1.0) Aspartate Amino Transf (AST/SGOT) 23 U/L (15-37) 22 U/L (15-37) Alanine Aminotransferase (ALT/SGPT) 35 U/L (12-78) 35 U/L (12-78) Alkaline Phosphatase 116 U/L (46-116) 120 U/L (46-116) Total Creatine Kinase 156 U/L (26-308) Creatine Kinase MB 1.8 NG/ML (0.0-3.6) Creatine Kinase MB Relative Index 1.1 Troponin I 0.012 ng/mL (0.000-0.056) Pro-B-Type Natriuretic Peptide 70718 pg/mL (0-125) Total Protein 6.6 G/DL (6.4-8.2) 6.7 G/DL (6.4-8.2) Albumin 3.9 G/DL (3.4-5.0) 3.8 G/DL (3.4-5.0) Globulin 2.7 g/dL 2.9 g/dL Albumin/Globulin Ratio 1.4 (1.0-2.7) 1.3 (1.0-2.7) Hemoglobin A1c 6.2 % (4.3-6.0) Phosphorus Level 4.7 MG/DL (2.5-4.9) Magnesium Level 2.4 MG/DL (1.8-2.4) Iron Level 36 ug/dL (50-175) Total Iron Binding Capacity 220 ug/dL (250-450) Percent Iron Saturation 16 % (15-50) Unsaturated Iron Binding 184 ug/dL (112-346) Ferritin 68 NG/ML (8-388) Triglycerides Level 94 MG/DL (30-150) Cholesterol Level 94 MG/DL (< 200) LDL Cholesterol 41 mg/dL (<100) HDL Cholesterol 43 MG/DL (40-60) Cholesterol/HDL Ratio 2.2 (3.3-4.4) Vitamin B12 Level 674 PG/ML (193-986) Folate 38.5 NG/ML (8.6-58.9) Urine Color Yellow Urine Appearance Slightly cloudy Urine pH 5 (4.5-8.0) Urine Specific [place] 1.015 (1.005-1.035) Urine Protein 2+ (NEGATIVE) Urine Glucose (UA) Negative (NEGATIVE) Urine Ketones 1+ (NEGATIVE) Urine Blood Negative (NEGATIVE) Urine Nitrite Positive (NEGATIVE) Urine Bilirubin Negative (NEGATIVE) Urine Urobilinogen Normal MG/DL (0.0-1.0) Urine Leukocyte Esterase 2+ (NEGATIVE) Urine RBC 0-2 /HPF (0 - 0) Urine WBC Tntc /HPF (0 - 0) Urine Squamous Epithelial Cells Few /LPF (NONE/OCC) Urine Bacteria Moderate /HPF (NONE) Test 09/10/18 06:23 09/11/18 06:26 White Blood Count 6.1 K/UL (4.8-10.8) 5.8 K/UL (4.8-10.8) Red Blood Count 2.64 M/UL (4.70-6.10) 2.77 M/UL (4.70-6.10) Hemoglobin 8.2 G/DL (14.2-18.0) 8.6 G/DL (14.2-18.0) Hematocrit 24.0 % (42.0-52.0) 24.9 % (42.0-52.0) Mean Corpuscular Volume 91 FL (80-99) 90 FL (80-99) Mean Corpuscular Hemoglobin 31.2 PG (27.0-31.0) 30.9 PG (27.0-31.0) Mean Corpuscular Hemoglobin Concent 34.4 G/DL (32.0-36.0) 34.4 G/DL (32.0-36.0) Red Cell Distribution Width 12.7 % (11.6-14.8) 12.3 % (11.6-14.8) Platelet Count 174 K/UL (150-450) 170 K/UL (150-450) Mean Platelet Volume 6.7 FL (6.5-10.1) 6.1 FL (6.5-10.1) Neutrophils (%) (Auto) 57.2 % (45.0-75.0) 51.9 % (45.0-75.0) Lymphocytes (%) (Auto) 21.6 % (20.0-45.0) 21.5 % (20.0-45.0) Monocytes (%) (Auto) 13.4 % (1.0-10.0) 14.7 % (1.0-10.0) Eosinophils (%) (Auto) 6.7 % (0.0-3.0) 11.1 % (0.0-3.0) Basophils (%) (Auto) 1.2 % (0.0-2.0) 0.8 % (0.0-2.0) Sodium Level 141 MMOL/L (136-145) 137 MMOL/L (136-145) Potassium Level 3.9 MMOL/L (3.5-5.1) 3.8 MMOL/L (3.5-5.1) Chloride Level 108 MMOL/L (98-107) 103 MMOL/L (98-107) Carbon Dioxide Level 21 MMOL/L (21-32) 21 MMOL/L (21-32) Anion Gap 12 mmol/L (5-15) 13 mmol/L (5-15) Blood Urea Nitrogen 46 mg/dL (7-18) 44 mg/dL (7-18) Creatinine 2.9 MG/DL (0.55-1.30) 3.1 MG/DL (0.55-1.30) Estimat Glomerular Filtration Rate mL/min (>60) mL/min (>60) Glucose Level 82 MG/DL (74-106) 92 MG/DL (74-106) Calcium Level 8.1 MG/DL (8.5-10.1) 8.3 MG/DL (8.5-10.1) Total Bilirubin 0.5 MG/DL (0.2-1.0) 0.5 MG/DL (0.2-1.0) Aspartate Amino Transf (AST/SGOT) 19 U/L (15-37) 20 U/L (15-37) Alanine Aminotransferase (ALT/SGPT) 30 U/L (12-78) 25 U/L (12-78) Alkaline Phosphatase 103 U/L (46-116) 102 U/L (46-116) Total Protein 6.2 G/DL (6.4-8.2) 6.4 G/DL (6.4-8.2) Albumin 3.2 G/DL (3.4-5.0) 3.6 G/DL (3.4-5.0) Globulin 3.0 g/dL 2.8 g/dL Albumin/Globulin Ratio 1.1 (1.0-2.7) 1.3 (1.0-2.7) Height (Feet): 5 Height (Inches): 5.00 Weight (Pounds): 148 Objective PHYSICAL EXAM Vitals: Have been reviewed General Appearance: well appearing, no apparent distress Head: normocephalic, atraumatic Eyes: bilateral eye PERRL, EOMI ENT: other - Erythema and irritation in the left canal some clear discharge is noted mastoid however is nontender and non-boggy tympanic membrane is intact Neck: supple Respiratory: no respiratory distress, no retraction, crackles - Fine crackles bilaterally Cardiovascular #1: regular rate, rhythm Gastrointestinal: non tender, soft Musculoskeletal: other - Sided deficit Neurologic: alert, oriented x3, responsive Skin: other - Noted bilateral lower extremity Lymphatic: no adenopathy Cal Bill MD Sep 11, 2018 15:05
[2018-09-11 16:00] VITALS: BP 132/53
--- NOTE | 2018-09-11 16:47 | Nephrology Progress Note ---
Assessment/Plan Problem List: (1) Renal failure (ARF), acute on chronic (2) History of nephrectomy, unilateral (3) Diabetic nephropathy (4) Congestive heart failure (CHF) (5) Mastoiditis of left side (6) Anemia due to chronic kidney disease Assessment Acute on Chronic renal failure- Diabetic Nephropathy h/o Right Nephrectomy Anemia Acute External otitis, with h/o of Gram negative infection. 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 DM HTN h/o CVA CHF h/o PAF BPH Plan Optimize BP and BS and Cardiac status Venofer one dose EPOGEN SQ Anemia management Kidney AR ? Pending 2D echo ? 60 % Ej Fx Flomax Per orders Subjective ROS Limited/Unobtainable: No Constitutional: Reports: malaise Objective Objective Last 24 Hour Vital Signs Date Time Temp Pulse Resp B/P (MAP) Pulse Ox O2 Delivery O2 Flow Rate FiO2 09/11/18 16:00 98.4 69 18 132/53 (79) 95 09/11/18 13:52 64 20 98 Room Air 21 09/11/18 13:44 68 20 94 Room Air 21 09/11/18 12:00 68 09/11/18 12:00 98.4 68 18 127/42 (70) 98 09/11/18 10:22 132/50 09/11/18 09:00 Room Air 09/11/18 08:34 132/50 09/11/18 08:32 75 132/50 09/11/18 08:00 98.2 72 18 125/61 (82) 98 09/11/18 07:45 66 20 100 Room Air 21 09/11/18 07:34 69 20 95 Room Air 21 09/11/18 07:33 95 Room Air 21 09/11/18 04:00 98.0 73 20 130/63 (85) 98 09/11/18 04:00 66 09/11/18 01:26 Room Air 21 09/11/18 01:26 Room Air 21 09/11/18 01:00 111/53 09/11/18 00:42 122/56 09/11/18 00:00 68 09/11/18 00:00 97.0 70 18 120/57 (78) 96 09/10/18 21:00 Room Air 09/10/18 20:46 71 130/66 09/10/18 20:00 69 09/10/18 20:00 97.8 70 18 121/50 (73) 96 09/10/18 19:04 96 Room Air 21 09/10/18 19:04 Room Air 21 09/10/18 19:03 Room Air 21 09/10/18 17:01 149/77 09/10/18 17:01 149/77 Intake and Output 09/10/18 09/11/18 18:59 06:59 Intake Total 355 ml Output Total 300 ml 400 ml Balance -300 ml -45 ml IV Total 355 ml Output Urine Total 300 ml 400 ml # Voids 3 Current Medications Medications (Trade) Dose Ordered Sig/Jared Route PRN Reason Start Time Stop Time Status Last Admin Dose Admin Acetaminophen (Tylenol) 325 mg Q4H PRN ORAL Mild Pain/Temp > 100.5 09/09/18 05:15 10/09/18 05:14 Acetaminophen/ Hydrocodone Bitart ([place] 5/325) 1 tab Q4H PRN ORAL Moderate Pain (Pain Scale 4-6) 09/09/18 05:15 09/16/18 05:14 09/09/18 10:08 Albuterol/ Ipratropium (Albuterol/ Ipratropium) 3 ml Q6HRT HHN 09/09/18 07:00 09/14/18 06:59 09/11/18 13:46 Atorvastatin Calcium (Lipitor) 80 mg BEDTIME ORAL 09/09/18 21:00 10/09/18 20:59 09/10/18 20:42 Baclofen (Lioresal) 5 mg BEDTIME ORAL 09/09/18 21:00 10/09/18 20:59 09/10/18 20:42 Carvedilol (Coreg) 6.25 mg EVERY 12 HOURS ORAL 09/09/18 09:00 10/09/18 08:59 09/11/18 08:32 Chlorhexidine Gluconate (Merced-Hex 2%) 1 applic DAILY@1999 TOPIC 09/10/18 20:00 10/10/18 19:59 Dextrose (Dextrose 50%) 25 ml Q30M PRN IV Hypoglycemia 09/09/18 05:30 10/09/18 05:29 Dextrose (Dextrose 50%) 50 ml Q30M PRN IV Hypoglycemia 09/09/18 05:30 10/09/18 05:29 Docusate Sodium (Colace) 100 mg TID ORAL 09/09/18 18:00 10/09/18 08:59 09/11/18 13:22 Enoxaparin Sodium (Lovenox) 30 mg DAILY SUBQ 09/09/18 09:00 10/09/18 08:59 09/11/18 08:37 Epoetin Layton (Epoetin Layton-EPBX(NON ESRD)) 10,000 unit SAT-SAT-SAT SUBQ 09/10/18 21:00 10/10/18 20:59 09/10/18 20:47 Finasteride (Proscar) 5 mg DAILY ORAL 09/09/18 09:00 10/09/18 08:59 09/11/18 08:33 Fish Oil (Fish Oil) 2,000 mg DAILY ORAL 09/09/18 09:00 10/09/18 08:59 09/11/18 08:32 Gabapentin (Neurontin) 200 mg BEDTIME ORAL 09/09/18 21:00 10/09/18 20:59 09/10/18 20:42 Heparin Sodium/ Sodium Chloride (Heparin 1000 units/500ml Premix) 1,000 unit ONCE PRN IV dialysis 09/10/18 15:30 09/12/18 15:29 Hydralazine HCl (Apresoline) 100 mg Q8H ORAL 09/10/18 01:00 10/09/18 08:59 09/11/18 08:34 Insulin Aspart (NovoLOG) BEFORE MEALS AND HS SUBQ 09/09/18 06:30 10/09/18 06:29 09/10/18 17:05 Iron Sucrose 100 mg/Sodium Chloride 60 ml @ 240 mls/hr BEDTIME IV 09/11/18 21:00 09/15/18 21:14 Isosorbide Dinitrate (Isordil) 40 mg Q8H ORAL 09/09/18 09:00 10/09/18 08:59 09/11/18 10:22 Lidocaine HCl (Xylocaine 1% 30ml) 30 ml ONCE PRN INJ picc line placement 09/10/18 15:30 09/12/18 15:29 Linezolid 300 ml @ 300 mls/hr Q12HR IVPB 09/09/18 18:00 09/16/18 17:59 09/11/18 10:21 Meropenem 500 mg/ Sodium Chloride 55 ml @ 110 mls/hr EVERY 12 HOURS IVPB 09/09/18 21:00 09/14/18 20:59 09/11/18 08:42 Pantoprazole (Protonix) 40 mg EVERY 12 HOURS ORAL 09/09/18 21:00 10/09/18 20:59 09/11/18 08:33 Tamsulosin HCl (Flomax) 0.4 mg BEDTIME ORAL 09/09/18 21:00 10/09/18 20:59 09/10/18 20:42 Vitamin B Complex/ Vit C/Folic Acid (Nephrovite) 1 tab DAILY ORAL 09/09/18 09:00 10/09/18 08:59 09/11/18 08:33 Laboratory Tests 09/11/18 06:26: White Blood Count 5.8, Red Blood Count 2.77L, Hemoglobin 8.6L, Hematocrit 24.9L , Mean Corpuscular Volume 90, Mean Corpuscular Hemoglobin 30.9, Mean Corpuscular Hemoglobin Concent 34.4, Red Cell Distribution Width 12.3, Platelet Count 170, Mean Platelet Volume 6.1L, Neutrophils (%) (Auto) 51.9, Lymphocytes ( %) (Auto) 21.5, Monocytes (%) (Auto) 14.7H, Eosinophils (%) (Auto) 11.1H, Basophils (%) (Auto) 0.8, Sodium Level 137, Potassium Level 3.8, Chloride Level 103, Carbon Dioxide Level 21, Anion Gap 13, Blood Urea Nitrogen 44H, Creatinine 3.1H, Estimat Glomerular Filtration Rate , Glucose Level 92, Calcium Level 8.3L , Total Bilirubin 0.5, Aspartate Amino Transf (AST/SGOT) 20, Alanine Aminotransferase (ALT/SGPT) 25, Alkaline Phosphatase 102, Total Protein 6.4, Albumin 3.6, Globulin 2.8, Albumin/Globulin Ratio 1.3 Height (Feet): 5 Height (Inches): 5.00 Weight (Pounds): 148 General Appearance: no apparent distress Cardiovascular: normal rate Respiratory/Chest: decreased breath sounds Abdomen: soft Objective no change Jimbo Barker MD Sep 11, 2018 16:47
--- NOTE | 2018-09-11 18:12 | NUR ---
Paged PICC nurse in radiology @ [phone] numerous times today without answer
--- NOTE | 2018-09-11 18:17 | NUR ---
Per Dr. Gonzalez note cipro topical suggested but not ordered. Asked MD about plan for tx, Per Dr. Gonzalez, ask ENT MD Swann. Left message for Dr. Swann @ office
--- NOTE | 2018-09-11 19:15 | Cardiology Report ---
APPROVED REPORT EXAM: Two-dimensional and M-mode echocardiogram with Doppler and color Doppler. INDICATION Congestive Heart Failure M-Mode DIMENSIONS IVSd1.1 (0.7-1.1cm)Left Atrium (MM)4.7 (1.6-4.0cm) LVDd5.3 (3.5-5.6cm)Aortic Root2.4 (2.0-3.7cm) PWd1.1 (0.7-1.1cm)Aortic Cusp Exc.1.7 (1.5-2.0cm) IVSs1.2 cm LVDs3.4 (2.5-4.0cm) PWs1.4 cm Normal left ventricular chamber size, systolic function and wall motion. Left ventricular ejection fraction estimated to be 60-65%. Mild left ventricular hypertrophy by 2-D. No evidence of pericardial effusion. Mild left atrial enlargement. Right cardiac chamber sizes are within normal limits. Aortic valve calcification with normal cusp excursion . Mildly thickened mitral valve leaflets with normal excursion. Mild mitral annulus and aortic root calcification. Pulmonic valve not well visualized. IVC at normal size with physiologic collapse . A color flow and spectral Doppler study was performed and revealed: Trace aortic insufficiency . Mitral inflow velocities indicates possible pseudo normalization pattern implying moderately elevated left atrial pressure (Grade II ). Mild mitral regurgitation. Moderate tricuspid regurgitation. Tricuspid systolic velocities suggests peak right ventricular systolic pressure of 40 mmHg,consistent with mild pulmonary HTN. Mild pulmonic regurgitation .
--- NOTE | 2018-09-11 19:15 | NUR ---
NURSE NOTES: RECEIVED PT FROM ERNESTO GARDINER AT BEDSIDE. PT IS X4, HUNGARIAN SPEAKING, ABLE TO MAKE NEEDS KNOWN. DIGITAL ASSET COORDINATOR SHOWING NSR. PT IS ON RA, SATING WELL SKIN IS CLEAN, DRY, INTACT. URINAL AT BEDSIDE. LAC 20G , ASYMPTOMATIC, RUNNING ABX. NO S/S OF ACUTE DISTRESS NOTED. BED IS LOCKED IN LOWEST POSITION, SR X3, CALL MARTINEZ W/ IN REACH, BED ALARM ON. WILL CONTINUE TO MONITOR AND FOLLOW W/ PLAN OF CARE.
[2018-09-11 20:00] VITALS: BP 127/56
[2018-09-11] MEDS: Dyna-Hex 2% Top Sol 2oz TOPIC SCH (20:00)
[2018-09-11] MEDS: Atorvastatin 80mg tab ORAL SCH (20:41)
[2018-09-11] MEDS: Tamsulosin 0.4mg cap ORAL SCH (20:42)
[2018-09-11] MEDS: Iron Sucrose 100 MG in NS 55 ML IV SCH (20:42)
[2018-09-12] VITALS: BP 129/64
[2018-09-12] MEDS: HydrALAZINE 50mg tab ORAL SCH ×3 (01:53→18:10)
[2018-09-12] MEDS: Albuterol/Ipratropium 3ml neb HHN SCH ×4 (01:58→19:50)
[2018-09-12 04:00] VITALS: BP 115/55
[2018-09-12] MEDS: NovoLOG Insulin Flexpen SUBQ SCH ×4 (05:32→21:04)
[2018-09-12 06:42] LABS: BASOPHILS % (AUTO) 0.8 % (0.0-2.0); EOSINOPHILS % (AUTO) 9.6 % (0.0-3.0); HEMATOCRIT 25.2 % (42.0-52.0); HEMOGLOBIN 8.6 G/DL (14.2-18.0); LYMPHOCYTES % (AUTO) 17.9 % (20.0-45.0); MEAN CORPUSCULAR VOLUME 91 FL (80-99); MONOCYTES % (AUTO) 13.9 % (1.0-10.0); NEUTROPHILS % (AUTO) 57.9 % (45.0-75.0); PLATELET COUNT 187 K/UL (150-450); RED BLOOD COUNT 2.78 M/UL (4.70-6.10); RED CELL DISTRIBUTION WIDTH 12.2 % (11.6-14.8); WHITE BLOOD COUNT 6.6 K/UL (4.8-10.8)
[2018-09-12 07:13] LABS: ALANINE AMINOTRANSFERASE 22 U/L (12-78); ALBUMIN 3.1 G/DL (3.4-5.0); ALKALINE PHOSPHATASE 96 U/L (46-116); ANION GAP 14 mmol/L (5-15); ASPARTATE AMINO TRANSFERASE 15 U/L (15-37); BILIRUBIN,TOTAL 0.5 MG/DL (0.2-1.0); BLOOD UREA NITROGEN 43 mg/dL (7-18); CALCIUM 8.1 MG/DL (8.5-10.1); CARBON DIOXIDE 19 MMOL/L (21-32); CHLORIDE 104 MMOL/L (98-107); SODIUM 137 MMOL/L (136-145)
--- NOTE | 2018-09-12 07:22 | NUR ---
HAND-OFF: Report given to ERNESTO RICHEY.
[2018-09-12 08:00] VITALS: BP 128/55
--- NOTE | 2018-09-12 08:21 | NUR ---
NURSE NOTES: received report from Dalia OROZCO. Pt sleeping in bed breakfast tray at bedside. Pt on pvc monitor no signs of distress. Bed in lowest position, and locked. Call light within reach. Will continue to follow plan of care. Consent needs to be sign for picc line.
[2018-09-12] MEDS: Meropenem 500mg in NS 55ml IVPB SCH ×2 (09:33→21:02)
--- NOTE | 2018-09-12 09:35 | Diagnostic Imaging Report ---
Indication: Acute renal failure Technique: Grayscale and duplex images of the kidneys, retroperitoneum, and bladder were obtained. Comparison: 01/06/2018 Findings: Right kidney is surgically absent. Left kidney measures 10.1 cm in length. Left kidney demonstrates normal echogenicity. It demonstrates multiple cysts. No hydronephrosis. Normal inferior vena cava. Bladder is nondistended, unremarkable. A right pleural effusion is incidentally noted Impression: Prior right nephrectomy No evidence of hydronephrosis on the left. Incidental finding of multiple left renal cysts Right pleural effusion.
[2018-09-12] MEDS: Nephrovite tab (Rena-Vite) ORAL SCH (09:37)
[2018-09-12] MEDS: Docusate 100mg cap ORAL SCH ×3 (09:39→18:10)
[2018-09-12] MEDS: Carvedilol 6.25mg Tab ORAL SCH ×2 (09:39→21:05)
[2018-09-12] MEDS: Enoxaparin 30mg Inj SUBQ SCH (09:45)
[2018-09-12 09:49] LABS: PHOSPHORUS 4.7 MG/DL (2.5-4.9)
--- NOTE | 2018-09-12 09:58 | General Progress Note ---
Assessment/Plan Status: stable Assessment/Plan: S: I have no pain in my left ear O: Interval improvement in pain for left ear pain and discharge PHYSICAL EXAMINATION: HEAD AND NECK: episodes of epistaxia, detailed exam deferred. Atraumatic and normocephalic. Negative for the pain and tenderness oin left Auditory canal. Positive for minimal redness in the external auditory meatus.CHEST: scar of prior sternotomy, Clear to auscultation. No wheezing. No crackles. HEART: S1 and S2. Regular rate and rhythm.ABDOMEN: Soft. No organomegaly.MUSCULOSKELETAL: Dysfiguration of toe nail, both sides, Negative for any gross abnormal lateralized motor deficit. NEUROLOGIC: The patient is awake, alert, and oriented x3. LABORATORY AND DIAGNOSTIC DATA: Labs dated 09/10/2018 ASSESSMENT: 1. 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 Acute on Chronic kidney disease: Stable, at his base line 3. Hypertension. 4. Diabetes type 2. 5. Cerebrovascular accident 6. CHF- low EF : appears stable 7. PAF ( history of), Sinus at this time 6. Benign prostatic hypertrophy. 7. Gastrointestinal and deep venous thrombosis prophylaxis. PLAN OF CARE: Targeted exterminator helper antibiotic treatment, per ID final Cultures Picc line, in anticipation of DC notes from ID is reviewed Ok to DC today, after completion of Abx reconciliation Subjective Allergies: Coded Allergies: No Known Allergies (Unverified , 02/23/17) Objective Last 24 Hour Vital Signs Date Time Temp Pulse Resp B/P (MAP) Pulse Ox O2 Delivery O2 Flow Rate FiO2 09/12/18 09:39 128/55 09/12/18 09:39 76 128/55 09/12/18 09:37 128/55 09/12/18 08:00 98.4 76 18 128/55 (79) 94 09/12/18 06:51 96 Room Air 21 09/12/18 06:51 Room Air 21 09/12/18 06:51 Room Air 21 09/12/18 04:00 98.8 74 18 115/55 (75) 95 09/12/18 04:00 70 09/12/18 01:59 Room Air 21 09/12/18 01:59 Room Air 21 09/12/18 01:53 129/64 09/12/18 01:53 129/64 09/12/18 00:00 98.4 72 18 129/64 (85) 96 09/12/18 00:00 98 09/11/18 21:00 Room Air 09/11/18 20:41 71 127/56 09/11/18 20:38 66 18 99 Room Air 21 09/11/18 20:28 95 Room Air 21 09/11/18 20:28 65 18 95 Room Air 21 09/11/18 20:00 69 09/11/18 20:00 98.7 71 16 127/56 (79) 95 09/11/18 17:02 132/53 09/11/18 17:01 132/53 09/11/18 16:00 98.4 69 18 132/53 (79) 95 09/11/18 16:00 67 09/11/18 13:52 64 20 98 Room Air 21 09/11/18 13:44 68 20 94 Room Air 21 09/11/18 12:00 68 09/11/18 12:00 98.4 68 18 127/42 (70) 98 09/11/18 10:22 132/50 Intake and Output 09/11/18 09/12/18 19:00 07:00 Intake Total 240 ml 655 ml Output Total 450 ml Balance 240 ml 205 ml Intake Oral 240 ml 240 ml IV Total 415 ml Output Urine Total 450 ml # Voids 4 Laboratory Tests 09/12/18 05:51: White Blood Count 6.6, Red Blood Count 2.78L, Hemoglobin 8.6L, Hematocrit 25.2L , Mean Corpuscular Volume 91, Mean Corpuscular Hemoglobin 31.0, Mean Corpuscular Hemoglobin Concent 34.2, Red Cell Distribution Width 12.2, Platelet Count 187, Mean Platelet Volume 6.6, Neutrophils (%) (Auto) 57.9, Lymphocytes (% ) (Auto) 17.9L, Monocytes (%) (Auto) 13.9H, Eosinophils (%) (Auto) 9.6H, Basophils (%) (Auto) 0.8, Sodium Level 137, Potassium Level 4.0, Chloride Level 104, Carbon Dioxide Level 19L, Anion Gap 14, Blood Urea Nitrogen 43H, Creatinine 3.0H, Estimat Glomerular Filtration Rate , Glucose Level 114H, Calcium Level 8.1L, Phosphorus Level 4.7, Magnesium Level 2.5H, Total Bilirubin 0.5, Aspartate Amino Transf (AST/SGOT) 15, Alanine Aminotransferase (ALT/SGPT) 22, Alkaline Phosphatase 96, Total Protein 6.1L, Albumin 3.1L, Globulin 3.0, Albumin/Globulin Ratio 1.0 Height (Feet): 5 Height (Inches): 5.00 Weight (Pounds): 148 Tara Escobar MD Sep 12, 2018 09:58
[2018-09-12 12:00] VITALS: BP 120/68
--- NOTE | 2018-09-12 12:29 | NUR ---
DISCHARGE PLANNING FAXED CLINICALS TO [facility] T: [phone] F: [phone] AWAIT ACCEPTANCE AND ASSIGNED ROOM NUMBER
--- NOTE | 2018-09-12 13:42 | NUR ---
8DISCHARGE PLAN ONCE READY FOR DISCHARGE [facility] WILL ACCEPT BACK TO ROOM 16C THEY CANNOT ACCOMMODATE IV LINEZOLID ~ DR ALEJO IS AWARE [facility] T: [phone] F: [phone] NURSING CAN SET UP TRANSFER
--- NOTE | 2018-09-12 14:36 | Pre-Procedure Note/Attestation ---
Pre-Procedure Note/Attestation Complete Prior to Procedure Planned Procedure: left Procedure Narrative: PICC Indications for Procedure Pre-Operative Diagnosis: needs middle or intermediate [employer] principal IV access Attestation I attest that I discussed the nature of the procedure; its benefits; risks and complications; and alternatives (and the risks and benefits of such alternatives ), prior to the procedure, with the patient (or the patient's legal circulation sales representative). I attest that, if there was a reasonable possibility of needing a blood transfusion, the patient (or the patient's legal circulation sales representative) was given the [facility] standardized written summary, pursuant to the Kristopher Bran Blood Safety Act ([place] Health and Safety Code # 1645, as amended). I attest that I re-evaluated the patient just prior to the surgery and that there has been no change in the patient's H&P, except as documented below: Jesse Graham MD Sep 12, 2018 14:36
--- NOTE | 2018-09-12 14:37 | Brief Operative Note ---
Immediate Post Operative Note Operative Note Pre-op Diagnosis: needs exterminator helper IV access Procedure: PICC Post-op Diagnosis: same as pre-op Surgeon: Kim GRAHAM Anesthesia: local Specimen: none Complications: none Condition: stable Fluids: none Implant(s) used?: No Jesse Graham MD Sep 12, 2018 14:37
--- NOTE | 2018-09-12 15:16 | Nephrology Progress Note ---
Assessment/Plan Problem List: (1) Renal failure (ARF), acute on chronic Assessment: Cr 3 (2) History of nephrectomy, unilateral (3) Diabetic nephropathy (4) Congestive heart failure (CHF) (5) Mastoiditis of left side (6) Anemia due to chronic kidney disease Assessment Acute on Chronic renal failure- Diabetic Nephropathy h/o Right Nephrectomy Anemia Acute External otitis, with h/o of Gram negative infection. 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 DM HTN h/o CVA CHF h/o PAF BPH Plan Optimize BP and BS and Cardiac status Venofer one dose EPOGEN SQ Anemia management Kidney AR ? Pending 2D echo ? 60 % Ej Fx Flomax Per orders Subjective ROS Limited/Unobtainable: No Constitutional: Reports: malaise Objective Objective Last 24 Hour Vital Signs Date Time Temp Pulse Resp B/P (MAP) Pulse Ox O2 Delivery O2 Flow Rate FiO2 09/12/18 13:00 Room Air 21 09/12/18 13:00 Room Air 21 09/12/18 12:00 98.0 69 20 120/68 (85) 97 09/12/18 09:39 128/55 09/12/18 09:39 76 128/55 09/12/18 09:37 128/55 09/12/18 08:00 98.4 76 18 128/55 (79) 94 09/12/18 06:51 96 Room Air 21 09/12/18 06:51 Room Air 21 09/12/18 06:51 Room Air 21 09/12/18 04:00 98.8 74 18 115/55 (75) 95 09/12/18 04:00 70 09/12/18 01:59 Room Air 21 09/12/18 01:59 Room Air 21 09/12/18 01:53 129/64 09/12/18 01:53 129/64 09/12/18 00:00 98.4 72 18 129/64 (85) 96 09/12/18 00:00 98 09/11/18 21:00 Room Air 09/11/18 20:41 71 127/56 09/11/18 20:38 66 18 99 Room Air 21 09/11/18 20:28 95 Room Air 21 09/11/18 20:28 65 18 95 Room Air 21 09/11/18 20:00 69 09/11/18 20:00 98.7 71 16 127/56 (79) 95 09/11/18 17:02 132/53 09/11/18 17:01 132/53 09/11/18 16:00 98.4 69 18 132/53 (79) 95 09/11/18 16:00 67 Intake and Output 09/11/18 09/12/18 19:00 07:00 Intake Total 240 ml 655 ml Output Total 450 ml Balance 240 ml 205 ml Intake Oral 240 ml 240 ml IV Total 415 ml Output Urine Total 450 ml # Voids 4 Laboratory Tests 09/12/18 05:51: White Blood Count 6.6, Red Blood Count 2.78L, Hemoglobin 8.6L, Hematocrit 25.2L , Mean Corpuscular Volume 91, Mean Corpuscular Hemoglobin 31.0, Mean Corpuscular Hemoglobin Concent 34.2, Red Cell Distribution Width 12.2, Platelet Count 187, Mean Platelet Volume 6.6, Neutrophils (%) (Auto) 57.9, Lymphocytes (% ) (Auto) 17.9L, Monocytes (%) (Auto) 13.9H, Eosinophils (%) (Auto) 9.6H, Basophils (%) (Auto) 0.8, Sodium Level 137, Potassium Level 4.0, Chloride Level 104, Carbon Dioxide Level 19L, Anion Gap 14, Blood Urea Nitrogen 43H, Creatinine 3.0H, Estimat Glomerular Filtration Rate , Glucose Level 114H, Calcium Level 8.1L, Phosphorus Level 4.7, Magnesium Level 2.5H, Total Bilirubin 0.5, Aspartate Amino Transf (AST/SGOT) 15, Alanine Aminotransferase (ALT/SGPT) 22, Alkaline Phosphatase 96, Total Protein 6.1L, Albumin 3.1L, Globulin 3.0, Albumin/Globulin Ratio 1.0 Height (Feet): 5 Height (Inches): 5.00 Weight (Pounds): 148 General Appearance: no apparent distress Cardiovascular: normal rate Respiratory/Chest: decreased breath sounds Abdomen: soft Objective no change Jimbo Barker MD Sep 12, 2018 15:16
--- NOTE | 2018-09-12 16:03 | NUR ---
NURSE NOTES: According amber Gamez he swabbed the pt ear and micro reported to Dr Gonzalez about two results. We need to follow up with micro for the second ear swab on saturday.
--- NOTE | 2018-09-12 16:17 | Diagnostic Imaging Report ---
Indications: Needs long-term IV access Technique: Ultrasound confirms patent compressible left basilic vein. Total sterile technique, including sterile probe cover and sterile gel, hat, mask, sterile gown, large sterile drape, and preparation with 2% chlorhexidine utilized. Local anesthesia with 1% lidocaine. Under real-time ultrasound guidance, puncture basilic vein using 21-gauge needle, documented and archived, passage 0.018 guidewire under direct fluoroscopy, which was used to determine appropriate catheter length, exchange for 4 Peruvian peel-away sheath. 4 Peruvian Bard dual-lumen power PICC cut to 40 cm. It was inserted through the peel-away sheath. Peel-away sheath and guidewire removed. Catheter fixed to the skin. Both catheter ports aspirated and flushed. Patient tolerated procedure well, without immediate complication. Digital radiograph documents satisfactory catheter tip position, at the cavoatrial junction. Total fluoroscopy 17.2 seconds. Total dose area product 0.681 mGym2 Total number of images: 1 Impression: Successful placement of left arm PICC under sonographic and fluoroscopic guidance, as described above.
--- NOTE | 2018-09-12 18:07 | Infectious Diseases Prog Note ---
Assessment/Plan Problems: (1) Otitis externa of left ear Assessment & Plan: with discharge, swelling and cellulitis, ear discharge is growing E coli, gram negative rods and diphtheroids, continue meropenem and topical ciprofloxacin as per ENT. MRI of the mastoid bone showed otomastoiditis , which is most likely chronic, will need antibiotics treatment for 6 weeks minimum with close follow up with ENT . may need surgical debridement if no improvement with antibiotics alone . (2) Mastoiditis of left side Assessment & Plan: suspect chronic , with gram negative rods , was treated for it last year with zosyn , continue meropenem and zyvox for now pending final culture . will need iv antibiotics for 6 weeks with close follow up with ENT (3) Cellulitis of head except face Assessment & Plan: due to the above, continue meropenem and zyvox (4) Renal failure (ARF), acute on chronic Assessment & Plan: suspect dehydration, continue IVF with close monitor of his renal function (5) Congestive heart failure (CHF) Assessment & Plan: continue cardiac meds with lasix as per primary (6) UTI (urinary tract infection) Assessment & Plan: already on meropenem , pending culture Subjective ROS Limited/Unobtainable: Yes Allergies: Coded Allergies: No Known Allergies (Unverified , 02/23/17) Subjective He still has left ear pain and minimal swelling in the periauricular area, with dry yellowish discharge in the external canal , has tenderness on the left mastoid area Objective Vital Signs Last 24 Hour Vital Signs Date Time Temp Pulse Resp B/P (MAP) Pulse Ox O2 Delivery O2 Flow Rate FiO2 09/12/18 13:00 Room Air 21 09/12/18 13:00 Room Air 21 09/12/18 12:00 98.0 69 20 120/68 (85) 97 09/12/18 09:39 128/55 09/12/18 09:39 76 128/55 09/12/18 09:37 128/55 09/12/18 08:00 98.4 76 18 128/55 (79) 94 09/12/18 06:51 96 Room Air 21 09/12/18 06:51 Room Air 21 09/12/18 06:51 Room Air 21 09/12/18 04:00 98.8 74 18 115/55 (75) 95 09/12/18 04:00 70 09/12/18 01:59 Room Air 21 09/12/18 01:59 Room Air 21 09/12/18 01:53 129/64 09/12/18 01:53 129/64 09/12/18 00:00 98.4 72 18 129/64 (85) 96 09/12/18 00:00 98 09/11/18 21:00 Room Air 09/11/18 20:41 71 127/56 09/11/18 20:38 66 18 99 Room Air 21 09/11/18 20:28 95 Room Air 21 09/11/18 20:28 65 18 95 Room Air 21 09/11/18 20:00 69 09/11/18 20:00 98.7 71 16 127/56 (79) 95 Height (Feet): 5 Height (Inches): 5.00 Weight (Pounds): 148 General Appearance: WD/WN, no acute distress HEENT: normocephalic, atraumatic, anicteric, mucous membranes moist, PERRL, EOMI, pharynx normal, supple, no JVD, other - left mastoid tenderness, with left external canal dry yellowish discharge Respiratory/Chest: chest wall non-tender, lungs clear, normal breath sounds, no respiratory distress, no accessory muscle use Cardiovascular: normal peripheral pulses, normal rate, regular rhythm, no gallop/murmur, no JVD Abdomen: normal bowel sounds, soft, non tender, no organomegaly, non distended , no mass, no scars Genitourinary: normal external genitalia Extremities: no cyanosis, no clubbing Skin: no rash, no lesions, no ulcers Neurologic/Psychiatric: alert, responsive Lymphatic: no neck adenopathy, no groin adenopathy Musculoskeletal: normal muscle bulk, no effusion Laboratory Tests Test 09/12/18 05:51 White Blood Count 6.6 K/UL (4.8-10.8) Red Blood Count 2.78 M/UL (4.70-6.10) L Hemoglobin 8.6 G/DL (14.2-18.0) L Hematocrit 25.2 % (42.0-52.0) L Mean Corpuscular Volume 91 FL (80-99) Mean Corpuscular Hemoglobin 31.0 PG (27.0-31.0) Mean Corpuscular Hemoglobin Concent 34.2 G/DL (32.0-36.0) Red Cell Distribution Width 12.2 % (11.6-14.8) Platelet Count 187 K/UL (150-450) Mean Platelet Volume 6.6 FL (6.5-10.1) Neutrophils (%) (Auto) 57.9 % (45.0-75.0) Lymphocytes (%) (Auto) 17.9 % (20.0-45.0) L Monocytes (%) (Auto) 13.9 % (1.0-10.0) H Eosinophils (%) (Auto) 9.6 % (0.0-3.0) H Basophils (%) (Auto) 0.8 % (0.0-2.0) Sodium Level 137 MMOL/L (136-145) Potassium Level 4.0 MMOL/L (3.5-5.1) Chloride Level 104 MMOL/L (98-107) Carbon Dioxide Level 19 MMOL/L (21-32) L Anion Gap 14 mmol/L (5-15) Blood Urea Nitrogen 43 mg/dL (7-18) H Creatinine 3.0 MG/DL (0.55-1.30) H Estimat Glomerular Filtration Rate mL/min (>60) Glucose Level 114 MG/DL (74-106) H Calcium Level 8.1 MG/DL (8.5-10.1) L Phosphorus Level 4.7 MG/DL (2.5-4.9) Magnesium Level 2.5 MG/DL (1.8-2.4) H Total Bilirubin 0.5 MG/DL (0.2-1.0) Aspartate Amino Transf (AST/SGOT) 15 U/L (15-37) Alanine Aminotransferase (ALT/SGPT) 22 U/L (12-78) Alkaline Phosphatase 96 U/L (46-116) Total Protein 6.1 G/DL (6.4-8.2) L Albumin 3.1 G/DL (3.4-5.0) L Globulin 3.0 g/dL Albumin/Globulin Ratio 1.0 (1.0-2.7) Current Medications Medications (Trade) Dose Ordered Sig/Jared Route PRN Reason Start Time Stop Time Status Last Admin Dose Admin Acetaminophen (Tylenol) 325 mg Q4H PRN ORAL Mild Pain/Temp > 100.5 09/09/18 05:15 10/09/18 05:14 Acetaminophen/ Hydrocodone Bitart ([place] 5/325) 1 tab Q4H PRN ORAL Moderate Pain (Pain Scale 4-6) 09/09/18 05:15 09/16/18 05:14 09/09/18 10:08 Albuterol/ Ipratropium (Albuterol/ Ipratropium) 3 ml Q6HRT HHN 09/09/18 07:00 09/14/18 06:59 09/11/18 20:27 Atorvastatin Calcium (Lipitor) 20 mg BEDTIME ORAL 09/12/18 21:00 10/09/18 20:59 Baclofen (Lioresal) 5 mg BEDTIME ORAL 09/09/18 21:00 10/09/18 20:59 09/11/18 20:40 Carvedilol (Coreg) 6.25 mg EVERY 12 HOURS ORAL 09/09/18 09:00 10/09/18 08:59 09/12/18 09:39 Chlorhexidine Gluconate (Merced-Hex 2%) 1 applic DAILY@2000 TOPIC 09/10/18 20:00 10/10/18 19:59 Dextrose (Dextrose 50%) 25 ml Q30M PRN IV Hypoglycemia 09/09/18 05:30 10/09/18 05:29 Dextrose (Dextrose 50%) 50 ml Q30M PRN IV Hypoglycemia 09/09/18 05:30 10/09/18 05:29 Docusate Sodium (Colace) 100 mg TID ORAL 09/09/18 18:00 10/09/18 08:59 09/12/18 13:00 Enoxaparin Sodium (Lovenox) 30 mg DAILY SUBQ 09/09/18 09:00 10/09/18 08:59 09/12/18 09:45 Epoetin Layton (Epoetin Layton-EPBX(NON ESRD)) 10,000 unit SAT-SAT-SAT SUBQ 09/10/18 21:00 10/10/18 20:59 09/10/18 20:47 Finasteride (Proscar) 5 mg DAILY ORAL 09/09/18 09:00 10/09/18 08:59 09/12/18 09:38 Fish Oil (Fish Oil) 2,000 mg DAILY ORAL 09/09/18 09:00 10/09/18 08:59 09/12/18 09:38 Gabapentin (Neurontin) 200 mg BEDTIME ORAL 09/09/18 21:00 10/09/18 20:59 09/11/18 20:41 Hydralazine HCl (Apresoline) 100 mg Q8H ORAL 09/10/18 01:00 10/09/18 08:59 09/12/18 09:39 Insulin Aspart (NovoLOG) BEFORE MEALS AND HS SUBQ 09/09/18 06:30 10/09/18 06:29 09/12/18 12:52 Iron Sucrose 100 mg/Sodium Chloride 60 ml @ 240 mls/hr BEDTIME IV 09/11/18 21:00 09/15/18 21:14 09/11/18 20:42 Isosorbide Dinitrate (Isordil) 40 mg Q8H ORAL 09/09/18 09:00 10/09/18 08:59 09/12/18 09:37 Linezolid 300 ml @ 300 mls/hr Q12HR IVPB 09/09/18 18:00 09/16/18 17:59 09/12/18 11:04 Meropenem 500 mg/ Sodium Chloride 55 ml @ 110 mls/hr EVERY 12 HOURS IVPB 09/09/18 21:00 09/14/18 20:59 09/12/18 09:33 Pantoprazole (Protonix) 40 mg EVERY 12 HOURS ORAL 09/09/18 21:00 10/09/18 20:59 09/12/18 09:39 Tamsulosin HCl (Flomax) 0.4 mg BEDTIME ORAL 09/09/18 21:00 10/09/18 20:59 09/11/18 20:42 Vitamin B Complex/ Vit C/Folic Acid (Nephrovite) 1 tab DAILY ORAL 09/09/18 09:00 10/09/18 08:59 09/12/18 09:37 Mu Gonzalez M.D. Sep 12, 2018 18:07
[2018-09-12 20:00] VITALS: BP 139/58
--- NOTE | 2018-09-12 20:16 | NUR ---
NURSE NOTES: PATIENT IN BED, A/O X 4, TURKISH SPEAKING. ON RA, NO SOB, NO ACUTE DISTRESS, NO C/O PAIN. ON CARDIAC MONITORING PER PROTOCOL. LFA SALINE LOCK INTACT, PATENT. PICC LINE INSERTED TODAY IN DA SHIFT, INTACT WITH DRY DSG. BED IN LOWEST POSITION, LOCKED, ALARMS ON. CALL LIGHT IN REACH.
--- NOTE | 2018-09-12 20:35 | NUR ---
HAND-OFF: Report given to Geovany OROZCO. pt in stable condition. Endorsed to night nurse that morning needs to check with microbiology about bacteria results, Dr. Nichols needs to know name of bacteria to prescribed correct antibiotic so pt. can be DC TOMORROW. pt will have a 6 wk antibiotic treatment so piccline was placed.
[2018-09-12] MEDS: Dyna-Hex 2% Top Sol 2oz TOPIC SCH (21:00)
[2018-09-12] MEDS ORDERED: Atorvastatin 20mg tab ORAL SCH (21:00)
[2018-09-12] MEDS: Iron Sucrose 100 MG in NS 55 ML IV SCH (21:01)
[2018-09-12] MEDS: Tamsulosin 0.4mg cap ORAL SCH (21:02)
[2018-09-12] MEDS: Epoetin Alfa-EPBX (NON ESRD)10,000 unit/ml vial SUBQ SCH (21:03)
[2018-09-13 00:11] VITALS: BP 129/55
[2018-09-13] MEDS: Albuterol/Ipratropium 3ml neb HHN SCH ×3 (01:25→13:35)
[2018-09-13 04:00] VITALS: BP 122/61
[2018-09-13] MEDS: NovoLOG Insulin Flexpen SUBQ SCH ×3 (06:08→16:30)
[2018-09-13 07:25] LABS: HEMOGLOBIN 8.7 G/DL (14.2-18.0); LYMPHOCYTES % (AUTO) 19.7 % (20.0-45.0); MEAN CORPUSCULAR VOLUME 90 FL (80-99); MONOCYTES % (AUTO) 14.5 % (1.0-10.0); NEUTROPHILS % (AUTO) 53.9 % (45.0-75.0); PLATELET COUNT 177 K/UL (150-450); RED BLOOD COUNT 2.78 M/UL (4.70-6.10); RED CELL DISTRIBUTION WIDTH 12.2 % (11.6-14.8); WHITE BLOOD COUNT 5.7 K/UL (4.8-10.8)
--- NOTE | 2018-09-13 07:25 | NUR ---
NURSE NOTES: I received the patient resting in bed. Bed in the lowest position and call light within reach. Patient does not display any signs of distress or SOB. I will continue to monitor the patient and implement care.
--- NOTE | 2018-09-13 07:31 | NUR ---
HAND-OFF: Report given to Fide OROZCO.
[2018-09-13 08:00] VITALS: BP 130/62
[2018-09-13] MEDS: Meropenem 500mg in NS 55ml IVPB SCH (08:07)
[2018-09-13] MEDS: HydrALAZINE 50mg tab ORAL SCH ×3 (09:49→17:22)
[2018-09-13] MEDS: Nephrovite tab (Rena-Vite) ORAL SCH (09:49)
[2018-09-13] MEDS: Docusate 100mg cap ORAL SCH ×3 (09:50→17:23)
[2018-09-13] MEDS: Carvedilol 6.25mg Tab ORAL SCH (09:50)
[2018-09-13] MEDS: Enoxaparin 30mg Inj SUBQ SCH (09:55)
--- NOTE | 2018-09-13 11:50 | Nephrology Progress Note ---
Assessment/Plan Problem List: (1) Renal failure (ARF), acute on chronic Assessment: Cr 3 (2) History of nephrectomy, unilateral (3) Diabetic nephropathy (4) Congestive heart failure (CHF) (5) Mastoiditis of left side (6) Anemia due to chronic kidney disease Assessment Acute on Chronic renal failure- Diabetic Nephropathy h/o Right Nephrectomy Anemia Acute External otitis, with h/o of Gram negative infection. 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 DM HTN h/o CVA CHF h/o PAF BPH Plan no renal panel today Optimize BP and BS and Cardiac status Venofer one dose EPOGEN SQ Anemia management Kidney AR ? Pending 2D echo ? 60 % Ej Fx Flomax Per orders med surg? Subjective ROS Limited/Unobtainable: No Constitutional: Reports: malaise Objective Objective Last 24 Hour Vital Signs Date Time Temp Pulse Resp B/P (MAP) Pulse Ox O2 Delivery O2 Flow Rate FiO2 09/13/18 09:50 69 130/62 09/13/18 09:49 130/62 09/13/18 09:49 130/62 09/13/18 09:00 Room Air 09/13/18 08:20 69 18 99 Room Air 09/13/18 08:16 97 Room Air 21 09/13/18 08:15 70 18 96 Room Air 09/13/18 08:00 98.4 69 18 130/62 (84) 97 09/13/18 07:49 66 09/13/18 04:00 63 09/13/18 04:00 97.7 62 19 122/61 (81) 97 09/13/18 01:35 68 18 98 Room Air 21 09/13/18 01:25 67 18 94 Room Air 21 09/13/18 00:11 98.0 69 18 129/55 (79) 95 09/13/18 00:00 68 09/13/18 00:00 129/55 09/13/18 00:00 129/55 09/12/18 21:05 74 139/58 09/12/18 21:00 Room Air 09/12/18 20:00 74 09/12/18 20:00 97.5 70 18 139/58 (85) 95 09/12/18 19:55 Room Air 21 09/12/18 19:55 Room Air 21 09/12/18 19:55 96 Room Air 21 09/12/18 18:10 128/61 09/12/18 18:10 128/61 09/12/18 16:00 64 09/12/18 13:00 Room Air 21 09/12/18 13:00 Room Air 21 09/12/18 12:00 98.0 69 20 120/68 (85) 97 09/12/18 12:00 76 Intake and Output 09/12/18 09/13/18 19:00 07:00 Intake Total 120 ml 240 ml Balance 120 ml 240 ml Intake Oral 120 ml 240 ml # Voids 8 Laboratory Tests 09/13/18 06:10: White Blood Count 5.7, Red Blood Count 2.78L, Hemoglobin 8.7L, Hematocrit 25.0L , Mean Corpuscular Volume 90, Mean Corpuscular Hemoglobin 31.3H, Mean Corpuscular Hemoglobin Concent 34.9, Red Cell Distribution Width 12.2, Platelet Count 177, Mean Platelet Volume 5.6L, Neutrophils (%) (Auto) 53.9, Lymphocytes ( %) (Auto) 19.7L, Monocytes (%) (Auto) 14.5H, Eosinophils (%) (Auto) 11.0H, Basophils (%) (Auto) 1.0 Height (Feet): 5 Height (Inches): 5.00 Weight (Pounds): 148 General Appearance: no apparent distress Objective no change Jimbo Barker MD Sep 13, 2018 11:50
[2018-09-13 12:00] VITALS: BP 121/55
--- NOTE | 2018-09-13 12:45 | Hematology/Onc Progress Note ---
Assessment/Plan Assessment/Plan ASSESSMENT AND RECOMMENDATIONS # Anemia of iron deficiency, low ferritin with CKD, multifactorial --> Anemia workup has been reviewed. --> Ferritin 68, iron 26, tibc 220 --> No evidence of hemolysis is noted, peripheral smear has been reviewed. --> Hgb goal >7. Transfuse prn. 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 --> MRI as per ID reviewed --> ent recs reviewed --> 6 weeks abx, PICC # Acute on Chronic kidney disease --> fluids as needed --> Continue epogen # Hypertension. # Diabetes type 2. # Cerebrovascular accident # Benign prostatic hypertrophy The timing of this note does not necessarily reflect the time of the patient was seen. GREATLY APPRECIATE CONSULTATION. Subjective Hematologic/Lymphatic: Reports: anemia Allergies: Coded Allergies: No Known Allergies (Unverified , 02/23/17) All Systems: reviewed and negative except above Subjective 09/10: Pt resting in bed. S/P IV iron, current Hgb of 8.2. 09/11: remains on abx, no fevers, remains with left ear pain, started on iron iv 09/12: S/P PICC for 6 wk abx tx. Objective Objective Current Medications Medications (Trade) Dose Ordered Sig/Jared Route PRN Reason Start Time Stop Time Status Last Admin Dose Admin Acetaminophen (Tylenol) 325 mg Q4H PRN ORAL Mild Pain/Temp > 100.5 09/09/18 05:15 10/09/18 05:14 Acetaminophen/ Hydrocodone Bitart ([place] 5/325) 1 tab Q4H PRN ORAL Moderate Pain (Pain Scale 4-6) 09/09/18 05:15 09/16/18 05:14 09/09/18 10:08 Albuterol/ Ipratropium (Albuterol/ Ipratropium) 3 ml Q6HRT HHN 09/09/18 07:00 09/14/18 06:59 09/13/18 08:14 Atorvastatin Calcium (Lipitor) 20 mg BEDTIME ORAL 09/12/18 21:00 10/09/18 20:59 09/12/18 21:03 Baclofen (Lioresal) 5 mg BEDTIME ORAL 09/09/18 21:00 10/09/18 20:59 09/12/18 21:02 Carvedilol (Coreg) 6.25 mg EVERY 12 HOURS ORAL 09/09/18 09:00 10/09/18 08:59 09/13/18 09:50 Chlorhexidine Gluconate (Merced-Hex 2%) 1 applic DAILY@2000 TOPIC 09/10/18 20:00 10/10/18 19:59 09/12/18 21:00 Dextrose (Dextrose 50%) 25 ml Q30M PRN IV Hypoglycemia 09/09/18 05:30 10/09/18 05:29 Dextrose (Dextrose 50%) 50 ml Q30M PRN IV Hypoglycemia 09/09/18 05:30 10/09/18 05:29 Docusate Sodium (Colace) 100 mg TID ORAL 09/09/18 18:00 10/09/18 08:59 09/13/18 12:09 Enoxaparin Sodium (Lovenox) 30 mg DAILY SUBQ 09/09/18 09:00 10/09/18 08:59 09/13/18 09:55 Epoetin Layton (Epoetin Lay[place]-EPBX(NON ESRD)) 10,000 unit SAT-SAT-SAT SUBQ 09/10/18 21:00 10/10/18 20:59 09/12/18 21:03 Finasteride (Proscar) 5 mg DAILY ORAL 09/09/18 09:00 10/09/18 08:59 09/13/18 09:48 Fish Oil (Fish Oil) 2,000 mg DAILY ORAL 09/09/18 09:00 10/09/18 08:59 09/13/18 09:50 Gabapentin (Neurontin) 200 mg BEDTIME ORAL 09/09/18 21:00 10/09/18 20:59 09/12/18 21:02 Hydralazine HCl (Apresoline) 100 mg Q8H ORAL 09/10/18 01:00 10/09/18 08:59 09/13/18 09:49 Insulin Aspart (NovoLOG) BEFORE MEALS AND HS SUBQ 09/09/18 06:30 10/09/18 06:29 09/13/18 12:10 Iron Sucrose 100 mg/Sodium Chloride 60 ml @ 240 mls/hr BEDTIME IV 09/11/18 21:00 09/15/18 21:14 09/12/18 21:01 Isosorbide Dinitrate (Isordil) 40 mg Q8H ORAL 09/09/18 09:00 10/09/18 08:59 09/13/18 09:49 Linezolid 300 ml @ 300 mls/hr Q12HR IVPB 09/09/18 18:00 09/16/18 17:59 09/13/18 09:48 Meropenem 500 mg/ Sodium Chloride 55 ml @ 110 mls/hr EVERY 12 HOURS IVPB 09/09/18 21:00 09/19/18 20:59 09/13/18 08:07 Pantoprazole (Protonix) 40 mg EVERY 12 HOURS ORAL 09/09/18 21:00 10/09/18 20:59 09/13/18 09:49 Tamsulosin HCl (Flomax) 0.4 mg BEDTIME ORAL 09/09/18 21:00 10/09/18 20:59 09/12/18 21:02 Vitamin B Complex/ Vit C/Folic Acid (Nephrovite) 1 tab DAILY ORAL 09/09/18 09:00 10/09/18 08:59 09/13/18 09:49 Last 24 Hour Vital Signs Date Time Temp Pulse Resp B/P (MAP) Pulse Ox O2 Delivery O2 Flow Rate FiO2 09/13/18 12:00 98.5 71 18 121/55 (77) 94 09/13/18 09:50 69 130/62 09/13/18 09:49 130/62 09/13/18 09:49 130/62 09/13/18 09:00 Room Air 09/13/18 08:20 69 18 99 Room Air 21 09/13/18 08:16 97 Room Air 21 09/13/18 08:15 70 18 96 Room Air 21 09/13/18 08:00 98.4 69 18 130/62 (84) 97 09/13/18 07:49 66 09/13/18 04:00 63 09/13/18 04:00 97.7 62 19 122/61 (81) 97 09/13/18 01:35 68 18 98 Room Air 21 09/13/18 01:25 67 18 94 Room Air 21 09/13/18 00:11 98.0 69 18 129/55 (79) 95 09/13/18 00:00 68 09/13/18 00:00 129/55 09/13/18 00:00 129/55 09/12/18 21:05 74 139/58 09/12/18 21:00 Room Air 09/12/18 20:00 74 09/12/18 20:00 97.5 70 18 139/58 (85) 95 09/12/18 19:55 Room Air 21 09/12/18 19:55 Room Air 21 09/12/18 19:55 96 Room Air 21 09/12/18 18:10 128/61 09/12/18 18:10 128/61 09/12/18 16:00 64 09/12/18 13:00 Room Air 21 09/12/18 13:00 Room Air 21 09/12/18 12:00 98.0 69 20 120/68 (85) 97 09/12/18 12:00 76 09/12/18 09:39 128/55 09/12/18 09:39 76 128/55 09/12/18 09:37 128/55 09/12/18 09:00 Room Air 09/12/18 08:00 71 09/12/18 08:00 98.4 76 18 128/55 (79) 94 09/12/18 06:51 96 Room Air 21 09/12/18 06:51 Room Air 21 09/12/18 06:51 Room Air 21 09/12/18 04:00 98.8 74 18 115/55 (75) 95 09/12/18 04:00 70 09/12/18 01:59 Room Air 21 09/12/18 01:59 Room Air 21 09/12/18 01:53 129/64 09/12/18 01:53 129/64 09/12/18 00:00 98.4 72 18 129/64 (85) 96 09/12/18 00:00 98 09/11/18 21:00 Room Air 09/11/18 20:41 71 127/56 09/11/18 20:38 66 18 99 Room Air 21 09/11/18 20:28 95 Room Air 21 09/11/18 20:28 65 18 95 Room Air 21 09/11/18 20:00 69 09/11/18 20:00 98.7 71 16 127/56 (79) 95 09/11/18 17:02 132/53 09/11/18 17:01 132/53 09/11/18 16:00 98.4 69 18 132/53 (79) 95 09/11/18 16:00 67 09/11/18 13:52 64 20 98 Room Air 21 09/11/18 13:44 68 20 94 Room Air 21 Intake and Output 09/12/18 09/13/18 19:00 07:00 Intake Total 120 ml 240 ml Balance 120 ml 240 ml Intake Oral 120 ml 240 ml # Voids 8 Labs Test 09/11/18 06:26 09/12/18 05:51 09/13/18 06:10 White Blood Count 5.8 K/UL (4.8-10.8) 6.6 K/UL (4.8-10.8) 5.7 K/UL (4.8-10.8) Red Blood Count 2.77 M/UL (4.70-6.10) 2.78 M/UL (4.70-6.10) 2.78 M/UL (4.70-6.10) Hemoglobin 8.6 G/DL (14.2-18.0) 8.6 G/DL (14.2-18.0) 8.7 G/DL (14.2-18.0) Hematocrit 24.9 % (42.0-52.0) 25.2 % (42.0-52.0) 25.0 % (42.0-52.0) Mean Corpuscular Volume 90 FL (80-99) 91 FL (80-99) 90 FL (80-99) Mean Corpuscular Hemoglobin 30.9 PG (27.0-31.0) 31.0 PG (27.0-31.0) 31.3 PG (27.0-31.0) Mean Corpuscular Hemoglobin Concent 34.4 G/DL (32.0-36.0) 34.2 G/DL (32.0-36.0) 34.9 G/DL (32.0-36.0) Red Cell Distribution Width 12.3 % (11.6-14.8) 12.2 % (11.6-14.8) 12.2 % (11.6-14.8) Platelet Count 170 K/UL (150-450) 187 K/UL (150-450) 177 K/UL (150-450) Mean Platelet Volume 6.1 FL (6.5-10.1) 6.6 FL (6.5-10.1) 5.6 FL (6.5-10.1) Neutrophils (%) (Auto) 51.9 % (45.0-75.0) 57.9 % (45.0-75.0) 53.9 % (45.0-75.0) Lymphocytes (%) (Auto) 21.5 % (20.0-45.0) 17.9 % (20.0-45.0) 19.7 % (20.0-45.0) Monocytes (%) (Auto) 14.7 % (1.0-10.0) 13.9 % (1.0-10.0) 14.5 % (1.0-10.0) Eosinophils (%) (Auto) 11.1 % (0.0-3.0) 9.6 % (0.0-3.0) 11.0 % (0.0-3.0) Basophils (%) (Auto) 0.8 % (0.0-2.0) 0.8 % (0.0-2.0) 1.0 % (0.0-2.0) Sodium Level 137 MMOL/L (136-145) 137 MMOL/L (136-145) Potassium Level 3.8 MMOL/L (3.5-5.1) 4.0 MMOL/L (3.5-5.1) Chloride Level 103 MMOL/L (98-107) 104 MMOL/L (98-107) Carbon Dioxide Level 21 MMOL/L (21-32) 19 MMOL/L (21-32) Anion Gap 13 mmol/L (5-15) 14 mmol/L (5-15) Blood Urea Nitrogen 44 mg/dL (7-18) 43 mg/dL (7-18) Creatinine 3.1 MG/DL (0.55-1.30) 3.0 MG/DL (0.55-1.30) Estimat Glomerular Filtration Rate mL/min (>60) mL/min (>60) Glucose Level 92 MG/DL (74-106) 114 MG/DL (74-106) Calcium Level 8.3 MG/DL (8.5-10.1) 8.1 MG/DL (8.5-10.1) Total Bilirubin 0.5 MG/DL (0.2-1.0) 0.5 MG/DL (0.2-1.0) Aspartate Amino Transf (AST/SGOT) 20 U/L (15-37) 15 U/L (15-37) Alanine Aminotransferase (ALT/SGPT) 25 U/L (12-78) 22 U/L (12-78) Alkaline Phosphatase 102 U/L (46-116) 96 U/L (46-116) Total Protein 6.4 G/DL (6.4-8.2) 6.1 G/DL (6.4-8.2) Albumin 3.6 G/DL (3.4-5.0) 3.1 G/DL (3.4-5.0) Globulin 2.8 g/dL 3.0 g/dL Albumin/Globulin Ratio 1.3 (1.0-2.7) 1.0 (1.0-2.7) Phosphorus Level 4.7 MG/DL (2.5-4.9) Magnesium Level 2.5 MG/DL (1.8-2.4) Height (Feet): 5 Height (Inches): 5.00 Weight (Pounds): 148 Objective PHYSICAL EXAM Vitals: Have been reviewed General Appearance: well appearing, no apparent distress. PICC+ Head: normocephalic, atraumatic Eyes: bilateral eye PERRL, EOMI ENT: other - Erythema and irritation in the left canal some clear discharge is noted mastoid however is nontender and non-boggy tympanic membrane is intact Neck: supple Respiratory: no respiratory distress, no retraction, crackles - Fine crackles bilaterally Cardiovascular #1: regular rate, rhythm Gastrointestinal: non tender, soft Musculoskeletal: other - Sided deficit Neurologic: alert, oriented x3, responsive Skin: other - Noted bilateral lower extremity Lymphatic: no adenopathy Cal Bill MD Sep 13, 2018 12:45
--- NOTE | 2018-09-13 13:31 | Infectious Diseases Prog Note ---
Assessment/Plan Problems: (1) Otitis externa of left ear Assessment & Plan: with discharge, swelling and cellulitis, ear discharge is growing E coli, klebsiella pneumonia and diphtheroids, will switch meropenem to ceftriaxone and metronidazole for 6 weeks minimum to treat his mastoiditis . MRI of the mastoid bone showed otomastoiditis , which is most likely chronic, will need antibiotics treatment for 6 weeks minimum with close follow up with ENT . may need surgical debridement if no improvement with antibiotics alone . please monitor weekly labs with CBC and CMP while on antibiotics. (2) Mastoiditis of left side Assessment & Plan: suspect chronic , with culture grew E.coli and Klebsiella Pneumonia , was treated for it last year with zosyn , continue ceftriaxone and metronidazole for 6 weeks minimum with close follow up with ENT (3) Cellulitis of head except face Assessment & Plan: resolving due to the above, continue antibiotics , follow up with ENT (4) Renal failure (ARF), acute on chronic Assessment & Plan: suspect dehydration, continue IVF with close monitor of his renal function (5) Congestive heart failure (CHF) Assessment & Plan: continue cardiac meds with lasix as per primary (6) UTI (urinary tract infection) Assessment & Plan: suspect asymptomatic pyuria , already on antibiotics Subjective ROS Limited/Unobtainable: Yes Allergies: Coded Allergies: No Known Allergies (Unverified , 02/23/17) Subjective He still has left ear pain and minimal swelling in the periauricular area, with dry yellowish discharge in the external canal , has tenderness on the left mastoid area Objective Vital Signs Last 24 Hour Vital Signs Date Time Temp Pulse Resp B/P (MAP) Pulse Ox O2 Delivery O2 Flow Rate FiO2 09/13/18 12:00 98.5 71 18 121/55 (77) 94 09/13/18 09:50 69 130/62 09/13/18 09:49 130/62 09/13/18 09:49 130/62 09/13/18 09:00 Room Air 09/13/18 08:20 69 18 99 Room Air 21 09/13/18 08:16 97 Room Air 21 09/13/18 08:15 70 18 96 Room Air 21 09/13/18 08:00 98.4 69 18 130/62 (84) 97 09/13/18 07:49 66 09/13/18 04:00 63 09/13/18 04:00 97.7 62 19 122/61 (81) 97 09/13/18 01:35 68 18 98 Room Air 21 09/13/18 01:25 67 18 94 Room Air 21 09/13/18 00:11 98.0 69 18 129/55 (79) 95 09/13/18 00:00 68 09/13/18 00:00 129/55 09/13/18 00:00 129/55 09/12/18 21:05 74 139/58 09/12/18 21:00 Room Air 09/12/18 20:00 74 09/12/18 20:00 97.5 70 18 139/58 (85) 95 09/12/18 19:55 Room Air 21 09/12/18 19:55 Room Air 21 09/12/18 19:55 96 Room Air 21 09/12/18 18:10 128/61 09/12/18 18:10 128/61 09/12/18 16:00 64 Height (Feet): 5 Height (Inches): 5.00 Weight (Pounds): 148 General Appearance: WD/WN, cachetic HEENT: normocephalic, atraumatic, anicteric, mucous membranes moist, PERRL, EOMI, pharynx normal, supple, no JVD, other - left ear auricle tenderness and local mastoid tenderness Respiratory/Chest: chest wall non-tender, lungs clear, normal breath sounds, no respiratory distress, no accessory muscle use, respiratory distress Cardiovascular: normal peripheral pulses, normal rate, regular rhythm, no gallop/murmur, no JVD Abdomen: normal bowel sounds, soft, non tender, no organomegaly, non distended , no mass, no scars Extremities: no cyanosis, no clubbing Skin: no rash, no lesions, no ulcers Neurologic/Psychiatric: alert, oriented x 3, responsive Lymphatic: no neck adenopathy, no groin adenopathy Musculoskeletal: normal muscle bulk, no effusion Laboratory Tests Test 09/13/18 06:10 White Blood Count 5.7 K/UL (4.8-10.8) Red Blood Count 2.78 M/UL (4.70-6.10) L Hemoglobin 8.7 G/DL (14.2-18.0) L Hematocrit 25.0 % (42.0-52.0) L Mean Corpuscular Volume 90 FL (80-99) Mean Corpuscular Hemoglobin 31.3 PG (27.0-31.0) H Mean Corpuscular Hemoglobin Concent 34.9 G/DL (32.0-36.0) Red Cell Distribution Width 12.2 % (11.6-14.8) Platelet Count 177 K/UL (150-450) Mean Platelet Volume 5.6 FL (6.5-10.1) L Neutrophils (%) (Auto) 53.9 % (45.0-75.0) Lymphocytes (%) (Auto) 19.7 % (20.0-45.0) L Monocytes (%) (Auto) 14.5 % (1.0-10.0) H Eosinophils (%) (Auto) 11.0 % (0.0-3.0) H Basophils (%) (Auto) 1.0 % (0.0-2.0) Current Medications Medications (Trade) Dose Ordered Sig/Jared Route PRN Reason Start Time Stop Time Status Last Admin Dose Admin Acetaminophen (Tylenol) 325 mg Q4H PRN ORAL Mild Pain/Temp > 100.5 09/09/18 05:15 10/09/18 05:14 Acetaminophen/ Hydrocodone Bitart ([place] 5/325) 1 tab Q4H PRN ORAL Moderate Pain (Pain Scale 4-6) 09/09/18 05:15 09/16/18 05:14 09/09/18 10:08 Albuterol/ Ipratropium (Albuterol/ Ipratropium) 3 ml Q6HRT HHN 09/09/18 07:00 09/14/18 06:59 09/13/18 08:14 Atorvastatin Calcium (Lipitor) 20 mg BEDTIME ORAL 09/12/18 21:00 10/09/18 20:59 09/12/18 21:03 Baclofen (Lioresal) 5 mg BEDTIME ORAL 09/09/18 21:00 10/09/18 20:59 09/12/18 21:02 Carvedilol (Coreg) 6.25 mg EVERY 12 HOURS ORAL 09/09/18 09:00 10/09/18 08:59 09/13/18 09:50 Ceftriaxone Sodium 2 gm/ Dextrose 55 ml @ 110 mls/hr Q24H IVPB 09/13/18 15:00 09/20/18 14:59 Chlorhexidine Gluconate (Merced-Hex 2%) 1 applic DAILY@2000 TOPIC 09/10/18 20:00 10/10/18 19:59 09/12/18 21:00 Dextrose (Dextrose 50%) 25 ml Q30M PRN IV Hypoglycemia 09/09/18 05:30 10/09/18 05:29 Dextrose (Dextrose 50%) 50 ml Q30M PRN IV Hypoglycemia 09/09/18 05:30 10/09/18 05:29 Docusate Sodium (Colace) 100 mg TID ORAL 09/09/18 18:00 10/09/18 08:59 09/13/18 12:09 Enoxaparin Sodium (Lovenox) 30 mg DAILY SUBQ 09/09/18 09:00 10/09/18 08:59 09/13/18 09:55 Epoetin Layton (Epoetin Layton-EPBX(NON ESRD)) 10,000 unit SAT- SUBQ 09/10/18 21:00 10/10/18 20:59 09/12/18 21:03 Finasteride (Proscar) 5 mg DAILY ORAL 09/09/18 09:00 10/09/18 08:59 09/13/18 09:48 Fish Oil (Fish Oil) 2,000 mg DAILY ORAL 09/09/18 09:00 10/09/18 08:59 09/13/18 09:50 Gabapentin (Neurontin) 200 mg BEDTIME ORAL 09/09/18 21:00 10/09/18 20:59 09/12/18 21:02 Hydralazine HCl (Apresoline) 100 mg Q8H ORAL 09/10/18 01:00 10/09/18 08:59 09/13/18 09:49 Insulin Aspart (NovoLOG) BEFORE MEALS AND HS SUBQ 09/09/18 06:30 10/09/18 06:29 09/13/18 12:10 Iron Sucrose 100 mg/Sodium Chloride 60 ml @ 240 mls/hr BEDTIME IV 09/11/18 21:00 09/15/18 21:14 09/12/18 21:01 Isosorbide Dinitrate (Isordil) 40 mg Q8H ORAL 09/09/18 09:00 10/09/18 08:59 09/13/18 09:49 Metronidazole (Flagyl) 500 mg Q8HR ORAL 09/13/18 14:00 09/20/18 13:59 Pantoprazole (Protonix) 40 mg EVERY 12 HOURS ORAL 09/09/18 21:00 10/09/18 20:59 09/13/18 09:49 Tamsulosin HCl (Flomax) 0.4 mg BEDTIME ORAL 09/09/18 21:00 10/09/18 20:59 09/12/18 21:02 Vitamin B Complex/ Vit C/Folic Acid (Nephrovite) 1 tab DAILY ORAL 09/09/18 09:00 10/09/18 08:59 09/13/18 09:49 Mu Gonzalez M.D. Sep 13, 2018 13:31
[2018-09-13] MEDS ORDERED: metroNIDAZOLE 500mg tab ORAL SCH (14:00)
--- NOTE | 2018-09-13 14:48 | General Progress Note ---
Assessment/Plan Status: stable Assessment/Plan: S: I have no pain in my left ear O: Interval improvement in pain for left ear pain and discharge PHYSICAL EXAMINATION: HEAD AND NECK: episodes of epistaxia, detailed exam deferred. Atraumatic and normocephalic. Negative for the pain and tenderness oin left Auditory canal. Positive for minimal redness in the external auditory meatus.CHEST: scar of prior sternotomy, Clear to auscultation. No wheezing. No crackles. HEART: S1 and S2. Regular rate and rhythm.ABDOMEN: Soft. No organomegaly.MUSCULOSKELETAL: Dysfiguration of toe nail, both sides, Negative for any gross abnormal lateralized motor deficit. NEUROLOGIC: The patient is awake, alert, and oriented x3. LABORATORY AND DIAGNOSTIC DATA: Labs dated 09/10/2018 ASSESSMENT: 1. 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 Acute on Chronic kidney disease: Stable, at his base line 3. Hypertension. 4. Diabetes type 2. 5. Cerebrovascular accident 6. CHF- low EF : appears stable 7. PAF ( history of), Sinus at this time 6. Benign prostatic hypertrophy. 7. Gastrointestinal and deep venous thrombosis prophylaxis. 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 As I D/w ID today Subjective Allergies: Coded Allergies: No Known Allergies (Unverified , 02/23/17) Objective Last 24 Hour Vital Signs Date Time Temp Pulse Resp B/P (MAP) Pulse Ox O2 Delivery O2 Flow Rate FiO2 09/13/18 13:41 70 18 100 Room Air 21 09/13/18 13:35 67 18 96 Room Air 21 09/13/18 12:00 98.5 71 18 121/55 (77) 94 09/13/18 09:50 69 130/62 09/13/18 09:49 130/62 09/13/18 09:49 130/62 09/13/18 09:00 Room Air 09/13/18 08:20 69 18 99 Room Air 21 09/13/18 08:16 97 Room Air 21 09/13/18 08:15 70 18 96 Room Air 21 09/13/18 08:00 98.4 69 18 130/62 (84) 97 09/13/18 07:49 66 09/13/18 04:00 63 09/13/18 04:00 97.7 62 19 122/61 (81) 97 09/13/18 01:35 68 18 98 Room Air 21 09/13/18 01:25 67 18 94 Room Air 21 09/13/18 00:11 98.0 69 18 129/55 (79) 95 09/13/18 00:00 68 09/13/18 00:00 129/55 09/13/18 00:00 129/55 09/12/18 21:05 74 139/58 09/12/18 21:00 Room Air 09/12/18 20:00 74 09/12/18 20:00 97.5 70 18 139/58 (85) 95 09/12/18 19:55 Room Air 21 09/12/18 19:55 Room Air 21 09/12/18 19:55 96 Room Air 21 09/12/18 18:10 128/61 09/12/18 18:10 128/61 09/12/18 16:00 64 Intake and Output 09/12/18 09/13/18 19:00 07:00 Intake Total 120 ml 240 ml Balance 120 ml 240 ml Intake Oral 120 ml 240 ml # Voids 8 Laboratory Tests 09/13/18 06:10: White Blood Count 5.7, Red Blood Count 2.78L, Hemoglobin 8.7L, Hematocrit 25.0L , Mean Corpuscular Volume 90, Mean Corpuscular Hemoglobin 31.3H, Mean Corpuscular Hemoglobin Concent 34.9, Red Cell Distribution Width 12.2, Platelet Count 177, Mean Platelet Volume 5.6L, Neutrophils (%) (Auto) 53.9, Lymphocytes ( %) (Auto) 19.7L, Monocytes (%) (Auto) 14.5H, Eosinophils (%) (Auto) 11.0H, Basophils (%) (Auto) 1.0 Height (Feet): 5 Height (Inches): 5.00 Weight (Pounds): 148 Tara Escobar MD Sep 13, 2018 14:48
[2018-09-13] MEDS ORDERED: cefTRIAXone 2 GM in D5W 55 ML IVPB SCH (15:00)
[2018-09-13] MEDS ORDERED: METRONIDAZOLE500 MG ORAL (15:18)
[2018-09-13] MEDS ORDERED: CEFTRIAXON2 GM/50 ML IV (15:21)
[2018-09-13 15:59] VITALS: BP 121/68
[2018-09-13 17:23] VITALS: BP 156/61
--- NOTE | 2018-09-13 17:34 | NUR ---
NURSE NOTES: Report given to ERNESTO Siu at [facility].
--- NOTE | 2018-09-13 18:55 | NUR ---
NURSE NOTES: Patient discharged in stable condition. Patient confirmed he was in possession of all his belongings. Patient's IV was removed and the IV site did not display any signs of bleeding or swelling. Patient was transported to [facility] via ambulance. Patient did not display any signs of distress or SOB. Telemetry box removed from patient before discharge.
[2018-09-13] MEDS ORDERED: Sterile Water Irrig 1000ml IRRIG ONE (19:00)
[2018-09-13] MEDS ORDERED: Tubing IV Secondary IV ONE (19:00)
[2018-09-13] MEDS ORDERED: NS 275ml ONE (19:00)
--- NOTE | 2018-09-17 09:02 | Discharge Summary ---
Discharge Summary Discharge Summary _ DATE OF ADMISSION: 09/09/2018 DATE OF DISCHARGE: 09/13/2018 DISCHARGED BY: Dr. Escobar REASON FOR ADMISSION: 73 years old male with past medical history of hypertension, congestive heart failure, aortocoronary bypass graft, ischemic cardiomyopathy, history of CVA with hemiplegia, chronic kidney disease, diabetes mellitus, presented with complaint of drainage from the left ear for the last week. Patient reported discomfort at the left ear as well. He denied changes in hearing. He denied chest pain or shortness of breath. Patient reported swelling in his legs and right hand. Upon evaluation patient was tachypneic with respiratory rate 26 and required supplemental oxygen 3 L via nasal cannula with pulse oximetry reading afterwards 96%. Laboratory work-up revealed no leukocytosis, hemoglobin 8.1, hematocrit 23.4. Stable electrolytes. BUN 46,creatinine 2.8 . Glucose 128 . Troponin 0.012. Pro BNP 51019. EKG revealed normal sinus rhythm, no acute ischemic changes.. Chest x-ray demonstrated cardiomegaly, bilateral mild to moderate interstitial and airspace edema, probably left pleural effusion. CT of the head showed chronic and age-related changes. Multiple old infarcts. Negative for acute intracranial bleeding or mass-effect. Left mastoid disease incidentally noted. Patient subsequently was admitted to telemetry floor for further management. CONSULTANTS: ID specialist Dr. Gonzalez hydraulic barker operator Dr. Barker city controller/oncologist Dr. Bill ENT specialist Dr. Swann [facility] COURSE: Patient admitted and started on empiric antibiotic. MRI of the face, orbit and neck revealed evidence of extensive otomastoiditis. Suggestion of high signal within the lateral otic capsule raised concern for osteomyelitis. CT of the auditory canal revealed evidence of extensive left otomastoiditis, progressive since 08/26/2017. No definite significant bony erosion. What appeared to be otic capsule involvement on recent MRI , was probably just fluid within the mastoid air cells and middle air ear cavity. Possible anterior dislocation or subluxation of the right mandibular condyle. Evidence of old left zygomatic arch fracture. ID specialist closely followed. Left ear culture revealed E. coli and Klebsiella. Antibiotic regimen was optimized based on ID recommendation Patient will require minimum of 6 weeks to treat mastoiditis as per infectious disease recommendation. Otomastoiditis was likely chronic as per infectious disease specialist, and patient needs a longer duration of antibiotic treatment , minimum of 6 weeks. ID specialist recommended follow-up with ENT. Patient may need a surgical debridement if no improvement with antibiotics alone. Mastoiditis of left side appeared to be chronic . Patient was treated for this last year with Zosyn. Urinalysis revealed pyuria, but urine culture was negative. ENT specialist seen and evaluated patient. ENT recommended Ciprodex eardrops which preferred for diabetic over Cortisporin Echocardiogram demonstrated preserved ejection fraction 60 to 65% with mild left ventricular hypertrophy. No evidence of wall motion abnormality. No evidence of pericardial effusion. Moderately elevated left atrial pressure grade 2. Right ventricular systolic pressure of 40 consistent with a mild pulmonary hypertension. Renal ultrasound revealed prior right nephrectomy. Left kidney demonstrated normal echogenicity. Multiple left renal cyst noted. Renal parameters and electrolytes were closely monitored. Electrolytes corrected as needed. Flomax and Proscar continued. Radiator Cleaner followed. Anemia was due to chronic kidney disease. Patient was on Epogen. Hemoglobin and hematocrit were closely monitored with goal to keep hemoglobin above 7. Hemoglobin and hematocrit remained at baseline, prior to discharge hemoglobin 8.7, hematocrit 25. Anemia work-up revealed anemia of iron deficiency, ferritin was 68 . Patient was provided with IV Venofer at the hospital. Blood pressure was managed with current regimen , including beta-prasanna and remained stable. Statin continued. Blood sugar was managed with sliding scale of short acting insulin as needed. Patient remained in sinus rhythm on telemetry, no evidence of atrial fibrillation. DVT and GI prophylaxis provided. Supportive care provided. Pain management was addressed as needed. Patient clinically stabilized and was ready for transfer back to intermediate facility for continuation of care Continue antibiotic for total of 6 weeks as per ID recommendation with weekly CBC and CMP monitoring. FINAL DIAGNOSES: Acute external otitis left ear with history of gram-negative infection Left side mastoiditis Cellulitis of head/ except face Acute on chronic renal failure Diabetic nephropathy History of nephrectomy , unilateral Anemia due to chronic kidney disease Anemia of iron deficiency CHF Hypertension Diabetes mellitus type 2 History of CVA Paroxysmal atrial fibrillation BPH DISCHARGE MEDICATIONS: See Medication Reconciliation list. DISCHARGE INSTRUCTIONS: Patient was discharged to the intermediate facility. Follow up with medical doctor at the facility. I have been assigned to dictate discharge summary for this account. I was not involved in the patient's management. Vi Stephenson NP Sep 17, 2018 09:02
== END 2018-09-13 19:01 | DRG 155 ==
LOC: EDBD 21:40 → EMR 22:11 → EDBEDREQ 09-09 00:11 → 2E 09-09 00:59 → EDBEDREQ 09-09 01:23
PROC: 02HV33Z Insertion of Infusion Device into Superior Vena Cava, Percutaneous Approach (ICD-10-PCS; principal; 2018-09-12)
DX: H60.392 Other infective otitis externa, left ear (principal); I13.0 Hypertensive heart and chronic kidney disease with heart failure and stage 1 through stage 4 chronic kidney disease, or unspecified chronic kidney disease; N17.9 Acute kidney failure, unspecified; N39.0 Urinary tract infection, site not specified; I69.359 Hemiplegia and hemiparesis following cerebral infarction affecting unspecified side; L03.811 Cellulitis of head [any part, except face]; N18.9 Chronic kidney disease, unspecified; I50.9 Heart failure, unspecified; H70.12 Chronic mastoiditis, left ear; D63.8 Anemia in other chronic diseases classified elsewhere; I10 Essential (primary) hypertension; N40.0 Benign prostatic hyperplasia without lower urinary tract symptoms; E11.22 Type 2 diabetes mellitus with diabetic chronic kidney disease; I48.0 Paroxysmal atrial fibrillation; I25.10 Atherosclerotic heart disease of native coronary artery without angina pectoris; J44.9 Chronic obstructive pulmonary disease, unspecified; K21.9 Gastro-esophageal reflux disease without esophagitis; Z95.1 Presence of aortocoronary bypass graft; B96.20 Unspecified Escherichia coli [E. coli] as the cause of diseases classified elsewhere; B96.1 Klebsiella pneumoniae [K. pneumoniae] as the cause of diseases classified elsewhere; I27.20 Pulmonary hypertension, unspecified
CPT/HCPCS: 36415; 36569; 70450; 70480; 70540; 71045; 76770; 76937; 80053; 80061; 81001; 82550; 82553; 82607; 82728; 82746; 82962; 83036; 83540; 83550; 83735; 83880; 84100; 84484; 85025; 87070; 87081; 87086; 87181; 87205; 93005; 93306; 94640; 94664; 96374; 99285; J1815; J7620